=== PATIENT | male | born 1935 | race African-American/Black ===

== ENCOUNTER 2016-08-03 15:27 | Inpatient (IN) | payer OTHER ==
[~2016-08-03] VITALS: Ht 165.1 cm; Wt 68.0 kg
[~2016-08-03 15:27] MED LIST: COL-RITE100 MG PO; FERROUS SULFAT325 M1 PO; HUMALOG100 U/ML; LANTUS100 U/ML SC; LEVEMIR100 U/ML SC; MIRALAX17 GM PO; NORVASC 5MG TAB5 MG PO; NOVOLOG100 U/ML SC; OMEPRAZOLE D/R20 MG PO; PROS5 PO; SENNA CON/DOCUS1 TAB PO
--- NOTE | 2016-08-03 15:38 | NUR ---
DAUGHTER BRINGS HER FATHER FOR EVALUATION FOR ELEVATED GLUCOSE LEVELS WELL BLISTERS ALL OVER HIS PERINEUM.
--- NOTE | 2016-08-03 15:52 | NUR ---
PT TO ROOM9 BY WHEELCHAIR, CHANGED INTO HOSPITAL GOWN, AWAITING PROVIDER EVAL.
--- NOTE | 2016-08-03 16:09 | ED GENERAL ADULT ---
History of Present Illness General Chief Complaint: General Adult Stated Complaint: PT BLOOD SUGAR IS HIGH AND PROBLEM WITH PENIS Source: patient, family, old records Exam Limitations: dementia, poor historian Vital Signs & Intake/Output Vital Signs & Intake/Output Vital Signs Date Time Temp Pulse Resp B/P Pulse O2 O2 Flow FiO2 Ox Delivery Rate 08/04 0638 97.9 89 20 140/70 97 Room Air 08/03 2209 97.5 79 20 152/76 92 08/03 1927 97.0 73 18 126/73 100 Room Air 08/03 1536 97.6 80 18 114/62 95 Room Air ED Intake and Output 08/04 0000 08/03 1200 Intake Total Output Total Balance Patient 67 lb 15.99 oz Weight Allergies Coded Allergies: NO KNOWN ALLERGIES (09/16/14) Reconcile Medications Atorvastatin Calcium (Lipitor) 40 MG TABLET 1 TAB PO DAILY CHOLESTEROL ( Reported) Cholecalciferol (Vitamin D3) (Vitamin D) 2,000 UNIT CAPSULE 1 CAP PO DAILY SUPPLEMENT (Reported) Clopidogrel Bisulfate (Plavix) 75 MG TABLET 1 TAB PO DAILY BLOOD THINNER ( Reported) Docusate Sodium (Colace) 100 MG CAPSULE 2 CAP PO DAILY STOOL SOFTENER ( Reported) Ferrous Sulfate 325 MG (65 MG IRON) TABLET 1 TAB PO BID SUPPLEMENT (Reported) Finasteride 5 MG TABLET 1 TAB PO DAILY PROSTATE (Reported) Insulin Detemir (Levemir Flextouch) 100 UNIT/ML (3 ML) INSULN.PEN 40 UNITS SC QHS DM (Reported) Insulin Lispro (Humalog Kwikpen U-100) 100 UNIT/ML INSULN.PEN DM (Reported) Latanoprost 0.005 % DROPS 1 GTT OPH QPM BOTH EYES (Reported) Lidocaine HCl 3 % CREAM..G. 1 PABLO TOP BID RIGHT LOWER EXTREMITY (Reported) Memantine HCl (Namenda) 10 MG TABLET 2 TAB PO QHS MEMORY (Reported) Metformin HCl 500 MG TABLET 1 TAB PO BID DM (Reported) Polyethylene Glycol 3350 (Miralax) 17 GRAM POWD.PACK 1 PAC PO DAILY GI ( Reported) dissolve in water Sodium Chloride (Sochlor) 5 % OINT...G. 1 DROP OPH QHS BOTH EYES (Reported) Tamsulosin HCl (Flomax) 0.4 MG CAP.ER.24H 1 CAP PO DAILY PROSTATE (Reported) Triage Note: DAUGHTER BRINGS HER FATHER FOR EVALUATION FOR ELEVATED GLUCOSE LEVELS WELL BLISTERS ALL OVER HIS PERINEUM. Triage Nurses Notes Reviewed? yes HPI: Patient is an 81-year-old male brought in by his daughter for evaluation of elevated blood sugars, penile pain and discharge. Daughter reports that symptoms have been going on for approximately 2 weeks. White discharge from the distal end of the penis, difficulty with retracting the foreskin. Patient having penile pain. Patient resides in a long-term in the [place], patient's daughter reports that they have not addressed these issues which prompted her to bring him to the hospital for further evaluation. The patient is a poor historian, was not able to endorse any of these symptoms or history. Daughter reports patient had a fever yesterday evening, is unsure of his temperature. Patient denies chest pain, abdominal pain, nausea, vomiting. (SANJANA SEVILLA) Past History Travel History Traveled to [place] past 21 day No Medical History Any Pertinent Medical History? 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 No (SANJANA SEVILLA) Review of Systems Review of Systems Constitutional: Reports: fever. Denies: chills. EENTM: Reports: no symptoms. Respiratory: Denies: cough, short of breath. Cardiovascular: Denies: chest pain. GI: Denies: abdominal pain, diarrhea, nausea, vomiting. Genitourinary: Reports: see HPI, discharge. Musculoskeletal: Reports: no symptoms. Skin: Reports: erythema (distal shaft of penis). Neurological/Psychological: Reports: dementia. Hematologic/Endocrine: Denies: bruising, bleeding. Immunologic/Allergic: Denies: splenectomy. (SANJANA SEVILLA) Physical Exam Physical Exam General Appearance: awake Head: atraumatic, normal appearance Eyes: Bilateral: EOMI. Ears, Nose, Throat: hearing grossly normal Neck: normal inspection, supple, full range of motion Respiratory: normal breath sounds, chest non-tender, no respiratory distress, lungs clear Cardiovascular: regular rate/rhythm, murmur Gastrointestinal: normal bowel sounds, soft, non-tender Back: normal inspection, normal range of motion Extremities: normal inspection, normal capillary refill Neurologic/Psych: awake, alert, disoriented to place and time Skin: swelling of distal foreskin of penis with white discharge from the glans of the penis. Unable to retract foreskin Lymphatic: no anterior cervical bora Core Measures ACS in differential dx? Yes ASA ordered for poss ACS? No-ACS ruled out CVA/TIA Diagnosis: No Severe Sepsis Present: No Septic Shock Present: No (PEDRO LEROY,SANJANA) Progress Differential Diagnoses I considered the following diagnoses in my evaluation of the patient: Urinary tract infection, fungal infection, DKA, hyperosmolar nonketotic state, sepsis, acute coronary syndrome Plan of Care: Orders Procedure Date/time Status Consistent Carbohydrate 3 08/04 B Active CBC WITHOUT DIFFERENTIAL 08/04 06 Active BASIC ELECTROLYTES PLUS BUN&CR 08/04 0600 Active Skin/Pressure Ulcer Assess (Sk 08/03 2324 Active Turn and Reposition 08/03 2323 Active Skin Integrity Protocol 08/03 2323 Active Vital Signs 08/03 221 Active Teach/Educate 08/03 221 Active Pain Treatment and Response 08/03 2209 Active Nutritional Intake, Monitor 08/03 2209 Active Isolation 08/03 221 Active Intake & Output 08/03 2209 Active Patient Care Conference 08/03 221 Active Activity/Ambulation 08/03 221 Active Saline Lock 08/03 2057 Active Pathway - chart 08/03 2057 Active House Staff 08/03 2057 Active Code Status 08/03 205 Active BLOOD CULTURE 08/03 1922 Active Patient Data 08/03 1915 Active LACTIC ACID 08/03 1910 Complete Admit to inpatient 08/03 1904 Active Vital Signs 08/03 1904 Active Code Status 08/03 1904 Complete Add-on Test (ER Only) 08/03 1822 Active CULTURE,URINE 08/03 1807 Active URINALYSIS 08/03 1627 Complete MIXED VENOUS BLOOD GAS (GEN) 08/03 1610 Active TROPONIN LEVEL 08/03 1610 Complete PHOSPHORUS 08/03 1610 Complete SERUM OSMOLALITY 08/03 1610 Complete MAGNESIUM 08/03 1610 Complete LACTIC ACID 08/03 1610 Complete COMPREHENSIVE METABOLIC PANEL 08/03 1610 Complete CBC WITHOUT DIFFERENTIAL 08/03 1610 Complete ACETONE 08/03 1610 Complete EKG 08/03 1610 Active FingerStick- Glucose 08/03 1558 Active Intake & Output 08/03 1555 Active Current Medications Sig/Zoe Start time Last Medication Dose Stop Time Status Admin Memantine 20 MG 22008/04 2200 AC (Namenda) Atorvastatin Calcium 40 MG 1700 08/04 1700 AC (Lipitor) Clopidogrel Bisulfate 75 MG DAILY 08/04 1000 AC (Plavix) Enoxaparin Sodium 40 MG DAILY 08/04 1000 AC (Lovenox) Ferrous Sulfate 325 MG DAILY 08/04 1000 AC (Feosol) Finasteride 5 MG DAILY 08/04 1000 AC (Proscar) Tamsulosin HCl 0.4 MG DAILY 08/04 1000 AC (Flomax) Insulin Aspart 0 TIDAC 08/04 0800 AC (NovoLOG) Docusate Sodium 100 MG BID 08/03 2200 AC (Colace) Polyethylene Glycol 17 GM AT BEDTIME 08/03 2200 AC (Miralax) Senna/Docusate Sodium 1 TAB AT BEDTIME 08/03 2200 AC (Senokot S) Acetaminophen/ 1 TAB Q6P PRN 08/03 2100 AC Hydrocodone Bitart (Vicodin) Diphenhydramine HCl 25 MG Q6P PRN 08/03 2100 AC (Benadryl) Ibuprofen 600 MG Q6P PRN 08/03 2100 AC (Motrin) Morphine Sulfate 2 MG Q4P PRN 08/03 2100 AC (Morphine) Ondansetron HCl 4 MG Q6P PRN 08/03 2100 AC (Zofran) Laboratory Tests 08/03/162126: Lactic Acid 2.7 H 08/03/161806: Urine Color STRAW, Urine Clarity HAZY H, Urine pH 6.0, Ur Specific [place] 1.010, Urine Protein NEG, Urine Ketones NEG, Urine Nitrite POS H, Urine Bilirubin NEG, Urine Urobilinogen 0.2, Ur Leukocyte Esterase SMALL H, Ur Microscopic SEDIMENT EXAMINED, Urine RBC 1-3, Urine WBC 15-25 H, Ur Epithelial Cells FEW, Urine Bacteria PACKD H, Micro UA Comment [place] H, Urine Hemoglobin TRACE-LYSED H, Urine Glucose >=1000 H 08/03/16 1640: Bicarbonate Actual 27 H, Mixed VBG pH 7.32, Mixed VBG pCO2 53 H, Mixed VBG O2 Saturation 21 L, Carboxyhemoglobin 0.3 L 08/03/16 1629: Anion Gap 13, Estimated GFR 58 L, BUN/Creatinine Ratio 20.8, Glucose 517 *H, Serum Osmolality 316 H, Lactic Acid 3.7 H, Calcium 9.8, Phosphorus 3.4, Magnesium 1.6, Total Bilirubin 0.9, AST 22, ALT 29, Alkaline Phosphatase 97, Troponin I < 0.01, Total Protein 6.9, Albumin 3.9, Globulin 3.0, Albumin/ Globulin Ratio 1.3, CBC w Diff NO MAN DIFF REQ, RBC 4.48 L, MCV 72.3 L, MCH 21.6 L, RDW 18.3 H, MPV 9.8, Gran % 71.0, Lymphocytes % 19.0 L, Monocytes % 7.8, Eosinophils % 1.5, Basophils % 0.7, Absolute Granulocytes 7.4 H, Absolute Lymphocytes 2.0, Absolute Monocytes 0.8 H, Absolute Eosinophils 0.2, Absolute Basophils 0.1, PUBS MCHC 29.9 L, Acetone Level NEGATIVE Microbiology 08/04 2139 BLOOD: Blood Culture - RECD 08/03 2126 BLOOD: Blood Culture - RECD 08/03 1806 URINE ROUT: Urine Culture - RECD Discussed with and seen by Dr. Maldonado. 1740: Results discussed with patient's daughter. Insulin ordered. Patient nontoxic appearing. Patient reevaluated, results of urinalysis discussed. Ceftriaxone ordered. Given patient's elevated blood sugar, elevated lactic acid and his comorbidities will admit. Discussed with Dr. Sparks: will admit patient. (SANJANA SEVILLA) Initial ED EKG: normal sinus rhythm 78 bpm, RBBB, LAFB, PAC's, no acute st/t wave abnormalities, no prior ekg for comparison (SANJANA SEVILLA) Departure Departure Time of Disposition: 1857 Disposition: STILL A PATIENT Condition: Stable Clinical Impression Primary Impression: Hyperglycemia Secondary Impressions: Balanitis Urinary tract infection Qualifiers: Urinary tract infection type: acute cystitis Hematuria presence: without hematuria Qualified Code: N30.00 - Acute cystitis without hematuria Referrals: PATIENT HAS NO PRIMARY CARE DR (PCP/Family) Departure Forms: Customer Survey General Discharge Information Admission Note Spoke With: ELVIS SPARKS MD Documentation of Exam: Documentation of any treatments & extenuating circumstances including Concerns Regarding Discharge (functional status, medication knowledge or non-compliance, living conditions, etc.) that warrant an admission rather than observation: IV antibiotics, endocrine consultation, urology consultation. Elevated lactic acid , need to monitor for developing sepsis. (SANJANA SEVILLA) PA/INFORMATION SECURITY CONSULTANT Co-Sign Statement Statement: ED Attending supervision documentation- [x] I saw and evaluated the patient. I have also reviewed all the pertinent lab results and diagnostic results. I agree with the findings and the plan of care as documented in the PA's/INFORMATION SECURITY CONSULTANT's documentation. [] I have reviewed the ED Record and agree with the PA's/INFORMATION SECURITY CONSULTANT's documentation. [] Additions or exceptions (if any) to the PAs/INFORMATION SECURITY CONSULTANT's note and plan are summarized below: [] (ABHISHEK SALINAS,TAMAR Palacio) Critical Care Note Critical Care Note Critical Care Time: non-applicable (SANJANA SEVILLA)
--- NOTE | 2016-08-03 16:31 | NUR ---
PT EVALUATED BY RAD VASQUEZ AND MD ABHISHEK. BLOOD DRAWN AND SENT TO [facility]. 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 EKG IN PROGRESS.
--- NOTE | 2016-08-03 16:33 | NUR ---
IV EST, NS INFUSING PER EMAR.
[2016-08-03 16:35] LABS: ABSOLUTE BASOPHIL COUNT 0.1 /CUMM (0.0-0.2); ABSOLUTE EOSINOPHIL COUNT 0.2 /CUMM (0.0-0.7); ABSOLUTE GRANULOCYTE CT 7.4 /CUMM (1.4-6.5); ABSOLUTE MONOCYTE COUNT 0.8 /CUMM (0.10-0.60); BASOPHIL % 0.7 % (0.0-2.0); EOSINOPHIL % 1.5 % (0-5); HEMATOCRIT 32.4 % (42-52); MEAN CORPUSCULAR HGB 21.6 PG (27.0-31.0); MEAN CORPUSCULAR HGB CONC 29.9 G/DL (33.0-37.0); MEAN CORPUSCULAR VOLUME 72.3 FL (80.0-94.0); MEAN PLATELET VOLUME 9.8 FL (7.4-10.4); PLATELET COUNT 209 /CUMM (130-400); RBC DISTRIBUTION WIDTH 18.3 % (11.5-14.5); RED BLOOD CELL CT 4.48 /CUMM (4.70-6.10); WHITE BLOOD CELL COUNT 10.4 /CUMM (4.8-10.8)
[2016-08-03] MEDS ORDERED: FINASTERIDE5 M1 PO (16:47)
[2016-08-03] MEDS ORDERED: METFORMIN HCL500 M3 PO (16:47)
[2016-08-03] MEDS ORDERED: FLOMAX0.4 M1 PO (16:47)
[2016-08-03] MEDS ORDERED: PLAVIX75 M1 PO (16:48)
[2016-08-03] MEDS ORDERED: FERROUS SULFAT325 M3 PO (16:48)
[2016-08-03] MEDS ORDERED: LIPITOR40 M1 PO (16:48)
[2016-08-03] MEDS ORDERED: VITAMIN D2000 UNIT PO (16:50)
[2016-08-03] MEDS ORDERED: NAMENDA10 M2 PO (16:50)
[2016-08-03] MEDS ORDERED: [UNRECOGNIZED DRUG - OTHER] OPH (16:52)
[2016-08-03] MEDS ORDERED: COLACE100 M1 PO (16:53)
[2016-08-03] MEDS ORDERED: MIRALAX17 G1 PO (16:54)
[2016-08-03] MEDS ORDERED: LATANOPROST2.5 ML OPH (16:54)
[2016-08-03] MEDS ORDERED: LIDOCAINE HC28.35 GM TOP (16:55)
[2016-08-03] MEDS ORDERED: LEVEMIR FL100 UNIT/1 SC (16:56)
[2016-08-03] MEDS ORDERED: HUMALOG KW100 UNIT/1 SC (16:57)
--- NOTE | 2016-08-03 16:58 | NUR ---
PT MEDICATED WITH DIFLUCAN PER EMAR.
--- NOTE | 2016-08-03 17:28 | NUR ---
CRITICAL TEST RESULTS [id number] EDILBERTO MARTIN 81 M TESTS AND RESULTS: GLUCOSE 517 Results received and read back by: ASHISH TIDWELL Results received date and time: 08/03/16 1728 The following provider was notified of the results, and read the results back: RAD VASQUEZ Notified date and time: 08/03/16 at 1725
--- NOTE | 2016-08-03 17:40 | NUR ---
PT MEDICATED WITH NOVOLIN R 10 UNITS PER EMAR FOR FBG 470.
--- NOTE | 2016-08-03 18:08 | NUR ---
2ND NS INFUSING PER EMAR. URINE TRIO SENT TO LAB.
--- NOTE | 2016-08-03 20:09 | NUR ---
HOUSE STAFF AT BEDSIDE
--- NOTE | 2016-08-03 20:12 | History & Physical ---
LENORA SALINASHYACINTHEdwin 08/03/16 2009: General Information and HPI MD Statement: I have seen and personally examined DRAGAN MARTIN and documented this H&P. The patient is a 81 year old M who presented with a patient stated chief complaint of [infection of penis]. Source of Information: patient, family, old records Exam Limitations: unable to give history, not alert/orientated History of Present Illness: This is an 81-year-old gentleman who is legally blind with past medical history of dementia, hypertension, hyperlipidemia, enlarged prostate with prostate nodule, frequent UTIs, who presents with CC of altered mental status. During interview pt was asleep and has baseline dementia so history is obtained from daughter [place] at bedside. Per daughter, her father normally resides in a care home in the [place] in [facility]. She went to see him this past week around , brought him back home, and noted that he was a little more altered than usual-he was talking to people not in the room. While she was taking care of routine hygiene and maintenance she noted that his penis was erythematous, and swollen. Additionally, pt complained of pain in the inguinal region. Daughter states that every time her father is altered, he is diagnosed with UTI; that in combination with erythematous penis made her bring her father to hospital.Of note, daughter states that she first noted erythematous penis in May and it seems worse now. She states that she told the care home of the problem but is not aware of any treatment administered. Patient was last in [facility] in 2014. At that time he was noted to grow ESBL (Klebsiella oxytoca) sensitive to amikacin, and meropenem. He came with similar presentation of altered mental status. At that time, he was initially treated with a dose of antibiotics and it was concluded that his urine likely represented colonization instead of infection; as such, antibiotics were stopped. He was afebrile with no white count prior to antibiotic administration. Allergies/Medications Allergies: Coded Allergies: NO KNOWN ALLERGIES (09/16/14) Home Med list Atorvastatin Calcium (Lipitor) 40 MG TABLET 1 TAB PO DAILY CHOLESTEROL ( Reported) Cholecalciferol (Vitamin D3) (Vitamin D) 2,000 UNIT CAPSULE 1 CAP PO DAILY SUPPLEMENT (Reported) Clopidogrel Bisulfate (Plavix) 75 MG TABLET 1 TAB PO DAILY BLOOD THINNER ( Reported) Docusate Sodium (Colace) 100 MG CAPSULE 2 CAP PO DAILY STOOL SOFTENER ( Reported) Ferrous Sulfate 325 MG (65 MG IRON) TABLET 1 TAB PO BID SUPPLEMENT (Reported) Finasteride 5 MG TABLET 1 TAB PO DAILY PROSTATE (Reported) Insulin Detemir (Levemir Flextouch) 100 UNIT/ML (3 ML) INSULN.PEN 40 UNITS SC QHS DM (Reported) Insulin Lispro (Humalog Kwikpen U-100) 100 UNIT/ML INSULN.PEN DM (Reported) Latanoprost 0.005 % DROPS 1 GTT OPH QPM BOTH EYES (Reported) Lidocaine HCl 3 % CREAM..G. 1 PABLO TOP BID RIGHT LOWER EXTREMITY (Reported) Memantine HCl (Namenda) 10 MG TABLET 2 TAB PO QHS MEMORY (Reported) Metformin HCl 500 MG TABLET 1 TAB PO BID DM (Reported) Polyethylene Glycol 3350 (Miralax) 17 GRAM POWD.PACK 1 PAC PO DAILY GI ( Reported) dissolve in water Sodium Chloride (Sochlor) 5 % OINT...G. 1 DROP OPH QHS BOTH EYES (Reported) Tamsulosin HCl (Flomax) 0.4 MG CAP.ER.24H 1 CAP PO DAILY PROSTATE (Reported) Compliance With Home Meds: UNKNOWN Past History Travel History Traveled to [place] past 21 day No Medical History Neurological: dementia EENT: blindness, glaucoma Cardiovascular: hypertension, hyperlipidemia Respiratory: pneumonia Gastrointestinal: umbilical hernia, ENLARGED PROSTATE Hepatic: NONE Renal: FREQUENT UTI'S Musculoskeletal: NONE Psychiatric: NONE Endocrine: diabetes Blood Disorders: anemia Cancer(s): NONE TOP KNITTER/Reproductive: NONE History of MRSA: No History of VRE: No History of CDIFF: No Pneumonia Vaccine: 03/04/14 Surgical History Surgical History: unobtainable Past Family/Social History Family History Relations & Conditions if any BROTHER FH: diabetes mellitus FH: glaucoma FH: heart disease SISTER FH: diabetes mellitus FH: glaucoma Psychosocial History Services at Home: None Smoking Status: Former Smoker ETOH Use: denies use Illicit Drug Use: denies illicit drug use Functional Ability ADLs Needs Assist: dressing, eating, toileting, bathing. IADLs Needs Assist: shopping, housework, finances, food prep, telephone, transportation, medication admin. Review of Systems Review of Systems Constitutional: Reports: malaise. Denies: chills. EENTM: Reports: no symptoms. Cardiovascular: Denies: chest pain, palpitations. Respiratory: Denies: cough, short of breath. GI: Denies: abdominal pain, constipation, diarrhea, nausea, vomiting. Genitourinary: Reports: pain. Musculoskeletal: Reports: no symptoms. Skin: Reports: no symptoms. Exam & Diagnostic Data Last 24 Hrs of Vital Signs/I&O Vital Signs Date Time Temp Pulse Resp B/P Pulse O2 O2 Flow FiO2 Ox Delivery Rate 08/03 2208 97.5 79 20 152/76 92 08/03 1927 97.0 73 18 126/73 100 Room Air 08/03 1536 97.6 80 18 114/62 95 Room Air Intake & Output 08/03 1600 08/03 0800 08/03 0000 Intake Total Output Total Balance Patient 68.039 kg Weight Physical Exam General Appearance Cooperative, No Acute Distress, oriented to name; not place or time Skin No Significant Lesion HEENT Atraumatic, has cataract bilat. , dry mucous membranes, no dentition Neck Supple Cardiovascular Regular Rate, Normal S1, Normal S2, No Murmurs Lungs Normal Air Movement Abdomen Soft, No Tenderness Neurological Cranial Nerves 3-12 NL Extremities No Clubbing, No Edema Reproductive (MALE) penis erythematous at distal end. Phimosis +; difficult to retract foreskin. No lesions noted. No discharge noted. Rectal has healed sores on glutes and coccyx Last 24 Hrs of Labs/Michael: Laboratory Tests 08/03/162126: Lactic Acid 2.7 H 08/03/161806: Urine Color STRAW, Urine Clarity HAZY H, Urine pH 6.0, Ur Specific [place] 1.010, Urine Protein NEG, Urine Ketones NEG, Urine Nitrite POS H, Urine Bilirubin NEG, Urine Urobilinogen 0.2, Ur Leukocyte Esterase SMALL H, Ur Microscopic SEDIMENT EXAMINED, Urine RBC 1-3, Urine WBC 15-25 H, Ur Epithelial Cells FEW, Urine Bacteria PACKD H, Micro UA Comment BUDDING YEAST H, Urine Hemoglobin TRACE-LYSED H, Urine Glucose >=1000 H 08/03/16 1640: Bicarbonate Actual 27 H, Mixed VBG pH 7.32, Mixed VBG pCO2 53 H, Mixed VBG O2 Saturation 21 L, Carboxyhemoglobin 0.3 L 08/03/16 1629: Anion Gap 13, Estimated GFR 58 L, BUN/Creatinine Ratio 20.8, Glucose 517 *H, Serum Osmolality 316 H, Lactic Acid 3.7 H, Calcium 9.8, Phosphorus 3.4, Magnesium 1.6, Total Bilirubin 0.9, AST 22, ALT 29, Alkaline Phosphatase 97, Troponin I < 0.01, Total Protein 6.9, Albumin 3.9, Globulin 3.0, Albumin/ Globulin Ratio 1.3, CBC w Diff NO MAN DIFF REQ, RBC 4.48 L, MCV 72.3 L, MCH 21.6 L, RDW 18.3 H, MPV 9.8, Gran % 71.0, Lymphocytes % 19.0 L, Monocytes % 7.8, Eosinophils % 1.5, Basophils % 0.7, Absolute Granulocytes 7.4 H, Absolute Lymphocytes 2.0, Absolute Monocytes 0.8 H, Absolute Eosinophils 0.2, Absolute Basophils 0.1, PUBS MCHC 29.9 L, Acetone Level NEGATIVE Microbiology 08/04 2139 BLOOD: Blood Culture - RECD 08/03 2126 BLOOD: Blood Culture - RECD 08/03 1806 URINE ROUT: Urine Culture - RECD Diagnostic Data EKG Results Rate 78, QTC 470. Normal sinus rhythm with multiple PACs. Assessment/Plan Assessment: This is a 81-year-old gentleman with past medical history significant for recurrent UTI, dementia, glaucoma, large prostate, hypertension and hyperlipidemia who comes in for chief complaint of altered mental status. He is noted to have balanitis, dirty UA, and hypoglycemia on admission. ED workup shows: Vitals: 97.0, 73, 18, 126/73, 100. UA shows: Positive nitrate, positive leukocyte esterase, 15-25 white blood cell, and packed bacteria. VB.32/53/21. CBC shows white count 10.4, hemoglobin 9.7, hematocrit 32.4. BEP shows BUN 25 and creatinine 1.2., Glucose 517, serum osmolarity 316, negative acetone. Lactic acid 3.7. Calcium, phosphorus and magnesium within normal limits. Negative troponin. Pt is a difficult stick, planned for EJ in ED. Per family, patient is DNR/DNI, no central lines. It is unclear why pt is on Plavix; no known hx of stents. Daughter would like social work consult as she does not want father to return to care home but has difficuly 2/2 insurance. Plan 1. Altered mental status: Patient does have baseline dementia, so its difficult to ascertain how altered he is compared to his baseline. He is resting comfortably. He has serum osm 316 with glucose 517, but negative acetone; on physical exam he appears dry with lactic acid 3.7. He does have UA with nitrate, leukocyte esterase, 15-25 urine WBC, but he does not have fever or white count; not currently treating UTI at this time. * Continue hydration * Hold off antibiotics; if fever or white count we'll treat with meropenem given history of ESBL * Neuro check 2. Balanitis: Patient has erythematous, swollen penis with foreskin that is difficult to retract. Her daughter he has had infection in that area since May. Unknown currently a antibiotics were administered. In ED patient was given 1 dose of Diflucan and ceftriaxone. * Start topical miconazole, consider more aggressive antibiotic therapy if swelling and erythema does not improve. 3. Mild acidosis: His VBG shows pH 7.32, PCO2 53, suggesting hypercarbia; but given its a VBG we cannot accurately assess degree of hypercarbia. He is satting well on room air. Likely, acidosis secondary to lactic acid (3.7). Note pt also has hyperkalemia * Hydration * If patient becomes further altered or lethargic consider ABG. * Re-check BEP for hyperkalemia 4. Diabetes: Patient comes in with hyperglycemia of 517, subsequent blood sugar at 345 after 10 units of insulin. Patient is on oral and subcutaneous regimen at home. * Hold metformin * Fingersticks * NovoLog sliding scale DNR/DNI Regular diet Chemical DVT prophylaxis As Ranked By This Provider Problem List: 1. Balanitis 2. Hyperglycemia Core Measures/Miscellaneous Acute Coronary Syndrome ACS Diagnosis: No Cerebrovascular Accident CVA/TIA Diagnosis: No Congestive Heart Failure CHF Diagnosis: No Venous Thromboembolism VTE Risk Factors: Age > 40 No [facility] VTE prophylaxis d/t: No contraindications No VTE Pharm Prophylaxis d/t: No contraindications VTE Diagnosis: No VTE Type: NONE VTE Confirmed by (Test): NONE Severe Sepsis Severe Sepsis Present: No Septic Shock Septic Shock Present: No Miscellaneous Documentation Attending Case Discussed With: BRIDGER SALINAS,DIMITRISEdwin Primary Care Physician: PATIENT HAS NO PRIMARY CARE DR Patient sees these Specialists unknown Level of Patient Care: General Medicine TAMIE SALINAS,MUSA 08/03/162136: Resident Review Statement Resident Statement: examined this patient, discussed with software development intern, agreed with software development intern, discussed with family, reviewed EMR data (avail), discussed with nursing , discussed with case mgmt, reviewed images, amended to note Other Findings: Dragan is an 81-year-old man with medical history of hypertension dyslipidemia benign prostatic hyperplasia, recurrent UTIs (previously has grown ESBL positive Klebsiella) glaucoma/legally blind, type 2 diabetes, iron deficiency anemia, history of pneumonia in the past, chronic constipation, hospitalization in September [address] [facility] with biliary may Hyperkalemia, dementia. Brought in by his daughter due to lethargy, with complaints of penile pain white discharge pre -meal blisters in various stages of healing. At baseline the patient is a poor historian, but is awake, alert and oriented to self. Lives in a facility in the [place]. Limited collateral history obtained from his daughter who is his medical proxy and power of employee benefits attorney. She does not endorse that the patient appears any fevers chills chest pain chest discomfort shortness of breath or any other symptoms in the above after review in detail . Vital signs are stable. Physical examination notable for bilateral cataracts, severe balanitis with phimosis (but able to pass urine), erythematous skin changes around the glans penis and scrotum as well as the premium. Remainder physical examination is unremarkable and noted above. Labs notable for hemoglobin 9.7; potassium of 5.2, blood sugar 517, lactic acid 3.7 first set of troponin negative. Acetone negative. Urinalysis notable for positive esterase 25 WBCs and packed bacteria. EKG notable for multiple PACs and right bundle branch block; no previous EKGs available for comparison. This patient is suffering from severe balanitis complicated by phimosis. Urinalysis suggested concurrent urinary tract infection, however he does not have any urinary symptoms. He hasn't mounted a fever, no white count. Lactic acid is likely due to severe dehydration, the patient appears clinically "dry". Reviewing his medications the patient is on Plavix, with no documented cardiovascular disease or history of myocardial infarction. His daughter is adamant that her father has not experienced heart attack in the past, nor undergone cardiac catheterization. There is no scarring on the chest wall suggestive of CABG in the past. - Problems - Balanitis Phimosis ? UTI Hx of ESBL+ K. oxytoca Hyperglycemia w/o ketosis Type 2 diabetes Lactic acidosis Dehydration Dementia - Plan - Hydration with normal saline at [address] EJ line for blood draw (hardstick) Topical miconazole applied to the glans penis every 12 hours Hold antibiotics for now, however should the patient spiked a fever develops systemic signs of infection/sepsis begin treatment with meropenem. Urology consultation Discontinue metformin Continue Levemir 40 units at bedtime NovoLog sliding scale Accu-Cheks 3 times a day before meals Continue Flomax and finasteride, Namenda Continue Plavix, obtain records from facility in the [place] and establish whether there is hx of CAD or not DVT prophylaxis Lovenox DNR/DNI, no invasive central line catheters/pressors BRIDGER SALINAS, [facility] 08/03/168: Attending MD Review Statement Attending Statement Attending MD Statement: examined this patient, discuss w/resident/PA/CERTIFIED REGISTERED DENTAL ASSISTANT, agreed w/resident/PA/CERTIFIED REGISTERED DENTAL ASSISTANT, discussed with family Attending Assessment/Plan: 81 yo M with h/o dementia, legally blind, HTN, HLD, T2DM, CKD stage 3A, BPH s/p TURP (Apr 2014), chronic DOUG, is brought in by daughter for high blood sugars, lethargy and penile pain/ discharge. History as provided by daughter. Patient lives at [facility] at [place], [place] since August 2015. Daughter visits him over holidays and this time brought him home for the weekend. Around early May 2016, daughter had noticed similar penile discharge and swelling which she reported to the RN at the facility, however nothing was done for the patient. Patient was last admitted to [facility] (September 2014) for dehydration, CATINA and hyperkalemia. He was suspected to have a UTI (Urine cx grew Klebsiella Oxytoca ESBL) but was believed to be a colonization. Daughter reports a fever of 100.2 at home, no cough, chest pain, dyspnea, nausea , vomiting or diarrhea. Patient does have urinary urgency, polyuria and polyphagia. VSS. Exam: awake, alert, oriented to person only, noted penile swelling with erythema around scrotum/ glans penis and blisters noted to perineal area balanoposthitis wit phimosis. Labs: H/H 9.7/ 32.4 (baseline), microcytic anemia, K 5.2, BUN 25, creat 1.2, glucose 517, S. Osm 316, lactic acid 3.7, trop neg. ABG: pH 7.32. Acetone neg. UA nitrite positive, small LE, WBC 15-25, packed bacteria and budding yeast. EKG: SR, no acute changes. 1. Dehydration, lactic acidosis, balanoposthitis with possible UTI although no dysuria, hematuria or frequency. GM admit, panculture, IV fluids, trend renal functions and lactic acid. Send urethral discharge for culture. Patient received fluconazole 150 mg once and IV ceftriaxone in ER. Will continue topical miconazole for candidial balanoposthitis. Holding off on IV antibiotics since asymptomatic bacteriuria with no fever or leukocytosis. Consider initiating IV meropenem (given previous ESBL klebsiella) if he is febrile or is symptomatic. Obtain Urology consult in AM. Continue flomax and proscar. 2. Uncontrolled diabetes. Accucheks, check A1c, continue levemir and Novolog SS. Hold metformin. 3. Chronic DOUG. Ct. Iron supplements. 4. Dementia. Ct. Memantine. PT eval and case management consult. Daughter states , patient's insurance [facility], but does not cover charges for state [facility]. She wishes to keep him home, but would like to see if he could be placed in [place] (as [place]). 5. Hyperkalemia in the setting of CKD. Hydrate and recheck labs in AM. DVT ppx Hep SC. DNR/I. Unclear as to why the patient is on Plavix ?no h/o CAD or PAD.
--- NOTE | 2016-08-03 20:48 | NUR ---
REPORT GIVEN TO GISELA COOK
--- NOTE | 2016-08-03 21:14 | Admission Certification ---
Admission Certification Certification Statement - As attending physician, I certify that at the time of - admission, based on clinical presentation, severity of - symptoms, need for further diagnostic testing and - therapeutic interventions, and risk of adverse outcomes - without in-hospital treatment, in my clinical assessment, - this patient requires an acute hospital stay for a minimum - of two nights or longer. I have also considered psychsocial - factors such as support system, advanced age, financial - issues, cognitive issues, and failed out-patient treatments, - past re-admission history, safety of patient, and lack of - compliance as applicable. Specific rationale supporting this admission is: Balanoposthitis, possible UTI, dehydration, physical deconditioning and uncontrolled diabetes.
--- NOTE | 2016-08-03 21:34 | NUR ---
PT MEDICATED WITH ROCEPHIN PER EMAR
--- NOTE | 2016-08-03 21:34 | NUR ---
REPEAT LACTIC AND BLOOD CULTURES DONE AND SENT TO LAB
--- NOTE | 2016-08-03 21:45 | NUR ---
NURSING NOTE: PT ARRIVED TO FLOOR FROM ED BY BED. VSS: BP 152/76, HR 79, TEMP 97.5, RR 20 AND O2 92% ON ROOM AIR. PT OFFERING NO COMPLAINTS OF PAIN. PT IS ALERT/CONFUSED, HX DEMENTIA, PT IS LEGALLY BLIND IN BOTH EYES. IV FLUIDS RUNNING @ 100 ML/HR, SKIN INTACT BUT SWELLING NOTED TO SCROTUM AND PERINEAL AREA W/ BLISTERS NOTED TO PERINEAL AREA. WCE IN PLACE. DAUGHTER AT BEDSIDE. PT SHOWN HOW TO USE CALL [facility]. [employer] INSTALLER NOTIFIED TO BRING BOX LUNCH FOR PT AND FAMILY. AWAIT FURTHER ORDERS FROM MD. WILL CONTINUE TO MONITOR.
[2016-08-03 22:09] VITALS: BP 152/76
[2016-08-04 06:38] VITALS: BP 140/70
--- NOTE | 2016-08-04 08:14 | Cons- Urology ---
General Information and HPI Consulting Request Date of Consult: 08/04/16 Requested By: Medical service, BRIDGER SALINAS,ELVIS Reason for Consult: phimosis and balanitis Source of Information: family, old records Exam Limitations: no limitations History of Present Illness: This patient has a hx of DM which is not well controlled. He was brought to the ER by his daughter due to penile swelling. In the ER his glucose was 515. His U/A is c/w UTI but may be contaminated due to the phimosis. Of note, he had a TURP at a hospital in [place] in 2013. Allergies/Medications Allergies: Coded Allergies: NO KNOWN ALLERGIES (09/16/14) Home Med List: Atorvastatin Calcium (Lipitor) 40 MG TABLET 1 TAB PO DAILY CHOLESTEROL ( Reported) Cholecalciferol (Vitamin D3) (Vitamin D) 2,000 UNIT CAPSULE 1 CAP PO DAILY SUPPLEMENT (Reported) Clopidogrel Bisulfate (Plavix) 75 MG TABLET 1 TAB PO DAILY BLOOD THINNER ( Reported) Docusate Sodium (Colace) 100 MG CAPSULE 2 CAP PO DAILY STOOL SOFTENER ( Reported) Ferrous Sulfate 325 MG (65 MG IRON) TABLET 1 TAB PO BID SUPPLEMENT (Reported) Finasteride 5 MG TABLET 1 TAB PO DAILY PROSTATE (Reported) Insulin Detemir (Levemir Flextouch) 100 UNIT/ML (3 ML) INSULN.PEN 40 UNITS SC QHS DM (Reported) Insulin Lispro (Humalog Kwikpen U-100) 100 UNIT/ML INSULN.PEN DM (Reported) Latanoprost 0.005 % DROPS 1 GTT OPH QPM BOTH EYES (Reported) Lidocaine HCl 3 % CREAM..G. 1 PABLO TOP BID RIGHT LOWER EXTREMITY (Reported) Memantine HCl (Namenda) 10 MG TABLET 2 TAB PO QHS MEMORY (Reported) Metformin HCl 500 MG TABLET 1 TAB PO BID DM (Reported) Polyethylene Glycol 3350 (Miralax) 17 GRAM POWD.PACK 1 PAC PO DAILY GI ( Reported) dissolve in water Sodium Chloride (Sochlor) 5 % OINT...G. 1 DROP OPH QHS BOTH EYES (Reported) Tamsulosin HCl (Flomax) 0.4 MG CAP.ER.24H 1 CAP PO DAILY PROSTATE (Reported) Current Medications: Current Medications Sig/Zoe Start time Last Medication Dose Route Stop Time Status Admin Acetaminophen/ 1 TAB Q6P PRN 08/03 2100 AC Hydrocodone Bitart PO Atorvastatin Calcium 40 MG 1700 08/04 1700 AC PO Ceftriaxone Sodium 0 .STK-MED ONE 08/03 2133 DC .ROUTE Ceftriaxone Sodium 1,000 MG ONCE ONE 08/03 1900 DC 08/03 IV 08/03 1901 2135 Clopidogrel Bisulfate 75 MG DAILY 08/04 1000 AC PO Diphenhydramine HCl 25 MG Q6P PRN 08/03 2100 AC IV Docusate Sodium 100 MG BID 08/03 2200 AC PO Enoxaparin Sodium 40 MG DAILY 08/04 1000 AC SC Ferrous Sulfate 325 MG DAILY 08/04 1000 AC PO Finasteride 5 MG DAILY 08/04 1000 AC PO Fluconazole 150 MG ONCE ONE 08/03 1645 DC 08/03 PO 08/03 1646 1658 Ibuprofen 600 MG Q6P PRN 08/03 2100 AC PO Insulin Aspart 0 TIDAC 08/04 0800 AC 08/04 SC 0756 Insulin Human Regular 10 UNITS ONCE ONE 08/03 1730 DC 08/03 SC 08/03 1731 1740 Latanoprost 1 GTT QPM 08/03 2200 AC 08/04 OPH 0057 Lidocaine 2 ML ONCE ONE 08/03 2315 DC 08/03 SC 08/03 2316 2315 Lidocaine 0 .STK-MED ONE 08/03 2110 DC .ROUTE Loperamide HCl 2 MG ONE ONE 08/03 2014 DC PO 08/03 2016 Memantine 20 MG 2200 08/04 2200 AC PO Miconazole Nitrate 1 PABLO Q12 08/04 0030 AC 08/04 VAG 0058 Morphine Sulfate 2 MG Q4P PRN 08/03 2100 AC IV Ondansetron HCl 4 MG Q6P PRN 08/03 2100 AC IV Patient Medication 1 UNIT ONE NR 08/03 2115 DC Teaching ED 08/03 2130 Polyethylene Glycol 17 GM AT BEDTIME 08/03 2200 AC PO Senna/Docusate Sodium 1 TAB AT BEDTIME 08/03 2200 AC PO Sodium Chloride 1,000 ML Q10H 08/03 2145 AC 08/04 IV 0059 Sodium Chloride 1,000 ML ONCE ONE 08/03 1800 DC 08/03 IV 08/03 1959 1801 Sodium Chloride 1,000 ML BOLUS ONE 08/03 1630 DC 08/03 IV 08/03 1729 1633 Tamsulosin HCl 0.4 MG DAILY 08/04 1000 AC PO Past History Medical History Blood Transfusion Hx: No Neurological: dementia EENT: blindness, glaucoma Cardiovascular: hypertension, hyperlipidemia Respiratory: pneumonia Gastrointestinal: umbilical hernia, ENLARGED PROSTATE Hepatic: NONE Renal: FREQUENT UTI'S Musculoskeletal: NONE Psychiatric: NONE Endocrine: diabetes Blood Disorders: anemia Cancer(s): NONE 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 IADLs Needs Assist: shopping, housework, finances, food prep, telephone, transportation, medication admin. Exam & Diagnostic Data Vital Signs and I&O Vital Signs Date Time Temp Pulse Resp B/P Pulse O2 O2 Flow FiO2 Ox Delivery Rate 08/04 0638 97.9 89 20 140/70 97 Room Air 08/03 2209 97.5 79 20 152/76 92 08/03 1927 97.0 73 18 126/73 100 Room Air 08/03 1536 97.6 80 18 114/62 95 Room Air Intake & Output 08/04 1600 08/04 0800 08/04 0000 08/03 1600 08/03 0800 08/03 0000 Intake Total 800 Output Total 200 Balance 600 Intake, IV 800 Output, Urine 200 Patient 67 lb 15.99 oz 150 lb Weight No acute distress Back: No CVA tenderness Abd: Soft and non tender Genitalia: Uncircumcized penis with phimosis. Unable to retract foreskin. Minimal discharge from under foreskin. Mild edema and erythema of penile skin. Scrotum normal. No sign of albino's gangrene Assessment/Plan Assessment/Plan Imp: 1. Phimosis and balanitis. Poor control of DM is definite risk factor 2. Hx of TURP Plan: 1. Would continue fluconazole for 5 days 2. Strict control of DM 3. May benefit from doral slit circumcision once DM is under control and penile edema resolves 4. Will follow and determine if this should be done on this admission. Ideally would be off plavix for this Consult Acknowledgment - Thank you for your consult request.
[2016-08-04 10:19] LABS: ABSOLUTE BASOPHIL COUNT 0.1 /CUMM (0.0-0.2); ABSOLUTE EOSINOPHIL COUNT 0.2 /CUMM (0.0-0.7); ABSOLUTE GRANULOCYTE CT 4.7 /CUMM (1.4-6.5); ABSOLUTE MONOCYTE COUNT 0.6 /CUMM (0.10-0.60)
[2016-08-04 10:21] LABS: ABSOLUTE LYMPH COUNT 2.1 /CUMM (1.2-3.4); BASOPHIL % 0.7 % (0.0-2.0); EOSINOPHIL % 3.2 % (0-5); GRANULOCYTE % 60.7 % (42.2-75.2); HEMATOCRIT 27.6 % (42-52); MEAN CORPUSCULAR HGB CONC 30.3 G/DL (33.0-37.0); MEAN CORPUSCULAR VOLUME 72.8 FL (80.0-94.0); MEAN PLATELET VOLUME 9.5 FL (7.4-10.4); PLATELET COUNT 193 /CUMM (130-400); RBC DISTRIBUTION WIDTH 18.2 % (11.5-14.5); RED BLOOD CELL CT 3.79 /CUMM (4.70-6.10); WHITE BLOOD CELL COUNT 7.8 /CUMM (4.8-10.8)
--- NOTE | 2016-08-04 12:31 | PN- Att Addend ---
Attending Addendum Attending Brief Note Patient seen and examined. Plan of care discussed with the medical team and the patient. Available lab work and radiology test reports were reviewed. Patient is blind. He appears comfortable and denies any pain in the abdomen or fever or chills. He appears comfortable at rest. Vital Signs Date Time Temp Pulse Resp B/P Pulse O2 O2 Flow FiO2 Ox Delivery Rate 08/04 1040 89 140/70 08/04 0638 97.9 89 20 140/70 97 Room Air 08/03 2209 97.5 79 20 152/76 92 08/03 1927 97.0 73 18 126/73 100 Room Air 08/03 1536 97.6 80 18 114/62 95 Room Air Intake & Output 08/04 1600 08/04 0800 08/04 0000 Intake Total 800 Output Total 200 Balance 600 Intake, IV 800 Output, Urine 200 Patient 67 lb 15.99 oz Weight Exam: General: Patient awake alert oriented without any distress CVS: S1 plus S2 without any murmur or gallops Chest: Few scattered crepitation without any wheeze. There is no respiratory distress. Abdomen: Soft nontender, bowel sound present, no guarding or rebound CAFE ASSOCIATE: Awake alert oriented without any focal neuro deficit and follows command appropriately Extremities: No edema; no clubbing or cyanosis noted Genitalia- patient is evidence of balanitis and phimosis Laboratory Tests 08/04 08/04 08/03 0920 0920 2127 Chemistry Sodium (137 - 145 mmol/L) 138 Potassium (3.5 - 5.1 mmol/L) 4.2 Chloride (98 - 107 mmol/L) 105 Carbon Dioxide (22 - 30 mmol/L) 23 Anion Gap (5 - 16) 9 BUN (9 - 20 mg/dL) 17 Creatinine (0.7 - 1.2 mg/dL) 1.0 Estimated GFR (>60 ml/min) > 60 BUN/Creatinine Ratio (7 - 25 %) 17.0 Lactic Acid (0.7 - 2.1 mmol/L) 2.9 H 2.7 H Hematology CBC w Diff NO MAN DIFF REQ WBC (4.8 - 10.8 /CUMM) 7.8 RBC (4.70 - 6.10 /CUMM) 3.79 L Hgb (14.0 - 18.0 G/DL) 8.4 L Hct (42 - 52 %) 27.6 L MCV (80.0 - 94.0 FL) 72.8 L MCH (27.0 - 31.0 PG) 22.0 L RDW (11.5 - 14.5 %) 18.2 H Plt Count (130 - 400 /CUMM) 193 MPV (7.4 - 10.4 FL) 9.5 Gran % (42.2 - 75.2 %) 60.7 Lymphocytes % (20.5 - 51.1 %) 27.3 Monocytes % (1.7 - 9.3 %) 8.1 Eosinophils % (0 - 5 %) 3.2 Basophils % (0.0 - 2.0 %) 0.7 Absolute Granulocytes (1.4 - 6.5 /CUMM) 4.7 Absolute Lymphocytes (1.2 - 3.4 /CUMM) 2.1 Absolute Monocytes (0.10 - 0.60 /CUMM) 0.6 Absolute Eosinophils (0.0 - 0.7 /CUMM) 0.2 Absolute Basophils (0.0 - 0.2 /CUMM) 0.1 PUBS MCHC (33.0 - 37.0 G/DL) 30.3 L 18 08/03 1807 1640 Blood Gas Bicarbonate Actual (22 - 26 MEQ/L) 27 H Mixed VBG pH (7.31 - 7.41 PH) 7.32 Mixed VBG pCO2 (41 - 51 TORR) 53 H Mixed VBG O2 Saturation (35 - 45 TORR) 21 L Carboxyhemoglobin (1.5 - 5.0 %) 0.3 L Urines Urine Color (YEL,AMB,STR) STRAW Urine Clarity (CLEAR) HAZY H Urine pH (5.0 - 8.0) 6.0 Ur Specific [place] (1.001 - 1.035) 1.010 Urine Protein (NEG,<30 MG/DL) NEG Urine Ketones (NEG) NEG Urine Nitrite (NEG) POS H Urine Bilirubin (NEG) NEG Urine Urobilinogen (0.1 - 1.0 EU/dl) 0.2 Ur Leukocyte Esterase (NEG) SMALL H Ur Microscopic SEDIMENT EXAMINED Urine RBC (0 - 5 /HPF) 1-3 Urine WBC (0 - 2 /HPF) 15-25 H Ur Epithelial Cells (NONE,FEW) FEW Urine Bacteria (NEG/NONE) PACKD H Micro UA Comment BUDDING YEAST H Urine Hemoglobin (NEG) TRACE-LYSED H Urine Glucose (N MG/DL) >=1000 H 08/03 1629 Chemistry Sodium (137 - 145 mmol/L) 136 L Potassium (3.5 - 5.1 mmol/L) 5.2 H Chloride (98 - 107 mmol/L) 97 L Carbon Dioxide (22 - 30 mmol/L) 26 Anion Gap (5 - 16) 13 BUN (9 - 20 mg/dL) 25 H Creatinine (0.7 - 1.2 mg/dL) 1.2 Estimated GFR (>60 ml/min) 58 L BUN/Creatinine Ratio (7 - 25 %) 20.8 Glucose (65 - 99 mg/dL) 517 *H Serum Osmolality (285 - 295 MOSM/KG) 316 H Lactic Acid (0.7 - 2.1 mmol/L) 3.7 H Calcium (8.4 - 10.2 mg/dL) 9.8 Phosphorus (2.5 - 4.5 mg/dL) 3.4 Magnesium (1.6 - 2.3 mg/dL) 1.6 Total Bilirubin (0.2 - 1.3 mg/dL) 0.9 AST (17 - 59 U/L) 22 ALT (21 - 72 U/L) 29 Alkaline Phosphatase (< 127 U/L) 97 Troponin I (<0.11 ng/ml) < 0.01 Total Protein (6.3 - 8.2 g/dL) 6.9 Albumin (3.5 - 5.0 g/dL) 3.9 Globulin (1.9 - 4.2 gm/dL) 3.0 Albumin/Globulin Ratio (1.1 - 2.2 %) 1.3 Hematology CBC w Diff NO MAN DIFF REQ WBC (4.8 - 10.8 /CUMM) 10.4 RBC (4.70 - 6.10 /CUMM) 4.48 L Hgb (14.0 - 18.0 G/DL) 9.7 L Hct (42 - 52 %) 32.4 L MCV (80.0 - 94.0 FL) 72.3 L MCH (27.0 - 31.0 PG) 21.6 L RDW (11.5 - 14.5 %) 18.3 H Plt Count (130 - 400 /CUMM) 209 MPV (7.4 - 10.4 FL) 9.8 Gran % (42.2 - 75.2 %) 71.0 Lymphocytes % (20.5 - 51.1 %) 19.0 L Monocytes % (1.7 - 9.3 %) 7.8 Eosinophils % (0 - 5 %) 1.5 Basophils % (0.0 - 2.0 %) 0.7 Absolute Granulocytes (1.4 - 6.5 /CUMM) 7.4 H Absolute Lymphocytes (1.2 - 3.4 /CUMM) 2.0 Absolute Monocytes (0.10 - 0.60 /CUMM) 0.8 H Absolute Eosinophils (0.0 - 0.7 /CUMM) 0.2 Absolute Basophils (0.0 - 0.2 /CUMM) 0.1 PUBS MCHC (33.0 - 37.0 G/DL) 29.9 L Toxicology Acetone Level (NEGATIVE) NEGATIVE Microbiology Date/Time Procedure - Status Source Growth 08/04 2139 Blood Culture - RECD BLOOD 08/03 2126 Blood Culture - RECD BLOOD 08/03 1806 Urine Culture - RES URINE ROUT GRAM NEGATIVE RODS Assessment Balanitis Phimosis Hyperglycemia w/o ketosis Type 2 diabetes Lactic acidosis Dehydration Dementia Plan * Patient has been seen by urology. Plan is for near future circumcision. At this point we'll continue miconazole topical. In addition give 1 dose of fluconazole oral 150 mg by mouth today. * I will stop Plavix in anticipation of surgery * Continue other medications. * At some like the patient has UTI, he likely has asymptomatic bacteriuria which would not be treated. * Please continue to apply miconazole locally. Add clindamycin topical application twice a day. * Agree with resuming Levemir. Continue to monitor blood sugars
--- NOTE | 2016-08-04 12:47 | PN- Housestaff ---
Subjective Follow-up For: AMS, Balanitis/phimosis, poorly controlled DM, mild acidosis Complaints: no complaints Subjective: Doing a lot better today, sitting up in bed, no penile pain Review of Systems Constitutional: Reports: no symptoms. Objective Last 24 Hrs of Vital Signs/I&O Vital Signs Date Time Temp Pulse Resp B/P Pulse O2 O2 Flow FiO2 Ox Delivery Rate 08/04 1502 97.8 81 20 102/60 97 Room Air 08/04 1040 89 140/70 08/04 0638 97.9 89 20 140/70 97 Room Air 08/03 2209 97.5 79 20 152/76 92 08/03 1927 97.0 73 18 126/73 100 Room Air Intake & Output 08/04 1600 08/04 0800 08/04 0000 Intake Total 1250 800 Output Total 100 200 Balance 1150 600 Intake, IV 800 800 Intake, Oral 450 Number 1 Bowel Movements Output, Urine 100 200 Patient 67 lb 15.99 oz Weight Physical Exam General Appearance: Alert, Oriented X3, Cooperative, No Acute Distress HEENT: Mucous Membr. moist/pink, legally blind Cardiovascular: Regular Rate, Normal S1, Normal S2 Lungs: Clear to Auscultation, Normal Air Movement Abdomen: Normal Bowel Sounds, Soft, No Tenderness Extremities: No Edema, Normal Pulses Current Medications: Current Medications Sig/Zoe Start time Last Medication Dose Route Stop Time Status Admin Acetaminophen/ 1 TAB Q6P PRN 08/03 2100 AC Hydrocodone Bitart PO Atorvastatin Calcium 40 MG 1700 08/04 1700 AC PO Ceftriaxone Sodium 0 .STK-MED ONE 08/03 2133 DC .ROUTE Ceftriaxone Sodium 1,000 MG ONCE ONE 08/03 1900 DC 08/03 IV 08/03 190 2135 Clindamycin Phosphate 1 PABLO BID 08/04 1400 AC 08/04 EXT 1551 Clopidogrel Bisulfate 75 MG DAILY 08/04 1000 DC 08/04 PO 1040 Diphenhydramine HCl 25 MG Q6P PRN 08/03 2100 AC IV Docusate Sodium 100 MG BID 08/03 2200 AC PO Enoxaparin Sodium 40 MG DAILY 08/04 1000 AC 08/04 SC 1041 Ferrous Sulfate 325 MG DAILY 08/04 1000 AC 08/04 PO 1039 Finasteride 5 MG DAILY 08/04 1000 AC 08/04 PO 1040 Fluconazole 150 MG ONCE ONE 08/04 1400 DC 08/04 PO 08/04 1401 1551 Fluconazole 150 MG ONCE ONE 08/03 1645 DC 08/03 PO 08/03 1646 1658 Ibuprofen 600 MG Q6P PRN 08/03 2100 AC PO Insulin Aspart 0 TIDAC 08/04 1200 r 08/04 SC 1140 Insulin Aspart 0 TIDAC 08/04 0800 DC 08/04 SC 0756 Insulin Detemir 20 UNITS BID 08/04 1057 AC 08/04 SC 1139 Insulin Human Regular 10 UNITS ONCE ONE 08/03 1730 DC 08/03 SC 08/03 1731 1740 Latanoprost 1 GTT QPM 08/03 2200 AC 08/04 OPH 0057 Lidocaine 2 ML ONCE ONE 08/03 2315 DC 08/03 SC 08/03 2316 2315 Lidocaine 0 .STK-MED ONE 08/03 211 DC .ROUTE Loperamide HCl 2 MG ONE ONE 08/03 2014 DC PO 08/03 2016 Memantine 20 MG 2200 08/04 2200 AC PO Miconazole Nitrate 1 PABLO Q12 08/04 0030 AC 08/04 VAG 1040 Morphine Sulfate 2 MG Q4P PRN 08/03 2100 AC IV Ondansetron HCl 4 MG Q6P PRN 08/03 2100 AC IV Patient Medication 1 UNIT ONE NR 08/03 2115 DC Teaching ED 08/03 2130 Polyethylene Glycol 17 GM AT BEDTIME 08/03 2200 AC PO Senna/Docusate Sodium 1 TAB AT BEDTIME 08/03 2200 AC PO Sodium Chloride 1,000 ML Q10H 08/03 2145 AC 08/04 IV 1140 Sodium Chloride 1,000 ML ONCE ONE 08/03 1800 DC 08/03 IV 08/03 1959 1801 Sodium Chloride 1,000 ML BOLUS ONE 08/03 1630 DC 08/03 IV 08/03 1729 1633 Tamsulosin HCl 0.4 MG DAILY 08/04 1000 AC 08/04 PO 1040 Last 24 Hrs of Lab/Michael Results Last 24 Hrs of Labs/Mics: Laboratory Tests 08/04/16 1305: Lactic Acid 2.0 08/04/16 0920: Lactic Acid 2.9 H 08/04/16 0920: Anion Gap 9, Estimated GFR > 60, BUN/Creatinine Ratio 17.0, CBC w Diff NO MAN DIFF REQ, RBC 3.79 L, MCV 72.8 L, MCH 22.0 L, RDW 18.2 H, MPV 9.5, Gran % 60.7, Lymphocytes % 27.3, Monocytes % 8.1, Eosinophils % 3.2, Basophils % 0.7, Absolute Granulocytes 4.7, Absolute Lymphocytes 2.1, Absolute Monocytes 0.6, Absolute Eosinophils 0.2, Absolute Basophils 0.1, PUBS MCHC 30.3 L 08/03/162126: Lactic Acid 2.7 H 08/03/161806: Urine Color STRAW, Urine Clarity HAZY H, Urine pH 6.0, Ur Specific [place] 1.010, Urine Protein NEG, Urine Ketones NEG, Urine Nitrite POS H, Urine Bilirubin NEG, Urine Urobilinogen 0.2, Ur Leukocyte Esterase SMALL H, Ur Microscopic SEDIMENT EXAMINED, Urine RBC 1-3, Urine WBC 15-25 H, Ur Epithelial Cells FEW, Urine Bacteria PACKD H, Micro UA Comment BUDDING YEAST H, Urine Hemoglobin TRACE-LYSED H, Urine Glucose >=1000 H 08/03/16 1640: Bicarbonate Actual 27 H, Mixed VBG pH 7.32, Mixed VBG pCO2 53 H, Mixed VBG O2 Saturation 21 L, Carboxyhemoglobin 0.3 L 08/03/16 1629: Anion Gap 13, Estimated GFR 58 L, BUN/Creatinine Ratio 20.8, Glucose 517 *H, Serum Osmolality 316 H, Lactic Acid 3.7 H, Calcium 9.8, Phosphorus 3.4, Magnesium 1.6, Total Bilirubin 0.9, AST 22, ALT 29, Alkaline Phosphatase 97, Troponin I < 0.01, Total Protein 6.9, Albumin 3.9, Globulin 3.0, Albumin/ Globulin Ratio 1.3, CBC w Diff NO MAN DIFF REQ, RBC 4.48 L, MCV 72.3 L, MCH 21.6 L, RDW 18.3 H, MPV 9.8, Gran % 71.0, Lymphocytes % 19.0 L, Monocytes % 7.8, Eosinophils % 1.5, Basophils % 0.7, Absolute Granulocytes 7.4 H, Absolute Lymphocytes 2.0, Absolute Monocytes 0.8 H, Absolute Eosinophils 0.2, Absolute Basophils 0.1, PUBS MCHC 29.9 L, Acetone Level NEGATIVE Microbiology 08/04 2139 BLOOD: Blood Culture - RES 08/03 2126 BLOOD: Blood Culture - RES 08/03 1806 URINE ROUT: Urine Culture - RES GRAM NEGATIVE RODS Lines/Diet/Fluids Lines: peripheral lines Assessment/Plan Assessment: 81 yo M with h/o dementia, legally blind, HTN, HLD, T2DM, CKD stage 3A, BPH s/p TURP (Apr 2014), chronic DOUG, is brought in by daughter for high blood sugars, lethargy and penile pain/ discharge. - Problems - Balanitis Phimosis Asymptomatic bacteriuria Poorly controlled DM Plan Improve BG control with Insulin SS, Levemir added Recieved a one time dose of fluconazole 150mg po today Continue topical miconazole cream Clindamycin gel added Hold off antibiotics for now; watch for fevers and WBC Continue Pain control with morphine Continue his other impt home medications Problem List: 1. Balanitis Pain Ratin Pain Location: penile area Pain Goal: Remain pain free Pain Plan: continue morphine Tomorrow's Labs & Rationales: cbc
[2016-08-04 15:02] VITALS: BP 102/60
--- NOTE | 2016-08-04 18:22 | NUR ---
LATE ENTRY: PT'S FINGERSTICK AT 1640 WAS 62. PT GIVEN JUICE AND COMPLEX CARB. DR. DAMON NOTIFIED WHO WAS UP TO SEE PT AT THIS TIME. RECHECK OF PT'S SUGAR AT APPROX 1815- 136. NOV SS COVERAGE HELD PER MD ORDERS. SNO. PT REMAINS IN NO DISTRESS. WILL CONT TO MONITOR.
[2016-08-04 22:01] VITALS: BP 96/68
[2016-08-05 07:13] VITALS: BP 122/64
--- NOTE | 2016-08-05 07:34 | PN- Housestaff ---
MARTITA SALINAS,[facility] 08/05/16 0734: Subjective Follow-up For: AMS Balanitis/phimosis Diabetes mellitus Patient is legally blind Subjective: Patient was seen and examined this morning, his daughter was at bedside feeding him breakfast. Patient reported that pain of the scrotal area is improved, denied dysuria, penial discharge. Patient reported generalized abdominal pain that's on and off, denied nausea, vomiting, tolerating oral intake well. Patient denied shortness of breath, chest pain, palpitation. Last bowel movement was yesterday normal. Vital signs are stable, patient remained afebrile. Review of Systems Constitutional: Reports: see HPI. Objective Last 24 Hrs of Vital Signs/I&O Vital Signs Date Time Temp Pulse Resp B/P Pulse O2 O2 Flow FiO2 Ox Delivery Rate 08/05 1057 122/64 08/05 0713 98.2 82 20 122/64 95 08/04 2201 97.5 77 20 96/68 97 08/04 1502 97.8 81 20 102/60 97 Room Air Intake & Output 08/05 1600 08/05 0800 08/05 0000 Intake Total 1280 540 Output Total Balance 1280 540 Intake, IV 800 300 Intake, Oral 480 240 Physical Exam General Appearance: Alert, Cooperative, No Acute Distress Skin: No Rashes, No Breakdown, No Significant Lesion HEENT: Atraumatic, PERRLA, Mucous Membr. moist/pink, patient is legally blind Neck: Supple Cardiovascular: Regular Rate, Normal S1, Normal S2, No Murmurs Lungs: Clear to Auscultation, Normal Air Movement Abdomen: Normal Bowel Sounds, Soft, mild tenderness on deep palpation Neurological: Normal Speech, Strength at 5/5 X4 Ext, Normal Tone, Sensation Intact, Cranial Nerves 3-12 NL, Reflexes 2+ Extremities: No Clubbing, No Cyanosis, No Edema, Normal Pulses Reproductive (MALE) swelling and erythematous scrotum and penis, no penial discharge Assessment/Plan Assessment: Mr. Galvez is 81 year old male with past medical history significant for dementia , legally blind, HTN, HLD, T2DM, BPH s/p TURP (Apr 2014), chronic DOUG, is brought in by daughter for high blood sugars, lethargy, altered mental status and swallowing penis and scrotum. Problem list #Balanitis and Phimosis #Asymptomatic bacteriuria #Diabetes mellitus #Hyperlipidemia #BPH #Dementia/metabolic encephalopathy #Iron deficiency anemia #Balanitis and Phimosis -Patient received fluconazole tab 150 mg once yesterday -Continue topical clindamycin and miconazole -Pain is improved with medication, swelling is almost the same, no discharge -Continue optimal pain management, moderate pathway -Urology consultation was obtained Dr. Khan #Asymptomatic bacteriuria -Patient remained afebrile, no WBC -UA positive for nitrates and WBC -Urine culture positive for gram-negative rods -Based on urology consultation, positive results of UA and urine culture could be contamination due to the phimosis -Lactic acid normalized mostly related to uncontrolled diabetes -Patient denied dysuria -Patient's daughter reported increased urination frequency -We will obtain ID consultation #Diabetes mellitus -Accu-Chek 3 times a day before meals and at bedtime -Levemir 20 mg twice a day -NovoLog sliding scale medium dose -Blood sugar range 130-278 -Consider obtaining hemoglobin A1c #Hyperlipidemia -Continue Lipitor 40 mg by mouth daily -Patient was on Plavix, discontinued on admission, no clear information why the patient was on Plavix #BPH -History of TURP 2013 -Continue Flomax 0.4 mg daily -Continue finasteride 5 mg by mouth daily #Altered mental status with underlying Dementia -Patient has history of dementia on Namenda 20 mg daily -Altered mental status mostly due to metabolic encephalopathy given high blood sugar, lactic acidosis -Resolved, patient is alert today and responds appropriately to questions #Iron deficiency anemia -H/H 02/13.6, stable -Continue ferrous sulfate 325 daily by mouth DVT prophylaxis Lovenox Code DNR/DNI Diet carbohydrate 2 Consultation urology, ID Problem List: 1. Balanitis Pain Ratin Pain Location: Scrotum, penis, abdominal pain Pain Goal: Pain 4 or less Pain Plan: Moderate pain pathway Tomorrow's Labs & Rationales: None MANUEL DONNELLY MD 08/05/16 1519: Attending MD Review Statement Attending Statement Attending MD Statement: examined this patient, discuss w/resident/PA/ADJUNCT PROFESSOR, agreed w/resident/PA/ADJUNCT PROFESSOR, reviewed EMR data (avail), discussed with nursing, discussed with case mgmt, amended to note Attending Assessment/Plan: The patient was seen and discussed with house staff. Agree with the plan of care as outlined.
--- NOTE | 2016-08-05 08:17 | PN- Urology ---
Subjective Subjective: No acute distress Objective Vital Signs and I&Os Vital Signs Date Time Temp Pulse Resp B/P Pulse O2 O2 Flow FiO2 Ox Delivery Rate 08/05 0713 98.2 82 20 122/64 95 08/04 2201 97.5 77 20 96/68 97 08/04 1502 97.8 81 20 102/60 97 Room Air 08/04 1040 89 140/70 Intake & Output 08/05 1600 08/05 0800 08/05 0000 08/04 1600 08/04 0800 08/04 0000 Intake Total 8414 000 8505 800 Output Total 100 200 Balance 7434 496 0909 600 Intake, IV 800 300 800 800 Intake, Oral 480 240 450 Number 1 Bowel Movements Output, Urine 100 200 Patient 67 lb 15.99 oz Weight Genitalia: Phimosis present. Some penile edema and minimal erythema. No sign of Alex's gangrene Laboratory Tests 08/05 08/04 08/04 08/04 0640 1305 0920 0920 Chemistry Sodium (137 - 145 mmol/L) 138 Potassium (3.5 - 5.1 mmol/L) 4.2 Chloride (98 - 107 mmol/L) 105 Carbon Dioxide (22 - 30 mmol/L) 23 Anion Gap (5 - 16) 9 BUN (9 - 20 mg/dL) 17 Creatinine (0.7 - 1.2 mg/dL) 1.0 Estimated GFR (>60 ml/min) > 60 BUN/Creatinine Ratio (7 - 25 %) 17.0 Lactic Acid (0.7 - 2.1 mmol/L) 2.0 2.9 H Hematology CBC w Diff Pending NO MAN DIFF REQ WBC (4.8 - 10.8 /CUMM) Pending 7.8 RBC (4.70 - 6.10 /CUMM) Pending 3.79 L Hgb (14.0 - 18.0 G/DL) Pending 8.4 L Hct (42 - 52 %) Pending 27.6 L MCV (80.0 - 94.0 FL) Pending 72.8 L MCH (27.0 - 31.0 PG) Pending 22.0 L RDW (11.5 - 14.5 %) Pending 18.2 H Plt Count (130 - 400 /CUMM) Pending 193 MPV (7.4 - 10.4 FL) Pending 9.5 Gran % (42.2 - 75.2 %) 60.7 Lymphocytes % (20.5 - 51.1 %) 27.3 Monocytes % (1.7 - 9.3 %) 8.1 Eosinophils % (0 - 5 %) 3.2 Basophils % (0.0 - 2.0 %) 0.7 Absolute Granulocytes (1.4 - 6.5 /CUMM) 4.7 Absolute Lymphocytes (1.2 - 3.4 /CUMM) 2.1 Absolute Monocytes (0.10 - 0.60 /CUMM) 0.6 Absolute Eosinophils (0.0 - 0.7 /CUMM) 0.2 Absolute Basophils (0.0 - 0.2 /CUMM) 0.1 PUBS MCHC (33.0 - 37.0 G/DL) Pending 30.3 L Assessment/Plan Assessment/Plan Imp: Phimosis and balanitis, 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 May benefit from dorsal slit circucision when penile edema resolves and glucose well controlled f/u final urine culture result
[2016-08-05 08:46] LABS: ABSOLUTE BASOPHIL COUNT 0.1 /CUMM (0.0-0.2); ABSOLUTE EOSINOPHIL COUNT 0.2 /CUMM (0.0-0.7); ABSOLUTE GRANULOCYTE CT 3.1 /CUMM (1.4-6.5); ABSOLUTE LYMPH COUNT 2.1 /CUMM (1.2-3.4); ABSOLUTE MONOCYTE COUNT 0.6 /CUMM (0.10-0.60); BASOPHIL % 0.8 % (0.0-2.0); EOSINOPHIL % 3.3 % (0-5); GRANULOCYTE % 51.3 % (42.2-75.2); HEMATOCRIT 28.6 % (42-52); MEAN CORPUSCULAR HGB 22.6 PG (27.0-31.0); MEAN CORPUSCULAR HGB CONC 31.6 G/DL (33.0-37.0); MEAN CORPUSCULAR VOLUME 71.6 FL (80.0-94.0); MEAN PLATELET VOLUME 10.8 FL (7.4-10.4); PLATELET COUNT 181 /CUMM (130-400); RBC DISTRIBUTION WIDTH 18.8 % (11.5-14.5); RED BLOOD CELL CT 3.99 /CUMM (4.70-6.10)
[2016-08-05 14:47] VITALS: BP 124/70
--- NOTE | 2016-08-05 15:06 | Cons- Infect Disease ---
General Information and HPI Consulting Request Date of Consult: 08/05/16 Requested By: BRIDGER SALINAS,ELVIS Reason for Consult: Balanitis/positive urine culture Source of Information: patient Exam Limitations: dementia History of Present Illness: This is an 81-year-old man, group home resident, who is legally blind, with a history of diabetes, dementia and BPH, status post TURP, with a history of recurrent urinary tract infections, with ESBL producing Klebsiella isolated from a urine culture 2 years prior to admission, with a 2 month history of penile swelling and discharge, with no details available regarding any treatment, admitted on August 03 with a low-grade fever and altered mental status. On admission he was afebrile, with exam revealing balanitis. Laboratory data revealed a white blood cell count of 10,000, glucose 517, BUN/creatinine 25 and 1.2, acetone negative, lactic acid 3.7. Urinalysis 1-3 RBC/15-25 WBCs. He was given 2 L of fluid in the emergency room as well as Ceftriaxone and Fluconazole, with Fluconazole redosed on the next day. He has remained afebrile since admission and white blood cell count has been normal. He is unable to provide any history secondary to his underlying dementia. Allergies/Medications Allergies: Coded Allergies: NO KNOWN ALLERGIES (09/16/14) Home Med List: Atorvastatin Calcium (Lipitor) 40 MG TABLET 1 TAB PO DAILY CHOLESTEROL ( Reported) Cholecalciferol (Vitamin D3) (Vitamin D) 2,000 UNIT CAPSULE 1 CAP PO DAILY SUPPLEMENT (Reported) Clopidogrel Bisulfate (Plavix) 75 MG TABLET 1 TAB PO DAILY BLOOD THINNER ( Reported) Docusate Sodium (Colace) 100 MG CAPSULE 2 CAP PO DAILY STOOL SOFTENER ( Reported) Ferrous Sulfate 325 MG (65 MG IRON) TABLET 1 TAB PO BID SUPPLEMENT (Reported) Finasteride 5 MG TABLET 1 TAB PO DAILY PROSTATE (Reported) Insulin Detemir (Levemir Flextouch) 100 UNIT/ML (3 ML) INSULN.PEN 40 UNITS SC QHS DM (Reported) Insulin Lispro (Humalog Kwikpen U-100) 100 UNIT/ML INSULN.PEN DM (Reported) Latanoprost 0.005 % DROPS 1 GTT OPH QPM BOTH EYES (Reported) Lidocaine HCl 3 % CREAM..G. 1 PABLO TOP BID RIGHT LOWER EXTREMITY (Reported) Memantine HCl (Namenda) 10 MG TABLET 2 TAB PO QHS MEMORY (Reported) Metformin HCl 500 MG TABLET 1 TAB PO BID DM (Reported) Polyethylene Glycol 3350 (Miralax) 17 GRAM POWD.PACK 1 PAC PO DAILY GI ( Reported) dissolve in water Sodium Chloride (Sochlor) 5 % OINT...G. 1 DROP OPH QHS BOTH EYES (Reported) Tamsulosin HCl (Flomax) 0.4 MG CAP.ER.24H 1 CAP PO DAILY PROSTATE (Reported) Past History Travel History Traveled to [place] past 21 day No Medical History Blood Transfusion Hx: No Neurological: dementia EENT: blindness, glaucoma Cardiovascular: hypertension, hyperlipidemia Respiratory: pneumonia Gastrointestinal: umbilical hernia, ENLARGED PROSTATE Hepatic: NONE Renal: benign prost hyperplasia, FREQUENT UTI'S Musculoskeletal: NONE Psychiatric: NONE Endocrine: diabetes Blood Disorders: anemia Cancer(s): NONE [employer]/Reproductive: NONE History of MRSA: No History of VRE: No History of CDIFF: No Isolation History: Contact Pneumonia Vaccine: 03/04/14 Influenza Vaccine: 02/17/16 Surgical History Surgical History: prostatectomy Family History Relations & Conditions If Any: BROTHER FH: diabetes mellitus FH: glaucoma FH: heart disease SISTER FH: diabetes mellitus FH: glaucoma Psychosocial History Services at Home: None Smoking Status: Former Smoker ETOH Use: denies use Illicit Drug Use: denies illicit drug use Functional Ability ADLs Needs Assist: dressing, eating, toileting, bathing. IADLs Needs Assist: shopping, housework, finances, food prep, telephone, transportation, medication admin. Review of Systems Comments Unobtainable Exam & Diagnostic Data Last 24 Hrs of Vital Signs/I&O Vital Signs Date Time Temp Pulse Resp B/P Pulse O2 O2 Flow FiO2 Ox Delivery Rate 08/05 1447 98.1 85 20 124/70 95 Room Air 08/05 1057 122/64 08/05 0713 98.2 82 20 122/64 95 08/04 2201 97.5 77 20 96/68 97 08/04 1502 97.8 81 20 102/60 97 Room Air Intake & Output 08/05 1600 08/05 0800 08/05 0000 Intake Total 1280 540 Output Total Balance 1280 540 Intake, IV 800 300 Intake, Oral 480 240 Physical Exam Other Physical Findings: He is awake and alert, confused and disoriented, but in no acute distress. He is afebrile. Skin reveals no rash. HEENT exam is negative. Neck is supple with no adenopathy. Lungs are clear. Heart regular rhythm with no murmur. Abdomen is soft, nontender with positive bowel sounds. Back no CVA tenderness. Extremities no cyanosis, clubbing or edema. Neuro is without focality. penile edema, with no tenderness; phimosis, with no discharge evident; scrotal tenderness, with no lesions, erythema or edema. Last 24 Hours of Lab Results: Laboratory Tests 08/05 0640 Hematology CBC w Diff NO MAN DIFF REQ WBC (4.8 - 10.8 /CUMM) 6.0 RBC (4.70 - 6.10 /CUMM) 3.99 L Hgb (14.0 - 18.0 G/DL) 9.0 L Hct (42 - 52 %) 28.6 L MCV (80.0 - 94.0 FL) 71.6 L MCH (27.0 - 31.0 PG) 22.6 L RDW (11.5 - 14.5 %) 18.8 H Plt Count (130 - 400 /CUMM) 181 MPV (7.4 - 10.4 FL) 10.8 H Gran % (42.2 - 75.2 %) 51.3 Lymphocytes % (20.5 - 51.1 %) 35.4 Monocytes % (1.7 - 9.3 %) 9.2 Eosinophils % (0 - 5 %) 3.3 Basophils % (0.0 - 2.0 %) 0.8 Absolute Granulocytes (1.4 - 6.5 /CUMM) 3.1 Absolute Lymphocytes (1.2 - 3.4 /CUMM) 2.1 Absolute Monocytes (0.10 - 0.60 /CUMM) 0.6 Absolute Eosinophils (0.0 - 0.7 /CUMM) 0.2 Absolute Basophils (0.0 - 0.2 /CUMM) 0.1 PUBS MCHC (33.0 - 37.0 G/DL) 31.6 L Last 24 Hours of Michael Results: Blood cultures 2 August 03 negative Urine culture August 03 greater than 100,000 colonies of gram-negative rods Assessment/Plan Assessment/Plan Impression: This is an 81-year-old man with diabetes, dementia and BPH, with a 2 month history of penile swelling and discharge, admitted on August 03 with an altered mental status and low-grade fever, found on admission to be afebrile with a normal white blood cell count and with hyperglycemia, with penile swelling and phimosis, treated with oral and topical antifungal therapy and found to have a positive urine culture for gram-negative rods. His clinical picture is consistent with balanitis, which has progressed to phimosis, for which he may require circumcision per Urology. He has been treated empirically for Pili, though this has not been confirmed with a culture or JOVNA. The significance of the positive urine culture is unclear. He is unable to provide any reliable history, but, in the absence of fever or leukocytosis, feel this may represent asymptomatic bacteriuria and, therefore, would not treat. His hyperglycemia, which has improved, may have been secondary to the balanitis and may explain his "altered mental status" prior to admission. Suggestion: 1. Would attempt to obtain a sub-preputial culture and/or JOVAN 2. Further management with regard to possible circumcision per Urology 3. Maintain contact isolation for history of ESBL producing Klebsiella 4. Continue to follow off antibiotics Consult Acknowledgment - Thank you for your consult request.
[2016-08-05 23:05] VITALS: BP 139/78
[2016-08-06 06:35] VITALS: BP 156/70
--- NOTE | 2016-08-06 07:21 | PN- Housestaff ---
MARTITA SALINAS,[facility] 08/06/16 0721: Subjective Follow-up For: AMS Balanitis/phimosis Diabetes mellitus Patient is legally blind Subjective: Patient was seen and examined today, he denied abdominal pain, scrotal pain. He denied dysuria, patient had bowel movement today. Patient is eating and drinking well. No overnight events reported by the nurse. Vital signs are stable. Review of Systems Constitutional: Reports: see HPI. Objective Last 24 Hrs of Vital Signs/I&O Vital Signs Date Time Temp Pulse Resp B/P Pulse O2 O2 Flow FiO2 Ox Delivery Rate 08/06 0635 98.6 63 18 156/70 96 Room Air 08/05 2305 98.4 88 20 139/78 98 Room Air 08/05 1447 98.1 85 20 124/70 95 Room Air 08/05 1057 122/64 Intake & Output 08/06 1600 08/06 0800 08/06 0000 Intake Total 800 345 Output Total 200 Balance 800 145 Intake, IV 800 225 Intake, Oral 120 Number 3 Bowel Movements Output, Urine 200 Physical Exam General Appearance: Alert, Cooperative, No Acute Distress Skin: No Rashes, No Breakdown HEENT: Atraumatic, PERRLA, EOMI, Mucous Membr. moist/pink Neck: Supple, No JVD Cardiovascular: Regular Rate, Normal S1, Normal S2, No Murmurs Lungs: Clear to Auscultation, Normal Air Movement Abdomen: Normal Bowel Sounds, Soft, No Tenderness Neurological: Normal Speech, Strength at 5/5 X4 Ext, Normal Tone, Sensation Intact, Cranial Nerves 3-12 NL, Reflexes 2+ Extremities: No Clubbing, No Cyanosis, No Edema, Normal Pulses Reproductive (MALE) scrotum and pinus swelling improved significantly, no discharge Assessment/Plan Assessment: Mr. Galvez is 81 year old male with past medical history significant for dementia , legally blind, HTN, HLD, T2DM, BPH s/p TURP (Apr 2014), chronic DOUG, is brought in by daughter for high blood sugars, lethargy, altered mental status and swallowing penis and scrotum. Problem list #Balanitis and Phimosis #Asymptomatic bacteriuria #Diabetes mellitus #Hyperlipidemia #BPH #Dementia/metabolic encephalopathy #Iron deficiency anemia #Balanitis and Phimosis -Patient received fluconazole tab 150 mg 1 dose -Continue topical clindamycin and miconazole -Pain and swelling improved significantly -Continue optimal pain management, moderate pathway -Genital culture grew gram-negative throat -Scrotal ultrasound pending -ID consultation was obtained, thanks for recommendation -Urology consultation was obtained Dr. Khan, thanks for recommendation -Based on urologist consultation, patient may benefit from dorsal slit circumcision when edema resolves either as an inpatient or after discharge, Plavix was stopped in anticipation for the procedure #Asymptomatic bacteriuria -Patient remained afebrile, no WBC -UA positive for nitrates and WBC -Urine culture positive for Klebsiella -Based on urology consultation, positive results of UA and urine culture could be contamination due to the phimosis -Lactic acid normalized mostly related to uncontrolled diabetes -Patient denied dysuria -Patient's daughter reported increased urination frequency -ID consultation was obtained, recommendation to monitor off antibiotics #Diabetes mellitus -Accu-Chek 3 times a day before meals and at bedtime -Decrease Levemir 10 mg twice a day -NovoLog sliding scale medium dose -Blood sugar this morning is 58, patient was given apple juice, follow-up reading 102 -Consider obtaining hemoglobin A1c #Hyperlipidemia -Continue Lipitor 40 mg by mouth daily -Patient was on Plavix, discontinued on admission, no clear information why the patient was on Plavix, was discontinue on admission in anticipation to urology procedure #BPH -History of TURP 2013 -Continue Flomax 0.4 mg daily -Continue finasteride 5 mg by mouth daily #Altered mental status with underlying Dementia -Patient has history of dementia on Namenda 20 mg daily -Altered mental status mostly due to metabolic encephalopathy given high blood sugar, lactic acidosis -Resolved, patient is alert today and responds appropriately to questions #Iron deficiency anemia -H/H 02/13.6, stable -Continue ferrous sulfate 325 daily by mouth DVT prophylaxis Lovenox Code DNR/DNI Diet carbohydrate 2 Consultation urology, ID Problem List: 1. Balanitis 2. Diabetes Pain Ratin Pain Location: Scrotum Pain Goal: Pain 4 or less Pain Plan: Moderate pain pathway Tomorrow's Labs & Rationales: None MANUEL DONNELLY MD 08/06/162127: Attending MD Review Statement Attending Statement Attending Statement: examined this patient, discuss w/resident/PA/BICYCLE II ASSEMBLER, agreed w/resident/PA/BICYCLE II ASSEMBLER, reviewed EMR data (avail), discussed with nursing, discussed with case mgmt, reviewed images, amended to note Attending Assessment/Plan: The patient was seen and discussed with house staff. Agree with the plan of care as outlined. ID and Urology input appreciated.
--- NOTE | 2016-08-06 07:25 | PN- Urology ---
Subjective Subjective: No acute distress Objective Vital Signs and I&Os Vital Signs Date Time Temp Pulse Resp B/P Pulse O2 O2 Flow FiO2 Ox Delivery Rate 08/06 0635 98.6 63 18 156/70 96 Room Air 08/05 2305 98.4 88 20 139/78 98 Room Air 08/05 1447 98.1 85 20 124/70 95 Room Air 08/05 1057 122/64 Intake & Output 08/06 0800 08/06 0000 08/05 1600 08/05 0800 08/05 0000 08/04 1600 Intake Total 123 151 1167 8660 619 3156 Output Total 200 300 100 Balance 363 685 1192 5827 928 0092 Intake, IV 800 225 800 800 300 800 Intake, Oral 120 600 480 240 450 Number 3 1 1 Bowel Movements Output, Urine 200 300 100 Genitalia: Penis with severe phimosis. No significant discharge at this time. Still with some edema Scrotum without masses. Significant scrotal tenderness Urine culture positive but could be contaminated Assessment/Plan Assessment/Plan Imp: 1. severe phimosis 2. Balanitis appears somewhat improved 3. Scrotal tenderness without any significant findings on exam Plan: 1. Would defer to ID regarding abx and/or antifungals at this point 2. f/u urine culture sensitivities 3. May benefit from dorsal slit circumcision when edema resolves. Possibly later this week or as outpatient after discharge 4. Would get scrotal ultrasound.
--- NOTE | 2016-08-06 08:00 | NUR ---
NURSING NOTE: BS 58 @ 0800. DRANK 240 ML OF JUICE WITH 2 SUGAR PACKETS. PATIENT IS ASYMTOMATIC. SIDE SAWYER REETU NOTIFIED. SIDE SAWYER ARRIVED 2 PATIENT'S BEDSIDE TO ASSESS PATIENT @ 0830. RECHECKED BS 102 @ 9AM. PATIENT REMAINED ASYMTOMATIC. SIDE SAWYER IS AWARE.
--- NOTE | 2016-08-06 10:30 | NUR ---
NURSING NOTE: PATIENT TRANSFERED TO US VIA STRECTHER @ 5085 AND RETURNED @ 4366.
--- NOTE | 2016-08-06 13:50 | NUR ---
WOUND CARE: REQUESTED BY NURSING TO EVAL PT FOR SKIN ALTERATION AND ? BLISTERS - DAUGHTER PRESENT AT BEDSIDE - PT NOTED WTIH A SLIGHT FUNGAL RASH TO INNER GROIN AND BUTTOCKS - NO BLISTERS OBSERVED RECOMMENDATION: MAY APPLY NYSTATIN POWDER DAILY NEEDED FOR FUNGAL RASH PERINEUM
[2016-08-06] MEDS ORDERED: CLEOCIN T60 GM EXT (13:53)
[2016-08-06] MEDS ORDERED: MICONAZOLE NITR45 GM VAG (13:53)
--- NOTE | 2016-08-06 13:57 | Patient Discharge Instructions ---
Discharge Instructions General Discharge Information You were seen/treated for: Balanitis and Phimosis Asymptomatic bacteriuria Special Instructions: # 1 Please follow up with your PCP within 1 week of discharge. #2 Please Follow with urologist within 1 week of discharge. Diet Recommended Diet: Diabetic Activity Full Activity/No Limits: Yes (as tolerated) Acute Coronary Syndrome Inclusion Criteria At DC or during hospital stay patient has or had the following: ACS DIAGNOSIS No Discharge Core Measures Meds if any: Prescribed or Continued at Discharge Meds if any: NOT Prescribed or Continued at Discharge Congestive Heart Failure Inclusion Criteria At DC or during hospital stay patient has or had the following: CHF DIAGNOSIS No Discharge Core Measures Meds if any: Prescribed or Continued at Discharge Meds if any: NOT Prescribed or Continued at Discharge Cerebrovascular accident Inclusion Criteria At DC or during hospital stay patient has or had the following: CVA/TIA Diagnosis No Discharge Core Measures Meds if any: Prescribed or Continued at Discharge Meds if any: NOT Prescribed or Continued at Discharge Venous thromboembolism Inclusion Criteria VTE Diagnosis No VTE Type NONE VTE Confirmed by (Test) NONE Discharge Core Measures - Per Current guidelines, there needs to be overlap - treatment for the first 5 days of Warfarin therapy. - If discharged on Warfarin prior to 5 days of - overlap therapy, the patient will need to be - assessed for post discharge needs including - *Post discharge parental anticoagulation - *Warfarin and/or parental anticoagulation education - *Follow up date to check INR post discharge At least 5 days overlap therapy as Inpatient No Meds if any: Prescribed or Continued at Discharge Note: Overlap Therapy is Warfarin and Anticoagulant Meds if any: NOT Prescribed or Continued at Discharge
--- NOTE | 2016-08-06 14:19 | Discharge Summary ---
Visit Information Visit Dates Admission Date: 08/03/16 Discharge Date: 08/09/16 Hospital Course Course Attending Physician: MANUEL DONNELLY MD Primary Care Physician: PATIENT HAS NO PRIMARY CARE DR Consulting Request: Consulting Specialty: Infectious Disease Hospital Course: 81 yo M with h/o dementia, legally blind, HTN, HLD, T2DM, CKD stage 3A, BPH s/p TURP (Apr 2014), chronic DOUG,was brought in by daughter for high blood sugars, lethargy and penile pain/ discharge. At admission: Labs: H/H 9.7/ 32.4 (baseline), microcytic anemia, K 5.2, BUN 25, creat 1.2, glucose 517, S. Osm 316, lactic acid 3.7, trop neg. ABG: pH 7.32. Acetone neg. UA nitrite positive, small LE, WBC 15-25, packed bacteria and budding yeast. EKG: SR, no acute changes. Scrotal ultrasound:No concerning renal pathology. Bilateral simple renal cysts. Patient was treated in the hospital for: #Balanoposthitis and Phimosis: Patient was dehydrated, had a lactic acidosis at admission. He was admitted to the general medical floor, IV fluids were started , and was given 1 dose of IV ceftriaxone in the ER. He also received 1 dose of fluconazole 150 mg. No antibiotics were started as patient had asymptomatic bacteriuria but no fever or leukocytosis. Electrolytes were checked everyday and repleted as needed. He was evaluated by urology who recommended continuing him on topical clindamycin and miconazole. ID consult was obtained and agreed with the same management. Pain control with Vicodin and Percocet. A scrotal ultrasound did not reveal any acute pathology. Pain and swelling significantly improved with topical antibacterial and antifungal. Urology felt that the patient may benefit from a dorsal slit circumcision when the edema resolves and it can be done as an outpatient. Patient remained afebrile on the floor with no white count and therefore watched off antibiotics. Patient underwent dorsal slit circumcision on 08/08/2016 and tolerated the procedure well. Advised to follow up with Dr. Khan as an outpatient within 2 weeks of discharge. Dressing to be removed in 24-48 hrs( by 2 pm on 08/10/16) Daughter decided to do it tomorrow. Patient is beinmg discharged to [facility] in [place]. #Asymptomatic bacteriuria: Patient admitted with a dirty UA however remained afebrile with no white count. Urine culture was positive for Klebsiella ESBL, however ID felt it was more likely colonization. Patient denied any urological symptoms other than slight increase in urinary frequency. He was watched off antibiotics. He was maintained on isolation for ESBL producing Klebsiella. #Diabetes mellitus: Oral hypoglycemic agents were stopped at admission. Patient was maintained on NovoLog 3 times a day scale before meals and Levemir twice a day. 3 times a day Accu-Cheks and a consistent carbohydrate diet was maintained . Blood sugar was found to be low during the third hospital day however improved with PO juice. Levemir dose was reduced in the hospital. #Hyperlipidemia: Continued on Lipitor 40 mg by mouth daily. Patient was on Plavix, discontinued on admission, no clear information why the patient was on Plavix. Since patient has no significant history of coronary artery disease Plavix was held at discharge. Patient needs to follow up with primary care doctor regarding restarting it in the future. Patient can be started on baby aspirin for 2 weeks after discharge. #BPH: Had history of TURP 2013.Continued on Flomax 0.4 mg daily and on finasteride 5 mg by mouth daily #Altered mental status with underlying Dementia. Patient has history of dementia on Namenda 20 mg daily. Altered mental status at admission was likely due to metabolic encephalopathy given high blood sugar, lactic acidosis. Resolved with hydration, patient was more alert in the hospital and responded appropriately to questions. #Iron deficiency anemia: Continued on ferrous sulfate 325 daily by mouth, and outpatient workup at some point for cause of iron deficiency anemia. DVT prophylaxis Lovenox Code DNR/DNI Diet carbohydrate 2 Allergies: Coded Allergies: NO KNOWN ALLERGIES (09/16/14) Disposition Summary Disposition Principal Diagnosis: Balanitis Additional Diagnosis: severe phimosis Discharge Disposition: home or self care Discharge Instructions General Discharge Information Code Status: Do Not Resucitate/Intubat Patient's Diet: Diabetic diet Patient's Activity: As tolerated Follow-Up Instructions/Appts: # 1 Please follow up with PCP within 1 week of discharge. #2 . Please Follow with urologist within 1 week of discharge. Medications at Discharge Discharge Medications: Stop taking the following medications: Clopidogrel Bisulfate (Plavix) 75 MG TABLET ORAL DAILY Continue taking these medications: Finasteride (Finasteride) 5 MG TABLET 1 Tablet ORAL DAILY Tamsulosin HCl (Flomax) 0.4 MG CAP.ER.24H 1 Capsule ORAL DAILY Metformin HCl (Metformin HCl) 500 MG TABLET 1 Tablet ORAL TWICE DAILY Atorvastatin Calcium (Lipitor) 40 MG TABLET 1 Tablet ORAL DAILY Ferrous Sulfate (Ferrous Sulfate) 325 MG (65 MG IRON) TABLET 1 Tablet ORAL TWICE DAILY Cholecalciferol (Vitamin D3) (Vitamin D) 2,000 UNIT CAPSULE 1 Capsule ORAL DAILY Memantine HCl (Namenda) 10 MG TABLET 2 Tablet ORAL TAKE AT BEDTIME Sodium Chloride (Sochlor) 5 % OINT...G. 1 DROP In the eye TAKE AT BEDTIME Docusate Sodium (Colace) 100 MG CAPSULE 2 Capsule ORAL DAILY Polyethylene Glycol 3350 (Miralax) 17 GRAM POWD.PACK 1 Packet ORAL DAILY Instructions: dissolve in water Latanoprost (Latanoprost) 0.005 % DROPS 1 Drop In the eye Every night Lidocaine HCl (Lidocaine HCl) 3 % CREAM..G. 1 Application On the skin TWICE DAILY Insulin Lispro (Humalog Kwikpen U-100) 100 UNIT/ML INSULN.PEN Units Inject into fatty tissue THREE TIMES DAILY Start taking the following new medications: Aspirin (Aspirin*) 81 MG TAB.CHEW 1 Tablet ORAL DAILY Qty = 30 No Refills Instructions: please start taking this medication two weeks after discharge 08/22/16 Acetaminophen (Tylenol Extra Strength) 500 MG TABLET 2 Tablet ORAL THREE TIMES DAILY as needed for PAIN SCALE 7-10 (SEVERE) Qty = 20 No Refills Clindamycin Phosphate (Cleocin T) 1 % GEL..GRAM. 1 Application ON SKIN TWICE DAILY Qty = 1 No Refills Miconazole Nitrate (Miconazole Nitrate) 2 % CREAM.APPL 1 Application VAGINALLY EVERY 12 HOURS Qty = 1 No Refills The following medications have been changed: Old: Insulin Detemir (Levemir Flextouch) 100 UNIT/ML (3 ML) INSULN.PEN 40 Units Inject into fatty tissue TAKE AT BEDTIME New: Insulin Detemir (Levemir Flextouch) 100 UNIT/ML (3 ML) INSULN.PEN 10 Units Inject into fatty tissue TWICE DAILY Qty = 60 Copies To: PAM SALINAS,MANUEL MALDONADO MD, MD Review Statement Documenting Attending: MANUEL DONNELLY MD
[2016-08-06 14:32] VITALS: BP 122/62
--- NOTE | 2016-08-06 16:02 | ULTRASOUND REPORT ---
EXAMINATION: US SCROTUM CLINICAL INFORMATION: 81-year-old male with swelling and edema of the scrotum. COMPARISON: None. TECHNIQUE: A sonogram of the scrotum was performed assessing negro-scale appearance and color Doppler flow. FINDINGS: RIGHT: Right testicle measures 2.8 x 2.0 x 2.0 cm, volume 8.0 mL. Parenchymal echotexture is normal. No focal testicular parenchymal lesions are visualized. Normal symmetric intratesticular flow is visualized. Right epididymal head is normal in size. There is a small right epididymal head cyst measuring 2 mm. No right hydrocele or varicocele is seen. LEFT: Left testicle measures 2.9 x 1.7 x 2.1 cm, volume 7.4 mL. Parenchymal echotexture is normal. No focal testicular parenchymal lesions are visualized. Normal symmetric intratesticular flow is visualized. Left epididymal head is normal in size. No left hydrocele or varicocele is seen. Skin thickening is noted throughout the scrotum. Subcutaneous edema is identified in the lateral scrotum and inferior to the testes. Increased vascularity is noted within the subcutaneous tissues of the scrotum. IMPRESSION: 1. Scrotal wall thickening demonstrating increased vascularity. The findings are nonspecific but can be seen with cellulitis. No focal fluid collection. Clinical correlation recommended. 2. Testicles are within normal limits.
--- NOTE | 2016-08-06 17:36 | PN- Infect Dx ---
Subjective Subjective: Afebrile without complaints Objective Last 24 Hrs of Vital Signs/I&O Vital Signs Date Time Temp Pulse Resp B/P Pulse O2 O2 Flow FiO2 Ox Delivery Rate 08/06 1432 97.4 74 20 122/62 99 08/06 1056 63 156/70 08/06 0635 98.6 63 18 156/70 96 Room Air 08/05 2305 98.4 88 20 139/78 98 Room Air Intake & Output 08/06 1600 08/06 0800 08/06 0000 Intake Total 1470 800 345 Output Total 500 200 Balance 970 800 145 Intake, IV 750 800 225 Intake, Oral 720 120 Number 1 3 Bowel Movements Output, Urine 500 200 Patient 150 lb Weight Physical Exam Other Physical Findings: He appears comfortable in no acute distress Extremities no cyanosis, clubbing or edema mild penile edema, without erythema or drainage, and with severe phimosis; scrotal tenderness persists Results Last 24 Hours of Lab Results: Laboratory Tests 08/05 0640 Hematology CBC w Diff NO MAN DIFF REQ WBC (4.8 - 10.8 /CUMM) 6.0 RBC (4.70 - 6.10 /CUMM) 3.99 L Hgb (14.0 - 18.0 G/DL) 9.0 L Hct (42 - 52 %) 28.6 L MCV (80.0 - 94.0 FL) 71.6 L MCH (27.0 - 31.0 PG) 22.6 L RDW (11.5 - 14.5 %) 18.8 H Plt Count (130 - 400 /CUMM) 181 MPV (7.4 - 10.4 FL) 10.8 H Gran % (42.2 - 75.2 %) 51.3 Lymphocytes % (20.5 - 51.1 %) 35.4 Monocytes % (1.7 - 9.3 %) 9.2 Eosinophils % (0 - 5 %) 3.3 Basophils % (0.0 - 2.0 %) 0.8 Absolute Granulocytes (1.4 - 6.5 /CUMM) 3.1 Absolute Lymphocytes (1.2 - 3.4 /CUMM) 2.1 Absolute Monocytes (0.10 - 0.60 /CUMM) 0.6 Absolute Eosinophils (0.0 - 0.7 /CUMM) 0.2 Absolute Basophils (0.0 - 0.2 /CUMM) 0.1 PUBS MCHC (33.0 - 37.0 G/DL) 31.6 L Last 24 Hours of Michael Results: Blood cultures 2 August 03 negative Urine culture August 03 greater than 100,000 colonies of ESBL producing Klebsiella pneumoniae Genital culture (subprepucial) August 05 scan cutaneous murali with light growth of gram-negative rods Recent Imaging Studies: Scrotal ultrasound August 06 reveals scrotal wall thickening with increased vascularity, with no focal fluid collection Assessment/Plan Impression: Balanitis, possibly secondary to Pili, improved after 2 doses of Fluconazole and treatment with topical antifungal therapy. His temperatures and white blood cell count remain normal off antibiotics. The positive urine culture likely represents colonization and the genital culture most likely represents skin contamination; therefore do not feel he requires treatment for either of these cultures. Have discussed with Urology, with plans for possible dorsal slit circumcision later this week. Suggestion: 1. Further management, with possible dorsal slit circumcision later this week, per Urology 2. Continue to follow off antibiotics, but can prophylax with Gentamicin 100 mg IV 1 prior to his urologic procedure
[2016-08-06 22:10] VITALS: BP 103/62
--- NOTE | 2016-08-06 23:00 | NUR ---
PT WANTED TO TALK TO HIS DAUGHTER ROBERT. CALL PLACED TO ROBERT AND PT WAS ABLE TO TALK TO HER AND WAS HAPPY. ROBERT SAID THAT SHE WILL BE HERE SOON TO SEE HER FATHER. PT IS WAITING FOR HER DESPERATELY AND TAKING HER NAME AT TIMES.
--- NOTE | 2016-08-06 23:00 | NUR ---
PT HAS A DUPLICATE ORDER FOR LEVEMIR 10U AT 2200. PT WAS ADMINISTERED 10U LEVEMIR WITH 2100 ORDER. CRUSHER AND BLENDER OPERATOR GUALBERTO CALLED TO D/C THE ORDER. THE ORDER IS STILL SHOWING ACTIVE FOR THIS RN ALTHOUGH IT IS SHOWING IN RED B/C ITS PASS THE TIME TO BE ADMINISTERED. CRUSHER AND BLENDER OPERATOR IS SEEING IT D/C'D IN HER COMPUTER. NIGHT RN AMAL UPDATED SO THAT THERE IS NO CONFUSION.
--- NOTE | 2016-08-07 02:08 | NUR ---
08/07/16 AT 0200 AM. PATIENT RIGHT ARM SWOLLEN. RIGHT ANTICUBICUL IV WAS REMOVED. ARM IS CURRENTLY ELEVATED ON A PILLOW. WILL CONTINUE TO MONITOR.
[2016-08-07 07:08] VITALS: BP 160/80
--- NOTE | 2016-08-07 07:25 | PN- Urology ---
Subjective Subjective: Resting quietly and comfortably Objective Vital Signs and I&Os Vital Signs Date Time Temp Pulse Resp B/P Pulse O2 O2 Flow FiO2 Ox Delivery Rate 08/07 0708 98.4 79 20 160/80 98 08/06 2210 97.4 74 19 103/62 98 08/06 1432 97.4 74 20 122/62 99 08/06 1056 63 156/70 Intake & Output 08/07 0800 08/07 0000 08/06 1600 08/06 0800 08/06 0000 08/05 1600 Intake Total 200 1470 667 562 1220 Output Total 500 500 200 300 Balance -300 970 012 602 7842 Intake, IV 750 800 225 800 Intake, Oral 200 720 120 600 Number 1 3 1 Bowel Movements Output, Urine 500 500 200 300 Patient 150 lb Weight Penile edema and erythema improved. Scrotal ultrasound: non specific thickening of scrotal wall Assessment/Plan Assessment/Plan Imp: Phimosis with recurrent balanitis. Acute episode seems improved Plan: Would consider a 5 day course of fluconazole Will attempt to schedule for dorsal slit circumcision tomorrow if OR can accomadate. Will give prophylactic abx per ID Please keen npo after midnight except for meds
--- NOTE | 2016-08-07 07:30 | PN- Housestaff ---
MARTITA SALINAS,[facility] 08/07/16 0730: Subjective Follow-up For: AMS Balanitis/phimosis Diabetes mellitus Patient is legally blind Subjective: patient was seen and exam ined today, he reported feeling better, denied abdominal pain, fever, chills, dysurea. no overnight events, vital are stable. patient is scheduled for dorsal slit circumcision tomorrow. Review of Systems Constitutional: Reports: see HPI. Objective Last 24 Hrs of Vital Signs/I&O Vital Signs Date Time Temp Pulse Resp B/P Pulse O2 O2 Flow FiO2 Ox Delivery Rate 08/07 1440 97.9 84 20 134/70 97 Room Air 08/07 0800 Room Air 08/07 0800 88 140/70 08/07 0708 98.4 79 20 160/80 98 08/06 2210 97.4 74 19 103/62 98 Intake & Output 08/07 1600 08/07 0800 08/07 0000 Intake Total 640 200 Output Total 450 1500 500 Balance 190 -1500 -300 Intake, Oral 640 200 Number 1 Bowel Movements Output, Urine 450 1500 500 Physical Exam General Appearance: Alert, Oriented X3, Cooperative, No Acute Distress Skin: No Rashes, No Breakdown, No Significant Lesion HEENT: Atraumatic, PERRLA, EOMI, Mucous Membr. moist/pink Neck: Supple Cardiovascular: Regular Rate, Normal S1, Normal S2, No Murmurs Lungs: Clear to Auscultation, Normal Air Movement Abdomen: Normal Bowel Sounds, Soft, No Tenderness Neurological: Normal Speech, Strength at 5/5 X4 Ext, Normal Tone, Sensation Intact, Cranial Nerves 3-12 NL, Reflexes 2+ Extremities: No Clubbing, No Cyanosis, No Edema, Normal Pulses Assessment/Plan Assessment: Mr. Galvez is 81 year old male with past medical history significant for dementia , legally blind, HTN, HLD, T2DM, BPH s/p TURP (Apr 2014), chronic DOUG, is brought in by daughter for high blood sugars, lethargy, altered mental status and swallowing penis and scrotum. Problem list #Balanitis and Phimosis #Asymptomatic bacteriuria #Diabetes mellitus #Hyperlipidemia #BPH #Dementia/metabolic encephalopathy #Iron deficiency anemia #Balanitis and Phimosis -Patient received fluconazole tab 150 mg 1 dose -Continue topical clindamycin and miconazole -Pain and swelling improved significantly, patient will have dorsal slit circumcision tomorrow morning, prophylax with Gentamicin 100 mg IV 1 prior to his urologic procedure -Continue optimal pain management, moderate pathway -Genital culture grew gram-negative Klebsiella -Scrotal ultrasound 08/06 IMPRESSION: 1. Scrotal wall thickening demonstrating increased vascularity. The findings are nonspecific but can be seen with cellulitis. No focal fluid collection. Clinical correlation recommended. 2. Testicles are within normal limits. -ID consultation was obtained, thanks for recommendation -Urology consultation was obtained Dr. Khan, thanks for recommendation -Plavix was stopped since admission in anticipation for urology procedure #Asymptomatic bacteriuria -Patient remained afebrile, no WBC -UA positive for nitrates and WBC -Urine culture positive for Klebsiella -Based on urology consultation, positive results of UA and urine culture could be contamination due to the phimosis -Lactic acid normalized mostly related to uncontrolled diabetes -Patient denied dysuria -ID consultation was obtained, recommendation to monitor off antibiotics #Diabetes mellitus -Accu-Chek 3 times a day before meals and at bedtime -Decrease Levemir 10 mg twice a day -NovoLog sliding scale medium dose #Hyperlipidemia -Continue Lipitor 40 mg by mouth daily -Patient was on Plavix, discontinued on admission, no clear information why the patient was on Plavix, was discontinue on admission in anticipation to urology procedure #BPH -History of TURP 2013 -Continue Flomax 0.4 mg daily -Continue finasteride 5 mg by mouth daily #Altered mental status with underlying Dementia -Patient has history of dementia on Namenda 20 mg daily -Altered mental status mostly due to metabolic encephalopathy given high blood sugar, lactic acidosis -Resolved, patient is alert today and responds appropriately to questions #Iron deficiency anemia -H/H, stable -Continue ferrous sulfate 325 daily by mouth DVT prophylaxis Lovenox Code DNR/DNI Diet carbohydrate 2 Consultation urology, ID Problem List: 1. Balanitis Pain Ratin Pain Location: scrotal pain Pain Goal: Pain 4 or less Pain Plan: Moderate pain pathway Tomorrow's Labs & Rationales: CBC, CMP ANDRZEJ SALINAS,MANUEL 08/07/16 3663: Attending MD Review Statement Attending Statement Attending MD Statement: examined this patient, discuss w/resident/PA/ESTHETICIAN MAKEUP ARTIST, agreed w/resident/PA/ESTHETICIAN MAKEUP ARTIST, discussed with family, reviewed EMR data (avail), discussed with nursing, discussed with case mgmt, amended to note Attending Assessment/Plan: The patient was seen and discussed with house staff. Agree with plan of care as outlined. Medically stable for planned procedure tomorrow.
[2016-08-07 08:00] VITALS: BP 140/70
--- NOTE | 2016-08-07 09:00 | NUR ---
DR SHELTON #218 AWARE OF IV INFILTRATE LAST NIGHT TO [facility] [place], RIGHT ARM ELEVATED OVER NIGHT, SWELLING NOTED TO MIDDLE FOREARM. +RADIAL AND +BRACHIAL PULSES NOTED. PATIENT REPORTS NO PAIN IN ARM. WILL CONTINUE TO MONITOR.
--- NOTE | 2016-08-07 13:52 | PN- Infect Dx ---
Subjective Subjective: Afebrile without complaints Objective Last 24 Hrs of Vital Signs/I&O Vital Signs Date Time Temp Pulse Resp B/P Pulse O2 O2 Flow FiO2 Ox Delivery Rate 08/07 0800 Room Air 08/07 08 88 140/70 08/07 0708 98.4 79 20 160/80 98 08/06 2210 97.4 74 19 103/62 98 08/06 1432 97.4 74 20 122/62 99 Intake & Output 08/07 1600 08/07 0800 08/07 0000 Intake Total 200 Output Total 1500 500 Balance -1500 -300 Intake, Oral 200 Number 1 Bowel Movements Output, Urine 1500 500 Physical Exam Other Physical Findings: He is much more awake and alert, quite conversant, and in no acute distress decreased penile swelling, with no erythema or drainage noted Results Last 24 Hours of Lab Results: No new labs Last 24 Hours of Michael Results: Genital culture August 05 positive for ESBL producing Klebsiella, Enterococcus and Staph aureus Blood cultures 2 August 03 negative Assessment/Plan Impression: Overall improvement in his balanitis after 2 doses of Fluconazole and continued on topical antifungal therapy for possible candidiasis with temperatures and white blood cell count remaining normal off antibiotics. The positive genital culture presumably represents skin contamination and does not require treatment. Likewise his urine culture, which likely represents colonization, does not require treatment. He is scheduled for possible dorsal slit circumcision in the a.m., though he is reluctant to undergo this. Suggestion: 1. Further management, with possible dorsal slit circumcision in the a.m., per Urology 2. Continue to follow off antibiotics, but can prophylax with Gentamicin 100 mg IV 1 prior to his urologic procedure
[2016-08-07 14:40] VITALS: BP 134/70
--- NOTE | 2016-08-07 14:57 | NUR ---
NOTIFIED DR SHELTON #[id number] THAT SHERLY IV NURSE ATTEMPTED IV X2. UNSUCCESSFUL. PER SHERLY WILL TRY IN MORNING AND IF UNABLE WILL HAVE TO HAVE ANESTHESIOLOGIST TO OBTAIN IV SITE IN OR TOMORROW.
[2016-08-07 21:53] VITALS: BP 136/60
--- NOTE | 2016-08-08 00:07 | NUR ---
ALERT AND ORIENTED X 3. VITAL SIGNS STABLE. DENIES CHEST PAIN. + PULSES ON ROOM AIR. NO DISTRESS NOTED. PATIENT TURNED AND REPOSITIONED. PATIENT RESTING AT THIS TIME. WILL CONTINUE TO MONITOR
[2016-08-08 07:10] VITALS: BP 140/66
--- NOTE | 2016-08-08 07:13 | PN- Housestaff ---
See Addendum Subjective Follow-up For: AMS Balanitis/phimosis Diabetes mellitus Patient is legally blind Subjective: Patient was seen and examined this morning, he was lying comfortably on bed, daughter was at bedside. Patient and his daughter reported that he is nothing by mouth since 12 AM last night and he wants to eat something, Dr. Khan told them that the OR will be in afternoon (I confirmed with Dr. Khan) and meanwhile patient doesn't have IV access as he is very hard stick. I contacted Jodi and the anesthesia department in order to get an IV access, we 'll continue to follow. Patient blood glucose this morning is 217. Vital signs are stable. No overnight events reported by the nurse. Review of Systems Constitutional: Reports: see HPI. Objective Last 24 Hrs of Vital Signs/I&O Vital Signs Date Time Temp Pulse Resp B/P Pulse O2 O2 Flow FiO2 Ox Delivery Rate 08/08 0710 98.4 70 20 140/66 95 Room Air 08/07 2153 98.7 82 20 136/60 95 08/07 1600 Room Air 08/07 1440 97.9 84 20 134/70 97 Room Air 08/07 0800 Room Air 08/07 0800 88 140/70 Intake & Output 08/08 0800 08/08 0000 08/07 1600 Intake Total 400 640 Output Total 150 450 Balance 250 190 Intake, Oral 400 640 Number 1 Bowel Movements Output, Urine 150 450 Physical Exam General Appearance: Alert, Cooperative, No Acute Distress Skin: No Rashes, No Breakdown, No Significant Lesion HEENT: Atraumatic, PERRLA, EOMI Neck: Supple Cardiovascular: Regular Rate, Normal S1, Normal S2, No Murmurs Lungs: Clear to Auscultation, Normal Air Movement Abdomen: Normal Bowel Sounds, Soft, No Tenderness Neurological: Normal Speech, Strength at 5/5 X4 Ext, Normal Tone, Sensation Intact, Cranial Nerves 3-12 NL, Reflexes 2+ Extremities: No Clubbing, No Cyanosis, No Edema, Normal Pulses Reproductive (MALE) Normal male genitalia Assessment/Plan Assessment: Mr. Galvez is 81 year old male with past medical history significant for dementia , legally blind, HTN, HLD, T2DM, BPH s/p TURP (Apr 2014), chronic DOUG, is brought in by daughter for high blood sugars, lethargy, altered mental status and swallowing penis and scrotum. Problem list #Balanitis and Phimosis #Asymptomatic bacteriuria #Diabetes mellitus #Hyperlipidemia #BPH #Dementia/metabolic encephalopathy #Iron deficiency anemia #Balanitis and Phimosis -Patient received fluconazole tab 150 mg 1 dose -Continue topical clindamycin and miconazole -Pain and swelling improved significantly, patient will have dorsal slit circumcision this afternoon, prophylaxis antibiotic Gentamicin 100 mg IV 1 prior to his urologic procedure. RCRI=1 risk of pre-operative cardiac events 0.9 % -Continue optimal pain management, moderate pathway -Genital culture positive for gram-negative Klebsiella -Scrotal ultrasound 08/06 revealed 1. Scrotal wall thickening demonstrating increased vascularity. The findings are nonspecific but can be seen with cellulitis. No focal fluid collection. Clinical correlation recommended. 2. Testicles are within normal limits. -ID consultation was obtained, thanks for recommendation -Urology consultation was obtained Dr. Khan, thanks for recommendation -Plavix was stopped since admission in anticipation for urology procedure #Asymptomatic bacteriuria -Patient remained afebrile, no WBC -UA positive for nitrates and WBC -Urine culture positive for Klebsiella -Based on urology consultation, positive results of UA and urine culture could be contamination due to the phimosis -Lactic acid normalized mostly related to uncontrolled diabetes -Patient denied dysuria -ID consultation was obtained, recommendation to monitor off antibiotics #Diabetes mellitus -NPO NovoLog sliding scale, Accu, check Q6 -Accu-Chek 3 times a day before meals and at bedtime (On HOLD) -Continue Levemir 10 mg twice a day -NovoLog sliding scale medium dose (ON HOLD) #Hyperlipidemia -Continue Lipitor 40 mg by mouth daily -Patient was on Plavix, discontinued on admission, no clear information why the patient was on Plavix, was discontinued on admission in anticipation for urology procedure #BPH -History of TURP 2013 -Continue Flomax 0.4 mg daily -Continue finasteride 5 mg by mouth daily #Altered mental status with underlying Dementia -Patient has history of dementia on Namenda 20 mg daily -Altered mental status mostly due to metabolic encephalopathy given high blood sugar, lactic acidosis -Resolved, patient is alert today and responds appropriately to questions #Iron deficiency anemia -H/H, stable -Continue ferrous sulfate 325 daily by mouth DVT prophylaxis Alps. Lovenox (ON HOLD) Code DNR/DNI Diet NPO 08/08. carbohydrate 2 (ON HOLD) Consultation urology, ID Problem List: 1. Balanitis 2. Diabetes Pain Ratin Pain Location: none Pain Goal: Pain 4 or less Pain Plan: Moderate pain pathway Tomorrow's Labs & Rationales: CBC, CMP
--- NOTE | 2016-08-08 07:50 | PN- Urology ---
Surgical Brief Attending Note Brief Attending Note: Will attempt to schedule for dorsal slit circumcision this afternoon.
--- NOTE | 2016-08-08 13:24 | NUR ---
NURSING NOTE: TRANSFERED TO OR @ 1120 VIA [facility]. A&O X 2 WITH NO C/O PAIN OR DISCOMFORT. IV GENTAMYCIN SENT TO OR WITH PATIENT PER MD.
--- NOTE | 2016-08-08 14:54 | Operative Report ---
Operative/Inv Procedure Report Surgery Date: 08/08/16 Name of Procedure: Dorsal slit circumcision Pre-Operative Diagnosis: Severe phimosis with balanitis Post-Operative Diagnosis: Same Estimated Blood Loss: scant Surgeon/Pipelines Supervisor: MANUEL Metz MD Anesthesia: local monitored anesthesi Drains: None Specimens: None Complications: None Condition: Fair Operative Indication: Severe phimosis with significant balanitis Operative/Procedure Note Note: The patient was taken to the operating room and identified. Placed in supine position on the operating table. A timeout was executed appropriately. Intravenous sedation was then given. He was then prepped and draped in usual fashion for penile surgery. A dorsal block was performed with 2% lidocaine. Approximately 12 mL of this was used. A straight clamp was used to compress the foreskin which was not retractable. Using Metzenbaum scissors a dorsal slit was made. The mucosal surface in the skin surface incisions were extended using the Metzenbaums. Minor bleeding was controlled with electrocautery. At this point the foreskin was retractable and the penis was reprepped with Betadine. No significant penile lesions were seen. The foreskin was now easily retractable. The 2 free skin edges were then approximated with 3-0 chromic running suture. A sterile dressing was placed. The patient tolerated the procedure wellWas taken to recovery room Findings: Severe phimosis with chronic inflammation Discharge Disposition: PACU
[2016-08-08] MEDS ORDERED: LEVEMIR FL100 UNIT/1 SC (15:04)
[2016-08-08] MEDS ORDERED: ASPIRIN81 M4 PO (15:07)
--- NOTE | 2016-08-08 15:30 | NUR ---
SHAMIR NOTE: PATIENT RETURNED FROM SURGERY @ 7060. IV RF REMOVED IN THE OR. CURRENT IV #24 LH PLACED 08/08/16 IN THE OR. A&O X 3 WITH N/O OF PAIN. SPO2 96%. RESTING QUIETLY WITH DAUGHTER @ BEDSIDE.
[2016-08-08 16:00] VITALS: BP 140/74
[2016-08-08 23:23] VITALS: BP 132/78
[2016-08-09 06:49] VITALS: BP 158/72
--- NOTE | 2016-08-09 07:20 | PN- Housestaff ---
MARTITA SALINAS,[facility] 08/09/16 0719: Subjective Follow-up For: AMS Balanitis/phimosis Diabetes mellitus Patient is legally blind Subjective: Patient was seen and examined today, patient over no new complaints. No overnight events reported by the nurse. Vital signs are stable. Patient is for discharge today. Review of Systems Constitutional: Reports: see HPI. Objective Last 24 Hrs of Vital Signs/I&O Vital Signs Date Time Temp Pulse Resp B/P Pulse O2 O2 Flow FiO2 Ox Delivery Rate 08/09 1409 98.1 72 20 116/56 99 Room Air 08/09 1149 76 126/64 08/09 0649 98.2 80 18 158/72 96 Room Air 08/08 2323 97.6 72 22 132/78 96 Room Air Intake & Output 08/09 1600 08/09 0800 08/09 0000 Intake Total 720 240 Output Total 400 450 Balance 320 -450 240 Intake, Oral 720 240 Output, Urine 400 450 Physical Exam General Appearance: Alert, Oriented X3, Cooperative, No Acute Distress Skin: No Rashes, No Breakdown, No Significant Lesion HEENT: Atraumatic, PERRLA, EOMI, Mucous Membr. moist/pink Neck: Supple, No JVD Cardiovascular: Regular Rate, Normal S1, Normal S2, No Murmurs Lungs: Clear to Auscultation, Normal Air Movement Abdomen: Normal Bowel Sounds, Soft, No Tenderness Neurological: Normal Speech, Strength at 5/5 X4 Ext, Normal Tone, Sensation Intact, Cranial Nerves 3-12 NL, Reflexes 2+ Extremities: No Clubbing, No Cyanosis, No Edema, Normal Pulses Reproductive (MALE) patient had a dorsal slit circumcision yesterday, still have the Xeroform guaz, no active bleeding Assessment/Plan Assessment: Mr. Galvez is 81 year old male with past medical history significant for dementia , legally blind, HTN, HLD, T2DM, BPH s/p TURP (Apr 2014), chronic DOUG, is brought in by daughter for high blood sugars, lethargy, altered mental status and swallowing penis and scrotum. Problem list #Balanitis and Phimosis #Asymptomatic bacteriuria #Diabetes mellitus #Hyperlipidemia #BPH #Dementia/metabolic encephalopathy #Iron deficiency anemia #Balanitis and Phimosis -Patient received fluconazole tab 150 mg 1 dose -Continue topical clindamycin and miconazole -Pain and swelling improved significantly -Patient had a dorsal slit circumcision POD#1 -Continue optimal pain management, moderate pathway -Genital culture positive for gram-negative Klebsiella -Scrotal ultrasound 08/06 revealed 1. Scrotal wall thickening demonstrating increased vascularity. The findings are nonspecific but can be seen with cellulitis. No focal fluid collection. Clinical correlation recommended. 2. Testicles are within normal limits. -ID consultation was obtained, thanks for recommendation -Urology consultation was obtained Dr. Khan, thanks for recommendation -Plavix was stopped since admission in anticipation for urology procedure #Asymptomatic bacteriuria -Patient remained afebrile, no WBC -UA positive for nitrates and WBC -Urine culture positive for Klebsiella -Based on urology consultation, positive results of UA and urine culture could be contamination due to the phimosis -Lactic acid normalized mostly related to uncontrolled diabetes -Patient denied dysuria -ID consultation was obtained, recommendation to monitor off antibiotics #Diabetes mellitus -NPO NovoLog sliding scale, Accu, check Q6 -Accu-Chek 3 times a day before meals and at bedtime (On HOLD) -Continue Levemir 10 mg twice a day -NovoLog sliding scale medium dose (ON HOLD) #Hyperlipidemia -Continue Lipitor 40 mg by mouth daily -Patient was on Plavix, discontinued on admission, no clear information why the patient was on Plavix, was discontinued on admission in anticipation for urology procedure #BPH -History of TURP 2013 -Continue Flomax 0.4 mg daily -Continue finasteride 5 mg by mouth daily #Altered mental status with underlying Dementia -Patient has history of dementia on Namenda 20 mg daily -Altered mental status mostly due to metabolic encephalopathy given high blood sugar, lactic acidosis -Resolved, patient is alert today and responds appropriately to questions #Iron deficiency anemia -H/H, stable -Continue ferrous sulfate 325 daily by mouth DVT prophylaxis Alps. Lovenox (ON HOLD) Code DNR/DNI Diet NPO 08/08. carbohydrate 2 (ON HOLD) Consultation urology, ID Patient is for discharge today to [facility] in [place] Problem List: 1. Balanitis Pain Ratin Pain Location: Scrotum and penis Pain Goal: Pain 4 or less Pain Plan: Moderate pain pathway Tomorrow's Labs & Rationales: None VIOLA SALINAS,MATTHEW 08/09/16 1105: Attending MD Review Statement Attending Statement Attending MD Statement: examined this patient, discuss w/resident/PA/MEAT INSPECTOR, agreed w/resident/PA/MEAT INSPECTOR, discussed with family, reviewed EMR data (avail), discussed with nursing, discussed with case mgmt, reviewed images Attending Assessment/Plan: Patient is doing well after the dorsal slit procedure done yesterday for balanitis with severe phimosis. As per the OR there is no significant blood loss. He is stable and the plan is that his daughter will take him home for a few days with her and then take him back to his extended care facility in the [place]. We explained the iron deficiency anemia at baseline and no obvious indication to restart the Plavix. We advised to restart aspirin 2 weeks later and closely follow-up as an outpatient for his diabetes and his anemia.
[2016-08-09 12:00] LABS: ABSOLUTE BASOPHIL COUNT 0.1 /CUMM (0.0-0.2); ABSOLUTE EOSINOPHIL COUNT 0.2 /CUMM (0.0-0.7); ABSOLUTE GRANULOCYTE CT 5.9 /CUMM (1.4-6.5); ABSOLUTE LYMPH COUNT 2.5 /CUMM (1.2-3.4); ABSOLUTE MONOCYTE COUNT 0.8 /CUMM (0.10-0.60); BASOPHIL % 0.9 % (0.0-2.0); GRANULOCYTE % 62.1 % (42.2-75.2); HEMATOCRIT 30.1 % (42-52); MEAN CORPUSCULAR HGB CONC 30.5 G/DL (33.0-37.0); MEAN CORPUSCULAR VOLUME 72.1 FL (80.0-94.0); MEAN PLATELET VOLUME 9.8 FL (7.4-10.4); RBC DISTRIBUTION WIDTH 18.8 % (11.5-14.5); RED BLOOD CELL CT 4.17 /CUMM (4.70-6.10)
[2016-08-09 12:05] LABS: PLATELET COUNT 281 /CUMM (130-400); WHITE BLOOD CELL COUNT 9.4 /CUMM (4.8-10.8)
[2016-08-09] MEDS ORDERED: TYLENOL EXTRA500 M2 PO (12:45)
[2016-08-09 14:09] VITALS: BP 116/56
== END 2016-08-09 16:50 | DRG 501 ==
LOC: ENRESERVTM → CANRESERV → ENRESERVDT → ERH 15:27 → 2NB 19:04 → ENPENDDIS 19:04 → ERHI 19:04 → 2NB 19:04 → ERHI 22:21 → 2NB 22:25 → ERHI 23:54 → 2NB 23:56
PROVIDERS: Internal Medicine Hematology & Oncology; Physician Assistant; Student in an Organized Health Care Education/Training Program; ADMIT Student in an Organized Health Care Education/Training Program
PROC: 0VTTXZZ Resection of Prepuce, External Approach (ICD-10-PCS; principal; 2016-08-08)
DX: N48.1 Balanitis (principal); G93.41 Metabolic encephalopathy; E87.2 Acidosis; Z79.4 Long term (current) use of insulin; N47.1 Phimosis; F03.90 Unspecified dementia, unspecified severity, without behavioral disturbance, psychotic disturbance, mood disturbance, and anxiety; H54.8 Legal blindness, as defined in USA; N40.0 Benign prostatic hyperplasia without lower urinary tract symptoms; E87.5 Hyperkalemia; E78.5 Hyperlipidemia, unspecified; D50.9 Iron deficiency anemia, unspecified; I12.9 Hypertensive chronic kidney disease with stage 1 through stage 4 chronic kidney disease, or unspecified chronic kidney disease; E11.22 Type 2 diabetes mellitus with diabetic chronic kidney disease; N18.3 Chronic kidney disease, stage 3 (moderate)
CPT/HCPCS: 2NBP; 87070; 87184; 36415; 81001; 82436; 87040; 87086; 87147; 93005; 93010; 96372; 97116-GO; 97162-GP; 97530-GO; J0696; J1200; J1580; J1650; J1815; J2001; J2405; J7042

== ENCOUNTER 2017-05-28 06:18 | Emergency (ER) | payer OTHER ==
[~2017-05-28] VITALS: Ht 165.1 cm; Wt 72.6 kg
[~2017-05-28 06:18] MED LIST changes: +ACCU-CHEK1 EACH SC; +ASPIRIN81 M4 PO; +CLEOCIN T60 GM EXT; +COLACE100 M1 PO; +FERROUS SULFAT325 M3 PO; +FINASTERIDE5 M1 PO; +FLOMAX0.4 M1 PO; +HUMALOG KW100 UNIT/1 SC; +INSULIN SYRING1 EA30 SC; +LATANOPROST2.5 ML OPH; +LEVEMIR FL100 UNIT/1 SC; +LEVEMIR100 UNIT/1 SC; +LEVETIRACETAM500 M2 PO; +LIDOCAINE HC28.35 GM TOP; +LIPITOR40 M1 PO; +MELATONIN5 M7 PO; +METFORMIN HCL500 M3 PO; +MICONAZOLE NITR45 GM VAG; +MIRALAX17 G1 PO; +NAMENDA10 M2 PO; +PLAVIX75 M1 PO; +PRILOSEC OTC20 M1 PO; +ROZEREM8 M1 PO; +TYLENOL EXTRA500 M2 PO; +TYLENOL325 M1 PO; +VITAMIN D2000 UNIT PO; +[UNRECOGNIZED DRUG - OTHER] OPH
--- NOTE | 2017-05-28 06:46 | ED GI/GU/ABDOMINAL COMPLAINT ---
History of Present Illness General Chief Complaint: Abdominal Pain/Flank Pain Stated Complaint: ABD PAIN,CONFUSION,AGITATION Source: patient Exam Limitations: no limitations Vital Signs & Intake/Output Vital Signs & Intake/Output Vital Signs Date Time Temp Pulse Resp B/P B/P Pulse O2 O2 Flow FiO2 Mean Ox Delivery Rate 05/28 1000 97.9 81 20 140/80 98 Room Air 05/28 0913 97.0 67 20 179/87 99 Room Air 05/28 0644 97.1 93 20 150/85 99 Room Air Allergies Coded Allergies: NO KNOWN ALLERGIES (09/16/14) Triage Nurses Notes Reviewed? yes Onset: Gradual Duration: day(s): Timing: recent history Quality/Severity: cramping Location: generalized abdomen Radiation: no radiation Activities at Onset: none Prior Abdominal Problems: none Modifying Factors: Worsens With: palpation. Associated Symptoms: abdominal pain, increased agitation HPI: 82 yo gentleman h/o diabetes and dementia, presents with abdominal discomfort and increased agitation. His daughter notes decreased bowel movements, slightly decreased oral intake, no nausea, vomiting, fever, dysuria. She notes, "he has been more agitated lately." No focal weakness noted. He is otherwise well. (Elysia SALINAS,Rex Martin) Reconcile Medications Acetaminophen (Tylenol) 325 MG TABLET 2 TAB PO Q6-PRN PRN PAIN (Reported) Aspirin (Aspirin*) 81 MG TAB.CHEW 1 TAB PO DAILY HEART HEALTH Atorvastatin Calcium (Lipitor) 40 MG TABLET 1 TAB PO DAILY CHOLESTEROL ( Reported) Blood Sugar Diagnostic (Contour Next) 1 EACH STRIP 0 TOP TID DM Cholecalciferol (Vitamin D3) (Vitamin D) 2,000 UNIT CAPSULE 1 CAP PO DAILY SUPPLEMENT (Reported) Docusate Sodium (Colace) 100 MG CAPSULE 2 CAP PO DAILY STOOL SOFTENER ( Reported) Ferrous Sulfate 325 MG (65 MG IRON) TABLET 1 TAB PO BID SUPPLEMENT (Reported) Finasteride 5 MG TABLET 1 TAB PO DAILY PROSTATE (Reported) Insulin Detemir (Levemir) 100 UNIT/ML VIAL 12 UNITS SC BID DIABETES .. Insulin Lispro (Humalog Kwikpen U-100) 100 UNIT/ML INSULN.PEN 0 SC TIDAC DIABETES before meals less than 80 mg/dl take cup of apple juice 80-150 4 units 151-200 6 units 201-250 8 units 251-300 10 units 301-350 12 units 351-400 13 units >400 14 units Bedtime 251-300 2 units 301-350 3 units 351-400 4 units >400 5 units Latanoprost 0.005 % DROPS 1 GTT OPH QPM BOTH EYES (Reported) Melatonin 5 MG TABLET 1 TAB PO AT BEDTIME INSOMNIA Memantine HCl (Namenda) 10 MG TABLET 2 TAB PO QHS MEMORY (Reported) Omeprazole Magnesium (Prilosec Otc) 20 MG TABLET.DR 1 TAB PO DAILY ACID REFLUX Polyethylene Glycol 3350 (Miralax) 17 GRAM POWD.PACK 1 PAC PO DAILY GI ( Reported) dissolve in water Ramelteon (Rozerem) 8 MG TABLET 1 TAB PO AT BEDTIME INSOMNIA Sodium Chloride (Sochlor) 5 % OINT...G. 1 DROP OPH QHS BOTH EYES (Reported) Tamsulosin HCl (Flomax) 0.4 MG CAP.ER.24H 1 CAP PO DAILY PROSTATE (Reported) (Torin SALINAS,Clarissa) Past History Travel History Traveled to [place] past 21 day No Medical History Any Pertinent Medical History? 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 No (Elysia SALINAS,Rex Martin) Review of Systems Review of Systems Constitutional: Reports: no symptoms. EENTM: Reports: no symptoms. Respiratory: Reports: no symptoms. Cardiovascular: Reports: no symptoms. GI: Reports: no symptoms. Genitourinary: Reports: no symptoms. Musculoskeletal: Reports: no symptoms. Skin: Reports: no symptoms. Neurological/Psychological: Reports: no symptoms. Hematologic/Endocrine: Reports: no symptoms. Immunologic/Allergic: Reports: no symptoms. All Other Systems: Reviewed and Negative (Elysia SALINAS,Rex Martin) Physical Exam Physical Exam General Appearance: well developed/nourished, mild distress Head: atraumatic, normal appearance Eyes: Bilateral: other (eyes closed). Ears, Nose, Throat, Mouth: dry mucosa, otherwise benign Neck: normal inspection, supple, full range of motion Respiratory: normal breath sounds, chest non-tender, no respiratory distress, quiet respiration, lungs clear Cardiovascular: regular rate/rhythm Gastrointestinal: soft, slight distention, non tender, diminished bowel sounds Rectal: brown stool, trace guiac positive Back: normal inspection Extremities: normal range of motion Neurologic/Psych: no motor/sensory deficits, awake, alert, oriented x 3 Skin: intact, normal color, warm/dry Core Measures ACS in differential dx? No Sepsis Present: No Sepsis Focused Exam Completed? No (Elysia SALINAS,Rex Martin) Progress Differential Diagnosis: ileus vs obstruction vs uti vs other. Plan of Care: Orders Procedure Date/time Status Consistent Carbohydrate 1 05/28 D Active Add-on Test (ER Only) 05/28 1111 Active CULTURE,URINE 05/28 1040 Active ACETONE 05/28 0653 Complete URINALYSIS 05/28 0630 Complete TROPONIN LEVEL 05/28 0630 Complete LIPASE 05/28 0630 Complete HEPATIC FUNCTION PANEL 05/28 06 Complete CBC WITHOUT DIFFERENTIAL 05/28 629 Complete BASIC METABOLIC PANEL 05/28 0630 Complete AMYLASE 05/28 0630 Complete EKG 05/28 0630 Active Laboratory Tests 05/28/17 1040: Urine Color YEL, Urine Clarity CLEAR, Urine pH 6.0, Ur Specific [place] 1.015, Urine Protein NEG, Urine Ketones NEG, Urine Nitrite NEG, Urine Bilirubin NEG, Urine Urobilinogen 0.2, Ur Leukocyte Esterase NEG, Ur Microscopic EXAM NOT REQUIRED, Urine Hemoglobin NEG, Urine Glucose >=1000 H 05/28/17 0840: Anion Gap 13, Estimated GFR 53 L, BUN/Creatinine Ratio 13.1, Glucose 373 H, Calcium 9.6, Total Bilirubin 0.8, Direct Bilirubin 0.3, AST 22, ALT 28, Alkaline Phosphatase 105, Troponin I < 0.01, Total Protein 7.0, Albumin 4.0, Amylase 86, Lipase 225, CBC w Diff NO MAN DIFF REQ, RBC 5.03, MCV 71.7 L, MCH 22.3 L, RDW 20.3 H, MPV 10.5 H, Gran % 65.9, Lymphocytes % 22.5, Monocytes % 7.2, Eosinophils % 3.3, Basophils % 1.1, Absolute Granulocytes 6.0, Absolute Lymphocytes 2.0, Absolute Monocytes 0.7 H, Absolute Eosinophils 0.3, Absolute Basophils 0.1, PUBS MCHC 31.1 L, Acetone Level NEGATIVE Microbiology 05/28 1040 URINE ROUT: Urine Culture - RECD 7:22 AM PATIENT SIGNED OUT TO ME PENDING CT SCAN ABD/PELVIS 9:19 AM NO CHANGE IN HEAD CT, NO ACUTE PROCESS ON ABDOMINAL CT. PATIENT'S DAUGHTER UPDATE. LABS, U/A PENDING. (Torin SALINAS,Clarissa) Diagnostic Imaging: Viewed by Me: Radiology Read, CT Scan. Discussed w/RAD: Radiology Read, CT Scan. Initial ED EKG: pending Hand-Off Endorsed To: Clarissa Mcfarland MD Endorsed Time: 0700 Pending: CT, EKG, labs, Xray (Elysia SALINAS,Rex Martin) Radiology Impression: PATIENT: EDILBERTO MARTIN PRESENT AGE: 82 PATIENT ACCOUNT NO: [id number] : 33 LOCATION: [facility] ORDERING PHYSICIAN: Rex Naidu MD SERVICE DATE: 05/28/17 EXAM TYPE: CAT - CT HEAD WO IV CONTRAST EXAMINATION: CT HEAD WITHOUT CONTRAST CLINICAL INFORMATION: Agitation. COMPARISON: CT scan of the head 01/14/2017. TECHNIQUE: Contiguous axial imaging was performed from the skull base to vertex without intravenous administration of contrast. DLP: 618.73 mGy-cm FINDINGS: The study redemonstrates the extra-axial mass in the lateral right frontal region. It is well-defined and measures 2.1 x 3.7 cm. It has slightly heterogenous, increased attenuation. These findings are most consistent with a meningioma. There is mass effect on the right middle frontal gyrus, but no abnormal attenuation is seen in the adjacent brain parenchyma. It appears stable compared to prior imaging. There is no evidence of acute intracranial hemorrhage or territorial infarction. No midline shift is seen. Petit to white matter differentiation is well preserved. No extra-axial fluid collections are identified. The study redemonstrates the coarse falcine calcifications anteriorly. There is mild commensurate prominence of the ventricles and sulci consistent with diffuse volume loss. There is a stable cavum velum interpositum. There are patchy areas of low-attenuation the periventricular and subcortical white matter, consistent with chronic microvascular ischemic changes. There are no acute osseous findings. Increased density in the right high parietal scalp was present on the prior study, most consistent with a scar. There is a minimal amount of fluid at the left mastoid tip. The right mastoid air cells and visualized paranasal sinuses are well-aerated. IMPRESSION: 1. There are no acute bleeds or territorial infarcts. There is diffuse volume loss an chronic microvascular ischemic disease. 2. The study redemonstrates an extra-axial mass adjacent to the right middle frontal gyrus, consistent with a meningioma. 3. This critical result was discussed with Clarissa Mcfarland by telephone on 05/28/2017 at 7:[address] Hoffman and it was ascertained that the content and urgency of the report was understood at the time of direct communication. DICTATED BY: Yash Saundesr MD DATE/TIME DICTATED:05/28/17748 TELETYPE MECHANIC:ANASTASIIA DATE/TIME TRANSCRIBED:05/28/17748 CONFIDENTIAL, DO NOT COPY WITHOUT APPROPRIATE AUTHORIZATION. <Electronically signed in Other Vendor System> SIGNED BY: Yash Saunders MD 05/28/1734, PATIENT: EDILBERTO MARTIN PRESENT AGE: 82 PATIENT ACCOUNT NO: [id number] : 33 LOCATION: [facility] ORDERING PHYSICIAN: Rex Naidu MD SERVICE DATE: 05/28/17 EXAM TYPE: CAT - CT ABD & PELVIS W/O IV CONTRAS EXAMINATION: CT ABDOMEN AND PELVIS WITHOUT CONTRAST CLINICAL INFORMATION: Abdominal distention and pain. COMPARISON: 04/11/2017 TECHNIQUE: Multidetector volumetric imaging was performed from the superior aspect of the liver through the pubic symphysis. Sagittal and coronal reformatted images were obtained on the technologist's workstation. DLP: 417.74 mGy-cm FINDINGS: LUNG BASES: No suspicious finding is seen at the lung bases. Previously detected atelectasis/infiltrates at the left base is improved. LIVER, GALLBLADDER, AND BILIARY TREE: The liver is normal in size, shape, and attenuation. No focal hepatic lesion or biliary ductal dilatation is present. The gallbladder is unremarkable with no evidence of radiopaque gallstones, gallbladder wall thickening, or obvious pericholecystic inflammatory changes. PANCREAS: Unremarkable. SPLEEN: Unremarkable. ADRENAL GLANDS: Unremarkable. KIDNEYS AND URETERS: The kidneys are normal in size, shape, and attenuation. There is non rotation. The renal masses seen at the time of prior CT scan with contrast are not as well appreciated on today's study. No hydronephrosis, hydroureter, or calculi seen. No perinephric stranding. BLADDER: Unremarkable. GASTROINTESTINAL TRACT: The small and large bowel are unremarkable. A large amount of gas and stool is seen throughout the colon. The appendix is not identified with certainty. ABDOMINAL WALL: No significant hernia is appreciated. Tiny periumbilical hernia containing fat is present. LYMPH NODES: Normal. VASCULAR: Atherosclerotic changes are present in the aorta and iliac vessels with some mild ectasia of the distal aorta and common iliac arteries. PELVIC VISCERA: Unremarkable. Prostate and seminal vesicles appear normal. OSSEOUS STRUCTURES: Unremarkable. Very mild degenerative changes are present in the spine. IMPRESSION: Cause for the patient's abdominal distention and pain is not found. There's been no significant interval change since the patient's prior CT from March aside from Left basilar atelectasis improvement. DICTATED BY: Hermann Jones MD DATE/TIME DICTATED:05/28/17756 TELETYPE MECHANIC:ANASTASIIA DATE/TIME TRANSCRIBED:05/28/17756 CONFIDENTIAL, DO NOT COPY WITHOUT APPROPRIATE AUTHORIZATION. <Electronically signed in Other Vendor System> SIGNED BY: Hermann Jones MD 05/28/17 0821 (Torin SALINAS,[facility]) Departure Departure Disposition: HOME OR SELF CARE Condition: Stable Clinical Impression Primary Impression: Hyperglycemia Secondary Impressions: Abdominal pain Referrals: Kelly Christianson APRN (PCP/Family) Departure Forms: Customer Survey General Discharge Information Comments 05/28/17, 7am... pt with elevated glucose and abdominal pain... wrote for insulin , iv fluids, labs, ct scan... pt signed out to dr. mcfarland. (Elysia SALINAS,Rex Martin) Departure Additional Instructions: CHECK YOUR FATHER'S BLOOD SUGAR AND CONTINUE HIS REGULAR MEDICATIONS FOLLOW UP WITH HIS DOCTOR IN THE OFFICE RETURN TO THE ER FOR ANY CHANGING OR WORSENING SYMTPOMS Prescriptions: Current Visit Scripts Blood Sugar Diagnostic (Contour Next) 0 TOP TID #1 STRIP (Torin SALINAS,Clarissa)
--- NOTE | 2017-05-28 08:21 | CT SCAN REPORT ---
EXAMINATION: CT ABDOMEN AND PELVIS WITHOUT CONTRAST CLINICAL INFORMATION: Abdominal distention and pain. COMPARISON: 04/11/2017 TECHNIQUE: Multidetector volumetric imaging was performed from the superior aspect of the liver through the pubic symphysis. Sagittal and coronal reformatted images were obtained on the technologist's workstation. DLP: 417.74 mGy-cm FINDINGS: LUNG BASES: No suspicious finding is seen at the lung bases. Previously detected atelectasis/infiltrates at the left base is improved. LIVER, GALLBLADDER, AND BILIARY TREE: The liver is normal in size, shape, and attenuation. No focal hepatic lesion or biliary ductal dilatation is present. The gallbladder is unremarkable with no evidence of radiopaque gallstones, gallbladder wall thickening, or obvious pericholecystic inflammatory changes. PANCREAS: Unremarkable. SPLEEN: Unremarkable. ADRENAL GLANDS: Unremarkable. KIDNEYS AND URETERS: The kidneys are normal in size, shape, and attenuation. There is non rotation. The renal masses seen at the time of prior CT scan with contrast are not as well appreciated on today's study. No hydronephrosis, hydroureter, or calculi seen. No perinephric stranding. BLADDER: Unremarkable. GASTROINTESTINAL TRACT: The small and large bowel are unremarkable. A large amount of gas and stool is seen throughout the colon. The appendix is not identified with certainty. ABDOMINAL WALL: No significant hernia is appreciated. Tiny periumbilical hernia containing fat is present. LYMPH NODES: Normal. VASCULAR: Atherosclerotic changes are present in the aorta and iliac vessels with some mild ectasia of the distal aorta and common iliac arteries. PELVIC VISCERA: Unremarkable. Prostate and seminal vesicles appear normal. OSSEOUS STRUCTURES: Unremarkable. Very mild degenerative changes are present in the spine. IMPRESSION: Cause for the patient's abdominal distention and pain is not found. There's been no significant interval change since the patient's prior CT from March aside from Left basilar atelectasis improvement.
--- NOTE | 2017-05-28 08:34 | CT SCAN REPORT ---
EXAMINATION: CT HEAD WITHOUT CONTRAST CLINICAL INFORMATION: Agitation. COMPARISON: CT scan of the head 01/14/2017. TECHNIQUE: Contiguous axial imaging was performed from the skull base to vertex without intravenous administration of contrast. DLP: 618.73 mGy-cm FINDINGS: The study redemonstrates the extra-axial mass in the lateral right frontal region. It is well-defined and measures 2.1 x 3.7 cm. It has slightly heterogenous, increased attenuation. These findings are most consistent with a meningioma. There is mass effect on the right middle frontal gyrus, but no abnormal attenuation is seen in the adjacent brain parenchyma. It appears stable compared to prior imaging. There is no evidence of acute intracranial hemorrhage or territorial infarction. No midline shift is seen. Petit to white matter differentiation is well preserved. No extra-axial fluid collections are identified. The study redemonstrates the coarse falcine calcifications anteriorly. There is mild commensurate prominence of the ventricles and sulci consistent with diffuse volume loss. There is a stable cavum velum interpositum. There are patchy areas of low-attenuation the periventricular and subcortical white matter, consistent with chronic microvascular ischemic changes. There are no acute osseous findings. Increased density in the right high parietal scalp was present on the prior study, most consistent with a scar. There is a minimal amount of fluid at the left mastoid tip. The right mastoid air cells and visualized paranasal sinuses are well-aerated. IMPRESSION: 1. There are no acute bleeds or territorial infarcts. There is diffuse volume loss an chronic microvascular ischemic disease. 2. The study redemonstrates an extra-axial mass adjacent to the right middle frontal gyrus, consistent with a meningioma. 3. This critical result was discussed with Clarissa Harkins by telephone on 05/28/2017 at 7:[address] Hoffman and it was ascertained that the content and urgency of the report was understood at the time of direct communication.
[2017-05-28 09:15] LABS: ABSOLUTE BASOPHIL COUNT 0.1 /CUMM (0.0-0.2); ABSOLUTE EOSINOPHIL COUNT 0.3 /CUMM (0.0-0.7); ABSOLUTE MONOCYTE COUNT 0.7 /CUMM (0.10-0.60); BASOPHIL % 1.1 % (0.0-2.0); EOSINOPHIL % 3.3 % (0-5); GRANULOCYTE % 65.9 % (42.2-75.2); HEMATOCRIT 36.1 % (42-52); MEAN CORPUSCULAR HGB 22.3 PG (27.0-31.0); MEAN CORPUSCULAR HGB CONC 31.1 G/DL (33.0-37.0); MEAN CORPUSCULAR VOLUME 71.7 FL (80.0-94.0); MEAN PLATELET VOLUME 10.5 FL (7.4-10.4); PLATELET COUNT 236 /CUMM (130-400); RBC DISTRIBUTION WIDTH 20.3 % (11.5-14.5); RED BLOOD CELL CT 5.03 /CUMM (4.70-6.10); WHITE BLOOD CELL COUNT 9.1 /CUMM (4.8-10.8)
[2017-05-28 12:24] VITALS: BP 136/78
[2017-05-28] MEDS ORDERED: CONTOUR NEXT1 EACH TOP (13:29)
== END 2017-05-28 13:31 ==
LOC: ERH 06:18
PROVIDERS: Pediatrics
DX: E11.65 Type 2 diabetes mellitus with hyperglycemia (principal); R10.84 Generalized abdominal pain; R45.1 Restlessness and agitation; Z79.4 Long term (current) use of insulin
CPT/HCPCS: 74176; 81003; 87086; 93005; 93010; 96361; 96372; 96374; 99291; J0500

== ENCOUNTER 2017-07-09 00:34 | Inpatient (IN) | payer OTHER ==
[~2017-07-09] VITALS: Ht 167.6 cm; Wt 71.4 kg
[~2017-07-09 00:34] MED LIST changes: +CONTOUR NEXT1 EACH TOP
--- NOTE | 2017-07-09 00:37 | ED AMS/SEIZURE/WEAK/DIZZY ---
History of Present Illness General Chief Complaint: General Adult Stated Complaint: " BIBA PER EMS UNRESPONSIVE " Source: EMS Exam Limitations: clinical condition Vital Signs & Intake/Output Vital Signs & Intake/Output Vital Signs Date Time Temp Pulse Resp B/P B/P Pulse O2 O2 Flow FiO2 Mean Ox Delivery Rate 07/09 0305 76 18 141/81 99 Nasal 2.0L Cannula 07/09 0210 97 Nasal 2.0L Cannula 07/09 99 100 Non 100% ReBreather 07/09 99 97.4 84 16 141/88 100 Non 100% ReBreather Allergies Coded Allergies: NO KNOWN ALLERGIES (09/16/14) Reconcile Medications Acetaminophen (Tylenol) 325 MG TABLET 2 TAB PO Q6-PRN PRN PAIN (Reported) Aspirin (Aspirin*) 81 MG TAB.CHEW 1 TAB PO DAILY HEART HEALTH Atorvastatin Calcium (Lipitor) 40 MG TABLET 1 TAB PO DAILY CHOLESTEROL ( Reported) Blood Sugar Diagnostic (Contour Next) 1 EACH STRIP 0 TOP TID DM Cholecalciferol (Vitamin D3) (Vitamin D) 2,000 UNIT CAPSULE 1 CAP PO DAILY SUPPLEMENT (Reported) Docusate Sodium (Colace) 100 MG CAPSULE 2 CAP PO DAILY STOOL SOFTENER ( Reported) Ferrous Sulfate 325 MG (65 MG IRON) TABLET 1 TAB PO BID SUPPLEMENT (Reported) Finasteride 5 MG TABLET 1 TAB PO DAILY PROSTATE (Reported) Insulin Detemir (Levemir) 100 UNIT/ML VIAL 12 UNITS SC BID DIABETES .. Insulin Lispro (Humalog Kwikpen U-100) 100 UNIT/ML INSULN.PEN 0 SC TIDAC DIABETES before meals less than 80 mg/dl take cup of apple juice 80-150 4 units 151-200 6 units 201-250 8 units 251-300 10 units 301-350 12 units 351-400 13 units >400 14 units Bedtime 251-300 2 units 301-350 3 units 351-400 4 units >400 5 units Latanoprost 0.005 % DROPS 1 GTT OPH QPM BOTH EYES (Reported) Melatonin 5 MG TABLET 1 TAB PO AT BEDTIME INSOMNIA Memantine HCl (Namenda) 10 MG TABLET 2 TAB PO QHS MEMORY (Reported) Omeprazole Magnesium (Prilosec Otc) 20 MG TABLET.DR 1 TAB PO DAILY ACID REFLUX Polyethylene Glycol 3350 (Miralax) 17 GRAM POWD.PACK 1 PAC PO DAILY GI ( Reported) dissolve in water Ramelteon (Rozerem) 8 MG TABLET 1 TAB PO AT BEDTIME INSOMNIA Sodium Chloride (Sochlor) 5 % OINT...G. 1 DROP OPH QHS BOTH EYES (Reported) Tamsulosin HCl (Flomax) 0.4 MG CAP.ER.24H 1 CAP PO DAILY PROSTATE (Reported) Triage Nurses Notes Reviewed? yes Onset: Abrupt Duration: hour(s): Timing: recent history Injury Environment: home Severity: severe Modifying Factors: Improves With: rest. Associated Symptoms: DECREASED MENTAL STATUS HPI: 82 yo gentleman from home, last seen well 2 hours prior presents with depressed mental status. Per the medics, he was at his baseline mental status, awake and alert. Two hours later he was found by his minimally responsive with periods of shallow breathing. 911 called. His GCS was 8-9 per the medics, with a gag reflex but periods of apnea. No trauma, fall, seizure activity reported. He was given narcan IO without effect. Past History Travel History Traveled to [place] past 21 day No Medical History Any Pertinent Medical History? 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 No Review of Systems Review of Systems Constitutional: Reports: no symptoms. EENTM: Reports: no symptoms. Respiratory: Reports: no symptoms. Cardiovascular: Reports: no symptoms. GI: Reports: no symptoms. Genitourinary: Reports: no symptoms. Musculoskeletal: Reports: no symptoms. Skin: Reports: no symptoms. Neurological/Psychological: Reports: no symptoms. Hematologic/Endocrine: Reports: no symptoms. Immunologic/Allergic: Reports: no symptoms. All Other Systems: Reviewed and Negative Physical Exam Physical Exam General Appearance: well developed/nourished Head: atraumatic Eyes: Bilateral: normal appearance, other (pinpoint minimally reactive). Ears, Nose, Throat: normal pharynx, normal ENT inspection Neck: normal inspection, supple, full range of motion Respiratory: shallow respirations, clear Cardiovascular: regular rate/rhythm Gastrointestinal: normal bowel sounds, soft, non-tender, no organomegaly Back: normal inspection, normal range of motion Extremities: normal range of motion Neurologic/Psych: no spontaneous movement. no response to vigorous stimuli. pt does not respond/withdraw to painful stimuli Reflexes: 1+: bicep (R), bicep (L), knee (R), knee (L). Skin: intact, normal color, warm/dry Core Measures ACS in differential dx? No CVA/TIA Diagnosis No Sepsis Present: No Sepsis Focused Exam Completed? No Progress Differential Diagnosis: arrythmia, alcohol intoxication, CVA/stroke, dehydration , hypoxia, intracranial Hem., intracranial mass/tumor, seizure vs other. Plan of Care: Orders Procedure Date/time Status Clear Liquid Diet 07/09 B Active BLOOD CULTURE 07/09 0345 Active LACTIC ACID 07/09 0338 Active Patient Data 07/[address] in observation 07/09 0314 Active Misc Message 07/09 0314 Active ED Holding Orders 07/09 0314 Active Vital Signs 07/09 0314 Active Code Status 07/09 0314 Active Cochran, Insertion/Removal/Asses 07/09 0200 Active CULTURE,URINE 07/09 0200 Active Intake & Output 07/09 0158 Active ARTERIAL BLOOD GAS (GEN) 07/09 0038 Active URINE DRUG SCREEN FOR ER ONLY 07/09 0038 Active URINALYSIS 07/09 0038 Complete TROPONIN LEVEL 07/09 003 Complete PROLACTIN 07/09 0038 Complete AMMONIA 07/09 0038 Complete LIPASE 07/09 0038 Complete LACTIC ACID 07/09 0038 Complete HEPATIC FUNCTION PANEL 07/09 0038 Complete ETHANOL 07/09 0038 Complete CBC WITHOUT DIFFERENTIAL 07/09 0038 Complete BASIC METABOLIC PANEL 07/09 0038 Complete AMYLASE 07/09 0038 Complete ACETONE 07/09 0038 Complete EKG 07/09 0038 Active Laboratory Tests 07/09/17 0400: Lactic Acid Pending 07/09/17 0302: Urine Color STRAW, Urine Clarity CLEAR, Urine pH 6.0, Ur Specific [place] 1.020, Urine Protein NEG, Urine Ketones NEG, Urine Nitrite NEG, Urine Bilirubin NEG, Urine Urobilinogen 0.2, Ur Leukocyte Esterase NEG, Ur Microscopic EXAM NOT REQUIRED, Urine Hemoglobin NEG, Urine Glucose >=1000 H 07/09/17 0132: Anion Gap 12, Estimated GFR 48 L, BUN/Creatinine Ratio 21.4, Glucose 329 H, Lactic Acid 2.1, Calcium 9.4, Total Bilirubin 0.8, Direct Bilirubin 0.2, AST 18, ALT 14 L, Alkaline Phosphatase 84, Ammonia < 9 L, Troponin I < 0.01, Total Protein 6.0 L, Albumin 3.4 L, Amylase 73, Lipase 152, Prolactin 25.4 H, CBC w Diff NO MAN DIFF REQ, RBC 4.15 L, MCV 69.9 L, MCH 21.8 L, MCHC 31.2 L, RDW 19.9 H, MPV 9.2, Gran % 60.3, Lymphocytes % 26.5, Monocytes % 9.4 H, Eosinophils % 3.7, Basophils % 0.1, Absolute Granulocytes 3.5, Absolute Lymphocytes 1.5, Absolute Monocytes 0.5, Absolute Eosinophils 0.2, Absolute Basophils 0, Serum Alcohol < 10.0, Acetone Level NEGATIVE Microbiology 07/09 344 BLOOD: Blood Culture - ORD 07/09 344 BLOOD: Blood Culture - ORD 07/09 199 URINE ROUT: Urine Culture - ORD 07/09 199 BLOOD: Blood Culture - CAN Cancelled: Cancelled via OE: WRONG ORDER 07/09 199 BLOOD: Blood Culture - CAN Cancelled: Cancelled via OE: WRONG ORDER Diagnostic Imaging: Viewed by Me: Radiology Read, CT Scan. Discussed w/RAD: Radiology Read, CT Scan. Radiology Impression: PATIENT: EDILBERTO MARTIN PRESENT AGE: 82 PATIENT ACCOUNT NO: [id number] : 33 LOCATION: [facility] ORDERING PHYSICIAN: Rex Naidu MD SERVICE DATE: 07/09/17 EXAM TYPE: CAT - CT HEAD WO IV CONTRAST EXAMINATION: CT HEAD WITHOUT CONTRAST CLINICAL INFORMATION: Mental status change COMPARISON: Multiple priors, most recently 02/2018 TECHNIQUE: Contiguous axial imaging was performed from the skull base to vertex without intravenous administration of contrast. DLP: 627 mGy-cm FINDINGS: There is no evidence of acute intracranial hemorrhage or territorial infarction. Redemonstration of a hyperdense extra-axial mass along the right frontal lobe which measures 3.8 x 2.1 cm. This is unchanged from prior. There is localized mass effect on the right middle frontal gyrus. No associated abnormal attenuation in the brain parenchyma. No midline shift. Petit to white matter differentiation is well preserved. No extra-axial fluid collections are identified. No hydrocephalus. Mild global cerebral volume loss. Periventricular hypoattenuation is consistent with mild small vessel ischemic change. The osseous structures and soft tissues are normal. Small effusion of the left mastoid air cells. The right mastoid air cells and visualized portions of the paranasal sinuses are well aerated. IMPRESSION: No acute intracranial pathology. Volume loss with small vessel ischemic changes. Stable appearance of the right frontal extra-axial mass consistent with meningioma. DICTATED BY: Heriberto Peña MD DATE/TIME DICTATED:07/09/17102 DONOR PROCESSOR:MCCRAY DATE/TIME TRANSCRIBED:07/09/17102 CONFIDENTIAL, DO NOT COPY WITHOUT APPROPRIATE AUTHORIZATION. <Electronically signed in Other Vendor System> SIGNED BY: Heriberto Peña MD 07/09/17108, PATIENT: EDILBERTO MARTIN PRESENT AGE: 82 PATIENT ACCOUNT NO: [id number] : 33 LOCATION: [facility] ORDERING PHYSICIAN: Rex Naidu MD SERVICE DATE: 07/09/17 EXAM TYPE: RAD - XRY-PORTABLE CHEST XRAY EXAMINATION: XR PORTABLE CHEST CLINICAL INFORMATION: Dyspnea COMPARISON: 03/05/2017 TECHNIQUE: Portable frontal view of the chest was obtained. FINDINGS: Cardiac leads overlie the chest. Low lung volumes with bronchovascular crowding. There is no focal consolidation, edema, or effusion. No pneumothorax. The cardiomediastinal silhouette is within normal limits. No acute osseous abnormality. IMPRESSION: Low lung volumes with bronchovascular crowding. No dense consolidation. DICTATED BY: Heriberto Peña MD DATE/TIME DICTATED:07/09/17203 DONOR PROCESSOR:MCCRAY DATE/TIME TRANSCRIBED:07/09/17203 CONFIDENTIAL, DO NOT COPY WITHOUT APPROPRIATE AUTHORIZATION. <Electronically signed in Other Vendor System> SIGNED BY: Heriberto Peña MD 07/09/17207 Initial ED EKG: rbbb, lafb, no significant change from prior. rate 70's Departure Departure Disposition: STILL A PATIENT Condition: Stable Clinical Impression Primary Impression: Mental status change Secondary Impressions: Syncope and collapse Referrals: Kelly Christianson APRN (PCP/Family) Departure Forms: Customer Survey General Discharge Information Comments 07/09/17, 1:02AM... pt placed on ct scanner immediately upon arrival...discussed with radiologist. meningioma is old. no acute change. abg verbally report to me at 1:05am... 7./ Observation Note Spoke With: Luis Eduardo SALINAS,[facility] Patient In: Non-ED OBS Care Area Rationale for Observation: My rational for observation is as follows . pt with episode of profoundly depressed mental status... unresponsive to vigorous physical stimuli, now improving... pt merits tele, monitoring, consider neuro vs cards eval in am. Procedures Central Line Central Line Lumen: triple Central Line Procedure: Yes: bentadine prep?, sterile drapes applied, sterile dressing applied. Central Line Position: femoral (R) Anesthesia: lidocaine 1% CC's of Anesthesia: 4 Complications: none Central Line Post Position: sutured, good blood return Critical Care Note Critical Care Note Critical Care Time: 30-74 min
--- NOTE | 2017-07-09 01:09 | CT SCAN REPORT ---
EXAMINATION: CT HEAD WITHOUT CONTRAST CLINICAL INFORMATION: Mental status change COMPARISON: Multiple priors, most recently 05/28/2017 TECHNIQUE: Contiguous axial imaging was performed from the skull base to vertex without intravenous administration of contrast. DLP: 627 mGy-cm FINDINGS: There is no evidence of acute intracranial hemorrhage or territorial infarction. Redemonstration of a hyperdense extra-axial mass along the right frontal lobe which measures 3.8 x 2.1 cm. This is unchanged from prior. There is localized mass effect on the right middle frontal gyrus. No associated abnormal attenuation in the brain parenchyma. No midline shift. Petit to white matter differentiation is well preserved. No extra-axial fluid collections are identified. No hydrocephalus. Mild global cerebral volume loss. Periventricular hypoattenuation is consistent with mild small vessel ischemic change. The osseous structures and soft tissues are normal. Small effusion of the left mastoid air cells. The right mastoid air cells and visualized portions of the paranasal sinuses are well aerated. IMPRESSION: No acute intracranial pathology. Volume loss with small vessel ischemic changes. Stable appearance of the right frontal extra-axial mass consistent with meningioma.
[2017-07-09 01:52] LABS: ABSOLUTE BASOPHIL COUNT 0 /CUMM (0.0-0.2); ABSOLUTE EOSINOPHIL COUNT 0.2 /CUMM (0.0-0.7); ABSOLUTE GRANULOCYTE CT 3.5 /CUMM (1.4-6.5); ABSOLUTE LYMPH COUNT 1.5 /CUMM (1.2-3.4); ABSOLUTE MONOCYTE COUNT 0.5 /CUMM (0.10-0.60); BASOPHIL % 0.1 % (0.0-2.0); EOSINOPHIL % 3.7 % (0-5); GRANULOCYTE % 60.3 % (42.2-75.2); MEAN CORPUSCULAR HGB 21.8 PG (27.0-31.0); MEAN CORPUSCULAR HGB CONC 31.2 G/DL (33.0-37.0); MEAN CORPUSCULAR VOLUME 69.9 FL (80.0-94.0); MEAN PLATELET VOLUME 9.2 FL (7.4-10.4); PLATELET COUNT 154 /CUMM (130-400); RBC DISTRIBUTION WIDTH 19.9 % (11.5-14.5); RED BLOOD CELL CT 4.15 /CUMM (4.70-6.10); WHITE BLOOD CELL COUNT 5.7 /CUMM (4.8-10.8)
--- NOTE | 2017-07-09 02:08 | RADIOLOGY REPORT ---
EXAMINATION: XR PORTABLE CHEST CLINICAL INFORMATION: Dyspnea COMPARISON: 03/05/2017 TECHNIQUE: Portable frontal view of the chest was obtained. FINDINGS: Cardiac leads overlie the chest. Low lung volumes with bronchovascular crowding. There is no focal consolidation, edema, or effusion. No pneumothorax. The cardiomediastinal silhouette is within normal limits. No acute osseous abnormality. IMPRESSION: Low lung volumes with bronchovascular crowding. No dense consolidation.
--- NOTE | 2017-07-09 03:53 | History & Physical ---
Carley Moseley 07/09/17 0345: General Information and HPI MD Statement: I have seen and personally examined EDILBERTO MARTIN and documented this H&P. The patient is a 82 year old M who presented with a patient stated chief complaint of [unresponsiveness]. Source of Information: family Exam Limitations: poor historian History of Present Illness: 82 year old male with a PMH of dementia, history of ESBL/MRSA, legally blind, glaucoma, HTN, HLD, DM, DJD, BPH status post prostatectomy and insomnia, moderately differentiated adenocarcinoma of colon, who presented to the ED after he had an episode of unresponsiveness. She is obtained from the patient's daughter. Apparently was in his usual state of health up until last evening when the daughter fed him and after sitting and talking on the couch. She states that she went upstairs to print something for herself and came back 12 hours later at which time she called out his name since the patient is legally [place]. She states that the patient does not respond to her verbal commands. She got overly concerned and called 911. Meanwhile she took his fingersticks that was reportedly 419. Apparently when the EMS arrived patient was not found to be pulseless however did have some apneic episodes as far as his respiratory status is concerned. She is not sure when he finally woke up however when she saw him in the ER he was back to his normal self. Patient denies any chest pain, palpitations, shortness of breath, headache, lightheadedness, fever, chills, dizziness and states that he doesn't happen. According to the daughter there was no seizure-like activity, no episode of urinary or fecal incontinence. Does endorse some abdominal pain around his umbilicus however this is chronic and has been going on for a while. To records revealed that patient was admitted to the hospital earlier in number of 2016 at which time he was found to have an adenocarcinoma of the transverse colon however patient refused surgery. When asked in the ER with with the patient would like to proceed with surgery, patient refused again. He did undergo a CAT scan without IV contrast earlier in May as a follow-up after he was discharged from the hospital to not burr picker the lesions that was seen on the previous CAT scan. Of note that CAT scan was without oral contrast. 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 child (dtr/KATTRafaela & her son) Services at Home: Home Health Aide Primary Language: Kazakh, Jude Living Will? no Power of Test Fixture Designer/HCP? yes Name of POA/HCP: Pt/s gabbi Rafaela Williams [phone] Functional Ability ADLs Needs Assist: dressing, eating, toileting, bathing. Ambulation: non-ambulatory (wheelchair bound) IADLs Needs Assist: shopping, housework, finances, food prep, telephone, transportation, medication admin. Review of Systems Review of Systems Constitutional: Denies: chills, diaphoresis, fever. Cardiovascular: Denies: chest pain, palpitations, peripheral edema. Respiratory: Denies: cough, orthopnea, short of breath, sputum production. GI: Denies: abdominal pain, constipation, diarrhea, nausea, vomiting. Genitourinary: Denies: dysuria, frequency. Musculoskeletal: Denies: joint pain. Neurological/Psychological: Denies: headache, numbness, tingling, tremors. Exam & Diagnostic Data Last 24 Hrs of Vital Signs/I&O Vital Signs Date Time Temp Pulse Resp B/P B/P Pulse O2 O2 Flow FiO2 Mean Ox Delivery Rate 07/09 0305 76 18 141/81 99 Nasal 2.0L Cannula 07/09 0210 97 Nasal 2.0L Cannula 07/09 0100 100 Non 100% ReBreather 07/09 0100 97.4 84 16 141/88 100 Non 100% ReBreather Intake & Output 07/09 0800 07/09 0000 07/08 1600 Intake Total 0 Output Total Balance 0 Intake, Oral 0 Patient 190 lb Weight Weight Estimated Measurement Method Physical Exam General Appearance Alert, Oriented X3, Cooperative, hard of hearing; legally blind HEENT Atraumatic, dry mucous membranes Neck Supple, No LAD Cardiovascular Regular Rate, Normal S1, Normal S2, No Murmurs Lungs clear to auscultation b/l Abdomen Normal Bowel Sounds, Soft, No Tenderness Neurological Normal Speech, Strength at 5/5 X4 Ext, Normal Tone Extremities mild edema, b/l Vascular Normal Pulses, Pulses Symmetrical Last 24 Hrs of Labs/Michael: Laboratory Tests 07/09/17 0302: Urine Color STRAW, Urine Clarity CLEAR, Urine pH 6.0, Ur Specific [place] 1.020, Urine Protein NEG, Urine Ketones NEG, Urine Nitrite NEG, Urine Bilirubin NEG, Urine Urobilinogen 0.2, Ur Leukocyte Esterase NEG, Ur Microscopic EXAM NOT REQUIRED, Urine Hemoglobin NEG, Urine Glucose >=1000 H 07/09/17 0132: Anion Gap 12, Estimated GFR 48 L, BUN/Creatinine Ratio 21.4, Glucose 329 H, Lactic Acid 2.1, Calcium 9.4, Total Bilirubin 0.8, Direct Bilirubin 0.2, AST 18, ALT 14 L, Alkaline Phosphatase 84, Ammonia < 9 L, Troponin I < 0.01, Total Protein 6.0 L, Albumin 3.4 L, Amylase 73, Lipase 152, Prolactin 25.4 H, CBC w Diff NO MAN DIFF REQ, RBC 4.15 L, MCV 69.9 L, MCH 21.8 L, MCHC 31.2 L, RDW 19.9 H, MPV 9.2, Gran % 60.3, Lymphocytes % 26.5, Monocytes % 9.4 H, Eosinophils % 3.7, Basophils % 0.1, Absolute Granulocytes 3.5, Absolute Lymphocytes 1.5, Absolute Monocytes 0.5, Absolute Eosinophils 0.2, Absolute Basophils 0, Serum Alcohol < 10.0, Acetone Level NEGATIVE Microbiology 07/09 344 BLOOD: Blood Culture - ORD 07/09 344 BLOOD: Blood Culture - ORD 07/09 199 URINE ROUT: Urine Culture - ORD 07/09 199 BLOOD: Blood Culture - CAN Cancelled: Cancelled via OE: WRONG ORDER 07/09 199 BLOOD: Blood Culture - CAN Cancelled: Cancelled via OE: WRONG ORDER Diagnostic Data EKG Results NSR, HR: 78; LBBB (unchanged), no ST-T changes CXR Results FINDINGS: Cardiac leads overlie the chest. Low lung volumes with bronchovascular crowding. There is no focal consolidation, edema, or effusion. No pneumothorax. The cardiomediastinal silhouette is within normal limits. No acute osseous abnormality. IMPRESSION: Low lung volumes with bronchovascular crowding. No dense consolidation. Other Results FINDINGS: There is no evidence of acute intracranial hemorrhage or territorial infarction. Redemonstration of a hyperdense extra-axial mass along the right frontal lobe which measures 3.8 x 2.1 cm. This is unchanged from prior. There is localized mass effect on the right middle frontal gyrus. No associated abnormal attenuation in the brain parenchyma. No midline shift. Petit to white matter differentiation is well preserved. No extra-axial fluid collections are identified. No hydrocephalus. Mild global cerebral volume loss. Periventricular hypoattenuation is consistent with mild small vessel ischemic change. The osseous structures and soft tissues are normal. Small effusion of the left mastoid air cells. The right mastoid air cells and visualized portions of the paranasal sinuses are well aerated. IMPRESSION: No acute intracranial pathology. Volume loss with small vessel ischemic changes. Stable appearance of the right frontal extra-axial mass consistent with meningioma. Assessment/Plan Assessment: 82-year-old male with a past medical history of ESBL/MRSA, legally blind, glaucoma, HTN, HLD, DM, DJD, BPH status post prostatectomy and insomnia who presents to the ED after he was found to be Chapis responsive with episodes of shallow breathing. Vitals pertinent for blood pressure 141/88, respiratory rate of 16, pulse 84, afebrile saturating higher percent on 2.0liter. Labs pertinent for microcytic anemia with an H&H of 9.1/29.0, MCV of 69.9 and a platelet count of 1 54,000. Serum chemistries revealed them of 140, potassium 4.1, bicarbonate of 26, anion gap of 12, BUN 30 with a creatinine of 1.4. Serum glucose 329. Lactic acid was 2.1 to repeat 2.0. LFTs unremarkable with an AST/ L2 PT/14, alkaline phosphatase of 84, total bili 0.8 with multilevel was less than not in. First set of troponin negative at less than 0.01. Amylase was 73 and lipase was 152. It was elevated at 25.4. Chest X-ray showed low lung volumes with bronchovascular crowding no dense consolidation. CT of the head without IV contrast no acute intracranial pathology, volume loss with small vessel ischemic changes, stable appearance of the right frontal extra -axial mass consistent with a meningioma. In the ER patient received 20 mg IV amidate. Assessment and plan He is under observation on telemetry given the episode of unresponsiveness/ syncope versus seizure like activity #Syncope Differentials at this point include seizure most likely versus any cardiac arrhythmia Rule out ACS with troponins and EKG at 7 AM and 1 PM Echocardiogram to rule out for any valvular abnormalities including aortic stenosis EEG to rule out any seizures Neurology consult in a.m. Cardiology consult to be placed with Dr. Alvarez in a.m. F/U tox screen On neuro checks every 4 Nothing by mouth for a swallow eval in a.m. #Dementia Continue on Namenda 10 mg daily #Diabetes Continue on Levemir 10 units twice a day subcutaneous On Novolin R while nothing by mouth Accu-Cheks every 6 while in by mouth #BPH Continue on tamsulosin 0.4 mg daily, finasteride 5 mg by mouth daily #Glaucoma Continue latanoprost eyedrops #Lipidemia Continue on baby aspirin and atorvastatin 40 mg daily by mouth DVT prophylaxis Heparin 5000 international units 3 times a day subcutaneous Diet By mouth for now Code Status DNR/DNI As Ranked By This Provider Problem List: 1. Syncope and collapse 2. Dementia 3. Legally blind Core Measures/Misc (02/02) Acute Coronary Syndrome ACS Diagnosis: No Congestive Heart Failure Congestive Heart Failure Diagnosis No Cerebrovascular Accident CVA/TIA Diagnosis: No VTE (View Protocol) VTE Risk Factors Age>40 No Mechanical VTE Prophylaxis d/t N/A MechProphylax Ordered No VTE Pharm Prophylaxis d/t NA PharmProphylax ordered Sepsis (View protocol) Sepsis Present: No Resident Review Statement Resident Statement: admitted by resident Observation Initial Note - I have personally examined VERONICAEDILBERTO on 07/09/17 at 0524. The disposition of EDILBERTO MARTIN is uncertain at this time and before a determination can be made, he requires a period of observation for the following reasons [r/o arrythmias; seizures; EEG; neuro eval for an episode fo unresponsiveness] Luis Eduardo SALINAS, [facility] 07/09/17 0431: General Information and HPI Allergies/Medications Home Med list Acetaminophen (Tylenol) 325 MG TABLET 2 TAB PO Q6-PRN PRN PAIN (Reported) Aspirin (Aspirin*) 81 MG TAB.CHEW 1 TAB PO DAILY HEART HEALTH Atorvastatin Calcium (Lipitor) 40 MG TABLET 1 TAB PO DAILY CHOLESTEROL ( Reported) Cholecalciferol (Vitamin D3) (Vitamin D) 2,000 UNIT CAPSULE 1 CAP PO DAILY SUPPLEMENT (Reported) Docusate Sodium (Colace) 100 MG CAPSULE 2 CAP PO DAILY STOOL SOFTENER ( Reported) Ferrous Sulfate 325 MG (65 MG IRON) TABLET 1 TAB PO BID SUPPLEMENT (Reported) Finasteride 5 MG TABLET 1 TAB PO DAILY PROSTATE (Reported) Insulin Detemir (Levemir) 100 UNIT/ML VIAL 10 UNITS SC BID diabetes .. Insulin Lispro (Humalog Kwikpen U-100) 100 UNIT/ML INSULN.PEN 0 SC TIDAC DIABETES before meals less than 80 mg/dl take cup of apple juice 80-150 4 units 151-200 6 units 201-250 8 units 251-300 10 units 301-350 12 units 351-400 13 units >400 14 units Bedtime 251-300 2 units 301-350 3 units 351-400 4 units >400 5 units Latanoprost 0.005 % DROPS 1 GTT OPH QPM BOTH EYES (Reported) Memantine HCl (Namenda) 10 MG TABLET 2 TAB PO QHS MEMORY (Reported) Omeprazole Magnesium (Prilosec Otc) 20 MG TABLET.DR 1 TAB PO DAILY ACID REFLUX Polyethylene Glycol 3350 (Miralax) 17 GRAM POWD.PACK 1 PAC PO DAILY GI ( Reported) dissolve in water Tamsulosin HCl (Flomax) 0.4 MG CAP.ER.24H 1 CAP PO DAILY PROSTATE (Reported) Attending MD Review Statement Attending Statement Attending MD Statement: examined this patient, discuss w/resident/PA/ICE CREAM FREEZER ASSISTANT, agreed w/resident/PA/ICE CREAM FREEZER ASSISTANT, discussed with family, reviewed images, amended to note Attending Assessment/Plan: 82 yo M with dementia, legally blind, HTN, T2DM, CKD stage 3, BPH s/p TURP, chronic DOUG, last admitted to [place] (Mar 2017) for lower GI bleed diagnosed with adenocarcinoma of colon but daughter refused surgery, is here today for evaluation of unresponsive episode. No seizure like activity, no tongue bite, urinary or fecal incontinence. Daughter reports accuchek was 419, on EMS arrival patient had a pulse and had shallow breathing with a gag reflex. Narcan given without effect. In the ER, patient was about to be intubated but regained consciouseness and is back to baseline. Femoral line placed for access. Patient feels well and denies any symptoms at this point. Please note, patient was on keppra in the past, daughter is not sure for what, keppra has been discontinued. Vitals stable. Exam as above. Labs: H/H 9.06/16, microcytic anemia, BUN 30, creat 1.4 (baseline), glucose 329, lactic acid 2.0, trop neg, ammonia <9, TSH 4.280, Free T4 1.04, prolactin 25.4. AB.40/38/428/23. UA clear. Utox neg. Alcohol <10. CXR: low lung volumes with bronchovascular crowding, no consolidation. Head CT: no acute pathology, small vessel ischemic changes. Stable right frontal extra-axial mass consistent with meningioma. EKG: Sinus rhythm, LBBB, no acute changes. Echo (2017): normal. Assessment and plan: 1. Unresponsive episode syncope vs seizure 2. Rule out cardiac dysrhythmias 3. Essential hypertension 4. Uncontrolled type2 diabetes 5. Adenocarcinoma of colon - untreated - 23 hour observation on Telemetry - Neurochecks - Fall and aspiration precautions - NPO, swallow eval - Serial EKG and troponin - Obtain Cardio consult - Obtain EEG and Neuro consult - Diabetes management - Gentle hydration - Panculture and if he spikes a fever consider empiric coverage for aspiration pneumonitis/pneumonia. DVT ppx Hep SC. DNR/I. Observation Initial Note - I have personally examined EDILBERTO MARTIN on 07/09/17 at 0431. The disposition of EDILBERTO MARTIN is uncertain at this time and before a determination can be made, he requires a period of observation for the following reasons [Unresponsive episode]
[2017-07-09] MEDS ORDERED: LEVEMIR100 UNIT/1 SC (05:14)
--- NOTE | 2017-07-09 13:29 | ELECTROENCEPHALOGRAM REPORT ---
Electroencephalogram Report Electroencephalogram Results Date of service: 07/09/17 Attending MD: Myron Liu MD Drywall Applicator: Niki Sanchez EEG Number: [id number] Test Utilizes: 10-20 system, 21 lead 18 channel digital recording Pertinent Hx/Physical/Neuro Findings/Clin Diagnosis: Unresponsiveness. Rule out seizure. Inpatient Medications: Current Medications Sig/Zoe Start time Last Medication Dose Route Stop Time Status Admin Acetaminophen 650 MG Q6-PRN PRN 07/09 0515 AC PO Aspirin 81 MG DAILY 07/09 1000 AC 07/09 PO 1116 Atorvastatin Calcium 40 MG 1700 07/09 1700 AC PO Cholecalciferol 400 IU DAILY 07/09 1000 AC 07/09 PO 1116 Docusate Sodium 200 MG DAILY 07/09 1000 AC 07/09 PO 1116 Etomidate 20 MG ONCE ONE 07/09 0100 DC IV 07/09 0101 Ferrous Sulfate 325 MG DAILY 07/09 1000 AC 07/09 PO 1116 Finasteride 5 MG DAILY 07/09 1000 AC 07/09 PO 1116 Heparin Sodium 0 .STK-MED ONE 07/09 0641 DC (Porcine) .ROUTE Heparin Sodium 5,000 UNIT Q8 07/09 0600 AC 07/09 (Porcine) SC 0645 Insulin Aspart 0 TIDAC 07/09 1200 AC 07/09 SC 1135 Insulin Detemir 10 UNITS BID 07/09 1000 AC 07/09 SC 1116 Insulin Human Regular 0 Q6 07/09 0600 DC 07/09 SC 0557 Latanoprost 1 GTT QPM 07/09 2200 AC OPH Memantine 20 MG AT BEDTIME 07/09 2200 AC PO Omeprazole 40 MG DAILY AC 07/09 0700 AC PO Polyethylene Glycol 17 GM DAILY 07/09 1000 AC 07/09 PO 1116 Tamsulosin HCl 0.4 MG DAILY 07/09 1000 AC 07/09 PO 1116 Interpretation: The predominant posterior background rhythm consists of low-voltage 8 cps activity. Lower voltage faster frequencies were seen over the anterior head regions bilaterally. Generalized slowing of the background is seen during periods of drowsiness. No focal, paroxysmal or lateralizing features were appreciated. Hyperventilation was deferred. Photic stimulation induced no abnormalities. Impression: EEG is within normal limits in the awake and drowsy state. No focal or epileptiform features were identified
--- NOTE | 2017-07-09 13:56 | Cons- Neurology ---
General Information and HPI Consulting Request Date of Consult: 07/09/17 Requested By: Myron Liu MD History of Present Illness: 82-year-old male with multiple medical problems including chronic dementia, blindness, right frontal meningioma, diabetes and carcinoma of the colon for which he refused surgery. History is obtained entirely from the chart as the patient is an unreliable informant. Apparently, last evening, he did not respond to his daughter's commands. EMS was summoned. Initial fingerstick glucose was 419. He was brought to hospital for further evaluation. Repeat CAT scan of the head showed no change in the appearance of his known meningioma. Allergies/Medications Allergies: Coded Allergies: NO KNOWN ALLERGIES (09/16/14) Home Med List: Acetaminophen (Tylenol) 325 MG TABLET 2 TAB PO Q6-PRN PRN PAIN (Reported) Aspirin (Aspirin*) 81 MG TAB.CHEW 1 TAB PO DAILY HEART HEALTH Atorvastatin Calcium (Lipitor) 40 MG TABLET 1 TAB PO DAILY CHOLESTEROL ( Reported) Cholecalciferol (Vitamin D3) (Vitamin D) 2,000 UNIT CAPSULE 1 CAP PO DAILY SUPPLEMENT (Reported) Docusate Sodium (Colace) 100 MG CAPSULE 2 CAP PO DAILY STOOL SOFTENER ( Reported) Ferrous Sulfate 325 MG (65 MG IRON) TABLET 1 TAB PO BID SUPPLEMENT (Reported) Finasteride 5 MG TABLET 1 TAB PO DAILY PROSTATE (Reported) Insulin Detemir (Levemir) 100 UNIT/ML VIAL 10 UNITS SC BID diabetes .. Insulin Lispro (Humalog Kwikpen U-100) 100 UNIT/ML INSULN.PEN 0 SC TIDAC DIABETES before meals less than 80 mg/dl take cup of apple juice 80-150 4 units 151-200 6 units 201-250 8 units 251-300 10 units 301-350 12 units 351-400 13 units >400 14 units Bedtime 251-300 2 units 301-350 3 units 351-400 4 units >400 5 units Latanoprost 0.005 % DROPS 1 GTT OPH QPM BOTH EYES (Reported) Memantine HCl (Namenda) 10 MG TABLET 2 TAB PO QHS MEMORY (Reported) Omeprazole Magnesium (Prilosec Otc) 20 MG TABLET.DR 1 TAB PO DAILY ACID REFLUX Polyethylene Glycol 3350 (Miralax) 17 GRAM POWD.PACK 1 PAC PO DAILY GI ( Reported) dissolve in water Tamsulosin HCl (Flomax) 0.4 MG CAP.ER.24H 1 CAP PO DAILY PROSTATE (Reported) Review of Systems Review of Systems: Unreliable Past History Travel History Traveled to [place] past 21 day No Medical History Neurological: dementia EENT: blindness, glaucoma, hearing loss Cardiovascular: hypertension, hyperlipidemia Respiratory: pneumonia Gastrointestinal: umbilical hernia Hepatic: NONE Renal: benign prost hyperplasia, FREQUENT UTI'S Musculoskeletal: degen joint disease, osteoarthritis Psychiatric: NONE Endocrine: diabetes Blood Disorders: anemia Cancer(s): NONE 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 child (dtr/Rafaela BOLIVAR & her son) Services at Home: Home Health Aide Primary Language: Yoruba, Jude Living Will? no Power of Suction Worker/HCP? yes Name of POA/HCP: Pt/s dtRafaela walter [phone] Functional Ability ADLs Needs Assist: dressing, eating, toileting, bathing. Ambulation: non-ambulatory (wheelchair bound) IADLs Needs Assist: shopping, housework, finances, food prep, telephone, transportation, medication admin. Exam & Diagnostic Data Vital Signs and I&O Vital Signs Date Time Temp Pulse Resp B/P B/P Pulse O2 O2 Flow FiO2 Mean Ox Delivery Rate 07/09 1312 99.5 96 20 148/81 100 Nasal 2.0L Cannula 07/09 1116 95.9 88 20 153/70 07/09 1027 88 20 153/70 99 07/09 0656 95.9 84 18 179/77 100 Nasal 2.0L Cannula 07/09 0451 95.1 82 18 157/79 97 Nasal 2.0L Cannula 07/09 0305 76 18 141/81 99 Nasal 2.0L Cannula 07/09 0210 97 Nasal 2.0L Cannula 07/09 0100 100 Non 100% ReBreather 07/09 0100 97.4 84 16 141/88 100 Non 100% ReBreather Intake & Output 07/09 1600 07/09 0800 07/09 0000 Intake Total 0 Output Total Balance 0 Intake, Oral 0 Patient 190 lb Weight Weight Estimated Measurement Method Elderly male in no acute distress. He preferred keeping his eyes closed. He was disoriented to place. He could not name the current president. He did not know why he was in hospital. Speech was fluent. Pupils were 1.5 mm O. U. There was a dense left corneal opacity. Face was symmetric. Hearing was diminished. The motor examination shows wasting of hand intrinsics bilaterally. There was no gross lateralizing weakness. Deep tendon reflexes were diffusely hypoactive. Plantar responses were flexor. The gait was untested. Blood work on admission showed white blood cell count 5700. His hemoglobin was was 9 g. B1 was 30 with a creatinine of 1.4. Serum glucose was 329. Repeat CAT scan of the brain showed a stable right frontal meningioma Assessment/Plan Assessment: #1 chronic dementia #2 stable right frontal meningioma which should be managed conservatively #3 uncontrolled diabetes #4 mild dehydration Is not completely clear as to why he presents with brief unresponsiveness. I suspect that he is now back at his baseline. There is no fever or leukocytosis to suggest infection. EEG has just been read. It shows no evidence of seizure-like activity. Recommendations: From our neurological standpoint, no further neurodiagnostic studies are anticipated. Would gently hydrate him and control his metabolic derangements. We will follow him on an as-needed basis. Consult Acknowledgment - Thank you for your consult request.
--- NOTE | 2017-07-09 19:01 | PN- Att Addend ---
Attending Addendum Attending Brief Note S: The patient was seen and discussed with house staff, daughter, etc. Still not at baseline per daughter, however improved. Etiology of AMS still not explained. O: VS: Vital Signs Date Time Temp Pulse Resp B/P B/P Pulse O2 O2 Flow FiO2 Mean Ox Delivery Rate 07/09 1823 105 20 148/71 95 Room Air 07/09 1649 100.1 110 20 142/66 94 Room Air 07/09 1446 99.8 98 20 158/78 99 Room Air 07/09 1312 99.5 96 20 148/81 100 Nasal 2.0L Cannula 07/09 1116 95.9 88 20 153/70 07/09 1027 88 20 153/70 99 07/09 0656 95.9 84 18 179/77 100 Nasal 2.0L Cannula 07/09 0451 95.1 82 18 157/79 97 Nasal 2.0L Cannula 07/09 0305 76 18 141/81 99 Nasal 2.0L Cannula 07/09 0210 97 Nasal 2.0L Cannula 07/09 0100 100 Non 100% ReBreather 07/09 0100 97.4 84 16 141/88 100 Non 100% ReBreather Intake & Output 07/09 1600 07/09 0800 07/09 0000 Intake Total 0 Output Total Balance 0 Intake, Oral 0 Patient 190 lb Weight Weight Estimated Measurement Method Current Medications Sig/Zoe Start time Last Medication Dose Route Stop Time Status Admin Acetaminophen 650 MG Q6-PRN PRN 07/09 0515 AC PO Aspirin 81 MG DAILY 07/09 1000 AC 07/09 PO 1116 Atorvastatin Calcium 40 MG 1700 07/09 1700 AC 07/09 PO 1810 Ceftriaxone Sodium 0 .STK-MED ONE 07/09 1729 DC .ROUTE Ceftriaxone Sodium 1,000 MG DAILY 07/09 1604 AC 07/09 IV 1730 Cholecalciferol 400 IU DAILY 07/09 1000 AC 07/09 PO 1116 Docusate Sodium 200 MG DAILY 07/09 1000 AC 07/09 PO 1116 Etomidate 20 MG ONCE ONE 07/09 0100 DC IV 07/09 0101 Ferrous Sulfate 325 MG DAILY 07/09 1000 AC 07/09 PO 1116 Finasteride 5 MG DAILY 07/09 1000 AC 07/09 PO 1116 Heparin Sodium 0 .STK-MED ONE 07/09 1446 DC (Porcine) .ROUTE Heparin Sodium 0 .STK-MED ONE 07/09 0641 DC (Porcine) .ROUTE Heparin Sodium 5,000 UNIT Q8 07/09 0600 AC 07/09 (Porcine) SC 1446 Insulin Aspart 0 TIDAC 07/09 1200 AC 07/09 SC 1752 Insulin Detemir 10 UNITS BID 07/09 1000 AC 07/09 SC 1116 Insulin Human Regular 0 Q6 07/09 0600 DC 07/09 SC 0557 Latanoprost 1 GTT QPM 07/09 2199 AC OPH Memantine 20 MG AT BEDTIME 07/09 2200 AC PO Omeprazole 40 MG DAILY AC 07/09 0700 AC PO Polyethylene Glycol 17 GM DAILY 07/09 1000 AC 07/09 PO 1116 Tamsulosin HCl 0.4 MG DAILY 07/09 1000 AC 07/09 PO 1116 Physical Exam: HEENT: hany- dry mucosa Neck: supple Chest: diminished BS, clear Cor: RRR nl S1, S2 w/o murm Abd: BS+, soft, NT Ext: tr edema Neuro: alert, non-focal Lab/Tests: EEGno abnormalities. Impression: EEG is within normal limits in the awake and drowsy state. No focal or epileptiform features were identified Laboratory Tests 07/09/17 1308: Troponin I < 0.01 07/09/17 0640: Troponin I < 0.01 07/09/17 0400: Lactic Acid 2.0 07/09/17 0302: Urine Opiates Screen < 100.00, Methadone Screen < 40, Barbiturate Screen < 60, Ur Phencyclidine Scrn < 6.00, Amphetamines Screen < 100, U Benzodiazepines Scrn < 85, Urine Cocaine Screen < 50, Urine Cannabis Screen < 5.00, Urine Color STRAW , Urine Clarity CLEAR, Urine pH 6.0, Ur Specific [place] 1.020, Urine Protein NEG, Urine Ketones NEG, Urine Nitrite NEG, Urine Bilirubin NEG, Urine Urobilinogen 0.2, Ur Leukocyte Esterase NEG, Ur Microscopic EXAM NOT REQUIRED, Urine Hemoglobin NEG, Urine Glucose >=1000 H 07/09/17 0132: Anion Gap 12, Estimated GFR 48 L, BUN/Creatinine Ratio 21.4, Glucose 329 H, Hemoglobin A1c 8.8 H, Lactic Acid 2.1, Calcium 9.4, Total Bilirubin 0.8, Direct Bilirubin 0.2, AST 18, ALT 14 L, Alkaline Phosphatase 84, Ammonia < 9 L, Troponin I < 0.01, Total Protein 6.0 L, Albumin 3.4 L, Amylase 73, Lipase 152, TSH 4.280 H, Free T4 1.04, Prolactin 25.4 H, CBC w Diff NO MAN DIFF REQ, RBC 4.15 L, MCV 69.9 L, MCH 21.8 L, MCHC 31.2 L, RDW 19.9 H, MPV 9.2, Gran % 60.3, Lymphocytes % 26.5, Monocytes % 9.4 H, Eosinophils % 3.7, Basophils % 0.1 , Absolute Granulocytes 3.5, Absolute Lymphocytes 1.5, Absolute Monocytes 0.5, Absolute Eosinophils 0.2, Absolute Basophils 0, Serum Alcohol < 10.0, Acetone Level NEGATIVE 07/09/17 0105: pH 7.40, pCO2 38, pO2 428 H, HCO3 23, ABG O2 Sat (Measured) 99.0, P-50 (Temp Corrected) N, Carboxyhemoglobin 0.3 L, O2 Concentration % 100%, Temperature 98.6, O2 Delivery Method NRB, Phlebotomy Draw Site LEFT RADIAL Microbiology 07/09 1150 NASOPHARYN: Influenza Virus A & B Rapid Smear - COMP > BLOOD CULTURE REPORT Preliminary 07/09/17-1548 GRAM STAIN SUGGESTIVE OF: GRAM NEGATIVE RODS Impression/Plan: #Unresponsiveness- lengthy period at home as per daughter. EEG neg and Neuro input appreciated. Neuro exam non-focal. May have been a little volume depleted. Has been stable here. Plan: Await Cardiology input. Continue telemetry. #Gram Negative Bacteremia- blood culture positive for GNR? No fever or WBC. Urine is clean and no abdominal symptoms. Plan: Will reculture blood and begin empiric Ceftriaxone. ID consult - Dr. Sorto. #Dementia- stable. Plan: Continue Namenda. #DM2- no evidence of hypoglycemia. Plan: Continue insulin as above and follow sugars. #HL- on Atorvastatin. Plan: Continue Atorvastatin.
[2017-07-09 19:25] VITALS: BP 140/96
--- NOTE | 2017-07-09 21:55 | CT SCAN REPORT ---
EXAMINATION: CT ABDOMEN AND PELVIS WITHOUT CONTRAST CLINICAL INFORMATION: Abdominal pain. COMPARISON: CT abdomen pelvis 05/28/2017. TECHNIQUE: Multidetector volumetric imaging was performed from the superior aspect of the liver through the pubic symphysis. Sagittal and coronal reformatted images were obtained on the technologist's workstation. DLP: 421 mGy-cm FINDINGS: LUNG BASES: The lung bases are clear. The heart size is normal. LIVER, GALLBLADDER, AND BILIARY TREE: The liver is normal in size, shape, and attenuation. No focal hepatic lesion or biliary ductal dilatation is present. The gallbladder is unremarkable with no evidence of radiopaque gallstones, gallbladder wall thickening, or obvious pericholecystic inflammatory changes. PANCREAS: Unremarkable. SPLEEN: Unremarkable. ADRENAL GLANDS: Unremarkable. KIDNEYS AND URETERS: The kidneys are normal in size, shape, and attenuation. No hydronephrosis, hydroureter, or calculi seen. No perinephric stranding. BLADDER: There is a Cochran's catheter in a empty bladder. GASTROINTESTINAL TRACT: There is moderate scattered stool seen throughout entire colon consistent with constipation. The small bowel loops are normal caliber. No free air or free fluid seen. ABDOMINAL WALL: No significant hernia is appreciated. LYMPH NODES: Normal. VASCULAR: There is mild atherosclerotic changes of abdominal aorta without aneurysmal dilatation. PELVIC VISCERA: No free air or free fluid seen. There is a right femoral venous line present. There is moderate stool in the rectum. OSSEOUS STRUCTURES: No lytic or sclerotic process seen. IMPRESSION: Significant constipation without any signs of obstruction. No free air or free fluid. A Cochran's catheter and a right femoral venous line is noted.
[2017-07-10 00:34] LABS: ABSOLUTE BASOPHIL COUNT 0 /CUMM (0.0-0.2); ABSOLUTE EOSINOPHIL COUNT 0.3 /CUMM (0.0-0.7); ABSOLUTE GRANULOCYTE CT 7.5 /CUMM (1.4-6.5); ABSOLUTE LYMPH COUNT 0.9 /CUMM (1.2-3.4); ABSOLUTE MONOCYTE COUNT 0.6 /CUMM (0.10-0.60); BASOPHIL % 0.5 % (0.0-2.0); EOSINOPHIL % 2.8 % (0-5); GRANULOCYTE % 79.9 % (42.2-75.2); HEMATOCRIT 26.6 % (42-52); MEAN CORPUSCULAR HGB 21.5 PG (27.0-31.0); MEAN CORPUSCULAR VOLUME 69.1 FL (80.0-94.0); MEAN PLATELET VOLUME 9.3 FL (7.4-10.4); PLATELET COUNT 152 /CUMM (130-400); RBC DISTRIBUTION WIDTH 19.9 % (11.5-14.5); RED BLOOD CELL CT 3.85 /CUMM (4.70-6.10)
[2017-07-10 00:44] LABS: WHITE BLOOD CELL COUNT 9.3 /CUMM (4.8-10.8)
[2017-07-10 06:00] VITALS: BP 118/60
[2017-07-10 08:01] LABS: ABSOLUTE BASOPHIL COUNT 0 /CUMM (0.0-0.2); ABSOLUTE EOSINOPHIL COUNT 0.4 /CUMM (0.0-0.7); ABSOLUTE LYMPH COUNT 1.3 /CUMM (1.2-3.4); ABSOLUTE MONOCYTE COUNT 0.6 /CUMM (0.10-0.60); BASOPHIL % 0.5 % (0.0-2.0); EOSINOPHIL % 4.1 % (0-5); GRANULOCYTE % 74.3 % (42.2-75.2); MEAN CORPUSCULAR VOLUME 70.8 FL (80.0-94.0); MEAN PLATELET VOLUME 11.1 FL (7.4-10.4); PLATELET COUNT 178 /CUMM (130-400); RBC DISTRIBUTION WIDTH 19.8 % (11.5-14.5); RED BLOOD CELL CT 3.73 /CUMM (4.70-6.10)
--- NOTE | 2017-07-10 08:09 | PN- Housestaff ---
See Addendum Subjective Follow-up For: Syncope AMS Subjective: Patient's daughter at bedside states patient didn't get any sleep. No acute events overnight Review of Systems Constitutional: Reports: see HPI. Objective Last 24 Hrs of Vital Signs/I&O Vital Signs Date Time Temp Pulse Resp B/P B/P Pulse O2 O2 Flow FiO2 Mean Ox Delivery Rate 07/10 0800 Room Air 07/10 0600 98.9 108 20 118/60 94 07/10 0000 Room Air Room Air 07/09 1925 99.2 117 16 140/96 96 07/09 1823 105 20 148/71 95 Room Air 07/09 1649 100.1 110 20 142/66 94 Room Air 07/09 1446 99.8 98 20 158/78 99 Room Air 07/09 1312 99.5 96 20 148/81 100 Nasal 2.0L Cannula Intake & Output 07/10 1600 07/10 0800 07/10 0000 Intake Total 150 200 Output Total 1100 800 Balance -950 -600 Intake, Oral 150 200 Number 1 Bowel Movements Output, Urine 1100 800 Patient 157 lb Weight Physical Exam General Appearance: Disoriented Cardiovascular: Regular Rate, Normal S1, Normal S2 Lungs: Clear to Auscultation, Normal Air Movement Abdomen: Normal Bowel Sounds, Soft, No Tenderness Extremities: No Edema, Femoral line intact without drainage, hematoma or warmth Current Medications: Current Medications Sig/Zoe Start time Last Medication Dose Route Stop Time Status Admin Acetaminophen 650 MG Q6-PRN PRN 07/09 0515 AC 07/10 PO 1044 Aspirin 81 MG DAILY 07/09 1000 AC 07/10 PO 0918 Atorvastatin Calcium 40 MG 1700 07/09 1700 AC 07/09 PO 1810 Ceftriaxone Sodium 0 .STK-MED ONE 07/09 1729 DC .ROUTE Ceftriaxone Sodium 1,000 MG DAILY 07/09 1604 AC 07/10 IV 0938 Cholecalciferol 400 IU DAILY 07/09 1000 AC 07/10 PO 0921 Docusate Sodium 200 MG DAILY 07/09 1000 AC 07/10 PO 0919 Ferrous Sulfate 325 MG DAILY 07/09 1000 AC 07/10 PO 0920 Finasteride 5 MG DAILY 07/09 1000 AC 07/10 PO 0921 Heparin Sodium 5,000 UNIT Q8 07/09 0600 AC 07/10 (Porcine) SC 1415 Insulin Aspart 0 AT BEDTIME 07/10 2200 AC SC Insulin Aspart 0 TIDAC 07/10 1700 AC SC Insulin Aspart 0 TIDAC 07/09 1200 DC 07/10 SC 1201 Insulin Detemir 10 UNITS BID 07/09 1000 AC 07/10 SC 0942 Latanoprost 1 GTT QPM 07/09 2200 AC 07/09 OPH 2334 Melatonin 5 MG AT BEDTIME 07/09 220 AC 07/09 PO 2334 Memantine 20 MG AT BEDTIME 07/09 220 AC 07/09 PO 2334 Metronidazole 500 MG IQ8 07/10 1600 AC 07/10 N/A 1 UNIT IV 1627 Omeprazole 40 MG DAILY AC 07/09 0700 AC 07/10 PO 0525 Polyethylene Glycol 17 GM DAILY 07/09 1000 AC 07/10 PO 0921 Senna 187 MG AT BEDTIME 07/10 2199 AC PO Sodium Chloride 500 ML BOLUS ONE 07/10 1045 DC 07/10 IV 07/10 1144 1044 Tamsulosin HCl 0.4 MG DAILY 07/09 1000 AC 07/10 PO 0921 Last 24 Hrs of Lab/Michael Results Last 24 Hrs of Labs/Mics: Laboratory Tests 07/10/17 0545: Anion Gap 7, Estimated GFR 45 L, BUN/Creatinine Ratio 20.0, CBC w Diff NO MAN DIFF REQ, RBC 3.73 L, MCV 70.8 L, MCH 22.0 L, MCHC 31.0 L, RDW 19.8 H, MPV 11.1 H, Gran % 74.3, Lymphocytes % 14.2 L, Monocytes % 6.9, Eosinophils % 4.1, Basophils % 0.5, Absolute Granulocytes 6.7 H, Absolute Lymphocytes 1.3, Absolute Monocytes 0.6, Absolute Eosinophils 0.4, Absolute Basophils 0 07/09/17 2320: CBC w Diff NO MAN DIFF REQ, RBC 3.85 L, MCV 69.1 L, MCH 21.5 L, MCHC 31.0 L, RDW 19.9 H, MPV 9.3, Gran % 79.9 H, Lymphocytes % 10.0 L, Monocytes % 6.8, Eosinophils % 2.8, Basophils % 0.5, Absolute Granulocytes 7.5 H, Absolute Lymphocytes 0.9 L, Absolute Monocytes 0.6, Absolute Eosinophils 0.3, Absolute Basophils 0 Microbiology 07/10 1514 BLOOD: Blood Culture - COLB 07/10 1514 BLOOD: Blood Culture - COLB 07/09 1720 BLOOD: Blood Culture - RES GRAM POSITIVE COCCI Assessment/Plan Assessment: Mr. Galvez is a 82-year-old f with a past medical history of ESBL/MRSA, legally blind, glaucoma, HTN, HLD, DM, DJD, BPH status post prostatectomy and insomnia who presents to the ED after he was found to be Chapis responsive with episodes of shallow breathing. Syncope 2/2 ? seizure most likely versus any cardiac arrhythmia * ACS ruled out with serial trop/ECG * Echocardiogram to rule out for any valvular abnormalities including aortic stenosis * EEG demonstrated no focal or epileptiform features were identified * Neurology recommendations appreciated * Cardiology recommendations appreciated * Utox negative * Neuro checks every 4 Sepsis Blood cultures growing GNR * Continue IV Ceftriaxone * Start IV Metronidazole * Discontinue femoral after PICC line insertion * ID recommendations appreciated Dementia * Continue on Namenda 10 mg daily Problem List: 1. Syncope and collapse 2. Gram negative sepsis Pain Ratin Pain Location: NA Pain Goal: Remain pain free Pain Plan: NA Tomorrow's Labs & Rationales: CBC for white ct BEP for renal function
[2017-07-10 09:07] LABS: ABSOLUTE GRANULOCYTE CT 6.7 /CUMM (1.4-6.5); HEMATOCRIT 26.4 % (42-52)
--- NOTE | 2017-07-10 09:19 | Cons- Cardiology ---
General Information and HPI Consulting Request Date of Consult: 07/10/17 Requested By: Myron Liu MD History of Present Illness: This patient is an 82 year old male with history of hypertension, dyslipidemia, diabetes, blindness and colon cancer. He also has some degree of dementia at baseline and a right frontal meningioma. Despite some dementia the patient's daughter can normally have a lucid conversation with her Dad. Yesterday, the patient was found lying in bed and was confused but awake. He would not respond to verbal commands. Fingersticks for blood glucose were checked and was reportedly elevated to 419. At the present time this patient is awake but continues to have difficulty responding to questions. No chest discomfort, shortness of breath, lightheadedness, palpitations or dysuria have been reported to the patient's daughter. She did not note any rhythmic motion consistent with seizure and the patient was not incontinent. Some abdominal discomfort was reported. 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 Allergies/Medications Allergies: Coded Allergies: NO KNOWN ALLERGIES (09/16/14) Home Med List: Acetaminophen (Tylenol) 325 MG TABLET 2 TAB PO Q6-PRN PRN PAIN (Reported) Aspirin (Aspirin*) 81 MG TAB.CHEW 1 TAB PO DAILY HEART HEALTH Atorvastatin Calcium (Lipitor) 40 MG TABLET 1 TAB PO DAILY CHOLESTEROL ( Reported) Cholecalciferol (Vitamin D3) (Vitamin D) 2,000 UNIT CAPSULE 1 CAP PO DAILY SUPPLEMENT (Reported) Docusate Sodium (Colace) 100 MG CAPSULE 2 CAP PO DAILY STOOL SOFTENER ( Reported) Ferrous Sulfate 325 MG (65 MG IRON) TABLET 1 TAB PO BID SUPPLEMENT (Reported) Finasteride 5 MG TABLET 1 TAB PO DAILY PROSTATE (Reported) Insulin Detemir (Levemir) 100 UNIT/ML VIAL 10 UNITS SC BID diabetes .. Insulin Lispro (Humalog Kwikpen U-100) 100 UNIT/ML INSULN.PEN 0 SC TIDAC DIABETES before meals less than 80 mg/dl take cup of apple juice 80-150 4 units 151-200 6 units 201-250 8 units 251-300 10 units 301-350 12 units 351-400 13 units >400 14 units Bedtime 251-300 2 units 301-350 3 units 351-400 4 units >400 5 units Latanoprost 0.005 % DROPS 1 GTT OPH QPM BOTH EYES (Reported) Memantine HCl (Namenda) 10 MG TABLET 2 TAB PO QHS MEMORY (Reported) Omeprazole Magnesium (Prilosec Otc) 20 MG TABLET.DR 1 TAB PO DAILY ACID REFLUX Polyethylene Glycol 3350 (Miralax) 17 GRAM POWD.PACK 1 PAC PO DAILY GI ( Reported) dissolve in water Tamsulosin HCl (Flomax) 0.4 MG CAP.ER.24H 1 CAP PO DAILY PROSTATE (Reported) Review of Systems Review of Systems: A review of systems is unobtainable from this patient. 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 child (dtr/Rafaela BOLIVAR & her son) Services at Home: Home Health Aide Primary Language: [place] Leonean, Fijian Smoking Status: Never Smoked Living Will? no Power of Oim Architect/HCP? yes Name of POA/HCP: Pt/s gabbiRafaela Williams [phone] Functional Ability ADLs Needs Assist: dressing, eating, toileting, bathing. Ambulation: non-ambulatory (wheelchair bound) IADLs Needs Assist: shopping, housework, finances, food prep, telephone, transportation, medication admin. Exam & Diagnostic Data Vital Signs and I&O Vital Signs Date Time Temp Pulse Resp B/P B/P Pulse O2 O2 Flow FiO2 Mean Ox Delivery Rate 07/10 0800 Room Air 07/10 0600 98.9 108 20 118/60 94 07/10 0000 Room Air Room Air 07/09 1925 99.2 117 16 140/96 96 07/09 1823 105 20 148/71 95 Room Air 07/09 1649 100.1 110 20 142/66 94 Room Air 07/09 1446 99.8 98 20 158/78 99 Room Air 07/09 1312 99.5 96 20 148/81 100 Nasal 2.0L Cannula 07/09 1116 95.9 88 20 153/70 07/09 1027 88 20 15370 99 Intake & Output 07/10 1600 07/10 0800 07/10 0000 07/09 1600 07/09 0800 07/09 0000 Intake Total 150 200 0 Output Total 1100 800 Balance -950 -600 0 Intake, Oral 150 200 0 Number 1 Bowel Movements Output, Urine 1100 800 Patient 157 lb 190 lb Weight Weight Estimated Measurement Method Physical Exam: General: WD/WN male in NAD; awake and confused HEENT: NC/AT, eyes closed Neck: no JVD, no carotid bruit Heart: RRR w/o murmur Lungs: clear bilaterally Abdomen: soft, NT, +ve bowel sounds Extremities: no edema Assessment/Plan Assessment/Plan * This patient had an elevated blood glucose upon admission and appears to have been at least mildy dehydrated. He continues to be confused at this time despite hemodynamic stability. It is unlikely that he has any post-ictal state but may simply have progression of his dementia. There is no evidence of myocardial ischemia or decompensated CHF. The patient has a known normal ER which makes a malignant ventricular dysrhythmia much less likely but he could have episodes of heart block or bradycardia. It is reasonable to monitor him on telemetry for 24- 48 hours although he remains confused at present and he has a normal rhythm. Check a free T4 and T3 since his TSH is elevated. Consider an endocrine consult for both his thyroid and his blood glucose. * This patient is mildly tachycardic and is likely still a bit dry. Would give IV fluids and agree with antibiotic therapy since an occult infection may be causing him to have mental status changes. Consult Acknowledgment - Thank you for your consult request.
--- NOTE | 2017-07-10 14:21 | Cons- Infect Disease ---
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 On admission he responded to painful stimuli. He was afebrile with a blood pressure of 141/88 and with an O2 sat of 94% on room air. A triple-lumen catheter was placed in the right femoral vein and a Cochran catheter was inserted. Laboratory data revealed a white blood cell count of 6000, H&H 9 and 29, glucose 329, BUN/creatinine 30 and 1.4, lactic acid 2.1, with normal liver enzymes. Urinalysis negative. Chest x-ray was negative. CT of the head was negative for any acute process with a stable appearance of the right frontal extra-axial mass consistent with a meningioma. CT of the abdomen and pelvis was negative. Later in the day one blood culture (apparently drawn through the femoral line) was reported positive for gram-negative rods and he was begun on Ceftriaxone. He has remained afebrile overnight. This morning a second blood culture was reported positive for gram-positive cocci in clusters. At present he complains of pain in his sacrum but offers no other complaints. Allergies/Medications Allergies: Coded Allergies: NO KNOWN ALLERGIES (07/10/17) Home Med List: Acetaminophen (Tylenol) 325 MG TABLET 2 TAB PO Q6-PRN PRN PAIN (Reported) Aspirin (Aspirin*) 81 MG TAB.CHEW 1 TAB PO DAILY HEART HEALTH Atorvastatin Calcium (Lipitor) 40 MG TABLET 1 TAB PO DAILY CHOLESTEROL ( Reported) Cholecalciferol (Vitamin D3) (Vitamin D) 2,000 UNIT CAPSULE 1 CAP PO DAILY SUPPLEMENT (Reported) Docusate Sodium (Colace) 100 MG CAPSULE 2 CAP PO DAILY STOOL SOFTENER ( Reported) Ferrous Sulfate 325 MG (65 MG IRON) TABLET 1 TAB PO BID SUPPLEMENT (Reported) Finasteride 5 MG TABLET 1 TAB PO DAILY PROSTATE (Reported) Insulin Detemir (Levemir) 100 UNIT/ML VIAL 10 UNITS SC BID diabetes .. Insulin Lispro (Humalog Kwikpen U-100) 100 UNIT/ML INSULN.PEN 0 SC TIDAC DIABETES before meals less than 80 mg/dl take cup of apple juice 80-150 4 units 151-200 6 units 201-250 8 units 251-300 10 units 301-350 12 units 351-400 13 units >400 14 units Bedtime 251-300 2 units 301-350 3 units 351-400 4 units >400 5 units Latanoprost 0.005 % DROPS 1 GTT OPH QPM BOTH EYES (Reported) Memantine HCl (Namenda) 10 MG TABLET 2 TAB PO QHS MEMORY (Reported) Omeprazole Magnesium (Prilosec Otc) 20 MG TABLET.DR 1 TAB PO DAILY ACID REFLUX Polyethylene Glycol 3350 (Miralax) 17 GRAM POWD.PACK 1 PAC PO DAILY GI ( Reported) dissolve in water Tamsulosin HCl (Flomax) 0.4 MG CAP.ER.24H 1 CAP PO DAILY PROSTATE (Reported) Past History Travel History Traveled to [place] past 21 day No Medical History Neurological: dementia EENT: blindness, glaucoma, hearing loss Cardiovascular: hypertension, hyperlipidemia Respiratory: pneumonia Gastrointestinal: umbilical hernia Hepatic: NONE Renal: benign prost hyperplasia, FREQUENT UTI'S Musculoskeletal: degen joint disease, osteoarthritis Psychiatric: NONE Endocrine: diabetes Blood Disorders: anemia Cancer(s): NONE EMERGENCY MEDICINE/Reproductive: NONE History of MRSA: Yes History of VRE: No History of CDIFF: No Isolation History: Contact Influenza Vaccine: 02/16/17 Surgical History Surgical History: prostatectomy, 08/08/16: circumcision for phimosis with balanitis Family History Relations & Conditions If Any: BROTHER FH: diabetes mellitus FH: glaucoma FH: heart disease SISTER FH: diabetes mellitus FH: glaucoma Psychosocial History Who Do You Live With? child (dianer/Rafaela BOLIVAR & her son) Services at Home: Home Health Aide Primary Language: Bengali, Jude Smoking Status: Never Smoked Living Will? no Power of Wax Molder/HCP? yes Name of POA/HCP: Pt/s Rafaela seo [phone] Functional Ability ADLs Needs Assist: dressing, eating, toileting, bathing. Ambulation: non-ambulatory (wheelchair bound) IADLs Needs Assist: shopping, housework, finances, food prep, telephone, transportation, medication admin. Review of Systems Review of Systems All Other Systems: Reviewed and Negative Exam & Diagnostic Data Last 24 Hrs of Vital Signs/I&O Vital Signs Date Time Temp Pulse Resp B/P B/P Pulse O2 O2 Flow FiO2 Mean Ox Delivery Rate 07/10 0800 Room Air 07/10 0600 98.9 108 20 118/60 94 07/10 0000 Room Air Room Air 07/09 1925 99.2 117 16 140/96 96 07/09 1823 105 20 148/71 95 Room Air 07/09 1649 100.1 110 20 142/66 94 Room Air 07/09 1446 99.8 98 20 158/78 99 Room Air Intake & Output 07/10 1600 07/10 0800 07/10 0000 Intake Total 150 200 Output Total 1100 800 Balance -950 -600 Intake, Oral 150 200 Number 1 Bowel Movements Output, Urine 1100 800 Patient 157 lb Weight Physical Exam Other Physical Findings: Afebrile. He is awake and alert in no acute distress. Skin reveals no rash. HEENT blindness. Neck is supple with no adenopathy. Lungs are clear. Heart regular rhythm with no murmur. Abdomen is distended, soft, nontender with positive bowel sounds. Back no CVA tenderness. Extremities no cyanosis, clubbing or edema; right femoral triple lumen catheter in place with no inflammation at the site. Neuro is without focality. Cochran catheter is in place. Last 24 Hours of Lab Results: Laboratory Tests 07/10 07/09 0545 2320 Chemistry Sodium (137 - 145 mmol/L) 136 L Potassium (3.5 - 5.1 mmol/L) 4.5 Chloride (98 - 107 mmol/L) 101 Carbon Dioxide (22 - 30 mmol/L) 28 Anion Gap (5 - 16) 7 BUN (9 - 20 mg/dL) 30 H Creatinine (0.7 - 1.2 mg/dL) 1.5 H Estimated GFR (>60 ml/min) 45 L BUN/Creatinine Ratio (7 - 25 %) 20.0 Hematology CBC w Diff NO MAN DIFF REQ NO MAN DIFF REQ WBC (4.8 - 10.8 /CUMM) 9.0 9.3 RBC (4.70 - 6.10 /CUMM) 3.73 L 3.85 L Hgb (14.0 - 18.0 G/DL) 8.2 L 8.3 L Hct (42 - 52 %) 26.4 L 26.6 L MCV (80.0 - 94.0 FL) 70.8 L 69.1 L MCH (27.0 - 31.0 PG) 22.0 L 21.5 L MCHC (33.0 - 37.0 G/DL) 31.0 L 31.0 L RDW (11.5 - 14.5 %) 19.8 H 19.9 H Plt Count (130 - 400 /CUMM) 178 152 MPV (7.4 - 10.4 FL) 11.1 H 9.3 Gran % (42.2 - 75.2 %) 74.3 79.9 H Lymphocytes % (20.5 - 51.1 %) 14.2 L 10.0 L Monocytes % (1.7 - 9.3 %) 6.9 6.8 Eosinophils % (0 - 5 %) 4.1 2.8 Basophils % (0.0 - 2.0 %) 0.5 0.5 Absolute Granulocytes (1.4 - 6.5 /CUMM) 6.7 H 7.5 H Absolute Lymphocytes (1.2 - 3.4 /CUMM) 1.3 0.9 L Absolute Monocytes (0.10 - 0.60 /CUMM) 0.6 0.6 Absolute Eosinophils (0.0 - 0.7 /CUMM) 0.4 0.3 Absolute Basophils (0.0 - 0.2 /CUMM) 0 0 Last 24 Hours of Michael Results: Blood culture July 09 (labeled line) positive for gram-negative rods Blood culture July 09 (labeled venous) positive for gram-positive cocci in clusters Urine culture July 09 negative Rapid flu swab July 09 negative Diagnostic Data Recent Imaging Findings: Chest x-ray negative CT of the head negative for any acute process with a stable appearance of the right frontal extra-axial mass consistent with a meningioma. CT of the abdomen and pelvis negative. 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 The significance of these positive blood cultures is unclear. Gram-negative rods are typically not considered contaminants and, though this blood culture was apparently drawn through the triple-lumen catheter, it should be considered a true pathogen at this time. The most likely source would be the underlying malignancy, possibly causing a transient bacteremia. The positive blood culture for gram-positive cocci, however, most likely represents a contaminant, for example coag-negative Staph, and will await the final culture. He is currently on Ceftriaxone, which should cover any aerobic gram negative rods, but anaerobic coverage may need to be added pending final cultures. His family apparently decided against surgical intervention on his last hospitalization and, if there are still no plans for surgery, reevaluation of his overall level of care would be appropriate. Suggestion: 1. Reevaluation of the overall level of care in this debilitated patient 2. Remove Cochran catheter 3. Remove right femoral triple lumen catheter 4. Repeat blood cultures 2 5. Add Flagyl 500 mg IV every 8 hours pending final cultures 6. Continue Ceftriaxone pending final cultures Consult Acknowledgment - Thank you for your consult request.
[2017-07-10 14:32] VITALS: BP 124/64
--- NOTE | 2017-07-10 18:24 | ECHOCARDIOGRAM REPORT ---
EDILBERTO MARTIN Age: 82 : 1935 Gender: M Exam Date: 07/09/2017 19:51 Exam Location: [facility] Ht (in): 72 Wt (lb): 190 BSA: 2.10 BP: 179 / 77 Ordering Physician: Carley Moseley MD Referring Physician: Nam Alvarez MD, PhD Technologist: Joanne Raines [facility] Room Number: 181 Indications: PRESYNCOPE/SYNCOPE Rhythm: Sinus Technical Quality: good FINDINGS Left Ventricle Small left ventricular size with mild left ventricular hypertrophy. Normal systolic function with no obvious regional wall motion abnormalities. Normal left ventricular diastolic filling pattern for age. The ejection fraction is visually estimated at 60%. Right Ventricle The right ventricle is normal in size and function. Right Atrium The right atrium is normal in size. Left Atrium The left atrium is normal in size. The interatrial septum is intact. Mitral Valve The mitral valve is normal in structure and function. There is trac mitral regurgitation. Aortic Valve Mildly sclerotic aortic valve without significant stenosis. There is no aortic regurgitation. Tricuspid Valve The tricuspid valve is normal in structure and function. There is trace tricuspid regurgitation. Pulmonary artery systolic pressure is normal. Pulmonic Valve Structurally normal pulmonic valve. There is no pulmonic regurgitation. Pericardium Normal pericardium without effusion. No pleural effusion. Great Vessels Normal aortic root dimension. The aortic arch and great vessels are well seen and are normal. CONCLUSIONS 1. Small left ventricle with mild left ventricular hypertrophy. 2. Normal EF of 60%. 3. Trace mitral regurgitation. 4. Trace tricuspid regurgitation. Nam Alvarez M.D. (Electronically Signed) Final Date: 10 July 2017 18:23 MEASUREMENTS (Male / Female) Normal Values 2D ECHO LV Diastolic Diameter PLAX 3.2 cm 4.2 - 5.9 / 3.9 - 5.3 cm LV Systolic Diameter PLAX 2.2 cm 2.1 - 4.0 cm LV Fractional Shortening PLAX 31.3 % 25 - 46 % LV Ejection Fraction 2D Teich 60.4 % IVS Diastolic Thickness 1.4 cm LVPW Diastolic Thickness 1.4 cm LV Relative Wall Thickness 0.9 RV Internal Dim ED PLAX 2.5 cm 1.9 - 3.8 cm LVOT Diameter 2.2 cm Aortic Root Diameter 3.4 cm LA Systolic Diameter LX 2.2 cm 3.0 - 4.0 / 2.7 - 3.8 cm LA Volume 19.0 cm 18 - 58 / 22 - 52 cm DOPPLER AV Peak Velocity 139.0 cm/s AV Peak Gradient 7.7 mmHg AV Mean Velocity 102.0 cm/s AV Mean Gradient 5.0 mmHg AV Velocity Time Integral 22.0 cm LVOT Peak Velocity 102.0 cm/s LVOT Peak Gradient 4.2 mmHg LVOT Mean Velocity 66.0 cm/s LVOT Mean Gradient 2.0 mmHg LVOT Velocity Time Integral 15.8 cm LVOT Stroke Volume 60.1 cm AV Area Cont Eq vti 2.7 cm AV Area Cont Eq pk 2.8 cm MV Peak Velocity 170.0 cm/s MV Peak Gradient 11.6 mmHg MV Mean Velocity 79.0 cm/s MV Mean Gradient 4.0 mmHg Mitral E Point Velocity 145.0 cm/s MV PHT Velocity 176.0 cm/s MV Deceleration Trimble 979.0 cm/s MV Pressure Half Time 53.9 ms MV Area PHT 4.1 cm MV Deceleration Time 79.0 ms TR Peak Velocity 114.0 cm/s TR Peak Gradient 5.2 mmHg Right Atrial Pressure 5.0 mmHg Pulmonary Artery Systolic Pressu 10.2 mmHg Right Ventricular Systolic Press 10.2 mmHg PV Peak Velocity 54.8 cm/s PV Peak Gradient 1.2 mmHg PV Mean Velocity 38.6 cm/s PV Mean Gradient 1.0 mmHg PV Velocity Time Integral 6.3 cm LV E' Lateral Velocity 14.2 cm/s Mitral E to LV E' Lateral Ratio 10.2 LV E' Septal Velocity 16.0 cm/s Mitral E to LV E' Septal Ratio 9.1
[2017-07-10 19:56] LABS: ABSOLUTE BASOPHIL COUNT 0 /CUMM (0.0-0.2); ABSOLUTE EOSINOPHIL COUNT 0.4 /CUMM (0.0-0.7); ABSOLUTE GRANULOCYTE CT 5.6 /CUMM (1.4-6.5); ABSOLUTE LYMPH COUNT 1.4 /CUMM (1.2-3.4); ABSOLUTE MONOCYTE COUNT 0.5 /CUMM (0.10-0.60); BASOPHIL % 0.5 % (0.0-2.0); EOSINOPHIL % 5.1 % (0-5); GRANULOCYTE % 69.9 % (42.2-75.2); HEMATOCRIT 24.4 % (42-52); MEAN CORPUSCULAR HGB 21.6 PG (27.0-31.0); MEAN CORPUSCULAR HGB CONC 30.6 G/DL (33.0-37.0); MEAN CORPUSCULAR VOLUME 70.4 FL (80.0-94.0); MEAN PLATELET VOLUME 10.4 FL (7.4-10.4); PLATELET COUNT 161 /CUMM (130-400); RBC DISTRIBUTION WIDTH 19.7 % (11.5-14.5); RED BLOOD CELL CT 3.46 /CUMM (4.70-6.10); WHITE BLOOD CELL COUNT 7.9 /CUMM (4.8-10.8)
[2017-07-10 20:02] LABS: PT 11.7 SEC (9.4-12.5); PTT 31 SEC (25-37)
--- NOTE | 2017-07-10 20:27 | CT SCAN REPORT ---
EXAMINATION: CT HEAD WITHOUT CONTRAST CLINICAL INFORMATION: Acute mental status change. Known meningioma. COMPARISON: Head CT from 07/09/2017. Head CT from 01/14/2017. TECHNIQUE: Contiguous axial imaging was performed from the skull base to vertex without intravenous administration of contrast. DLP: 696.2 mGy-cm FINDINGS: There is no evidence of acute intracranial hemorrhage or territorial infarction. No new mass effect or midline shift is seen. Petit to white matter differentiation is well preserved. No extra-axial fluid collections are identified. A heterogeneous high attenuation mass along the right frontal convexity anteriorly distorting the right frontal lobe is unchanged, measuring 3.8 cm in diameter in the axial plane. This is most consistent with a meningioma. There is no evidence of hydrocephalus. Mild chronic white matter microangiopathic changes and moderate generalized parenchymal volume loss are again noted. The soft tissues are normal. Small lucent foci are stable in the calvarium. The mastoid air cells and visualized portions of the paranasal sinuses are well aerated. IMPRESSION: No acute intracranial pathology. Moderate parenchymal volume loss and mild chronic white matter microangiopathy. Stable right frontal meningioma. Scattered small lucent foci in the calvarium are stable and nonspecific. Given lack of change since imaging from 01/14/2017, metastatic disease and multiple myeloma are felt to be less likely.
--- NOTE | 2017-07-10 21:52 | Event Note ---
Event Note Event Note: situation patient was found unresponsive around 7:15 PM, no response to verbal, pain stimulus. Rapid response was called for further evaluation. 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 He was seen by Dr. Sorto, on IV ceftriaxone, IV Flagyl. EEG was done yesterday because of unresponsiveness which was within normal limits. CAT scan of the head showed no change in the appearance of his known meningioma. Assessment and plan Vitals at the time of rapid response afebrile, heart rate 80, respiratory rate 18, blood pressure 140/64, saturating 97 on room air, blood sugar 240. On exam S1-S2 within normal limits, bilateral breath sounds good, bowel sounds present. He is lethargic, not arousable to verbal or pain stimulus, eyes closed. Not in distress. Pupils normal. Face symmetric. Couldn't perform neuro examination. deep tendon reflexes were diffusely hypoactive. Plantar reflex -flexor. Patient was admitted initially for unresponsiveness. However according to the nursing staff he was responding this afternoon with verbal stimulus. He is now Unresponsive - most possible differentials stroke versus seizure versus raised intracranial pressure from meningioma versus infection versus hemorrhage. * Ordered CBC, BEP, troponin, EKG, calcium, magnesium, phosphorus, prolactin level * CAT scan head stat was done, no acute abnormality. Stable chronic meningioma was found. * Patient family wants to be full code. * CODE STATUS changed to full code now * Patient transferred to ICU for close monitoring overnight as he is full code now/low threshold for intubation if he aspirates. * Q1 neurochecks * Nothing by mouth * IV Hydration * MRI brain in a.m. to rule out any stroke/bleeding * Neuro Reconsult in the a.m. * Please follow-up labs * EKG no new changes compared to prior EKG. * Discussed in detail with the daughter at bedside and nursing staff. * Notified Fadi Hoff MD hospitalist on-call. * Notified telemetry team and ICU team about the transfer. Please follow attending manager enterprise content management for further recommendations.
--- NOTE | 2017-07-10 23:08 | Event Note ---
Event Note Event Note: A rapid response was called and the patient(for details please refer to previous events note), the patient was unresponsive even to painful stimuli. The patient is DNR/DNI however patient daughter who is POA decided to change it to full code during the rapid response. They patient was transferred to ICU for Q1 neurochecks and possible intubation if needed given the new change on CODE STATUS. After transfer a long discussion was conducted with the daughter who is the patient P[place] about the recent change in his CODE STATUS. The daughter states that when the patient was awake he told the family that he wanted to be a full code, she also mentioned that all her family decided that they wanted the patient to be full code for which she changed her mind about the CODE STATUS. The patient's situation was explained to the daughter in detail, she decided to leave the patient has a full code for now, she will inform us if any changes in regard of the CODE STATUS in the morning.
[2017-07-11] VITALS: BP 136/64
[2017-07-11 05:21] LABS: ABSOLUTE BASOPHIL COUNT 0.1 /CUMM (0.0-0.2); ABSOLUTE EOSINOPHIL COUNT 0.5 /CUMM (0.0-0.7); ABSOLUTE LYMPH COUNT 1.5 /CUMM (1.2-3.4)
[2017-07-11 05:39] LABS: ABSOLUTE MONOCYTE COUNT 0.7 /CUMM (0.10-0.60); BASOPHIL % 0.8 % (0.0-2.0); EOSINOPHIL % 6.4 % (0-5); GRANULOCYTE % 64.3 % (42.2-75.2); HEMATOCRIT 24.1 % (42-52); MEAN CORPUSCULAR HGB 21.9 PG (27.0-31.0); MEAN CORPUSCULAR HGB CONC 30.8 G/DL (33.0-37.0); MEAN CORPUSCULAR VOLUME 71.1 FL (80.0-94.0); MEAN PLATELET VOLUME 10.6 FL (7.4-10.4); PLATELET COUNT 158 /CUMM (130-400); RBC DISTRIBUTION WIDTH 19.6 % (11.5-14.5); RED BLOOD CELL CT 3.38 /CUMM (4.70-6.10); WHITE BLOOD CELL COUNT 7.8 /CUMM (4.8-10.8)
--- NOTE | 2017-07-11 07:52 | PN- Housestaff ---
Mark SALINAS,[facility]ad[facility] 07/11/17 0751: Subjective Follow-up For: UNRESPONSIVENESS MENINGIOMA COLONIC ADENOCARCINOMA Tele-Events Since Last Visit: Patient's EKG shows right bundle branch block and a second-degree AV block IN what looks like almost a triplet pattern. Normal rate. Subjective: Saw patient at bedside this a.m. He was transferred overnight into the ICU for unresponsiveness. Initially he was DNR/DNI but admits the rapid response, patient's daughter wish to make him a full code. She agrees to intubation and CPR if necessary. Differential for his unresponsiveness includes seizure, CVA, cardiac or pulmonary event. This a.m. upon reevaluation most likely seems to be a seizure-like event probably related to meningioma. Since coming to the ICU, patient stated has been entirely uneventful. He is back to his baseline mental status. Review of Systems Constitutional: Reports: no symptoms. EENTM: Reports: no symptoms. Cardiovascular: Denies: chest pain, palpitations. Respiratory: Denies: short of breath. Gastrointestinal: Denies: abdominal pain, diarrhea. Genitourinary: Denies: dysuria. Musculoskeletal: Denies: back pain. Objective Last 24 Hrs of Vital Signs/I&O Vital Signs Date Time Temp Pulse Resp B/P B/P Pulse O2 O2 Flow FiO2 Mean Ox Delivery Rate 07/11 1200 99 Room Air 07/11 0849 91 120/76 07/11 0800 99 Room Air 07/11 0800 97.6 82 20 140/70 99 Room Air 07/11 0000 98.5 88 16 136/64 100 Room Air Room Air 07/10 2014 100 Room Air Room Air 07/10 1432 98.1 94 20 124/64 93 Room Air Intake & Output 07/11 1600 07/11 0800 07/11 0000 Intake Total 130 360 Output Total 200 Balance 130 160 Intake, IV 130 120 Intake, Oral 0 240 Number 1 0 1 Bowel Movements Output, Urine 200 Physical Exam General Appearance: Alert, Oriented X3, Cooperative, No Acute Distress Skin: No Rashes HEENT: Atraumatic, PATIENT IS BLIND Neck: Supple Cardiovascular: IRREGULAR Lungs: Clear to Auscultation, Normal Air Movement Abdomen: Soft, No Tenderness Extremities: No Clubbing, No Cyanosis Current Medications: Current Medications Sig/Zoe Start time Last Medication Dose Route Stop Time Status Admin Acetaminophen 650 MG Q6-PRN PRN 07/09 0515 AC 07/10 PO 1044 Amoxicillin/ 500 MG Q12 07/11 2200 UNVr Clavulanate Potassium PO Aspirin 81 MG DAILY 07/09 1000 AC 07/11 PO 0849 Atorvastatin Calcium 40 MG 1700 07/09 1700 AC 07/09 PO 1810 Ceftriaxone Sodium 1,000 MG DAILY 07/09 1604 DC 07/11 IV 0849 Cholecalciferol 400 IU DAILY 07/09 1000 AC 07/11 PO 0849 Docusate Sodium 200 MG DAILY 07/09 1000 AC 07/11 PO 0848 Ferrous Sulfate 325 MG DAILY 07/09 1000 AC 07/11 PO 0849 Finasteride 5 MG DAILY 07/09 1000 AC 07/11 PO 0849 Heparin Sodium 5,000 UNIT Q8 07/09 0600 AC 07/11 (Porcine) SC 1357 Insulin Aspart 0 AT BEDTIME 07/10 2200 AC 07/10 SC 2151 Insulin Aspart 0 TIDAC 07/10 1700 AC 07/11 SC 1210 Insulin Detemir 10 UNITS BID 07/09 1000 AC 07/11 SC 0854 Latanoprost 1 GTT QPM 07/09 2200 AC 07/10 OPH 2154 Levetiracetam 1,000 MG ONCE ONE 07/11 1400 DC IV 07/11 1401 Magnesium Hydroxide 30 ML ONE PRN 07/11 0800 AC PO 07/11 1700 Melatonin 5 MG AT BEDTIME 07/09 2200 AC 07/09 PO 2334 Memantine 20 MG AT BEDTIME 07/09 2200 AC 07/09 PO 2334 Metronidazole 500 MG IQ8 07/10 1600 DC 07/11 N/A 1 UNIT IV 0848 Omeprazole 40 MG DAILY AC 07/09 0700 AC 07/10 PO 0525 Polyethylene Glycol 17 GM DAILY 07/09 1000 AC 07/11 PO 0848 Senna 187 MG AT BEDTIME 07/10 2200 AC PO Sodium Chloride 1,000 ML BOLUS ONE 07/10 194 DC 07/10 IV 07/10 2143 194 Tamsulosin HCl 0.4 MG DAILY 07/09 1000 AC 07/11 PO 0849 Last 24 Hrs of Lab/Michael Results Last 24 Hrs of Labs/Mics: Laboratory Tests 07/11/17 1012: Sodium Cancelled, Potassium Cancelled, Chloride Cancelled, Carbon Dioxide Cancelled, Anion Gap Cancelled, BUN Cancelled, Creatinine Cancelled, Glucose Cancelled, Calcium Cancelled, Phosphorus Cancelled, Magnesium Cancelled, Total Bilirubin Cancelled, AST Cancelled, ALT Cancelled, Albumin Cancelled, CBC w Diff Cancelled, WBC Cancelled, RBC Cancelled, Hgb Cancelled, Hct Cancelled, MCV Cancelled, MCH Cancelled, MCHC Cancelled, RDW Cancelled, Plt Count Cancelled, MPV Cancelled 07/11/17 0415: Anion Gap 11, Estimated GFR 45 L, BUN/Creatinine Ratio 16.7, CBC w Diff NO MAN DIFF REQ, RBC 3.38 L, MCV 71.1 L, MCH 21.9 L, MCHC 30.8 L, RDW 19.6 H, MPV 10.6 H, Gran % 64.3, Lymphocytes % 19.1 L, Monocytes % 9.4 H, Eosinophils % 6.4 H, Basophils % 0.8, Absolute Granulocytes 5.0, Absolute Lymphocytes 1.5, Absolute Monocytes 0.7 H, Absolute Eosinophils 0.5, Absolute Basophils 0.1 07/10/17 1950: pH 7.43, pCO2 25 L, pO2 105 H, HCO3 16 L, ABG O2 Sat (Measured) 98.0, P-50 ( Temp Corrected) N, O2 Concentration % R/A, Temperature 98.1, Phlebotomy Draw Site RIGHT RADIAL 07/10/171934: Anion Gap 9, Estimated GFR 41 L, BUN/Creatinine Ratio 18.1, Lactic Acid 1.8, Calcium 9.1, Phosphorus 3.1, Magnesium 1.6, Total Bilirubin 0.6, Direct Bilirubin 0.3, AST 41, ALT 42, Alkaline Phosphatase 75, Troponin I < 0.01, Total Protein 5.4 L, Albumin 3.0 L, TSH 3.610, Prolactin 16.6, PT 11.7, INR 1.12, APTT 31, CBC w Diff NO MAN DIFF REQ, RBC 3.46 L, MCV 70.4 L, MCH 21.6 L, MCHC 30.6 L, RDW 19.7 H, MPV 10.4, Gran % 69.9, Lymphocytes % 18.0 L, Monocytes % 6.5, Eosinophils % 5.1 H, Basophils % 0.5, Absolute Granulocytes 5.6, Absolute Lymphocytes 1.4, Absolute Monocytes 0.5, Absolute Eosinophils 0.4, Absolute Basophils 0 Microbiology 07/10 2114 UPPER RESP: Surveillance Culture - RECD 07/10 2114 GI: Surveillance Culture - RECD 07/10 151 BLOOD: Blood Culture - CAN Cancelled: SPECIMEN NOT RECEIVED IN LABORATORY 07/10 1513 BLOOD: Blood Culture - CAN Cancelled: SPECIMEN NOT RECEIVED IN LABORATORY Assessment/Plan Assessment: ASSESSMENT:This is an 82-year-old male with past medical history significant for ESBL, MRSA, legally blind, glaucoma, hypertension, hyperlipidemia, diabetes, DJD , BPH, adenocarcinoma of TV colon dx in 2017 with no wish for intervention, meningioma with no intervention, who comes in for chief complaint of unresponsiveness. Initially admitted to [facility] floor for work up but when a rapid response was called for a second episode of unresponsiveness pt was moved to ICU for further possible intervention. PLAN: Unresponsiveness: DDX: seizure, syncope due to valvular d/o, arrhythmia, metabolic encephalopthy 2/2 infection. At this time highest on the differential is seizure even his meningioma. However, EEG so far has been negative. No overt seizure behavior witnessed. He did have prolactin of 25.[address] of the head 2 shows no acute process. Cannot rule out underlying infectious process as cause as blood cultures from July 09 shows one bottle positive for Klebsiella pneumonia and a second bottle positive for coag negative staph. * ACS ruled out with serial trop/ECG * Note EKG shows RBBB with what looks like an intermittent 2nd degree block that was present in a previous EKG. Pt has remained asymptomatic w/o CP or palpitations. * Echocardiogram shows mild LVH, EF of 60, trace MR and trace TR. * EEG demonstrated no focal or epileptiform features were identified * Second EEG pending * Neurology recommendations appreciated * Cardiology recommendations appreciated * Utox negative * Neuro checks every 4 * TSH initially elevated but repeat TSH, and rest of TFT wnl Bacteremia: July 09 blood cultures 1 is showing gram-negative rods speciated to Klebsiella pneumonia which is resistant to ampicillin and a second bottle positive for coag negative staph. Per ID, the coag staph is likely a contaminant but cannot rule out Klebsiella given that patient has hx of malignancy and is potentially susceptible to bacterial translocation. However, at this time unsure of the veracity of cx as it was drawn through the femoral line. * Patient was started on ceftriaxone and Flagyl. However as he has remained hemodynamically stable and never required pressors, and has remained afebrile with a normal white count we'll switch him to by mouth Augmentin 500 mg twice a day per infectious disease recommendations. * Fem line DC 07/11/2017 * PICC line placed on 07/11/2017. This is for access as pt is very hard stick. * ID recommendations appreciated * Empirically started Keppra 100mg x1. Await neuro recs on continuation of medication. Anemia: Hb 91-->83-->82-->7.5 -->7.4 today. Unsure of source as pt has no obvious source of bleeding. Bili WNL. * Type and cross in * Will transfuse with goal >8 * Anemia add on labs * Stool guiac * Repeat CBC DM: A1C 8.8. Last FS 209, 181, 264, 221, 302. Will titrate SS accordingly. * RISS TIDACHS * Levemir 10u BID;will increase to 12u BID. * Consistent carb 1 diet CKD: Cr 1.5 today, seems to be around new baseline as Mar 2017 shwos multiple values around 1.3-1.4. * Con't monitor * Unsure of etiology of worsening renal failure though pt's daughter wished no aggressive intervention. Consider out pt work up. * Avoid nephrotoxins CAD: * Con't ASA * Con't Statin BPH s/p prostatectomy: * Con't Proscar * Con't Flomax Dementia * Cont' Namenda 10 mg daily FC-Daugher continues to pursue FC status despite inital DNR/DNI orders CC-1 ALPS Problem List: 1. Urinary tract infection Pain Ratin Pain Location: NONE Pain Goal: Remain pain free Pain Plan: CURRENT REG Tomorrow's Labs & Rationales: CBC ICU Myron Liu MD 07/11/17 1714: Attending MD Review Statement Attending Statement Attending MD Statement: examined this patient, discuss w/resident/PA/CASCADE OPERATOR, agreed w/resident/PA/CASCADE OPERATOR, discussed with family, reviewed EMR data (avail), reviewed images, amended to note Attending Assessment/Plan: The events of last pm were noted and discussed with the patient's daughter. Seen and discussed with house staff. Appreciate neurology follow-up. Unresponsive event most likely represents a seizure with prolonged post ictal state. Now on Keppra. Will follow. Has large stable meningioma on CT/MRI. Decreased H/H noted. Stools brown and trace heme positive. Agree with transfusion. PICC line in place now and femoral line removed. Blood culture growing Klebsiella sensitive to Ceftriaxone. ID follow-up appreciated. OK to transfer back to telemetry and observe. Seizure precautions.
[2017-07-11 08:00] VITALS: BP 140/70
--- NOTE | 2017-07-11 11:15 | PN- Infect Dx ---
Subjective Subjective: Afebrile without complaints. He was moved into the ICU overnight because of another episode of unresponsiveness. Objective Last 24 Hrs of Vital Signs/I&O Vital Signs Date Time Temp Pulse Resp B/P B/P Pulse O2 O2 Flow FiO2 Mean Ox Delivery Rate 07/11 0849 91 120/76 07/11 0000 98.5 88 16 136/64 100 Room Air Room Air 07/10 2014 100 Room Air Room Air 07/10 1432 98.1 94 20 124/64 93 Room Air Intake & Output 07/11 1600 07/11 0800 07/11 0000 Intake Total 130 360 Output Total 200 Balance 130 160 Intake, IV 130 120 Intake, Oral 0 240 Number 0 1 Bowel Movements Output, Urine 200 Physical Exam Other Physical Findings: He is currently awake and alert in no acute distress Lungs are clear Heart regular rhythm with no murmur Abdomen is soft, nontender positive bowel sounds Back no CVA tenderness Extremities right femoral triple lumen catheter with no inflammation at the site Cochran catheter remains in place Results Last 24 Hours of Lab Results: Laboratory Tests 07/11 07/10 0445 1950 Blood Gas pH (7.35 - 7.45 PH) 7.43 pCO2 (35 - 45 TORR) 25 L pO2 (80 - 100 TORR) 105 H HCO3 (21 - 28 MEQ/L) 16 L ABG O2 Sat (Measured) (>96.0 %) 98.0 P-50 (Temp Corrected) N O2 Concentration % R/A Temperature (97.0 - 100.0 FARH) 98.1 Chemistry Sodium (137 - 145 mmol/L) 143 Potassium (3.5 - 5.1 mmol/L) 4.0 Chloride (98 - 107 mmol/L) 107 Carbon Dioxide (22 - 30 mmol/L) 26 Anion Gap (5 - 16) 11 BUN (9 - 20 mg/dL) 25 H Creatinine (0.7 - 1.2 mg/dL) 1.5 H Estimated GFR (>60 ml/min) 45 L BUN/Creatinine Ratio (7 - 25 %) 16.7 Hematology CBC w Diff NO MAN DIFF REQ WBC (4.8 - 10.8 /CUMM) 7.8 RBC (4.70 - 6.10 /CUMM) 3.38 L Hgb (14.0 - 18.0 G/DL) 7.4 *L Hct (42 - 52 %) 24.1 L MCV (80.0 - 94.0 FL) 71.1 L MCH (27.0 - 31.0 PG) 21.9 L MCHC (33.0 - 37.0 G/DL) 30.8 L RDW (11.5 - 14.5 %) 19.6 H Plt Count (130 - 400 /CUMM) 158 MPV (7.4 - 10.4 FL) 10.6 H Gran % (42.2 - 75.2 %) 64.3 Lymphocytes % (20.5 - 51.1 %) 19.1 L Monocytes % (1.7 - 9.3 %) 9.4 H Eosinophils % (0 - 5 %) 6.4 H Basophils % (0.0 - 2.0 %) 0.8 Absolute Granulocytes (1.4 - 6.5 /CUMM) 5.0 Absolute Lymphocytes (1.2 - 3.4 /CUMM) 1.5 Absolute Monocytes (0.10 - 0.60 /CUMM) 0.7 H Absolute Eosinophils (0.0 - 0.7 /CUMM) 0.5 Absolute Basophils (0.0 - 0.2 /CUMM) 0.1 Miscellaneous Phlebotomy Draw Site RIGHT RADIAL 07/10 1934 Chemistry Sodium (137 - 145 mmol/L) 138 Potassium (3.5 - 5.1 mmol/L) 4.2 Chloride (98 - 107 mmol/L) 105 Carbon Dioxide (22 - 30 mmol/L) 24 Anion Gap (5 - 16) 9 BUN (9 - 20 mg/dL) 29 H Creatinine (0.7 - 1.2 mg/dL) 1.6 H Estimated GFR (>60 ml/min) 41 L BUN/Creatinine Ratio (7 - 25 %) 18.1 Lactic Acid (0.7 - 2.1 mmol/L) 1.8 Calcium (8.4 - 10.2 mg/dL) 9.1 Phosphorus (2.5 - 4.5 mg/dL) 3.1 Magnesium (1.6 - 2.3 mg/dL) 1.6 Total Bilirubin (0.2 - 1.3 mg/dL) 0.6 Direct Bilirubin (< 0.4 mg/dL) 0.3 AST (17 - 59 U/L) 41 ALT (21 - 72 U/L) 42 Alkaline Phosphatase (< 127 U/L) 75 Troponin I (<0.11 ng/ml) < 0.01 Total Protein (6.3 - 8.2 g/dL) 5.4 L Albumin (3.5 - 5.0 g/dL) 3.0 L TSH (0.270 - 4.200 uIU/mL) 3.610 Prolactin (3.7 - 17.9 ng/mL) 16.6 Coagulation PT (9.4 - 12.5 SEC) 11.7 INR (0.90 - 1.17) 1.12 APTT (25 - 37 SEC) 31 Hematology CBC w Diff NO MAN DIFF REQ WBC (4.8 - 10.8 /CUMM) 7.9 RBC (4.70 - 6.10 /CUMM) 3.46 L Hgb (14.0 - 18.0 G/DL) 7.5 L Hct (42 - 52 %) 24.4 L MCV (80.0 - 94.0 FL) 70.4 L MCH (27.0 - 31.0 PG) 21.6 L MCHC (33.0 - 37.0 G/DL) 30.6 L RDW (11.5 - 14.5 %) 19.7 H Plt Count (130 - 400 /CUMM) 161 MPV (7.4 - 10.4 FL) 10.4 Gran % (42.2 - 75.2 %) 69.9 Lymphocytes % (20.5 - 51.1 %) 18.0 L Monocytes % (1.7 - 9.3 %) 6.5 Eosinophils % (0 - 5 %) 5.1 H Basophils % (0.0 - 2.0 %) 0.5 Absolute Granulocytes (1.4 - 6.5 /CUMM) 5.6 Absolute Lymphocytes (1.2 - 3.4 /CUMM) 1.4 Absolute Monocytes (0.10 - 0.60 /CUMM) 0.5 Absolute Eosinophils (0.0 - 0.7 /CUMM) 0.4 Absolute Basophils (0.0 - 0.2 /CUMM) 0 Last 24 Hours of Michael Results: Blood cultures July 09 1 bottle positive for Klebsiella pneumoniae resistant to Ampicillin and 1 bottle positive for coag-negative Staph Urine culture July 09 negative Recent Imaging Studies: CT of the head July 10 no acute process Assessment/Plan ID Impression: Stable, with temperatures and white blood cell count remaining normal, on Ceftriaxone and Flagyl Day 2 of treatment for Klebsiella bacteremia, possibly related to his underlying near obstructing adenocarcinoma of the transverse colon, versus contamination, as the blood culture was apparently drawn through the femoral line. The coag-negative Staph presumably represents a contaminant and does not require treatment. His overall prognosis is quite poor and this should affect further management, particularly as his daughter has refused any surgical intervention. Suggestion: 1. Reevaluation of the overall level of care in this debilitated patient 2. Remove Cochran catheter 3. Remove right femoral triple lumen catheter 4. Continue Ceftriaxone and Flagyl but, if remains stable, can change to Augmentin 500 mg po every 12 hours Mis Varma MD will be covering until July 21
--- NOTE | 2017-07-11 12:39 | RADIOLOGY REPORT ---
EXAMINATION: XR PORTABLE CHEST CLINICAL INFORMATION: Central line placement. COMPARISON: None TECHNIQUE: Portable frontal view of the chest was obtained. FINDINGS: Interval placement of a right-sided PICC line present, the tip is projecting at the level of the cavoatrial junction. Both lungs show symmetric expansion and appear clear. The cardiomediastinal silhouette otherwise appear unremarkable. There is no pleural effusion or pneumothorax present. Visualized upper abdomen is unremarkable. Except for interval placement of a right-sided PICC line, no other significant interval change is noted since the prior study dated 07/09/2017. IMPRESSION: The right-sided PICC line tip is seen at the cavoatrial junction. No other significant change since 07/09/2017.
--- NOTE | 2017-07-11 15:23 | PN- Neurology ---
Subjective Subjective: Patient with known dementia and meningioma had recurrent event of unresponsive spell resident states he was observed to have had a convulsion patient was on levetiracetam at home, but not given in hospital Review of Systems: denies headache, chest pain, breathing problem, dizzyness, abdominal pain Objective Vital Signs and I&Os Vital Signs Date Time Temp Pulse Resp B/P B/P Pulse O2 O2 Flow FiO2 Mean Ox Delivery Rate 07/11 1200 99 Room Air 07/11 0849 91 120/76 07/11 0800 99 Room Air 07/11 0800 97.6 82 20 140/70 99 Room Air 07/11 0000 98.5 88 16 136/64 100 Room Air Room Air 07/10 2014 100 Room Air Room Air Intake & Output 07/11 1600 07/11 0800 07/11 0000 07/10 1600 07/10 0800 07/10 0000 Intake Total 122 538 2925 150 200 Output Total 112 165 6745 800 Balance 130 160 670 -950 -600 Intake, IV 130 120 520 Intake, Oral 0 240 600 150 200 Number 1 0 1 2 1 Bowel Movements Output, Urine 131 403 8553 800 Patient 157 lb Weight drowsy arousable knows he is in hospital cannot give reason for hospitalization or lerght of stay follows simole commands intermittently EOM full diffuse rigidity moves all extremities no limb ataxia Current Medications: Current Medications Sig/Zoe Start time Last Medication Dose Route Stop Time Status Admin Acetaminophen 650 MG Q6-PRN PRN 07/09 0515 AC 07/10 PO 1044 Amoxicillin/ 500 MG Q12 07/11 2200 AC Clavulanate Potassium PO Aspirin 81 MG DAILY 07/09 1000 AC 07/11 PO 0849 Atorvastatin Calcium 40 MG 1700 07/09 1700 AC 07/09 PO 1810 Ceftriaxone Sodium 1,000 MG DAILY 07/09 1604 DC 07/11 IV 0849 Cholecalciferol 400 IU DAILY 07/09 1000 AC 07/11 PO 0849 Docusate Sodium 200 MG DAILY 07/09 1000 AC 07/11 PO 0848 Ferrous Sulfate 325 MG DAILY 07/09 1000 AC 07/11 PO 0849 Finasteride 5 MG DAILY 07/09 1000 AC 07/11 PO 0849 Heparin Sodium 5,000 UNIT Q8 07/09 0600 AC 07/11 (Porcine) SC 1357 Insulin Aspart 0 AT BEDTIME 07/10 2199 AC 07/10 SC 2151 Insulin Aspart 0 TIDAC 07/10 1700 AC 07/11 SC 1210 Insulin Detemir 10 UNITS BID 07/09 1000 AC 07/11 SC 0854 Latanoprost 1 GTT QPM 07/09 2200 AC 07/10 OPH 2154 Levetiracetam 1,000 MG ONCE ONE 07/11 1400 DC IV 07/11 1401 Magnesium Hydroxide 30 ML ONE PRN 07/11 0800 AC PO 07/11 1700 Melatonin 5 MG AT BEDTIME 07/09 2200 AC 07/09 PO 2334 Memantine 20 MG AT BEDTIME 07/09 2200 AC 07/09 PO 2334 Metronidazole 500 MG IQ8 07/10 1600 DC 07/11 N/A 1 UNIT IV 0848 Omeprazole 40 MG DAILY AC 07/09 0700 AC 07/10 PO 0525 Polyethylene Glycol 17 GM DAILY 07/09 1000 AC 07/11 PO 0848 Senna 187 MG AT BEDTIME 07/10 2199 AC PO Sodium Chloride 1,000 ML BOLUS ONE 07/10 194 DC 07/10 IV 07/10 Tamsulosin HCl 0.4 MG DAILY 07/09 1000 AC 07/11 PO 0849 Results Last 24 Hours of Lab Results: Laboratory Tests 07/11 07/11 1012 0445 Chemistry Sodium (137 - 145 mmol/L) Cancelled 143 Potassium (3.5 - 5.1 mmol/L) Cancelled 4.0 Chloride (98 - 107 mmol/L) Cancelled 107 Carbon Dioxide (22 - 30 mmol/L) Cancelled 26 Anion Gap (5 - 16) Cancelled 11 BUN (9 - 20 mg/dL) Cancelled 25 H Creatinine (0.7 - 1.2 mg/dL) Cancelled 1.5 H Estimated GFR (>60 ml/min) 45 L BUN/Creatinine Ratio (7 - 25 %) 16.7 Glucose Cancelled Calcium Cancelled Phosphorus Cancelled Magnesium Cancelled Iron (49 - 181 ug/dL) Pending TIBC (261 - 462 ug/dL) Pending Ferritin (17.9 - 464 ng/mL) Pending Total Bilirubin Cancelled AST Cancelled ALT Cancelled Albumin Cancelled Hematology CBC w Diff Cancelled NO MAN DIFF REQ WBC (4.8 - 10.8 /CUMM) Cancelled 7.8 RBC (4.70 - 6.10 /CUMM) Cancelled 3.38 L Hgb (14.0 - 18.0 G/DL) Cancelled 7.4 *L Hct (42 - 52 %) Cancelled 24.1 L MCV (80.0 - 94.0 FL) Cancelled 71.1 L MCH (27.0 - 31.0 PG) Cancelled 21.9 L MCHC (33.0 - 37.0 G/DL) Cancelled 30.8 L RDW (11.5 - 14.5 %) Cancelled 19.6 H Plt Count (130 - 400 /CUMM) Cancelled 158 MPV (7.4 - 10.4 FL) Cancelled 10.6 H Gran % (42.2 - 75.2 %) 64.3 Lymphocytes % (20.5 - 51.1 %) 19.1 L Monocytes % (1.7 - 9.3 %) 9.4 H Eosinophils % (0 - 5 %) 6.4 H Basophils % (0.0 - 2.0 %) 0.8 Absolute Granulocytes (1.4 - 6.5 /CUMM) 5.0 Absolute Lymphocytes (1.2 - 3.4 /CUMM) 1.5 Absolute Monocytes (0.10 - 0.60 /CUMM) 0.7 H Absolute Eosinophils (0.0 - 0.7 /CUMM) 0.5 Absolute Basophils (0.0 - 0.2 /CUMM) 0.1 07/10 193 Blood Gas pH (7.35 - 7.45 PH) 7.43 pCO2 (35 - 45 TORR) 25 L pO2 (80 - 100 TORR) 105 H HCO3 (21 - 28 MEQ/L) 16 L ABG O2 Sat (Measured) (>96.0 %) 98.0 P-50 (Temp Corrected) N O2 Concentration % R/A Temperature (97.0 - 100.0 FARH) 98.1 Chemistry Sodium (137 - 145 mmol/L) 138 Potassium (3.5 - 5.1 mmol/L) 4.2 Chloride (98 - 107 mmol/L) 105 Carbon Dioxide (22 - 30 mmol/L) 24 Anion Gap (5 - 16) 9 BUN (9 - 20 mg/dL) 29 H Creatinine (0.7 - 1.2 mg/dL) 1.6 H Estimated GFR (>60 ml/min) 41 L BUN/Creatinine Ratio (7 - 25 %) 18.1 Lactic Acid (0.7 - 2.1 mmol/L) 1.8 Calcium (8.4 - 10.2 mg/dL) 9.1 Phosphorus (2.5 - 4.5 mg/dL) 3.1 Magnesium (1.6 - 2.3 mg/dL) 1.6 Total Bilirubin (0.2 - 1.3 mg/dL) 0.6 Direct Bilirubin (< 0.4 mg/dL) 0.3 AST (17 - 59 U/L) 41 ALT (21 - 72 U/L) 42 Alkaline Phosphatase (< 127 U/L) 75 Troponin I (<0.11 ng/ml) < 0.01 Total Protein (6.3 - 8.2 g/dL) 5.4 L Albumin (3.5 - 5.0 g/dL) 3.0 L TSH (0.270 - 4.200 uIU/mL) 3.610 Prolactin (3.7 - 17.9 ng/mL) 16.6 Coagulation PT (9.4 - 12.5 SEC) 11.7 INR (0.90 - 1.17) 1.12 APTT (25 - 37 SEC) 31 Hematology CBC w Diff NO MAN DIFF REQ WBC (4.8 - 10.8 /CUMM) 7.9 RBC (4.70 - 6.10 /CUMM) 3.46 L Hgb (14.0 - 18.0 G/DL) 7.5 L Hct (42 - 52 %) 24.4 L MCV (80.0 - 94.0 FL) 70.4 L MCH (27.0 - 31.0 PG) 21.6 L MCHC (33.0 - 37.0 G/DL) 30.6 L RDW (11.5 - 14.5 %) 19.7 H Plt Count (130 - 400 /CUMM) 161 MPV (7.4 - 10.4 FL) 10.4 Gran % (42.2 - 75.2 %) 69.9 Lymphocytes % (20.5 - 51.1 %) 18.0 L Monocytes % (1.7 - 9.3 %) 6.5 Eosinophils % (0 - 5 %) 5.1 H Basophils % (0.0 - 2.0 %) 0.5 Absolute Granulocytes (1.4 - 6.5 /CUMM) 5.6 Absolute Lymphocytes (1.2 - 3.4 /CUMM) 1.4 Absolute Monocytes (0.10 - 0.60 /CUMM) 0.5 Absolute Eosinophils (0.0 - 0.7 /CUMM) 0.4 Absolute Basophils (0.0 - 0.2 /CUMM) 0 Miscellaneous Phlebotomy Draw Site RIGHT RADIAL CT head: FINDINGS: There is no evidence of acute intracranial hemorrhage or territorial infarction. No new mass effect or midline shift is seen. Petit to white matter differentiation is well preserved. No extra-axial fluid collections are identified. A heterogeneous high attenuation mass along the right frontal convexity anteriorly distorting the right frontal lobe is unchanged, measuring 3.8 cm in diameter in the axial plane. This is most consistent with a meningioma. There is no evidence of hydrocephalus. Mild chronic white matter microangiopathic changes and moderate generalized parenchymal volume loss are again noted. The soft tissues are normal. Small lucent foci are stable in the calvarium. The mastoid air cells and visualized portions of the paranasal sinuses are well aerated. IMPRESSION: No acute intracranial pathology. Moderate parenchymal volume loss and mild chronic white matter microangiopathy. Stable right frontal meningioma. Scattered small lucent foci in the calvarium are stable and nonspecific. Given lack of change since imaging from 01/14/2017, metastatic disease and multiple myeloma are felt to be less likely. DICTATED BY: Bharathi Ny MD DATE/TIME DICTATED:07/10/172017 BLASTING HELPER:ANASTASIIA DATE/TIME TRANSCRIBED:07/10/172017 CONFIDENTIAL, DO NOT COPY WITHOUT APPROPRIATE AUTHORIZATION. <Electronically signed in Other Vendor System> SIGNED BY: Bharathi Ny MD 2026 EEG did not show epileptiform activities Assessment/Plan Assessment: possible seizure; known meningioma now on levetiracetam 1000 BID Monitor for persistent drowsyness; if present lower levetiracetam to 750 BID Plan: repeat EEG if recurrent events
--- NOTE | 2017-07-11 15:33 | MRI REPORT ---
EXAMINATION: MR BRAIN WITHOUT CONTRAST CLINICAL INFORMATION: Confusion and unresponsiveness. COMPARISON: Head CT performed on 07/10/2017. TECHNIQUE: MRI of the brain without contrast was obtained using routine sequences. FINDINGS: There is a stable appearing 3.7 cm AP by 1.8 cm TV meningioma along the anterior right frontal convexity that results in mild mass effect on the adjacent right frontal lobe. There is no adjacent parenchymal edema. Mild dural thickening adjacent to the meningioma. There is no hydrocephalus, extra-axial surface collection, or herniation. The major flow voids at the skull base are preserved. There is no acute infarct on diffusion-weighted imaging. There is no intracranial hemorrhage on the gradient recalled echo acquisition. The midline structures are normal. The cerebellar tonsils are normally positioned. The cerebellum and brainstem are normal. The craniocervical junction is normal. The lucent foci seen within the bony calvarium on the prior head CT are not well demonstrated on this brain MRI. The visualized soft tissues are unremarkable. The paranasal sinuses are clear. There is a large left and there is a small right mastoid effusion. IMPRESSION: - No acute intracranial findings. No acute infarct - There is a stable appearing 3.7 cm AP by 1.8 cm TV meningioma along the anterior right frontal convexity that results in mild mass effect on the adjacent right frontal lobe. There is no adjacent parenchymal edema. - Global cerebral volume loss and moderate chronic microangiopathy. - There is a large left and there is a small right mastoid effusion.
[2017-07-11 16:00] VITALS: BP 130/64
--- NOTE | 2017-07-11 17:45 | PN- Cardiology ---
Subjective Subjective: * Patient had an episode of acute unresponsiveness last evening. No improved and patient can respond appropriately. * sinus rhythm * creatinine 1.5 * H/H is trending down Objective Vital Signs and I&Os Vital Signs Date Time Temp Pulse Resp B/P B/P Pulse O2 O2 Flow FiO2 Mean Ox Delivery Rate 07/11 1200 99 Room Air 07/11 0849 91 120/76 07/11 0800 99 Room Air 07/11 0800 97.6 82 20 140/70 99 Room Air 07/11 0000 98.5 88 16 136/64 100 Room Air Room Air 07/10 2014 100 Room Air Room Air Intake & Output 07/11 1600 07/11 0800 07/11 0000 07/10 1600 07/10 0800 07/10 0000 Intake Total 330 327 049 3427 150 200 Output Total 940 760 1734 800 Balance 330 130 160 670 -950 -600 Intake, IV 110 130 120 520 Intake, Oral 220 0 240 600 150 200 Number 2 0 1 2 1 Bowel Movements Output, Urine 379 555 8017 800 Patient 157 lb Weight Physical Exam: General: WD/WN male in NAD; awake and confused HEENT: NC/AT, eyes closed Neck: no JVD, no carotid bruit Heart: RRR w/o murmur Lungs: clear bilaterally Abdomen: soft, NT, +ve bowel sounds Extremities: no edema Assessment/Plan Assessment/Plan * This patient had an elevated blood glucose upon admission and appears to have been at least mildy dehydrated. He continues to be confused at this time despite hemodynamic stability. It is now felt by neurology that he may be having convusions with a post-ictal state and they recommended Keppra which appears to be helping. There is no evidence of myocardial ischemia or decompensated CHF. The patient has a known normal EF which makes a malignant ventricular dysrhythmia much less likely but he could have episodes of heart block or bradycardia. It is reasonable to monitor him on telemetry for 24-48 hours although he remains confused at present and he has a normal rhythm. Continue telemetry? Yes
[2017-07-11 21:11] LABS: ABSOLUTE BASOPHIL COUNT 0.1 /CUMM (0.0-0.2); ABSOLUTE EOSINOPHIL COUNT 0.6 /CUMM (0.0-0.7); ABSOLUTE GRANULOCYTE CT 4.1 /CUMM (1.4-6.5); ABSOLUTE LYMPH COUNT 1.6 /CUMM (1.2-3.4); ABSOLUTE MONOCYTE COUNT 0.5 /CUMM (0.10-0.60); BASOPHIL % 1.1 % (0.0-2.0); EOSINOPHIL % 8.4 % (0-5); MEAN CORPUSCULAR HGB 21.9 PG (27.0-31.0); MEAN CORPUSCULAR HGB CONC 30.9 G/DL (33.0-37.0); MEAN CORPUSCULAR VOLUME 70.8 FL (80.0-94.0); MEAN PLATELET VOLUME 10.4 FL (7.4-10.4); PLATELET COUNT 158 /CUMM (130-400); RBC DISTRIBUTION WIDTH 19.7 % (11.5-14.5); RED BLOOD CELL CT 3.39 /CUMM (4.70-6.10); WHITE BLOOD CELL COUNT 6.9 /CUMM (4.8-10.8)
[2017-07-12] VITALS: BP 124/80
[2017-07-12 04:00] VITALS: BP 114/60
[2017-07-12 05:23] LABS: ABSOLUTE BASOPHIL COUNT 0.1 /CUMM (0.0-0.2); ABSOLUTE EOSINOPHIL COUNT 0.6 /CUMM (0.0-0.7); ABSOLUTE LYMPH COUNT 1.4 /CUMM (1.2-3.4); ABSOLUTE MONOCYTE COUNT 0.7 /CUMM (0.10-0.60); BASOPHIL % 0.9 % (0.0-2.0); MEAN CORPUSCULAR HGB CONC 30.9 G/DL (33.0-37.0); RED BLOOD CELL CT 3.21 /CUMM (4.70-6.10); WHITE BLOOD CELL COUNT 6.4 /CUMM (4.8-10.8)
[2017-07-12 05:29] LABS: ABSOLUTE GRANULOCYTE CT 3.7 /CUMM (1.4-6.5); GRANULOCYTE % 57.1 % (42.2-75.2); HEMATOCRIT 22.7 % (42-52); MEAN CORPUSCULAR HGB 21.9 PG (27.0-31.0); MEAN CORPUSCULAR VOLUME 70.7 FL (80.0-94.0); MEAN PLATELET VOLUME 10.4 FL (7.4-10.4); PLATELET COUNT 152 /CUMM (130-400); RBC DISTRIBUTION WIDTH 20.3 % (11.5-14.5)
[2017-07-12 08:00] VITALS: BP 114/60
--- NOTE | 2017-07-12 08:27 | PN- Housestaff ---
See Addendum Subjective Follow-up For: UNRESPONSIVENESS MENINGIOMA COLONIC ADENOCARCINOMA Tele-Events Since Last Visit: No overnight events Telemetry strip irregular RBBB and AV block 2 degree??? Subjective: Seen and examined. Resting comfortably. Offers no complaints. His his daughter is at his bedside. Denies fevers chills, chest pain, shortness of breath, palpitations, dizziness and headache. Femoral line was removed yesterday siten as not showing any signs of bleeding. Review of Systems Constitutional: Reports: see HPI. Objective Last 24 Hrs of Vital Signs/I&O Vital Signs Date Time Temp Pulse Resp B/P B/P Pulse O2 O2 Flow FiO2 Mean Ox Delivery Rate 07/12 0834 94 150/80 07/12 0400 97.6 84 16 114/60 97 Room Air 07/12 0000 94 Room Air 07/12 0000 98.0 92 18 124/80 94 Room Air 07/11 1600 98 Room Air 07/11 1600 97.7 88 20 130/64 98 Room Air 07/11 1200 99 Room Air Intake & Output 07/12 1600 07/12 0800 07/12 0000 Intake Total 200 300 Output Total 960 Balance 200 -660 Intake, Oral 200 300 Number 0 Bowel Movements Output, Urine 960 Physical Exam General Appearance: Alert, Oriented X3, No Acute Distress, BLIND Skin: No Rashes HEENT: Atraumatic Cardiovascular: irregualr Lungs: Clear to Auscultation, Normal Air Movement Abdomen: Normal Bowel Sounds, Soft, No Tenderness Neurological: Normal Speech Extremities: No Edema Current Medications: Current Medications Sig/Zoe Start time Last Medication Dose Route Stop Time Status Admin Acetaminophen 650 MG Q6-PRN PRN 07/09 0515 AC 07/10 PO 1044 Amoxicillin/ 500 MG Q12 07/11 2200 AC 07/12 Clavulanate Potassium PO 0833 Aspirin 81 MG DAILY 07/09 1000 DC 07/12 PO 0833 Atorvastatin Calcium 40 MG 1700 07/09 1700 AC 07/11 PO 1649 Ceftriaxone Sodium 1,000 MG DAILY 07/09 1604 DC 07/11 IV 0849 Cholecalciferol 400 IU DAILY 07/09 1000 AC 07/12 PO 0835 Docusate Sodium 200 MG DAILY 07/09 1000 AC 07/12 PO 0833 Ferrous Sulfate 325 MG DAILY 07/09 1000 AC 07/12 PO 0834 Finasteride 5 MG DAILY 07/09 1000 AC 07/12 PO 0831 Heparin Sodium 5,000 UNIT BID 07/12 220 AC (Porcine) SC Heparin Sodium 5,000 UNIT Q8 07/09 0600 DC 07/12 (Porcine) SC 0640 Insulin Aspart 0 AT BEDTIME 07/10 2200 AC 07/11 SC 2203 Insulin Aspart 0 TIDAC 07/10 1700 AC 07/12 SC 0820 Insulin Detemir 12 UNITS BID 07/12 2200 AC SC Insulin Detemir 10 UNITS BID 07/09 1000 DC 07/12 SC 0827 Latanoprost 1 GTT QPM 07/09 220 AC 07/11 OPH 2204 Levetiracetam 1,000 MG BID 07/11 2200 AC 07/12 PO 0834 Levetiracetam 1,000 MG ONCE ONE 07/11 1400 DC 07/11 IV 07/11 1401 1649 Magnesium Hydroxide 30 ML ONE PRN 07/11 0800 DC PO 07/11 1700 Melatonin 5 MG AT BEDTIME 07/09 2200 AC 07/11 PO 2202 Memantine 20 MG AT BEDTIME 07/09 2200 AC 07/11 PO 2202 Metronidazole 500 MG IQ8 07/10 1600 DC 07/11 N/A 1 UNIT IV 0848 Omeprazole 40 MG DAILY AC 07/09 0700 AC 07/12 PO 0641 Polyethylene Glycol 17 GM DAILY 07/09 1000 AC 07/12 PO 0828 Senna 187 MG AT BEDTIME 07/10 220 AC 07/11 PO 2204 Tamsulosin HCl 0.4 MG DAILY 07/09 1000 AC 07/12 PO 0834 Last 24 Hrs of Lab/Michael Results Last 24 Hrs of Labs/Mics: Laboratory Tests 07/12/17 0500: Anion Gap 7, Estimated GFR 53 L, Glucose 232 H, Calcium 9.0, Phosphorus 3.7, Magnesium 1.8, Total Bilirubin 0.5, AST 28, ALT 45, Albumin 2.6 L, CBC w Diff NO MAN DIFF REQ, RBC 3.21 L, MCV 70.7 L, MCH 21.9 L, MCHC 30.9 L, RDW 20.3 H, MPV 10.4, Gran % 57.1, Lymphocytes % 22.3, Monocytes % 10.7 H, Eosinophils % 9.0 H, Basophils % 0.9, Absolute Granulocytes 3.7, Absolute Lymphocytes 1.4, Absolute Monocytes 0.7 H, Absolute Eosinophils 0.6, Absolute Basophils 0.1 07/11/171999: CBC w Diff NO MAN DIFF REQ, RBC 3.39 L, MCV 70.8 L, MCH 21.9 L, MCHC 30.9 L, RDW 19.7 H, MPV 10.4, Gran % 59.0, Lymphocytes % 23.7, Monocytes % 7.8, Eosinophils % 8.4 H, Basophils % 1.1, Absolute Granulocytes 4.1, Absolute Lymphocytes 1.6, Absolute Monocytes 0.5, Absolute Eosinophils 0.6, Absolute Basophils 0.1 Assessment/Plan Assessment: This is an 82-year-old male with past medical history significant for ESBL, MRSA , legally blind, glaucoma, hypertension, hyperlipidemia, diabetes, DJD, BPH, adenocarcinoma of TV colon dx in 2016 with no wish for intervention, meningioma with no intervention, who comes in for chief complaint of unresponsiveness. Initially admitted to [facility] floor for work up but when a rapid response was called for a second episode of unresponsiveness pt was moved to ICU for further possible intervention. Currently he is in ICU as telemetry hold and is being evaluated and treated for following conditions Unresponsiveness: DDX: seizure, syncope due to valvular d/o, arrhythmia, metabolic encephalopthy 2/2 infection. At this time highest on the differential is seizure even his meningioma. However, EEG so far has been negative. No overt seizure behavior witnessed. He did have prolactin of 25.[address] of the head 2 shows no acute process. Cannot rule out underlying infectious process as cause as blood cultures from July 09 shows one bottle positive for Klebsiella pneumonia and a second bottle positive for coag negative staph. * ACS ruled out with serial trop/ECG * Note EKG shows RBBB with what looks like an intermittent 2nd degree block that was present in a previous EKG. He remains asymptomatic w/o CP or palpitations. * Echocardiogram shows mild LVH, EF of 60, trace MR and trace TR. * EEG demonstrated no focal or epileptiform features were identified * Second EEG pending * Neurology recommendations appreciated * Cardiology recommendations appreciated * Utox negative * Neuro checks every 4 * TSH initially elevated but repeat TSH, and rest of TFT wnl * Patient has been started on levetiracetam 1000 BID. Can decrease to 750 BID if drowsy Bacteremia: July 09 blood cultures 1 is showing gram-negative rods speciated to Klebsiella pneumonia which is resistant to ampicillin and a second bottle positive for coag negative staph. Per ID, the coag staph is likely a contaminant but cannot rule out Klebsiella given that patient has hx of malignancy and is potentially susceptible to bacterial translocation. However, at this time unsure of the veracity of cx as it was drawn through the femoral line. * Patient was started on ceftriaxone and Flagyl. However as he has remained hemodynamically stable and never required pressors, and has remained afebrile with a normal white count * Pt has been switched to by mouth Augmentin 500 mg BID on 07/11 * Fem line DC 07/11/2017 * PICC line placed on 07/11/2017. This is for access as pt is very hard stick. * ID recommendations appreciated Anemia: Hb 91-->83-->82-->7.5 -->7.4-->7.0 today. Unsure of source as pt has no obvious source of bleeding. Bili WNL. Iron 30, TIBC 209, microcytic picture with decreased MCV and MCH * Type and cross in * Will transfuse with goal >7 * Anemia add on labs * Stool guiac * Repeat CBC at 5pm * Aspirin has been discontinued for today and heparin SC decreased to BID * Consider iron supplementation DM: A1C 8.8. Last FS 279, 260, 290, 181,264 Will titrate SS accordingly. * RISS TIDACHS * Levemir increased to 12 units BID * Consistent carb 1 diet CKD: Cr 1.3 today, seems to be around new baseline as Mar 2017 shwos multiple values around 1.3-1.4. * Con't monitor * Unsure of etiology of worsening renal failure though pt's daughter wished no aggressive intervention. Consider out pt work up. * Avoid nephrotoxins CAD? Patient's daughter denies any history of CAD: * Aspirin on hold * Con't Statin BPH s/p prostatectomy: * Con't Proscar * Con't Flomax Dementia * Cont' Namenda 10 mg daily FC-Daugher continues to pursue FC status despite inital DNR/DNI orders CC-1 ALPS Problem List: 1. Altered mental status Pain Ratin Pain Location: n/a Pain Goal: Pain 4 or less Pain Plan: prn Tomorrow's Labs & Rationales: cbc
--- NOTE | 2017-07-12 12:51 | PN- Infect Dx ---
Subjective Subjective: No fever/chills. Resting comfortable. Review of Systems Comments: 12 points reviewed as noted, otherwise negative. Objective Last 24 Hrs of Vital Signs/I&O Vital Signs Date Time Temp Pulse Resp B/P B/P Pulse O2 O2 Flow FiO2 Mean Ox Delivery Rate 07/12 0834 94 150/80 07/12 0800 96 Room Air Room Air 07/12 0800 96.9 89 18 114/60 96 Room Air Room Air 07/12 0400 97.6 84 16 114/60 97 Room Air 07/12 0000 94 Room Air 07/12 0000 98.0 92 18 124/80 94 Room Air 07/11 1600 98 Room Air 07/11 1600 97.7 88 20 130/64 98 Room Air Intake & Output 07/12 1600 07/12 0800 07/12 0000 Intake Total 200 300 Output Total 960 Balance 200 -660 Intake, Oral 200 300 Number 0 Bowel Movements Output, Urine 960 Physical Exam Other Physical Findings: He is currently awake and alert in no acute distress Lungs are clear Heart regular rhythm with no murmur Abdomen is soft, nontender positive bowel sounds Back no CVA tenderness Extremities right femoral triple lumen catheter with no inflammation at the site Cochran catheter remains in place Results Last 24 Hours of Lab Results: Laboratory Tests 07/12 07/11 0500 2000 Chemistry Sodium (137 - 145 mmol/L) 140 Potassium (3.5 - 5.1 mmol/L) 4.1 Chloride (98 - 107 mmol/L) 106 Carbon Dioxide (22 - 30 mmol/L) 28 Anion Gap (5 - 16) 7 BUN (9 - 20 mg/dL) 22 H Creatinine (0.7 - 1.2 mg/dL) 1.3 H Estimated GFR (>60 ml/min) 53 L Glucose (65 - 99 mg/dL) 232 H Calcium (8.4 - 10.2 mg/dL) 9.0 Phosphorus (2.5 - 4.5 mg/dL) 3.7 Magnesium (1.6 - 2.3 mg/dL) 1.8 Total Bilirubin (0.2 - 1.3 mg/dL) 0.5 AST (17 - 59 U/L) 28 ALT (21 - 72 U/L) 45 Albumin (3.5 - 5.0 g/dL) 2.6 L Hematology CBC w Diff NO MAN DIFF REQ NO MAN DIFF REQ WBC (4.8 - 10.8 /CUMM) 6.4 6.9 RBC (4.70 - 6.10 /CUMM) 3.21 L 3.39 L Hgb (14.0 - 18.0 G/DL) 7.0 *L 7.4 *L Hct (42 - 52 %) 22.7 L 24.0 L MCV (80.0 - 94.0 FL) 70.7 L 70.8 L MCH (27.0 - 31.0 PG) 21.9 L 21.9 L MCHC (33.0 - 37.0 G/DL) 30.9 L 30.9 L RDW (11.5 - 14.5 %) 20.3 H 19.7 H Plt Count (130 - 400 /CUMM) 152 158 MPV (7.4 - 10.4 FL) 10.4 10.4 Gran % (42.2 - 75.2 %) 57.1 59.0 Lymphocytes % (20.5 - 51.1 %) 22.3 23.7 Monocytes % (1.7 - 9.3 %) 10.7 H 7.8 Eosinophils % (0 - 5 %) 9.0 H 8.4 H Basophils % (0.0 - 2.0 %) 0.9 1.1 Absolute Granulocytes (1.4 - 6.5 /CUMM) 3.7 4.1 Absolute Lymphocytes (1.2 - 3.4 /CUMM) 1.4 1.6 Absolute Monocytes (0.10 - 0.60 /CUMM) 0.7 H 0.5 Absolute Eosinophils (0.0 - 0.7 /CUMM) 0.6 0.6 Absolute Basophils (0.0 - 0.2 /CUMM) 0.1 0.1 Last 24 Hours of Michael Results: SPEC #: [id number] CAROLE: 07/09/17 STATUS: COMP RECD: 07/09/[address]: Elysia SALINAS, Rex Martin SOURCE: BLOOD ENTR: 07/09/17 [facility] DR: Kelly Christianson APRN SPDESC: FIRST LINE Luis Eduardo SALINAS, Fadi ORDERED: BLOOD CULTURE Procedure Result > BLOOD CULTURE REPORT Final 07/11/17 GRAM STAIN SUGGESTIVE OF: GRAM NEGATIVE RODS Called to/Readback by JUSTIN by LAB.CHRIS 07/09/17 1519 Called to/Readback by DR HICKS by LAB.INGRID 07/09/17 1547 CULTURE: KLEBSIELLA PNEUMONIAE 1. KLEBSIELLA PNEUMONIAE RX AB ------ -- AMPICILLIN R CEFAZOLIN S AMOXICILLIN/CLAVULINIC ACID S AMPICILLIN/SULBACTAM S CIPROFLOXACIN S GENTAMICIN S TRIMETHOPRIM/SULFAMETHOXAZOLE S Recent Imaging Studies: MRI FINDINGS: There is a stable appearing 3.7 cm AP by 1.8 cm TV meningioma along the anterior right frontal convexity that results in mild mass effect on the adjacent right frontal lobe. There is no adjacent parenchymal edema. Mild dural thickening adjacent to the meningioma. There is no hydrocephalus, extra-axial surface collection, or herniation. The major flow voids at the skull base are preserved. There is no acute infarct on diffusion-weighted imaging. There is no intracranial hemorrhage on the gradient recalled echo acquisition. The midline structures are normal. The cerebellar tonsils are normally positioned. The cerebellum and brainstem are normal. The craniocervical junction is normal. The lucent foci seen within the bony calvarium on the prior head CT are not well demonstrated on this brain MRI. The visualized soft tissues are unremarkable. The paranasal sinuses are clear. There is a large left and there is a small right mastoid effusion. IMPRESSION: - No acute intracranial findings. No acute infarct - There is a stable appearing 3.7 cm AP by 1.8 cm TV meningioma along the anterior right frontal convexity that results in mild mass effect on the adjacent right frontal lobe. There is no adjacent parenchymal edema. - Global cerebral volume loss and moderate chronic microangiopathy. - There is a large left and there is a small right mastoid effusion. 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 He remains afebrile with a normal white blood cell count in the setting of bacteremia (Klebsiella). Treated initially with Ceftriaxone/Flagyl, currently on oral abx. Repeat BC's not received by the lab. SCN bacteremia (likely contaminant). Suggestion: 1. Reevaluation of the overall level of care in this debilitated patient 2. Augmentin 500 mg po every 12 hours D #2 (in order to complete total 10 d therapy); call if fever. 3. Monitor CBC, BMP.
[2017-07-12 16:00] VITALS: BP 112/60
[2017-07-12 18:16] LABS: ABSOLUTE BASOPHIL COUNT 0.1 /CUMM (0.0-0.2); ABSOLUTE EOSINOPHIL COUNT 0.7 /CUMM (0.0-0.7); ABSOLUTE GRANULOCYTE CT 3.7 /CUMM (1.4-6.5); ABSOLUTE LYMPH COUNT 1.9 /CUMM (1.2-3.4); ABSOLUTE MONOCYTE COUNT 0.6 /CUMM (0.10-0.60); BASOPHIL % 0.9 % (0.0-2.0); EOSINOPHIL % 9.6 % (0-5); HEMATOCRIT 24.5 % (42-52); MEAN CORPUSCULAR HGB CONC 31.2 G/DL (33.0-37.0); MEAN CORPUSCULAR VOLUME 70.5 FL (80.0-94.0); MEAN PLATELET VOLUME 9.4 FL (7.4-10.4); PLATELET COUNT 175 /CUMM (130-400); RBC DISTRIBUTION WIDTH 20.3 % (11.5-14.5); RED BLOOD CELL CT 3.48 /CUMM (4.70-6.10)
[2017-07-12 22:54] VITALS: BP 110/60
[2017-07-13 05:09] LABS: ABSOLUTE BASOPHIL COUNT 0.1 /CUMM (0.0-0.2); ABSOLUTE EOSINOPHIL COUNT 0.6 /CUMM (0.0-0.7); ABSOLUTE GRANULOCYTE CT 3.9 /CUMM (1.4-6.5); ABSOLUTE LYMPH COUNT 2.2 /CUMM (1.2-3.4); ABSOLUTE MONOCYTE COUNT 0.7 /CUMM (0.10-0.60); BASOPHIL % 1.2 % (0.0-2.0); EOSINOPHIL % 8.2 % (0-5); GRANULOCYTE % 51.8 % (42.2-75.2); HEMATOCRIT 22.8 % (42-52); MEAN CORPUSCULAR HGB CONC 31.2 G/DL (33.0-37.0); MEAN CORPUSCULAR VOLUME 70.3 FL (80.0-94.0); MEAN PLATELET VOLUME 9.5 FL (7.4-10.4); PLATELET COUNT 165 /CUMM (130-400); RBC DISTRIBUTION WIDTH 20.5 % (11.5-14.5); RED BLOOD CELL CT 3.23 /CUMM (4.70-6.10); WHITE BLOOD CELL COUNT 7.6 /CUMM (4.8-10.8)
[2017-07-13 06:20] VITALS: BP 108/66
--- NOTE | 2017-07-13 09:21 | PN- Housestaff ---
Serjio Pino 07/13/17 0920: Subjective Follow-up For: Altered mental status Subjective: The patient was seen and examined. Lying comfortably in bed. Alert and able to answer questions. He is oriented to person and knows that he is in hospital. Offers no complaints. Denies any headache, dizziness, lightheadedness, nausea, vomiting, abdominal pain, urinary symptoms. Patient's daughter is present at base side and states that patient mental status has been waxing and waning and now he is doing much better and has become more responsive. Shows daughter reports that the patient has undergone cataract surgery in the left eye; he is blind on left side and has very poor vision on the right side. Review of Systems Constitutional: Reports: no symptoms. Denies: see HPI. Objective Last 24 Hrs of Vital Signs/I&O Vital Signs Date Time Temp Pulse Resp B/P B/P Pulse O2 O2 Flow FiO2 Mean Ox Delivery Rate 07/13 1447 97.8 93 14 118/68 95 Room Air 07/13 0620 108/66 07/13 0000 Room Air 07/12 2254 98.7 86 18 110/60 97 Room Air 07/12 1600 96 Room Air Room Air 07/12 1600 97.1 87 18 112/60 96 Room Air Room Air Intake & Output 07/13 1600 07/13 0800 07/13 0000 Intake Total 600 120 120 Output Total Balance 600 120 120 Intake, IV 0 Intake, Oral 600 120 120 Number 2 Bowel Movements Physical Exam General Appearance: Alert, Cooperative Skin: No Rashes HEENT: Atraumatic, PERRLA, EOMI, Mucous Membr. moist/pink, Left dense corneal opacity noted Neck: Supple Lymphatic: Cervical nl Cardiovascular: Regular Rate, Normal S1, Normal S2, No Murmurs, Gallops, Rubs Lungs: Clear to Auscultation, Normal Air Movement Abdomen: Normal Bowel Sounds, Soft, No Tenderness, No Hepatospenomegaly, No Masses Neurological: Normal Speech, Strength at 5/5 X4 Ext, Normal Tone, Sensation Intact, Cranial Nerves 3-12 NL Extremities: No Clubbing, No Cyanosis, No Edema, Normal Pulses, No Tenderness/ Swelling Current Medications: Current Medications Sig/Zoe Start time Last Medication Dose Route Stop Time Status Admin Acetaminophen 1,000 MG ONCE ONE 07/13 0030 DC 07/13 N/A 1 UNIT IV 07/13 0044 0027 Acetaminophen 650 MG .STK-MED ONE 07/13 0018 DC PO 07/13 0019 Acetaminophen 650 MG .STK-MED ONE 07/13 001 DC PO 07/13 0019 Acetaminophen 650 MG Q6-PRN PRN 07/09 0515 AC 07/10 PO 1044 Amoxicillin/ 500 MG Q12 07/11 2199 AC 07/13 Clavulanate Potassium PO 0953 Atorvastatin Calcium 40 MG 1700 07/09 1700 AC 07/12 PO 1758 Cholecalciferol 400 IU DAILY 07/09 1000 AC 07/13 PO 0953 Docusate Sodium 200 MG DAILY 07/09 1000 AC 07/13 PO 0953 Ferrous Sulfate 325 MG DAILY 07/09 1000 AC 07/13 PO 0953 Finasteride 5 MG DAILY 07/09 1000 AC 07/13 PO 0953 Heparin Sodium 5,000 UNIT BID 07/12 2199 DC 07/12 (Porcine) SC 2117 Insulin Aspart 0 AT BEDTIME 07/10 2199 AC 07/12 SC 2118 Insulin Aspart 0 TIDAC 07/10 1700 AC 07/13 SC 1143 Insulin Detemir 15 UNITS BID 07/13 2199 [facility] Insulin Detemir 12 UNITS BID 07/12 220 DC 07/13 SC 1003 Latanoprost 1 GTT QPM 07/09 2199 AC 07/12 OPH 211 Levetiracetam 1,000 MG BID 07/11 2199 AC 07/13 PO 0953 Melatonin 5 MG AT BEDTIME 07/09 2199 AC 07/12 PO 2115 Memantine 20 MG AT BEDTIME 07/09 2199 AC 07/12 PO 2117 Omeprazole 40 MG DAILY AC 07/09 0700 AC 07/12 PO 0641 Polyethylene Glycol 17 GM DAILY 07/09 1000 AC 07/13 PO 0952 Senna 187 MG AT BEDTIME 07/10 2199 AC 07/12 PO 2116 Tamsulosin HCl 0.4 MG DAILY 07/09 1000 AC 07/13 PO 0953 Last 24 Hrs of Lab/Michael Results Last 24 Hrs of Labs/Mics: Laboratory Tests 07/13/17 1230: CBC w Diff NO MAN DIFF REQ, RBC 3.40 L, MCV 70.8 L, MCH 21.5 L, MCHC 30.3 L, RDW 20.1 H, MPV 10.1, Gran % 59.2, Lymphocytes % 24.4, Monocytes % 7.7, Eosinophils % 7.6 H, Basophils % 1.1, Absolute Granulocytes 3.9, Absolute Lymphocytes 1.6, Absolute Monocytes 0.5, Absolute Eosinophils 0.5, Absolute Basophils 0.1 07/13/17 0450: Anion Gap 6, Estimated GFR 39 L, BUN/Creatinine Ratio 14.1, Phosphorus 3.5, Magnesium 1.8, CBC w Diff NO MAN DIFF REQ, RBC 3.23 L, MCV 70.3 L, MCH 22.0 L , MCHC 31.2 L, RDW 20.5 H, MPV 9.5, Gran % 51.8, Lymphocytes % 29.4, Monocytes % 9.4 H, Eosinophils % 8.2 H, Basophils % 1.2, Absolute Granulocytes 3.9, Absolute Lymphocytes 2.2, Absolute Monocytes 0.7 H, Absolute Eosinophils 0.6, Absolute Basophils 0.1 07/12/17 1800: CBC w Diff NO MAN DIFF REQ, RBC 3.48 L, MCV 70.5 L, MCH 22.0 L, MCHC 31.2 L, RDW 20.3 H, MPV 9.4, Gran % 53.0, Lymphocytes % 27.3, Monocytes % 9.2, Eosinophils % 9.6 H, Basophils % 0.9, Absolute Granulocytes 3.7, Absolute Lymphocytes 1.9, Absolute Monocytes 0.6, Absolute Eosinophils 0.7, Absolute Basophils 0.1 Microbiology 07/13 1423 BLOOD: Blood Culture - ORD 07/13 1423 BLOOD: Blood Culture - ORD Assessment/Plan Assessment: This is an 82-year-old gentleman with past medical history significant for ESBL, MRSA, legally blind, glaucoma, hypertension, hyperlipidemia, diabetes, DJD, BPH, adenocarcinoma of TV colon dx in 2017 with no wish for intervention, meningioma with no intervention, who comes in for chief complaint of unresponsiveness. Initially admitted to [facility] floor for work up but when a rapid response was called for a second episode of unresponsiveness pt was moved to ICU for further possible intervention. Telemetry hold in the ICU. #Altered mental status: DDX: seizure, syncope due to valvular d/o, arrhythmia, metabolic encephalopthy 2/2 infection. * EEG has remained negative for. No overt seizure behavior witnessed. * He did have prolactin of 25.4 on admission. * CT of the head 2 shows no acute process. * Cannot rule out underlying infectious process as cause as blood cultures from July 09 shows one bottle positive for Klebsiella pneumonia and a second bottle positive for coag negative staph. * ACS ruled out with serial trop/ECG * Note EKG shows RBBB with what looks like an intermittent 2nd degree block that was present in a previous EKG. He remains asymptomatic w/o CP or palpitations. * Echocardiogram shows mild LVH, EF of 60, trace MR and trace TR. * Neurology recommendations appreciated * Cardiology recommendations appreciated * Utox negative * Neuro checks every 4 * TSH initially elevated but repeat TSH, and rest of TFT wnl * Patient has been started on levetiracetam 1000 BID. Can decrease to 750 BID if drowsy #Bacteremia: * July 09 blood cultures 1 is showing gram-negative rods speciated to Klebsiella pneumonia which is resistant to ampicillin and a second bottle positive for coag negative staph. Per ID, the coag staph is likely a contaminant but cannot rule out Klebsiella given that patient has hx of malignancy and is potentially susceptible to bacterial translocation. * Patient was initially started on ceftriaxone and Flagyl which has been switched to by mouth Augmentin 500 mg BID on 07/11 * Fem line DC 07/11/2017 * PICC line placed on 07/11/2017. This is for access as pt is very hard stick. * ID recommendations appreciated #Anemia: * H/H: 7.1/22.8, repeat 7.3/24.1 * Bili WNL. Iron 30, TIBC 209, microcytic picture with decreased MCV and MCH * Will transfuse with goal >7 * Stool guiac * Aspirin and heparin on hold. * GI consult tomorrow morning #DM: * A1C 8.8. * c/w INS SS * Blood glucose levels remain elevated * Levemir increased to 15 units BID * Consistent carb 1 diet #CKD: * Cr 1.7 today * Con't monitor * Unsure of etiology of worsening renal failure though pt's daughter wished no aggressive intervention. Consider out pt work up. * Avoid nephrotoxins #CAD? Patient's daughter denies any history of CAD: * Aspirin on hold * Con't Statin #BPH s/p prostatectomy: * Con't Proscar * Con't Flomax #Dementia * Cont' Namenda 10 mg daily #DVT prophylaxis: * Alps #CODE STATUS: * Full code Problem List: 1. Altered mental status Pain Ratin Pain Location: NA Pain Goal: Remain pain free Pain Plan: NA Tomorrow's Labs & Rationales: CBC to monitor H&H BEP to monitor electrolytes Riley SALINASEros 07/13/17 1330: Attending Review Statement Attending Statement Attending MD Statement: examined this patient, discuss w/resident/PA/TELETYPE OPERATOR, agreed w/resident/PA/TELETYPE OPERATOR, discussed with nursing Attending Assessment/Plan: Seen and discussed with house staff. Unresponsive event most likely represents a seizure with prolonged post ictal state. Now on Keppra. Will follow. Has large stable meningioma on CT/MRI. Patient seen and examined at bedside with daughter present. Patient oriented responding appropriately. Hemoglobin and hematocrit are trending down, no active bleeding noted. Stools brown and trace heme positive. s/p transfusion 2 ago. Blood culture growing Klebsiella sensitive to Ceftriaxone. ID follow-up appreciated - "Augmentin 500 mg po every 12 hours D #2 (in order to complete total 10 d therapy)". Will discontinue aspirin and stop Sub Q heparin and continue with ALPS. Obtain GI consult with h/o rectal bleeding (seen by Dr. Castellano in 2016). Blood sugars have been running high. Increased the dose of levemir to 15 U BID. Continue with Carb controlled diet. Patient is a tele hold.
--- NOTE | 2017-07-13 12:16 | PN- Infect Dx ---
Subjective Subjective: No fever. No abd pain. Review of Systems Comments: 12 points reviewed as noted, otherwise negative Objective Last 24 Hrs of Vital Signs/I&O Vital Signs Date Time Temp Pulse Resp B/P B/P Pulse O2 O2 Flow FiO2 Mean Ox Delivery Rate 07/13 0620 108/66 07/13 0000 Room Air 07/12 2254 98.7 86 18 110/60 97 Room Air 07/12 1600 96 Room Air Room Air 07/12 1600 97.1 87 18 112/60 96 Room Air Room Air Intake & Output 07/13 1600 07/13 0800 07/13 0000 Intake Total 120 120 Output Total Balance 120 120 Intake, Oral 120 120 Physical Exam Other Physical Findings: He is currently awake and alert in no acute distress Lungs are clear Heart regular rhythm with no murmur Abdomen is soft, nontender positive bowel sounds Back no CVA tenderness Extremities no c/c Results Last 24 Hours of Lab Results: Laboratory Tests 07/13 07/12 0450 1800 Chemistry Sodium (137 - 145 mmol/L) 138 Potassium (3.5 - 5.1 mmol/L) 4.4 Chloride (98 - 107 mmol/L) 103 Carbon Dioxide (22 - 30 mmol/L) 30 Anion Gap (5 - 16) 6 BUN (9 - 20 mg/dL) 24 H Creatinine (0.7 - 1.2 mg/dL) 1.7 H Estimated GFR (>60 ml/min) 39 L BUN/Creatinine Ratio (7 - 25 %) 14.1 Phosphorus (2.5 - 4.5 mg/dL) 3.5 Magnesium (1.6 - 2.3 mg/dL) 1.8 Hematology CBC w Diff NO MAN DIFF REQ NO MAN DIFF REQ WBC (4.8 - 10.8 /CUMM) 7.6 7.0 RBC (4.70 - 6.10 /CUMM) 3.23 L 3.48 L Hgb (14.0 - 18.0 G/DL) 7.1 *L 7.7 L Hct (42 - 52 %) 22.8 L 24.5 L MCV (80.0 - 94.0 FL) 70.3 L 70.5 L MCH (27.0 - 31.0 PG) 22.0 L 22.0 L MCHC (33.0 - 37.0 G/DL) 31.2 L 31.2 L RDW (11.5 - 14.5 %) 20.5 H 20.3 H Plt Count (130 - 400 /CUMM) 165 175 MPV (7.4 - 10.4 FL) 9.5 9.4 Gran % (42.2 - 75.2 %) 51.8 53.0 Lymphocytes % (20.5 - 51.1 %) 29.4 27.3 Monocytes % (1.7 - 9.3 %) 9.4 H 9.2 Eosinophils % (0 - 5 %) 8.2 H 9.6 H Basophils % (0.0 - 2.0 %) 1.2 0.9 Absolute Granulocytes (1.4 - 6.5 /CUMM) 3.9 3.7 Absolute Lymphocytes (1.2 - 3.4 /CUMM) 2.2 1.9 Absolute Monocytes (0.10 - 0.60 /CUMM) 0.7 H 0.6 Absolute Eosinophils (0.0 - 0.7 /CUMM) 0.6 0.7 Absolute Basophils (0.0 - 0.2 /CUMM) 0.1 0.1 Last 24 Hours of Michael Results: SPEC #: [id number] CAROLE: 07/10/17 STATUS: CAN RECD: - SUBM DR: Natan Puente MD SOURCE: BLOOD ENTR: 07/10/[address]: Kelly Christianson APRN SPDESC: 1ST/VENOUS Noe SALINAS,Myron Hoff MD, [facility] ORDERED: BLOOD CULTURE Procedure Result CANCELLED SPECIMEN NOT RECEIVED IN LABORATORY Recent Imaging Studies: MRI head 07/11 IMPRESSION: - No acute intracranial findings. No acute infarct - There is a stable appearing 3.7 cm AP by 1.8 cm TV meningioma along the anterior right frontal convexity that results in mild mass effect on the adjacent right frontal lobe. There is no adjacent parenchymal edema. - Global cerebral volume loss and moderate chronic microangiopathy. - There is a large left and there is a small right mastoid effusion. 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 Treated initially with Ceftriaxone/Flagyl, currently on oral abx. Repeat BC's not received by the lab. SCN bacteremia (likely contaminant). Worsening anemia Suggestion: 1. Repeat BC x2 on 07/14 2. Augmentin 500 mg po every 12 hours D #3 (in order to complete total 10 d therapy); call if fever. 3. Monitor CBC, BMP. 4. Anemia work up and goal of care per team.
[2017-07-13 13:52] LABS: ABSOLUTE BASOPHIL COUNT 0.1 /CUMM (0.0-0.2); ABSOLUTE EOSINOPHIL COUNT 0.5 /CUMM (0.0-0.7); ABSOLUTE GRANULOCYTE CT 3.9 /CUMM (1.4-6.5); ABSOLUTE LYMPH COUNT 1.6 /CUMM (1.2-3.4); ABSOLUTE MONOCYTE COUNT 0.5 /CUMM (0.10-0.60); BASOPHIL % 1.1 % (0.0-2.0); EOSINOPHIL % 7.6 % (0-5); GRANULOCYTE % 59.2 % (42.2-75.2); HEMATOCRIT 24.1 % (42-52); MEAN CORPUSCULAR HGB 21.5 PG (27.0-31.0); MEAN CORPUSCULAR HGB CONC 30.3 G/DL (33.0-37.0); MEAN CORPUSCULAR VOLUME 70.8 FL (80.0-94.0); MEAN PLATELET VOLUME 10.1 FL (7.4-10.4); PLATELET COUNT 172 /CUMM (130-400); RBC DISTRIBUTION WIDTH 20.1 % (11.5-14.5); WHITE BLOOD CELL COUNT 6.6 /CUMM (4.8-10.8)
[2017-07-13 14:47] VITALS: BP 118/68
[2017-07-13 23:06] VITALS: BP 126/58
--- NOTE | 2017-07-14 07:41 | PN- Housestaff ---
See Addendum Subjective Follow-up For: Possible Seizures AMS Hyperglycemia GNR in blood Tele-Events Since Last Visit: NS, BBB, PACs HR 82-100 Subjective: Patient reports he "don't feel well but could be worse". Daughter at bedside. Review of Systems Constitutional: Reports: see HPI. Objective Last 24 Hrs of Vital Signs/I&O Vital Signs Date Time Temp Pulse Resp B/P B/P Pulse O2 O2 Flow FiO2 Mean Ox Delivery Rate 07/13 2306 97.9 98 16 126/58 96 07/13 1447 97.8 93 14 118/68 95 Room Air Intake & Output 07/14 1600 07/14 0800 07/14 0000 Intake Total 120 350 Output Total Balance 120 350 Intake, IV 20 Intake, Oral 100 350 Number 1 2 Bowel Movements Physical Exam General Appearance: Alert, Cooperative Cardiovascular: Regular Rate, Normal S1, Normal S2 Lungs: Clear to Auscultation, Normal Air Movement Abdomen: Mildy distended Extremities: No Edema Current Medications: Current Medications Sig/Zoe Start time Last Medication Dose Route Stop Time Status Admin Acetaminophen 650 MG Q6-PRN PRN 07/09 0515 AC 07/10 PO 1044 Amoxicillin/ 500 MG Q12 07/11 2199 AC 07/13 Clavulanate Potassium PO 220 Atorvastatin Calcium 40 MG 1700 07/09 1700 AC 07/13 PO 1723 Cholecalciferol 400 IU DAILY 07/09 1000 AC 07/13 PO 0953 Docusate Sodium 200 MG DAILY 07/09 1000 AC 07/13 PO 0953 Ferrous Sulfate 325 MG DAILY 07/09 1000 AC 07/13 PO 0953 Finasteride 5 MG DAILY 07/09 1000 AC 07/13 PO 0953 Heparin Sodium 5,000 UNIT BID 07/12 2199 DC 07/12 (Porcine) SC 211 Insulin Aspart 0 AT BEDTIME 07/10 2199 AC 07/13 SC 220 Insulin Aspart 0 TIDAC 07/10 1700 AC 07/14 SC 0807 Insulin Detemir 15 UNITS BID 07/13 2199 AC 07/14 SC 0808 Insulin Detemir 12 UNITS BID 07/12 2199 DC 07/13 SC 1003 Latanoprost 1 GTT QPM 07/09 2199 AC 07/13 OPH 2203 Levetiracetam 1,000 MG BID 07/11 2199 AC 07/13 PO 2203 Melatonin 5 MG AT BEDTIME 07/09 2199 AC 07/13 PO 220 Memantine 20 MG AT BEDTIME 07/09 2200 AC 07/13 PO 220 Omeprazole 40 MG DAILY AC 07/09 0700 AC 07/12 PO 0641 Polyethylene Glycol 17 GM DAILY 07/09 1000 AC 07/13 PO 0952 Senna 187 MG AT BEDTIME 07/10 2199 AC 07/13 PO 220 Tamsulosin HCl 0.4 MG DAILY 07/09 1000 AC 07/13 PO 0953 Last 24 Hrs of Lab/Michael Results Last 24 Hrs of Labs/Mics: Laboratory Tests 07/14/17 0655: Sodium Pending, Potassium Pending, Chloride Pending, Carbon Dioxide Pending, Anion Gap Pending, BUN Pending, Creatinine Pending, BUN/Creatinine Ratio Pending , CBC w Diff Pending, WBC Pending, RBC Pending, Hgb Pending, Hct Pending, MCV Pending, MCH Pending, MCHC Pending, RDW Pending, Plt Count Pending, MPV Pending 07/13/17 1230: CBC w Diff NO MAN DIFF REQ, RBC 3.40 L, MCV 70.8 L, MCH 21.5 L, MCHC 30.3 L, RDW 20.1 H, MPV 10.1, Gran % 59.2, Lymphocytes % 24.4, Monocytes % 7.7, Eosinophils % 7.6 H, Basophils % 1.1, Absolute Granulocytes 3.9, Absolute Lymphocytes 1.6, Absolute Monocytes 0.5, Absolute Eosinophils 0.5, Absolute Basophils 0.1 Microbiology 07/13 1423 BLOOD: Blood Culture - CAN Cancelled: UNABLE TO COLLECT PER RN 07/13 1423 BLOOD: Blood Culture - CAN Cancelled: UNABLE TO COLLECT PER garnett feeder/Plan Assessment: Mr Galvez is a 82-year-old gentleman with past medical history significant for ESBL, MRSA, legally blind, glaucoma, hypertension, hyperlipidemia, diabetes, DJD , BPH, adenocarcinoma of TV colon dx in 2017 with no wish for intervention, meningioma with no intervention, who comes in for chief complaint of unresponsiveness. Initially admitted to [facility] floor for work up but had 2 rapid response for unresponsiveness transfered from ICU to telemetry Possible Seizures with history of meningioma CT of the head 2 shows no acute process. ACS ruled out with serial trop/ECG. Note EKG shows RBBB with what looks like an intermittent 2nd degree block that was present in a previous EKG. He remains asymptomatic w/o CP or palpitations. Echocardiogram shows mild LVH, EF of 60, trace MR and trace TR. TSH initially elevated but repeat TSH, and rest of TFT wnl * Neurology recommendations appreciated * Cardiology recommendations appreciated * Neuro checks every 4 * Continue levetiracetam 1000 BID * PT evaluation in a.m Bacteremia July 09 blood cultures 1 is showing gram-negative rods - Klebsiella pneumonia which is resistant to ampicillin and a second bottle positive for coag negative staph. Per ID, the coag staph is likely a contaminant but cannot rule out Klebsiella given that patient has hx of malignancy and is potentially susceptible to bacterial translocation. Patient was initially started on ceftriaxone and Flagyl which has been switched to by mouth Augmentin 500 mg BID on 07/11. Fem line DC 07/11/2017 * PICC line placed on 07/11/2017 * ID recommendations appreciated * Continue Augmentin for 10-day course Microcytic Anemia * Will transfuse today with goal >8. Consent form signed. * Repeat T&S * Stool guiac * Hold Aspirin and heparin * GI consult IDDM A1C 8.8 * c/w INS SS * Blood glucose levels remain elevated * Levemir increased to 15 units BID * Consistent carb 1 diet * Endo consult CKD * Avoid nephrotoxins BPH s/p prostatectomy * Con't Proscar * Con't Flomax Dementia * Cont' Namenda 10 mg daily DVT prophylaxis: Alps CODE STATUS: Full Problem List: 1. Anemia 2. Hyperglycemia 3. Seizure 4. Bacteremia Pain Ratin Pain Location: NA Pain Goal: Remain pain free Pain Plan: NA Tomorrow's Labs & Rationales: CBC for white ct and anemia BEP for renal function
[2017-07-14 07:50] LABS: ABSOLUTE BASOPHIL COUNT 0.1 /CUMM (0.0-0.2); ABSOLUTE EOSINOPHIL COUNT 0.5 /CUMM (0.0-0.7); ABSOLUTE LYMPH COUNT 2.2 /CUMM (1.2-3.4); ABSOLUTE MONOCYTE COUNT 0.7 /CUMM (0.10-0.60); MEAN PLATELET VOLUME 10.4 FL (7.4-10.4)
[2017-07-14 08:12] LABS: ABSOLUTE GRANULOCYTE CT 4.7 /CUMM (1.4-6.5); BASOPHIL % 0.7 % (0.0-2.0); EOSINOPHIL % 6.1 % (0-5); GRANULOCYTE % 57.2 % (42.2-75.2); HEMATOCRIT 23.2 % (42-52); MEAN CORPUSCULAR HGB 21.8 PG (27.0-31.0); MEAN CORPUSCULAR HGB CONC 30.6 G/DL (33.0-37.0); PLATELET COUNT 179 /CUMM (130-400); RBC DISTRIBUTION WIDTH 19.8 % (11.5-14.5); RED BLOOD CELL CT 3.27 /CUMM (4.70-6.10); WHITE BLOOD CELL COUNT 8.2 /CUMM (4.8-10.8)
--- NOTE | 2017-07-14 09:06 | Patient Discharge Instructions ---
Discharge Instructions General Discharge Information You were seen/treated for: Episodes of unconsiousness, possibly secondary to meningioma leading to seizures. Special Instructions: Please follow up with PCP with in a week of discharge Please follow up with [facility] for further work up of anemia. Please follow up with the neurologist within a week of discharge Please follow up with the director of collections and archives within a week of discharge for blood sugar control HOSPITAL BED, MAYE LIFT AND BELT HAVE BEEN ORDERED FOR YOU Diet Recommended Diet: Regular Activity Other activity limits: As tolerated Acute Coronary Syndrome Inclusion Criteria At DC or during hospital stay patient has or had the following: ACS DIAGNOSIS No Discharge Core Measures Meds if any: Prescribed or Continued at Discharge Meds if any: NOT Prescribed or Continued at Discharge Congestive Heart Failure Inclusion Criteria At DC or during hospital stay patient has or had the following: CHF DIAGNOSIS No Discharge Core Measures Meds if any: Prescribed or Continued at Discharge Meds if any: NOT Prescribed or Continued at Discharge Cerebrovascular accident Inclusion Criteria At DC or during hospital stay patient has or had the following: CVA/TIA Diagnosis No Discharge Core Measures Meds if any: Prescribed or Continued at Discharge Meds if any: NOT Prescribed or Continued at Discharge Venous thromboembolism Inclusion Criteria VTE Diagnosis No VTE Type NONE VTE Confirmed by (Test) NONE Discharge Core Measures - Per Current guidelines, there needs to be overlap - treatment for the first 5 days of Warfarin therapy. - If discharged on Warfarin prior to 5 days of - overlap therapy, the patient will need to be - assessed for post discharge needs including - *Post discharge parental anticoagulation - *Warfarin and/or parental anticoagulation education - *Follow up date to check INR post discharge At least 5 days overlap therapy as Inpatient No Meds if any: Prescribed or Continued at Discharge Note: Overlap Therapy is Warfarin and Anticoagulant Meds if any: NOT Prescribed or Continued at Discharge
--- NOTE | 2017-07-14 12:53 | Cons- Endocrinology ---
General Information and HPI Consulting Request Date of Consult: 07/14/17 Requested By: medical team Reason for Consult: uncontrolled diabetes Source of Information: old records, relative Exam Limitations: unable to give history History of Present Illness: I was asked to see this patient with regard to his uncontrolled blood sugar. The patient into the hospital with an spell in which he became unresponsive. He has a past history of diabetes. He is living with a relative and was on insulin at home including 10 units of Levemir twice a day as well as sliding scale NovoLog. The patient has chronic renal insufficiency. He also has a seizure disorder. The patient's Levemir was recently increased to 15 units twice a day. His blood sugar fasting this morning was 240. Apparently the patient is eating well. Review of his sugars for the past several days reveals that there all high in the 200 to 300 range. Allergies/Medications Allergies: Coded Allergies: NO KNOWN ALLERGIES (07/10/17) Home Med List: Acetaminophen (Tylenol) 325 MG TABLET 2 TAB PO Q6-PRN PRN PAIN (Reported) Aspirin (Aspirin*) 81 MG TAB.CHEW 1 TAB PO DAILY HEART HEALTH Atorvastatin Calcium (Lipitor) 40 MG TABLET 1 TAB PO DAILY CHOLESTEROL ( Reported) Cholecalciferol (Vitamin D3) (Vitamin D) 2,000 UNIT CAPSULE 1 CAP PO DAILY SUPPLEMENT (Reported) Docusate Sodium (Colace) 100 MG CAPSULE 2 CAP PO DAILY STOOL SOFTENER ( Reported) Ferrous Sulfate 325 MG (65 MG IRON) TABLET 1 TAB PO BID SUPPLEMENT (Reported) Finasteride 5 MG TABLET 1 TAB PO DAILY PROSTATE (Reported) Insulin Detemir (Levemir) 100 UNIT/ML VIAL 10 UNITS SC BID diabetes .. Insulin Lispro (Humalog Kwikpen U-100) 100 UNIT/ML INSULN.PEN 0 SC TIDAC DIABETES before meals less than 80 mg/dl take cup of apple juice 80-150 4 units 151-200 6 units 201-250 8 units 251-300 10 units 301-350 12 units 351-400 13 units >400 14 units Bedtime 251-300 2 units 301-350 3 units 351-400 4 units >400 5 units Latanoprost 0.005 % DROPS 1 GTT OPH QPM BOTH EYES (Reported) Memantine HCl (Namenda) 10 MG TABLET 2 TAB PO QHS MEMORY (Reported) Omeprazole Magnesium (Prilosec Otc) 20 MG TABLET. 1 TAB PO DAILY ACID REFLUX Polyethylene Glycol 3350 (Miralax) 17 GRAM POWD.PACK 1 PAC PO DAILY GI ( Reported) dissolve in water Tamsulosin HCl (Flomax) 0.4 MG CAP.ER.24H 1 CAP PO DAILY PROSTATE (Reported) Review of Systems Comments Cannot give review of systems Past History Travel History Traveled to [place] past 21 day No Medical History Neurological: dementia EENT: blindness, glaucoma, hearing loss Cardiovascular: hypertension, hyperlipidemia Respiratory: pneumonia Gastrointestinal: umbilical hernia Hepatic: NONE Renal: benign prost hyperplasia, FREQUENT UTI'S Musculoskeletal: degen joint disease, osteoarthritis Psychiatric: NONE Endocrine: diabetes Blood Disorders: anemia Cancer(s): NONE 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 child (dtr/Rafaela BOLIVAR & her son) Services at Home: Home Health Aide Primary Language: [place], Citizen Of [place] Smoking Status: Never Smoked Living Will? no Power of Handicrafts Teacher/HCP? yes Name of POA/HCP: Pt/s Rafaela seo [phone] Functional Ability ADLs Needs Assist: dressing, eating, toileting, bathing. Ambulation: non-ambulatory (wheelchair bound) IADLs Needs Assist: shopping, housework, finances, food prep, telephone, transportation, medication admin. Exam & Diagnostic Data Last 24 Hrs of Vital Signs/I&O Vital Signs Date Time Temp Pulse Resp B/P B/P Pulse O2 O2 Flow FiO2 Mean Ox Delivery Rate 07/136 97.9 98 16 126/58 96 07/13 1447 97.8 93 14 118/68 95 Room Air Intake & Output 07/14 1600 07/14 0800 07/14 0000 Intake Total 120 350 Output Total Balance 120 350 Intake, IV 20 Intake, Oral 100 350 Number 1 2 Bowel Movements Vital Signs Date Time Temp Pulse Resp B/P B/P Pulse O2 O2 Flow FiO2 Mean Ox Delivery Rate 07/136 97.9 98 16 126/58 96 07/13 1447 97.8 93 14 118/68 95 Room Air Intake & Output 07/14 1600 07/14 0800 07/14 0000 Intake Total 120 350 Output Total Balance 120 350 Intake, IV 20 Intake, Oral 100 350 Number 1 2 Bowel Movements Physical Exam General Appearance: awake, comfortable Eyes: Bilateral: other (legally blind). Neck: normal inspection Respiratory: normal breath sounds Cardiovascular: regular rate/rhythm Gastrointestinal: normal bowel sounds, soft Extremities: normal inspection Labs/Michael Results: Laboratory Tests 07/14 0655 Chemistry Sodium (137 - 145 mmol/L) 141 Potassium (3.5 - 5.1 mmol/L) 4.2 Chloride (98 - 107 mmol/L) 106 Carbon Dioxide (22 - 30 mmol/L) 29 Anion Gap (5 - 16) 7 BUN (9 - 20 mg/dL) 26 H Creatinine (0.7 - 1.2 mg/dL) 1.4 H Estimated GFR (>60 ml/min) 48 L BUN/Creatinine Ratio (7 - 25 %) 18.6 Hematology CBC w Diff NO MAN DIFF REQ WBC (4.8 - 10.8 /CUMM) 8.2 RBC (4.70 - 6.10 /CUMM) 3.27 L Hgb (14.0 - 18.0 G/DL) 7.1 *L Hct (42 - 52 %) 23.2 L MCV (80.0 - 94.0 FL) 71.0 L MCH (27.0 - 31.0 PG) 21.8 L MCHC (33.0 - 37.0 G/DL) 30.6 L RDW (11.5 - 14.5 %) 19.8 H Plt Count (130 - 400 /CUMM) 179 MPV (7.4 - 10.4 FL) 10.4 Gran % (42.2 - 75.2 %) 57.2 Lymphocytes % (20.5 - 51.1 %) 27.5 Monocytes % (1.7 - 9.3 %) 8.5 Eosinophils % (0 - 5 %) 6.1 H Basophils % (0.0 - 2.0 %) 0.7 Absolute Granulocytes (1.4 - 6.5 /CUMM) 4.7 Absolute Lymphocytes (1.2 - 3.4 /CUMM) 2.2 Absolute Monocytes (0.10 - 0.60 /CUMM) 0.7 H Absolute Eosinophils (0.0 - 0.7 /CUMM) 0.5 Absolute Basophils (0.0 - 0.2 /CUMM) 0.1 Assessment/Plan Assessment/Plan This 82-year-old male with history of carcinoma of the colon and a meningioma came in with an episode of unresponsiveness. This was most likely due to a seizure. The patient is presently on antiseizure medication. The patient was on insulin at home but his indian trader states that his sugars were always running high. He is presently on Levemir 15 units twice a day as well as sliding scale NovoLog. Levemir was increased just recently. The philosophy an elderly patient like this with multiple comorbidities should be not shoot for tight control. However we would like to bring his blood sugar down a little bit. We need to watch carefully for hypoglycemia. As long as the patient is eating okay I would adjust the patient's sliding scale NovoLog before meals. Sliding scale NovoLog before meals should be 80- 150 give 4 units NovoLog, 151-200 give 6 units NovoLog, 201-250 give 8 units NovoLog, 251 and 300 give 9 units NovoLog, 301 06/21/1951 give 10 units NovoLog, 351-400 give 11 units NovoLog. The separate bedtime sliding scale NovoLog should stay as written. Consult Acknowledgment - Thank you for your consult request.
[2017-07-14 14:14] VITALS: BP 118/60
--- NOTE | 2017-07-14 17:05 | PN- Infect Dx ---
Subjective Subjective: No abd pain; receiving 1 unit PRBC w/o side effects. No fever. Review of Systems Comments: 12 points reviewed as noted, otherwise negative. Objective Last 24 Hrs of Vital Signs/I&O Vital Signs Date Time Temp Pulse Resp B/P B/P Pulse O2 O2 Flow FiO2 Mean Ox Delivery Rate 07/14 1652 94 Nasal 2.0L Cannula 07/14 1414 97.1 86 20 118/60 93 Room Air 07/13 2306 97.9 98 16 126/58 96 Intake & Output 07/14 1600 07/14 0800 07/14 0000 Intake Total 750 120 350 Output Total Balance 750 120 350 Intake, Blood 350 Product Intake, IV 20 Intake, Oral 400 100 350 Number 1 1 2 Bowel Movements Physical Exam Other Physical Findings: He is currently awake and alert in no acute distress HEENT AT/NC + thrush Neck No JVD Lungs are clear Heart regular rhythm with no murmur Abdomen is soft, protuberant, positive bowel sounds; no CVA tenderness Extremities no pedal edema Neuro: awake, slow to answer questions Results Last 24 Hours of Lab Results: Laboratory Tests 07/14 0655 Chemistry Sodium (137 - 145 mmol/L) 141 Potassium (3.5 - 5.1 mmol/L) 4.2 Chloride (98 - 107 mmol/L) 106 Carbon Dioxide (22 - 30 mmol/L) 29 Anion Gap (5 - 16) 7 BUN (9 - 20 mg/dL) 26 H Creatinine (0.7 - 1.2 mg/dL) 1.4 H Estimated GFR (>60 ml/min) 48 L BUN/Creatinine Ratio (7 - 25 %) 18.6 Hematology CBC w Diff NO MAN DIFF REQ WBC (4.8 - 10.8 /CUMM) 8.2 RBC (4.70 - 6.10 /CUMM) 3.27 L Hgb (14.0 - 18.0 G/DL) 7.1 *L Hct (42 - 52 %) 23.2 L MCV (80.0 - 94.0 FL) 71.0 L MCH (27.0 - 31.0 PG) 21.8 L MCHC (33.0 - 37.0 G/DL) 30.6 L RDW (11.5 - 14.5 %) 19.8 H Plt Count (130 - 400 /CUMM) 179 MPV (7.4 - 10.4 FL) 10.4 Gran % (42.2 - 75.2 %) 57.2 Lymphocytes % (20.5 - 51.1 %) 27.5 Monocytes % (1.7 - 9.3 %) 8.5 Eosinophils % (0 - 5 %) 6.1 H Basophils % (0.0 - 2.0 %) 0.7 Absolute Granulocytes (1.4 - 6.5 /CUMM) 4.7 Absolute Lymphocytes (1.2 - 3.4 /CUMM) 2.2 Absolute Monocytes (0.10 - 0.60 /CUMM) 0.7 H Absolute Eosinophils (0.0 - 0.7 /CUMM) 0.5 Absolute Basophils (0.0 - 0.2 /CUMM) 0.1 Last 24 Hours of Michael Results: SPEC #: [id number] CAROLE: 07/10/17 STATUS: COMP RECD: 07/10/[address]: Myron Liu MD SOURCE: UPPER RESP ENTR: 07/10/[address]: Kelly Christianson APRN SPDESC: CALL CENTER RN Luis Eduardo SALINAS, Fadi ORDERED: ACT SURV NARES Procedure Result > ACTIVE SURVEILLANCE CULTURE Final 07/12/17 NO METHICILLIN RESISTANT STAPH AUREUS ISOLATED Recent Imaging Studies: Reviewed Assessment/Plan ID Impression: 82-year-old man with a history of DM2, dementia, diagnosed 3 months prior to admission with a 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 Treated initially with Ceftriaxone/Flagyl, currently on oral abx. Repeat BC's not received by the lab. SCN bacteremia (likely contaminant). Worsening anemia Suggestion: 1.Supportive care per team 2. Augmentin 500 mg po every 12 hours D #4 (in order to complete total 10 d therapy); 3. Call if needed.
--- NOTE | 2017-07-14 21:07 | PN- Cardiology ---
Subjective Subjective: * The patient has no complaints and his daughter feels that he is back to his baseline. * creatinine is 1.4 * severe anemia Objective Vital Signs and I&Os Vital Signs Date Time Temp Pulse Resp B/P B/P Pulse O2 O2 Flow FiO2 Mean Ox Delivery Rate 07/14 1414 97.1 86 20 118/60 93 Room Air 07/13 2306 97.9 98 16 126/58 96 Intake & Output 07/14 1600 07/14 0800 07/14 0000 07/13 1600 07/13 0800 07/13 0000 Intake Total 750 120 350 600 120 120 Output Total Balance 750 120 350 600 120 120 Intake, Blood 350 Product Intake, IV 20 0 Intake, Oral 400 100 350 600 120 120 Number 1 1 2 2 Bowel Movements Physical Exam: General: WD/WN male in NAD; awake and responsive HEENT: NC/AT, eyes closed Neck: no JVD, no carotid bruit Heart: RRR w/o murmur Lungs: clear bilaterally Abdomen: soft, NT, +ve bowel sounds Extremities: no edema Assessment/Plan Assessment/Plan * This patient had an elevated blood glucose upon admission and appears to have been at least mildy dehydrated. He is back to his baseline according to his daughter. It is now felt by neurology that he may be having convusions with a post-ictal state and they recommended Keppra which appears to be helping. There is no evidence of myocardial ischemia or decompensated CHF. The patient has a known normal EF which makes a malignant ventricular dysrhythmia much less likely but he could have episodes of heart block or bradycardia. Okay to DC telemetry. Continue telemetry? No
[2017-07-14 22:16] VITALS: BP 102/60
[2017-07-15 07:03] VITALS: BP 120/54
--- NOTE | 2017-07-15 07:33 | PN- Diabetes ---
Assessment/Plan Diabetes Assessment: Apparently the patient did not eat or drink yesterday. He is sleeping this morning. The patient's blood sugars have remained high. His fingerstick sugar this morning is 269. Yesterday his sugar was 232 before dinner and 233 at bedtime. Plan: Suggest that if the patient eats today we can leave his insulin coverage as presently written. If he does not eat, we need to begin D5 half-normal saline at 100 cc/h. At that point we should reduce his Levemir to 12 units twice a day and change his sliding scale NovoLog to every 4 hours beginning with a sugar above 150. When he is not eating sliding scale NovoLog every 4 hours should be less than 150 give no insulin, 151 200 give 4 units NovoLog, 201-250 give 5 units NovoLog, 251 -300 give 6 units NovoLog, 301-350 give 7 units NovoLog, 351-400 give 8 units NovoLog. Subjective Subjective: Sleeping this morning Objective Last 24 Hrs of Vital Signs/I&O Vital Signs Date Time Temp Pulse Resp B/P B/P Pulse O2 O2 Flow FiO2 Mean Ox Delivery Rate 07/15 0703 98.6 72 20 120/54 94 Room Air 07/14 2215 98.0 80 20 102/60 91 07/14 1414 97.1 86 20 118/ 93 Room Air Intake & Output 07/15 0000 07/14 1600 Intake Total 50 110 750 Output Total Balance 50 110 750 Intake, Blood 350 Product Intake, IV 10 Intake, Oral 50 100 400 Number 1 1 1 Bowel Movements Vital Signs Date Time Temp Pulse Resp B/P B/P Pulse O2 O2 Flow FiO2 Mean Ox Delivery Rate 07/15 0703 98.6 72 20 120/54 94 Room Air 07/14 2215 98.0 80 20 102/60 91 07/14 1414 97.1 86 20 118/60 93 Room Air Intake & Output 07/15 0000 07/14 1600 Intake Total 50 110 750 Output Total Balance 50 110 750 Intake, Blood 350 Product Intake, IV 10 Intake, Oral 50 100 400 Number 1 1 1 Bowel Movements Physical Exam Head: normal appearance Respiratory: normal breath sounds Cardiovascular: regular rate/rhythm Abdomen: normal bowel sounds Current Medications: Current Medications Sig/Zoe Start time Last Medication Dose Route Stop Time Status Admin Acetaminophen 650 MG Q6-PRN PRN 07/09 0515 AC 07/10 PO 1044 Amoxicillin/ 500 MG Q12 07/11 2200 AC 07/14 Clavulanate Potassium PO 2126 Atorvastatin Calcium 40 MG 1700 07/09 1700 AC 07/14 PO 1637 Cholecalciferol 400 IU DAILY 07/09 1000 AC 07/14 PO 1040 Docusate Sodium 200 MG DAILY 07/09 1000 AC 07/14 PO 1040 Ferrous Sulfate 325 MG DAILY 07/09 1000 AC 07/14 PO 1040 Finasteride 5 MG DAILY 07/09 1000 AC 07/14 PO 1040 Insulin Aspart 0 AT BEDTIME 07/10 2200 AC 07/13 SC 2202 Insulin Aspart 0 TIDAC 07/10 1700 AC 07/14 SC 1746 Insulin Detemir 15 UNITS BID 07/13 2199 AC 07/14 SC 2128 Latanoprost 1 GTT QPM 07/09 2200 AC 07/14 OPH 2128 Levetiracetam 1,000 MG BID 07/11 2200 AC 07/14 PO 2126 Melatonin 5 MG AT BEDTIME 07/09 2200 AC 07/14 PO 2126 Memantine 20 MG AT BEDTIME 07/09 2200 AC 07/14 PO 2127 Omeprazole 40 MG DAILY AC 07/09 0700 AC 07/15 PO 0622 Polyethylene Glycol 17 GM DAILY 07/09 1000 AC 07/13 PO 0952 Senna 187 MG AT BEDTIME 07/10 220 AC 07/13 PO 2202 Tamsulosin HCl 0.4 MG DAILY 07/09 1000 AC 07/14 PO 1041 Findings Pertinent Lab/Michael Results: Laboratory Tests 07/15 0640 Chemistry Sodium Pending Potassium Pending Chloride Pending Carbon Dioxide Pending Anion Gap Pending BUN Pending Creatinine Pending BUN/Creatinine Ratio Pending Hematology CBC w Diff Pending WBC Pending RBC Pending Hgb Pending Hct Pending MCV Pending MCH Pending MCHC Pending RDW Pending Plt Count Pending MPV Pending
--- NOTE | 2017-07-15 07:42 | PN- Housestaff ---
See Addendum Subjective Follow-up For: Possible Seizures AMS Hyperglycemia GNR in blood Tele-Events Since Last Visit: OFF TELE Subjective: No complaints or acute events overnight. Daughter at bedside reports patient still confused. Review of Systems Constitutional: Reports: see HPI. Objective Last 24 Hrs of Vital Signs/I&O Vital Signs Date Time Temp Pulse Resp B/P B/P Pulse O2 O2 Flow FiO2 Mean Ox Delivery Rate 07/15 1431 98.1 84 20 112/60 95 Room Air 07/15 1031 124/62 07/15 0703 98.6 72 20 120/54 94 Room Air 07/14 2216 98.0 80 20 102/60 91 Intake & Output 07/15 1600 07/15 0800 07/15 0000 Intake Total 400 50 110 Output Total Balance 400 50 110 Intake, IV 10 Intake, Oral 400 50 100 Number 1 1 Bowel Movements Physical Exam General Appearance: Disoriented Cardiovascular: Regular Rate, Normal S1, Normal S2 Lungs: Clear to Auscultation, Normal Air Movement Abdomen: Normal Bowel Sounds, Soft, No Tenderness Current Medications: Current Medications Sig/Zoe Start time Last Medication Dose Route Stop Time Status Admin Acetaminophen 650 MG Q6-PRN PRN 07/09 0515 AC 07/10 PO 1044 Amoxicillin/ 500 MG Q12 07/11 2199 AC 07/14 Clavulanate Potassium PO 2125 Atorvastatin Calcium 40 MG 1700 07/09 1700 AC 07/14 PO 1637 Cholecalciferol 400 IU DAILY 07/09 1000 AC 07/14 PO 1040 Docusate Sodium 200 MG DAILY 07/09 1000 AC 07/14 PO 1040 Ferrous Sulfate 325 MG DAILY 07/09 1000 AC 07/14 PO 1040 Finasteride 5 MG DAILY 07/09 1000 AC 07/14 PO 1040 Insulin Aspart 0 AT BEDTIME 07/10 2199 AC 07/13 SC 220 Insulin Aspart 0 TIDAC 07/10 1700 AC 07/15 SC 0827 Insulin Detemir 15 UNITS BID 07/13 2199 AC 07/15 SC 0828 Latanoprost 1 GTT QPM 07/09 2199 AC 07/14 OPH 2128 Levetiracetam 1,000 MG BID 07/11 2200 AC 07/14 PO 2126 Melatonin 5 MG AT BEDTIME 07/09 2199 AC 07/14 PO 2126 Memantine 20 MG AT BEDTIME 07/09 2199 AC 07/14 PO 2127 Omeprazole 40 MG DAILY AC 07/09 0700 AC 07/15 PO 0622 Polyethylene Glycol 17 GM DAILY 07/09 1000 AC 07/13 PO 0952 Senna 187 MG AT BEDTIME 07/10 2199 AC 07/13 PO 2202 Tamsulosin HCl 0.4 MG DAILY 07/09 1000 AC 07/14 PO 1041 Last 24 Hrs of Lab/Michael Results Last 24 Hrs of Labs/Mics: Laboratory Tests 07/15/17 0640: Anion Gap 5, Estimated GFR 48 L, BUN/Creatinine Ratio 18.6, CBC w Diff NO MAN DIFF REQ, RBC 3.65 L, MCV 73.4 L, MCH 23.1 L, MCHC 31.5 L, RDW 22.1 H, MPV 10.2, Gran % 61.0, Lymphocytes % 24.8, Monocytes % 7.9, Eosinophils % 5.3 H, Basophils % 1.0, Absolute Granulocytes 6.0, Absolute Lymphocytes 2.4, Absolute Monocytes 0.8 H, Absolute Eosinophils 0.5, Absolute Basophils 0.1 Assessment/Plan Assessment: Mr Galvez is a 82-year-old gentleman with past medical history significant for ESBL, MRSA, legally blind, glaucoma, hypertension, hyperlipidemia, diabetes, DJD , BPH, adenocarcinoma of TV colon dx in 2017 with no wish for intervention, meningioma with no intervention, who comes in for chief complaint of unresponsiveness. Initially admitted to [facility] floor for work up but had 2 rapid response for unresponsiveness transfered from ICU to telemetry Possible Seizures with history of meningioma CT of the head 2 shows no acute process. ACS ruled out with serial trop/ECG. Note EKG shows RBBB with what looks like an intermittent 2nd degree block that was present in a previous EKG. He remains asymptomatic w/o CP or palpitations. Echocardiogram shows mild LVH, EF of 60, trace MR and trace TR. TSH initially elevated but repeat TSH, and rest of TFT wnl * Neurology recommendations appreciated * Cardiology recommendations appreciated * Neuro checks every 4 * Continue levetiracetam 1000 BID * PT recommends Home PT/24 hr care Bacteremia July 09 blood cultures 1 is showing gram-negative rods - Klebsiella pneumonia which is resistant to ampicillin and a second bottle positive for coag negative staph. Per ID, the coag staph is likely a contaminant but cannot rule out Klebsiella given that patient has hx of malignancy and is potentially susceptible to bacterial translocation. Patient was initially started on ceftriaxone and Flagyl which has been switched to by mouth Augmentin 500 mg BID on 07/11. Fem line DC 07/11/2017 * PICC line placed on 07/11/2017 * ID recommendations appreciated * Continue Augmentin for 10-day course Microcytic Anemia s/p 1U prbcs * hgb goal >8 * Stool guiac * Hold Aspirin and heparin * GI recommends no medical intervention as per family's wishes. Patient to be given referral for Colorectal surgery if family changes mind about management IDDM with Uncontrolled Diabetes A1C 8.8 * c/w INS SS * Blood glucose levels remain elevated * Levemir decreased to 12 units BID * Consistent carb 1 diet * Endo consult CKD * Avoid nephrotoxins BPH s/p prostatectomy * Con't Proscar * Con't Flomax Dementia * Cont' Namenda 10 mg daily DVT prophylaxis: Alps CODE STATUS: Full Patient stable for discharge. Problem List: 1. Seizure 2. Bacteremia 3. Uncontrolled diabetes mellitus Pain Ratin Pain Location: NA Pain Goal: Remain pain free Pain Plan: NA Tomorrow's Labs & Rationales: None
[2017-07-15 08:16] LABS: ABSOLUTE BASOPHIL COUNT 0.1 /CUMM (0.0-0.2); ABSOLUTE EOSINOPHIL COUNT 0.5 /CUMM (0.0-0.7); ABSOLUTE LYMPH COUNT 2.4 /CUMM (1.2-3.4); ABSOLUTE MONOCYTE COUNT 0.8 /CUMM (0.10-0.60); EOSINOPHIL % 5.3 % (0-5); HEMATOCRIT 26.8 % (42-52); MEAN CORPUSCULAR HGB 23.1 PG (27.0-31.0); MEAN CORPUSCULAR HGB CONC 31.5 G/DL (33.0-37.0); MEAN CORPUSCULAR VOLUME 73.4 FL (80.0-94.0); MEAN PLATELET VOLUME 10.2 FL (7.4-10.4); PLATELET COUNT 176 /CUMM (130-400); RBC DISTRIBUTION WIDTH 22.1 % (11.5-14.5); RED BLOOD CELL CT 3.65 /CUMM (4.70-6.10); WHITE BLOOD CELL COUNT 9.8 /CUMM (4.8-10.8)
[2017-07-15 14:31] VITALS: BP 112/60
[2017-07-15] MEDS ORDERED: AUGMENTIN 500-1 EACH PO (15:06)
[2017-07-15] MEDS ORDERED: KEPPRA500 M1 PO (15:09)
[2017-07-15] MEDS ORDERED: LEVEMIR100 UNIT/1 SC (15:37)
--- NOTE | 2017-07-15 16:13 | Discharge Summary ---
Visit Information Visit Dates Admission Date: 07/10/17 Discharge Date: 07/15/17 Hospital Course Course Attending Physician: Myron Liu MD Primary Care Physician: Sammy HANNAKelly Layton Hospital Course: Mr Galvez is a 82-year-old gentleman with past medical history significant for ESBL, MRSA, legally blind, glaucoma, hypertension, hyperlipidemia, diabetes, DJD , BPH, colonic adenocarcinoma (2017), meningioma, BIBA for unresponsiveness. Possible Seizures with history of meningioma Patient was initially placed on 23 hour observation on telemetry for further work up but had 2 rapid response for unresponsiveness and was subsequently changed to a full admit and transfered to ICU. Neurology and Cardiology were consulted. He was placed on levetiracetam 1000 twice daily. Once stable he was sent back to telemetry. CT of the head 2 showed no acute process. ACS was ruled out with serial trop/ECG. Note EKG showed a LBBB on admission. He remained asymptomatic without chest pain, shortness of breath or palpitations. Echocardiogram showed mild LVH, EF of 60, trace MR and trace TR. TSH was initially elevated but repeat TSH wnl Bacteremia Blood cultures 1 showed gram-negative rods - Klebsiella pneumonia resistant to ampicillin and a second bottle positive for coag negative staph. Infectious disease was consulted. PICC line placed due to hard IV access. His femoral line placed in the ED was discontinued. Patient was initially started on ceftriaxone and Flagyl which has been switched to by mouth Augmentin 500 mg twice daily. He was discharged home on Augmentin for a 10-day course Microcytic Anemia (donaldo 7.0) s/p 1U prbcs Patient was transfused 1 unit of packed red blood cells with a goal hemoglobin > 8. Aspirin and subcutaneous heparin was held. GI was consulted. GI recommended no medical intervention as per family's wishes. Patient was given referral for Colorectal surgery for his reported history of colon cancer to follow-up as an outpatient, if family changed mind about intervention IDDM with Uncontrolled Diabetes Blood glucose levels remain elevated. Endocrinology was consulted. His insulin sliding scale was modified and he was instructed to follow-up with endocrinology upon discharge DVT prophylaxis: ALPS Allergies: Coded Allergies: NO KNOWN ALLERGIES (07/10/17) Pertinent Lab Results: 07/09/17 CT ABD & PELVIS W/O IV CONTRAS IMPRESSION: Significant constipation without any signs of obstruction. No free air or free fluid. A Cochran's catheter and a right femoral venous line is noted. 07/09/17 ECHOCARDIOGRAM CONCLUSIONS 1. Small left ventricle with mild left ventricular hypertrophy. 2. Normal EF of 60%. 3. Trace mitral regurgitation. 4. Trace tricuspid regurgitation. 07/09/17 XRY-PORTABLE CHEST XRAY IMPRESSION: Low lung volumes with bronchovascular crowding. No dense consolidation. 07/09/17 CT HEAD WO IV CONTRAST IMPRESSION: No acute intracranial pathology. Volume loss with small vessel ischemic changes. Stable appearance of the right frontal extra-axial mass consistent with meningioma. 07/11/17 XRY-PORTABLE CHEST XRAY IMPRESSION: The right-sided PICC line tip is seen at the cavoatrial junction. No other significant change since 07/09/2017. 07/11/17 MRI-HEAD W/O ROBER IMPRESSION: - No acute intracranial findings. No acute infarct - There is a stable appearing 3.7 cm AP by 1.8 cm TV meningioma along the anterior right frontal convexity that results in mild mass effect on the adjacent right frontal lobe. There is no adjacent parenchymal edema. - Global cerebral volume loss and moderate chronic microangiopathy. - There is a large left and there is a small right mastoid effusion. Disposition Summary Disposition Principal Diagnosis: Seizures Additional Diagnosis: Uncontrolled Diabetes Bacteremia Discharge Disposition: home health services Discharge Instructions General Discharge Information Code Status: Full Code Patient's Diet: Diabetic Patient's Activity: As tolerated Follow-Up Instructions/Appts: Please follow up with PCP with in a week of discharge Please follow up with [facility] for further work up of anemia. Please follow up with the neurologist within a week of discharge Please follow up with the train operations manager within a week of discharge for blood sugar control HOSPITAL BED, MAYE LIFT AND BELT HAVE BEEN ORDERED FOR YOU Medications at Discharge Discharge Medications: Stop taking the following medications: Aspirin (Aspirin*) 81 MG TAB.CHEW ORAL DAILY Qty = 30 Continue taking these medications: Finasteride (Finasteride) 5 MG TABLET 1 Tablet ORAL DAILY Comments: Last Taken: 07/15/17 Time: 1000 Tamsulosin HCl (Flomax) 0.4 MG CAP.ER.24H 1 Capsule ORAL DAILY Comments: Last Taken: 07/15/17 Time: 10 AM Atorvastatin Calcium (Lipitor) 40 MG TABLET 1 Tablet ORAL DAILY Comments: Last Taken: 07/15/17 Time: 5:00 PM Ferrous Sulfate (Ferrous Sulfate) 325 MG (65 MG IRON) TABLET 1 Tablet ORAL TWICE DAILY Comments: Last Taken: 07/15/17 Time: 9:30 am Cholecalciferol (Vitamin D3) (Vitamin D) 2,000 UNIT CAPSULE 1 Capsule ORAL DAILY Comments: Last Taken:07/15/17 Time:1000 Memantine HCl (Namenda) 10 MG TABLET 2 Tablet ORAL TAKE AT BEDTIME Comments: Last Taken: 07/14/17 Time: 10 PM Docusate Sodium (Colace) 100 MG CAPSULE 2 Capsule ORAL DAILY Comments: Last Taken:07/13/17 Time:1000 Polyethylene Glycol 3350 (Miralax) 17 GRAM POWD.PACK 1 Packet ORAL DAILY Instructions: dissolve in water Comments: Last Taken: 07/14/17 Time: 10AM Latanoprost (Latanoprost) 0.005 % DROPS 1 Drop In the eye Every night Comments: Last Taken:07/14/17 TimE:1000PM Acetaminophen (Tylenol) 325 MG TABLET 2 Tablet ORAL EVERY 6 HOURS NEEDED as needed for PAIN Comments: TAKEN: 04/16/17 @ 10 PM Omeprazole Magnesium (Prilosec Otc) 20 MG TABLET.DR 1 Tablet ORAL DAILY Qty = 30 Comments: Last Taken:07/15/17 Time:0700 Insulin Lispro (Humalog Kwikpen U-100) 100 UNIT/ML INSULN.PEN 0 Inject into fatty tissue 3 TIMES DAILY BEFORE MEALS Qty = 90 Instructions: before meals less than 80 mg/dl take cup of apple juice 80-150 4 units 151-200 6 units 201-250 8 units 251-300 10 units 301-350 12 units 351-400 13 units >400 14 units Bedtime 251-300 2 units 301-350 3 units 351-400 4 units >400 5 units Comments: Last Taken: 07/15/17 NOVOLOG Time: 4:45 PM Start taking the following new medications: Augmentin (Augmentin 500-125 Tablet) 500 MG-125 MG TABLET 500 Milligram ORAL EVERY 12 HOURS Qty = 12 No Refills Comments: Last Taken:07/15/17 Time:1000 Levetiracetam (Keppra) 500 MG TABLET 1,000 Milligram ORAL TWICE DAILY Qty = 60 No Refills Comments: Last Taken:07/15/17 Time:1000 Insulin Detemir (Levemir) 100 UNIT/ML VIAL 12 Units Inject into fatty tissue TWICE DAILY Qty = 30 No Refills Comments: Last Taken:07/15/17 Time:1000 Copies To: Abhilash Galeano MD; Kelly Christianson APRN; Bharathi Beth MD; Martell Sorto MD; Antonio SALINAS PHD,Nam Harinder 12 Units Inject into fatty tissue TWICE DAILY Qty = 30 No Refills Comments: Last Taken:07/15/17 Time:1000 Copies To: Abhilash Galeano MD; Kelly Christianson APRN; Bharathi Beth MD; aMrtell Sorto MD; Antonio SALINAS PHD,Nam SAsuncion
--- NOTE | 2017-07-15 17:19 | PN- Infect Dx ---
Subjective Subjective: No fever. Denies abd pain. Review of Systems Comments: 12 points reviewed as noted, otherwise negative. Objective Last 24 Hrs of Vital Signs/I&O Vital Signs Date Time Temp Pulse Resp B/P B/P Pulse O2 O2 Flow FiO2 Mean Ox Delivery Rate 07/15 1431 98.1 84 20 112/60 95 Room Air 07/15 1031 124/62 07/15 0703 98.6 72 20 120/54 94 Room Air 07/14 2216 98.0 80 20 102/60 91 Intake & Output 07/15 1600 07/15 0800 07/15 0000 Intake Total 400 50 110 Output Total Balance 400 50 110 Intake, IV 10 Intake, Oral 400 50 100 Number 1 1 Bowel Movements Physical Exam Other Physical Findings: He is currently awake and alert in no acute distress HEENT AT/NC + thrush Neck No JVD Lungs are clear Heart regular rhythm with no murmur Abdomen is soft, protuberant, positive bowel sounds; no CVA tenderness Extremities no pedal edema Neuro: awake, slow to answer questions Results Last 24 Hours of Lab Results: Laboratory Tests 07/15 0640 Chemistry Sodium (137 - 145 mmol/L) 138 Potassium (3.5 - 5.1 mmol/L) 4.3 Chloride (98 - 107 mmol/L) 102 Carbon Dioxide (22 - 30 mmol/L) 31 H Anion Gap (5 - 16) 5 BUN (9 - 20 mg/dL) 26 H Creatinine (0.7 - 1.2 mg/dL) 1.4 H Estimated GFR (>60 ml/min) 48 L BUN/Creatinine Ratio (7 - 25 %) 18.6 Hematology CBC w Diff NO MAN DIFF REQ WBC (4.8 - 10.8 /CUMM) 9.8 RBC (4.70 - 6.10 /CUMM) 3.65 L Hgb (14.0 - 18.0 G/DL) 8.4 L Hct (42 - 52 %) 26.8 L MCV (80.0 - 94.0 FL) 73.4 L MCH (27.0 - 31.0 PG) 23.1 L MCHC (33.0 - 37.0 G/DL) 31.5 L RDW (11.5 - 14.5 %) 22.1 H Plt Count (130 - 400 /CUMM) 176 MPV (7.4 - 10.4 FL) 10.2 Gran % (42.2 - 75.2 %) 61.0 Lymphocytes % (20.5 - 51.1 %) 24.8 Monocytes % (1.7 - 9.3 %) 7.9 Eosinophils % (0 - 5 %) 5.3 H Basophils % (0.0 - 2.0 %) 1.0 Absolute Granulocytes (1.4 - 6.5 /CUMM) 6.0 Absolute Lymphocytes (1.2 - 3.4 /CUMM) 2.4 Absolute Monocytes (0.10 - 0.60 /CUMM) 0.8 H Absolute Eosinophils (0.0 - 0.7 /CUMM) 0.5 Absolute Basophils (0.0 - 0.2 /CUMM) 0.1 Last 24 Hours of Michael Results: reviewed Recent Imaging Studies: reviwed Assessment/Plan ID Impression: 82-year-old man with a history of DM2, dementia, diagnosed 3 months prior to admission with a 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 Treated initially with Ceftriaxone/Flagyl, currently on oral abx. Repeat BC's not received by the lab. SCN bacteremia (likely contaminant). Anemia; requiring PRBC transfusions Suggestion: 1.Supportive care per team; nystatin swish and swallow x14 d. 2. Augmentin 500 mg po every 12 hours D #5/7. 3. Overall prognosis poor.
== END 2017-07-15 17:30 | DRG 53 ==
LOC: ERH 00:34 → 1NO 03:14 → ERHI 03:14 → ENRESERV 16:39 → ENTRNSPT 18:21 → EDTRNSPTSTS 18:32 → 1NO 18:49 → CMPTRNSPT 18:53 → 1NO 18:55 → CRI 07-10 16:24 → ENTRNSPT 07-13 13:37 → EDTRNSPTSTS 07-13 14:01 → EDTRNSPT 07-13 14:01 → CMPTRNSPT 07-13 14:18 → 1NO 07-13 14:28
PROVIDERS: Internal Medicine; Internal Medicine Infectious Disease; Pediatrics; Student in an Organized Health Care Education/Training Program
PROC: 02HV33Z Insertion of Infusion Device into Superior Vena Cava, Percutaneous Approach (ICD-10-PCS; principal; 2017-07-12)
DX: R56.9 Unspecified convulsions (principal); E11.65 Type 2 diabetes mellitus with hyperglycemia; R78.81 Bacteremia; F03.90 Unspecified dementia, unspecified severity, without behavioral disturbance, psychotic disturbance, mood disturbance, and anxiety; H54.8 Legal blindness, as defined in USA; E78.5 Hyperlipidemia, unspecified; M19.90 Unspecified osteoarthritis, unspecified site; C18.9 Malignant neoplasm of colon, unspecified; D32.9 Benign neoplasm of meninges, unspecified; E86.0 Dehydration; E11.22 Type 2 diabetes mellitus with diabetic chronic kidney disease; I44.1 Atrioventricular block, second degree; N18.9 Chronic kidney disease, unspecified; Z79.4 Long term (current) use of insulin; H40.9 Unspecified glaucoma; N40.0 Benign prostatic hyperplasia without lower urinary tract symptoms; G47.00 Insomnia, unspecified; Z90.79 Acquired absence of other genital organ(s); H91.90 Unspecified hearing loss, unspecified ear; K42.9 Umbilical hernia without obstruction or gangrene; Z87.440 Personal history of urinary (tract) infections; Z83.3 Family history of diabetes mellitus; Z82.49 Family history of ischemic heart disease and other diseases of the circulatory system; Z79.82 Long term (current) use of aspirin; I12.9 Hypertensive chronic kidney disease with stage 1 through stage 4 chronic kidney disease, or unspecified chronic kidney disease; K59.00 Constipation, unspecified; I45.10 Unspecified right bundle-branch block; I25.10 Atherosclerotic heart disease of native coronary artery without angina pectoris; D50.9 Iron deficiency anemia, unspecified; B96.1 Klebsiella pneumoniae [K. pneumoniae] as the cause of diseases classified elsewhere
CPT/HCPCS: 1NP; 70551; CCU; 36415; 36592; 71045; 74176; 80307; 81003; 82436; 86920; 86922; 87040; 87086; 87147; 87804; 87804-59; 93005; 93010; 93306; 95816; 97110-GP; 97161-GP; 97530-GO; 97530-GP; 99291; C1769; G0480; J0131; J0696; J1644; J1953; J3490; J7040; P9016

== ENCOUNTER 2017-07-28 21:20 | Observation (INO) | payer OTHER ==
[~2017-07-28] VITALS: Ht 170.2 cm; Wt 79.4 kg
[~2017-07-28 21:20] MED LIST changes: +AUGMENTIN 500-1 EACH PO; +KEPPRA500 M1 PO
--- NOTE | 2017-07-28 21:34 | ED GENERAL ADULT ---
History of Present Illness General Chief Complaint: General Adult Stated Complaint: UNRESPONSIVE Source: family, old records, EMS Exam Limitations: clinical condition Vital Signs & Intake/Output Vital Signs & Intake/Output Vital Signs Date Time Temp Pulse Resp B/P B/P Pulse O2 O2 Flow FiO2 Mean Ox Delivery Rate 07/28 2201 99 Room Air 07/28 2128 96.8 86 18 147/77 99 Room Air Allergies Coded Allergies: NO KNOWN ALLERGIES (07/10/17) Reconcile Medications Acetaminophen (Tylenol) 325 MG TABLET 2 TAB PO Q6-PRN PRN PAIN (Reported) Atorvastatin Calcium (Lipitor) 40 MG TABLET 1 TAB PO DAILY CHOLESTEROL ( Reported) Augmentin (Augmentin 500-125 Tablet) 500 MG-125 MG TABLET 500 MG PO Q12 BLOOD INFECTION Cholecalciferol (Vitamin D3) (Vitamin D) 2,000 UNIT CAPSULE 1 CAP PO DAILY SUPPLEMENT (Reported) Docusate Sodium (Colace) 100 MG CAPSULE 2 CAP PO DAILY STOOL SOFTENER ( Reported) Ferrous Sulfate 325 MG (65 MG IRON) TABLET 1 TAB PO BID SUPPLEMENT (Reported) Finasteride 5 MG TABLET 1 TAB PO DAILY PROSTATE (Reported) Insulin Detemir (Levemir) 100 UNIT/ML VIAL 12 UNITS SC BID DIABETES Insulin Lispro (Humalog Kwikpen U-100) 100 UNIT/ML INSULN.PEN 0 SC TIDAC DIABETES before meals less than 80 mg/dl take cup of apple juice 80-150 4 units 151-200 6 units 201-250 8 units 251-300 10 units 301-350 12 units 351-400 13 units >400 14 units Bedtime 251-300 2 units 301-350 3 units 351-400 4 units >400 5 units Latanoprost 0.005 % DROPS 1 GTT OPH QPM BOTH EYES (Reported) Levetiracetam (Keppra) 500 MG TABLET 1,000 MG PO BID SEIZURE PROPHYLAXIS Memantine HCl (Namenda) 10 MG TABLET 2 TAB PO QHS MEMORY (Reported) Omeprazole Magnesium (Prilosec Otc) 20 MG TABLET.DR 1 TAB PO DAILY ACID REFLUX Polyethylene Glycol 3350 (Miralax) 17 GRAM POWD.PACK 1 PAC PO DAILY GI ( Reported) dissolve in water Tamsulosin HCl (Flomax) 0.4 MG CAP.ER.24H 1 CAP PO DAILY PROSTATE (Reported) Triage Nurses Notes Reviewed? yes HPI: The patient has dementia and lives at home with his family. This evening patient was sitting in his wheelchair to have soup. After about 5 bites he stated he wasn't hungry anymore. Patient was more lethargic than normal. Patient was placed back in bed. They checked on him approximately 30 minutes later and found him unresponsive. Patient was admitted 2 weeks ago after a similar episode. During that hospitalization he had 2 other episodes of unresponsiveness. It was unsure if these are secondary to seizure so the patient was started on Keppra. Past History Travel History Traveled to [place] past 21 day No Medical History Any Pertinent Medical History? 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 No Review of Systems Review of Systems Constitutional: Reports: see HPI. Physical Exam Physical Exam General Appearance: UNBRESPONSIVE Head: atraumatic Eyes: Bilateral: PERRL. Ears, Nose, Throat: moist mucus membranes Neck: supple, NO JVD Respiratory: chest non-tender, lungs clear Cardiovascular: regular rate/rhythm, normal peripheral pulses Gastrointestinal: normal bowel sounds, soft Back: normal inspection Extremities: normal inspection, normal capillary refill, normal range of motion Neurologic/Psych: UNRESPONSIVE Skin: DRY SKIN Core Measures ACS in differential dx? No CVA/TIA Diagnosis: No Sepsis Present: No Sepsis Focused Exam Completed? No Progress Differential Diagnoses I considered the following diagnoses in my evaluation of the patient: [ ELECTROLYTE ABNORMALITY, AMI, DKA, CVA] Plan of Care: Orders Procedure Date/time Status Heart Healthy Diet 07/[address] in observation 07/28 2310 Active ED Holding Orders 03/12 2311 Active Vital Signs 07/28 2310 Active Code Status 07/28 2310 Active Cochran, Insertion/Removal/Asses 07/28 2150 Active CULTURE,URINE 07/28 2150 Active MIXED VENOUS BLOOD GAS (GEN) 07/28 2132 Complete XRY-PORTABLE CHEST XRAY 07/28 2132 Active Telemetry/Industrial Maintenance Mechanic 07/28 2132 Active URINALYSIS 07/28 2132 Complete TROPONIN LEVEL 07/28 2132 Complete COMPREHENSIVE METABOLIC PANEL 07/28 2132 Complete CBC WITHOUT DIFFERENTIAL 07/28 2132 Complete EKG 07/28 2124 Active Laboratory Tests 07/28/172158: Urine Color YEL, Urine Clarity CLEAR, Urine pH 6.5, Ur Specific [place] 1.015, Urine Protein NEG, Urine Ketones NEG, Urine Nitrite NEG, Urine Bilirubin NEG, Urine Urobilinogen 1.0, Ur Leukocyte Esterase NEG, Ur Microscopic EXAM NOT REQUIRED, Urine Hemoglobin NEG, Urine Glucose >=1000 H 07/28/172154: Bicarbonate Actual 28 H, Mixed VBG pH 7.33, Mixed VBG pCO2 54 H, Mixed VBG O2 Saturation 24 L, Carboxyhemoglobin 0.9 L, O2 Concentration % R/A, Phlebotomy Draw Site VENOUS 07/28/172139: Anion Gap 13, Estimated GFR 48 L, BUN/Creatinine Ratio 18.6, Glucose 337 H, Calcium 9.5, Total Bilirubin 1.1, AST 38, ALT 42, Alkaline Phosphatase 115, Troponin I < 0.01, Total Protein 7.2, Albumin 4.1, Globulin 3.1, Albumin/ Globulin Ratio 1.3, CBC w Diff NO MAN DIFF REQ, RBC 5.00, MCV 74.1 L, MCH 22.8 L, MCHC 30.8 L, RDW 22.3 H, MPV 10.0, Gran % 66.4, Lymphocytes % 22.1, Monocytes % 6.3, Eosinophils % 4.4, Basophils % 0.8, Absolute Granulocytes 6.0, Absolute Lymphocytes 2.0, Absolute Monocytes 0.6, Absolute Eosinophils 0.4, Absolute Basophils 0.1 Microbiology 07/28 2158 URINE ROUT: Urine Culture - RECD Diagnostic Imaging: Viewed by Me: Radiology Read. Discussed w/RAD: Radiology Read. Initial ED EKG: BIFASICULAR BLOCK AND LVH, NO CHANGE FROM PRIOR Prior EKG: unchanged Comments: MRI AND CT SCAN REVIEWED FROM LAST MONTH Patient is currently a week and back to his baseline mental status. This episode seems very similar to the episode for which she was admitted last time as well as the 2 episodes that he had while in the hospital. According to neurology's consultation they wanted to repeat EEG if he had any further episodes. The patient will be placed 23 hour telemetry observation for serial enzymes as this might have been a syncopal episode. Departure Departure Disposition: STILL A PATIENT Condition: Stable Clinical Impression Primary Impression: Unresponsive episode Referrals: Kelly Christianson APRN (PCP/Family) Departure Forms: Customer Survey General Discharge Information Observation Note Spoke With: Zuleika Higgins MD Physician Advisor Notified: MARISOL SALINAS,MARAH [address] Patient In: Non-ED OBS Care Area Rationale for Observation: My rational for observation is as follows [telemetry monitoring, serial enzymes, neurology consultation, EEG]. Critical Care Note Critical Care Note Critical Care Time: non-applicable
[2017-07-28 22:02] LABS: ABSOLUTE BASOPHIL COUNT 0.1 /CUMM (0.0-0.2); ABSOLUTE EOSINOPHIL COUNT 0.4 /CUMM (0.0-0.7); ABSOLUTE MONOCYTE COUNT 0.6 /CUMM (0.10-0.60); BASOPHIL % 0.8 % (0.0-2.0); EOSINOPHIL % 4.4 % (0-5); GRANULOCYTE % 66.4 % (42.2-75.2); MEAN CORPUSCULAR HGB 22.8 PG (27.0-31.0); MEAN CORPUSCULAR HGB CONC 30.8 G/DL (33.0-37.0); MEAN CORPUSCULAR VOLUME 74.1 FL (80.0-94.0); PLATELET COUNT 233 /CUMM (130-400); RBC DISTRIBUTION WIDTH 22.3 % (11.5-14.5)
--- NOTE | 2017-07-28 23:14 | RADIOLOGY REPORT ---
EXAMINATION: XR PORTABLE CHEST CLINICAL INFORMATION: Unresponsive COMPARISON: 07/11/2017 TECHNIQUE: Portable frontal view of the chest was obtained. FINDINGS: The lungs are clear with no focal consolidation. No evidence of pneumothorax, pulmonary edema, or pleural effusions. Cardiac size is within normal limits. Calcification is present at the aortic arch. No acute osseous findings are seen. Degenerative changes are noted in the shoulders. IMPRESSION: No acute cardiopulmonary findings.
--- NOTE | 2017-07-28 23:40 | History & Physical ---
General Information and HPI Allergies/Medications Allergies: Coded Allergies: NO KNOWN ALLERGIES (07/10/17) Home Med list Acetaminophen (Tylenol) 325 MG TABLET 2 TAB PO Q6-PRN PRN PAIN (Reported) Atorvastatin Calcium (Lipitor) 40 MG TABLET 1 TAB PO DAILY CHOLESTEROL ( Reported) Augmentin (Augmentin 500-125 Tablet) 500 MG-125 MG TABLET 500 MG PO Q12 BLOOD INFECTION Cholecalciferol (Vitamin D3) (Vitamin D) 2,000 UNIT CAPSULE 1 CAP PO DAILY SUPPLEMENT (Reported) Docusate Sodium (Colace) 100 MG CAPSULE 2 CAP PO DAILY STOOL SOFTENER ( Reported) Ferrous Sulfate 325 MG (65 MG IRON) TABLET 1 TAB PO BID SUPPLEMENT (Reported) Finasteride 5 MG TABLET 1 TAB PO DAILY PROSTATE (Reported) Insulin Detemir (Levemir) 100 UNIT/ML VIAL 12 UNITS SC BID DIABETES Insulin Lispro (Humalog Kwikpen U-100) 100 UNIT/ML INSULN.PEN 0 SC TIDAC DIABETES before meals less than 80 mg/dl take cup of apple juice 80-150 4 units 151-200 6 units 201-250 8 units 251-300 10 units 301-350 12 units 351-400 13 units >400 14 units Bedtime 251-300 2 units 301-350 3 units 351-400 4 units >400 5 units Latanoprost 0.005 % DROPS 1 GTT OPH QPM BOTH EYES (Reported) Levetiracetam (Keppra) 500 MG TABLET 1,000 MG PO BID SEIZURE PROPHYLAXIS Memantine HCl (Namenda) 10 MG TABLET 2 TAB PO QHS MEMORY (Reported) Omeprazole Magnesium (Prilosec Otc) 20 MG TABLET.DR 1 TAB PO DAILY ACID REFLUX Polyethylene Glycol 3350 (Miralax) 17 GRAM POWD.PACK 1 PAC PO DAILY GI ( Reported) dissolve in water Tamsulosin HCl (Flomax) 0.4 MG CAP.ER.24H 1 CAP PO DAILY PROSTATE (Reported) Past History Travel History Traveled to [place] past 21 day No Medical History Neurological: dementia EENT: blindness, glaucoma, hearing loss Cardiovascular: hypertension, hyperlipidemia Respiratory: pneumonia Gastrointestinal: umbilical hernia Hepatic: NONE Renal: benign prost hyperplasia, FREQUENT UTI'S Musculoskeletal: degen joint disease, osteoarthritis Psychiatric: NONE Endocrine: diabetes Blood Disorders: anemia Cancer(s): 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 child (dtr/KATT Rafaela Williams & her son) Services at Home: Home Health Aide Primary Language: Chinese, Bol[place]ian Living Will? no Power of Telecommunications Administrator/HCP? yes Name of POA/HCP: Pt/s dtsaba Rafaela Williams [phone] Functional Ability ADLs Needs Assist: dressing, eating, toileting, bathing. Ambulation: non-ambulatory (wheelchair bound) IADLs Needs Assist: shopping, housework, finances, food prep, telephone, transportation, medication admin. Core Measures/Misc (02/02) Cerebrovascular Accident CVA/TIA Diagnosis: No Sepsis (View protocol) Sepsis Present: No
--- NOTE | 2017-07-29 00:27 | History & Physical ---
[facility] General Information and HPI MD Statement: I have seen and personally examined EDILBERTO MARTIN and documented this H&P. The patient is a 82 year old M who presented with a patient stated chief complaint of [unresponsive]. 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 Most of the history obtained from patient's daughter. Patient is able to answer some questions. Patient recently discharged from our hospital at 07/15/2017 after pain management for similar episode of unresponsiveness, CAT scan was done twice which showed meningioma, at that time an EEG was done which was negative for any seizure activity he was seen by neurology service who recommended to start him on Keppra 1000 twice a day, also they recommended to repeat EEG in case he had any repeated episodes of unresponsiveness, patient was also treated for bacteremia he found to grow coagulase negative staph, and gram-positive cocci he is status post 10 day course of Augmentin. He was also noted to have microcytic anemia and he received 1 unit of blood transfusion on the recent admission. Per daughter, after his discharge he went home and he was back to his baseline, however she mentioned that due to his dementia his mental status is waxing and waning, he is bed bound at his baseline since November last year and she attributed that to his blindness he is afraid to move out of the bed. She noticed that he has decrease oral intake since last Friday, today while she is feeding him some soup at dinnertime she tried to communicate with him verbally but he was not responsive for about 20 minutes, she didn't notice any jerky movement, no upper or lower extremity tonic-clonic movements, no tongue biting, he is incontinent at his baseline. Dughter report that he didn't has any difficulty swallowing, no choking episodes while she was feeding him. Patient himself denies any chest pain, shortness of breath, headache, dizziness, nausea, vomiting, abdominal pain and no change in urinary or bowel habits. Of note: Patient refused surgical option for colonic adenocarcinoma, they don't want colostomy or surgery. Allergies/Medications Allergies: Coded Allergies: NO KNOWN ALLERGIES (07/10/17) Home Med list Acetaminophen (Tylenol) 325 MG TABLET 2 TAB PO Q6-PRN PRN PAIN (Reported) Atorvastatin Calcium (Lipitor) 40 MG TABLET 1 TAB PO DAILY CHOLESTEROL ( Reported) Augmentin (Augmentin 500-125 Tablet) 500 MG-125 MG TABLET 500 MG PO Q12 BLOOD INFECTION Cholecalciferol (Vitamin D3) (Vitamin D) 2,000 UNIT CAPSULE 1 CAP PO DAILY SUPPLEMENT (Reported) Docusate Sodium (Colace) 100 MG CAPSULE 2 CAP PO DAILY STOOL SOFTENER ( Reported) Ferrous Sulfate 325 MG (65 MG IRON) TABLET 1 TAB PO BID SUPPLEMENT (Reported) Finasteride 5 MG TABLET 1 TAB PO DAILY PROSTATE (Reported) Insulin Detemir (Levemir) 100 UNIT/ML VIAL 12 UNITS SC BID DIABETES Insulin Lispro (Humalog Kwikpen U-100) 100 UNIT/ML INSULN.PEN 0 SC TIDAC DIABETES before meals less than 80 mg/dl take cup of apple juice 80-150 4 units 151-200 6 units 201-250 8 units 251-300 10 units 301-350 12 units 351-400 13 units >400 14 units Bedtime 251-300 2 units 301-350 3 units 351-400 4 units >400 5 units Latanoprost 0.005 % DROPS 1 GTT OPH QPM BOTH EYES (Reported) Levetiracetam (Keppra) 500 MG TABLET 1,000 MG PO BID SEIZURE PROPHYLAXIS Memantine HCl (Namenda) 10 MG TABLET 2 TAB PO QHS MEMORY (Reported) Omeprazole Magnesium (Prilosec Otc) 20 MG TABLET.DR 1 TAB PO DAILY ACID REFLUX Polyethylene Glycol 3350 (Miralax) 17 GRAM POWD.PACK 1 PAC PO DAILY GI ( Reported) dissolve in water Tamsulosin HCl (Flomax) 0.4 MG CAP.ER.24H 1 CAP PO DAILY PROSTATE (Reported) Past History Travel History Traveled to [place] past 21 day No Medical History Neurological: dementia EENT: blindness, glaucoma, hearing loss Cardiovascular: hypertension, hyperlipidemia Respiratory: pneumonia Gastrointestinal: umbilical hernia Hepatic: NONE Renal: benign prost hyperplasia, FREQUENT UTI'S Musculoskeletal: degen joint disease, osteoarthritis Psychiatric: NONE Endocrine: diabetes Blood Disorders: anemia Cancer(s): NONE 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 child (dtr/POARafaela & her son) Services at Home: Home Health Aide Primary Language: Swazi, Jude Living Will? no Power of Fibre Optic Cable Splicer/HCP? yes Name of POA/HCP: Pt/s dtRafaela walter [phone] Functional Ability ADLs Needs Assist: dressing, eating, toileting, bathing. Ambulation: non-ambulatory (wheelchair bound) IADLs Needs Assist: shopping, housework, finances, food prep, telephone, transportation, medication admin. Review of Systems Review of Systems Constitutional: Reports: no symptoms. EENTM: Reports: no symptoms. Cardiovascular: Reports: no symptoms. Respiratory: Reports: no symptoms. GI: Reports: no symptoms. Neurological/Psychological: Reports: see HPI. Exam & Diagnostic Data Last 24 Hrs of Vital Signs/I&O Vital Signs Date Time Temp Pulse Resp B/P B/P Pulse O2 O2 Flow FiO2 Mean Ox Delivery Rate 07/28 2318 96.7 69 18 160/72 98 Room Air 07/282 99 Room Air 07/289 96.8 86 18 147/77 99 Room Air Intake & Output 07/29 0800 07/29 0000 07/28 1600 Intake Total Output Total Balance Patient 175 lb Weight Weight Estimated Measurement Method Physical Exam General Appearance Alert, Cooperative, No Acute Distress Skin No Rashes, No Breakdown, No Significant Lesion Lymphatic Axillary nl, Cervical nl Cardiovascular Regular Rate, Normal S1, Normal S2 Lungs Clear to Auscultation, Normal Air Movement Abdomen Normal Bowel Sounds, Soft, No Tenderness Neurological Normal Speech, Sensation Intact, Cranial Nerves 3-12 NL, strength is 3 over 5 x4 Ext Extremities No Edema, Normal Pulses Vascular Normal Pulses, Pulses Symmetrical Last 24 Hrs of Labs/Michael: Laboratory Tests 07/28/172158: Urine Color YEL, Urine Clarity CLEAR, Urine pH 6.5, Ur Specific [place] 1.015, Urine Protein NEG, Urine Ketones NEG, Urine Nitrite NEG, Urine Bilirubin NEG, Urine Urobilinogen 1.0, Ur Leukocyte Esterase NEG, Ur Microscopic EXAM NOT REQUIRED, Urine Hemoglobin NEG, Urine Glucose >=1000 H 07/28/172154: Bicarbonate Actual 28 H, Mixed VBG pH 7.33, Mixed VBG pCO2 54 H, Mixed VBG O2 Saturation 24 L, Carboxyhemoglobin 0.9 L, O2 Concentration % R/A, Phlebotomy Draw Site VENOUS 07/28/172139: Anion Gap 13, Estimated GFR 48 L, BUN/Creatinine Ratio 18.6, Glucose 337 H, Calcium 9.5, Total Bilirubin 1.1, AST 38, ALT 42, Alkaline Phosphatase 115, Troponin I < 0.01, Total Protein 7.2, Albumin 4.1, Globulin 3.1, Albumin/ Globulin Ratio 1.3, CBC w Diff NO MAN DIFF REQ, RBC 5.00, MCV 74.1 L, MCH 22.8 L, MCHC 30.8 L, RDW 22.3 H, MPV 10.0, Gran % 66.4, Lymphocytes % 22.1, Monocytes % 6.3, Eosinophils % 4.4, Basophils % 0.8, Absolute Granulocytes 6.0, Absolute Lymphocytes 2.0, Absolute Monocytes 0.6, Absolute Eosinophils 0.4, Absolute Basophils 0.1 Microbiology 07/28 2158 URINE ROUT: Urine Culture - RECD Assessment/Plan Assessment: 82 year old male with a PMH of dementia, history of ESBL/MRSA, legally blind, glaucoma, HTN, HLD, DM, DJD, BPH status post prostatectomy and insomnia, moderately differentiated adenocarcinoma of colon, who presented to the ED after he had an episode of unresponsiveness. Placed under observation to R/O ACS, SEIZURE Assessment and plan He is under observation on telemetry given the episode of unresponsiveness/ syncope versus seizure like activity -Syncope Rule out ACS with troponins and EKG at 3am, 9am groundwater monitoring technician Will repeat EEG to rule out any seizures Neurology consult in a.m. Patient was seen last time by hose seamer (Dr. Alvarez), his most recent echo last month showed normal ejection fraction with no significant abnormalities On neuro checks every 4 Will start his diet from a.m., will place on official swallow eval Patient also could be dehydrated, will start him on IV NS @75ml/hr -Dementia Continue on Namenda 10 mg daily -Diabetes Continue on Levemir 10 units twice a day subcutaneous On Novolin R while nothing by mouth Accu-Cheks every 6 while in by mouth -BPH Continue on tamsulosin 0.4 mg daily, finasteride 5 mg by mouth daily -Glaucoma Continue latanoprost eyedrops -Lipidemia Continue on baby aspirin and atorvastatin 40 mg daily by mouth DVT prophylaxis SC heparin Code Status Confirmed with the daughter, she states that this time she want to keep him full code because she discussed with him and he wants to be alive. As Ranked By This Provider Problem List: 1. Unresponsive episode Core Measures/Misc (02/02) Acute Coronary Syndrome ACS Diagnosis: No Congestive Heart Failure Congestive Heart Failure Diagnosis No Cerebrovascular Accident CVA/TIA Diagnosis: No VTE (View Protocol) VTE Risk Factors Acute Medical Illness No Mechanical VTE Prophylaxis d/t N/A MechProphylax Ordered No VTE Pharm Prophylaxis d/t NA PharmProphylax ordered Sepsis (View protocol) Sepsis Present: No Zuleika Higgins 07/29/17 0422: Attending MD Review Statement Attending Statement Attending MD Statement: examined this patient, discuss w/resident/PA/RETAIL SALES MANAGER, agreed w/resident/PA/RETAIL SALES MANAGER, reviewed EMR data (avail), reviewed images, amended to note Attending Assessment/Plan: CC: short period of unresponsiveness PMH: Dementia, history of MRSA, legally blind, glaucoma, HTN HLD, DM, BPH, S/P TURP, nearly obstructing moderately differentiated adenocarcinoma of transverse colon not treated History is obtained from patient's daughter, she was feeding him something when He suddenly became unresponsive, approximately 20 minutes, not talking to her at all. She immediately called EMS. Patient started conversation 20 minutes later, daughter did not notice any seizure-like activity, patient is blind so unable to address staring spells, patient is incontinent at baseline, he was breathing. In last few days patient's appetite is markedly decreased, otherwise complete ROS unremarkable but limited as patient has dementia. Vitals: Afebrile, pulse 86, RR 18, blood pressure 147/77, saturating 99% on room air. On exam: A O X1, cooperative, no acute distress, neck supple, JVD normal, no lymphadenopathy, mucosa moist, no focal neurological deficit, no dependent edema , no obvious skin rashes or inflammation CVS: S1-S2, RRR. RS: Clear to auscultate bilaterally. Abdomen: Soft, NT, ND, bowel sounds present. CXR: No acute cardiopulmonary findings. Assessment and plan 82-year-old male with multiple comorbidities presented in ER for unresponsive spell for 20 min. Examination is unremarkable. Patient was admitted from July 09 for similar episode, investigated for syncopal episode versus seizure. Neurology consulted at that time suggested to continue Keppra 1 g twice a day, likely seizure secondary to meningioma. They also suggested to repeat EEG if episode recurs. Patient has chronically elevated creatinine and hyperglycemia otherwise labs unremarkable. Patient's unresponsive episode be secondary to syncope plus or minus repeat episode of seizure. Hypoactive delirium secondary to dementia is also a possibility as patient has waxing and waning mental status at home at baseline secondary to his dementia. + Unresponsive episode : syncope and seizure + History of Dementia, history of MRSA, legally blind, glaucoma, HTN HLD, DM, BPH, S/P TURP, nearly obstructing moderately differentiated adenocarcinoma of transverse colon not treated - Place in observation on telemetry - Continuous telemetry monitoring - Serial troponin and EKG - Orthostatic vitals - Cardiology consult - EEG - Neurology consult - Neurochecks - Seizure precaution - Fall precaution - Continue gentle hydration 75 mL normal saline for 1 L - DVT prophylaxis - Adequate pain control - Full code
[2017-07-29 06:21] LABS: ABSOLUTE BASOPHIL COUNT 0.1 /CUMM (0.0-0.2); ABSOLUTE EOSINOPHIL COUNT 0.4 /CUMM (0.0-0.7); ABSOLUTE MONOCYTE COUNT 0.5 /CUMM (0.10-0.60)
[2017-07-29 06:30] LABS: ABSOLUTE GRANULOCYTE CT 4.8 /CUMM (1.4-6.5); ABSOLUTE LYMPH COUNT 2.3 /CUMM (1.2-3.4); EOSINOPHIL % 5.4 % (0-5); GRANULOCYTE % 59.5 % (42.2-75.2); MEAN CORPUSCULAR HGB CONC 31.1 G/DL (33.0-37.0); MEAN CORPUSCULAR VOLUME 73.9 FL (80.0-94.0); MEAN PLATELET VOLUME 9.7 FL (7.4-10.4); PLATELET COUNT 202 /CUMM (130-400); RED BLOOD CELL CT 4.18 /CUMM (4.70-6.10); WHITE BLOOD CELL COUNT 8.1 /CUMM (4.8-10.8)
[2017-07-29 06:32] LABS: HEMATOCRIT 30.9 % (42-52)
[2017-07-29 09:20] VITALS: BP 140/76
--- NOTE | 2017-07-29 14:27 | Cons- Neurology ---
General Information and HPI Consulting Request Date of Consult: 07/29/17 Requested By: Andre Berumen MD Reason for Consult: Recurrent change in mental status Source of Information: family, old records Exam Limitations: dementia History of Present Illness: 82 year old man with multiple comorbid disease, poorly defined dementia and blindness x 20 years, presenting back to the hospital due to unresponsiveness. He was at home, and his daughter was feeding him, when he suddenly stopped talking and seemed fazed. His eyes were moving rapidly under his eyelids. He was not shaking and was not stiff. His daughter attempted to wake him up, even slapping his face, but to no avail. EMS was called and he was still obtunded. He was also incontinent to stool, not urine. He did not bite his tongue. He came back to it when he reached the ER. According to the hospitalist the patient has been admitted in the past for this and EEGs were negative. According to his dedicated daughter, he has major fluctuations in mental status where at times he seems so lucid as if he does not have dementia. Further, she admits he has visual hallucinations of "little people". Allergies/Medications Allergies: Coded Allergies: NO KNOWN ALLERGIES (07/10/17) Home Med List: Acetaminophen (Tylenol) 325 MG TABLET 2 TAB PO Q6-PRN PRN PAIN (Reported) Atorvastatin Calcium (Lipitor) 40 MG TABLET 1 TAB PO DAILY CHOLESTEROL ( Reported) Augmentin (Augmentin 500-125 Tablet) 500 MG-125 MG TABLET 500 MG PO Q12 BLOOD INFECTION Cholecalciferol (Vitamin D3) (Vitamin D) 2,000 UNIT CAPSULE 1 CAP PO DAILY SUPPLEMENT (Reported) Docusate Sodium (Colace) 100 MG CAPSULE 2 CAP PO DAILY STOOL SOFTENER ( Reported) Ferrous Sulfate 325 MG (65 MG IRON) TABLET 1 TAB PO BID SUPPLEMENT (Reported) Finasteride 5 MG TABLET 1 TAB PO DAILY PROSTATE (Reported) Insulin Detemir (Levemir) 100 UNIT/ML VIAL 12 UNITS SC BID DIABETES Insulin Lispro (Humalog Kwikpen U-100) 100 UNIT/ML INSULN.PEN 0 SC TIDAC DIABETES before meals less than 80 mg/dl take cup of apple juice 80-150 4 units 151-200 6 units 201-250 8 units 251-300 10 units 301-350 12 units 351-400 13 units >400 14 units Bedtime 251-300 2 units 301-350 3 units 351-400 4 units >400 5 units Latanoprost 0.005 % DROPS 1 GTT OPH QPM BOTH EYES (Reported) Levetiracetam (Keppra) 500 MG TABLET 1,000 MG PO BID SEIZURE PROPHYLAXIS Memantine HCl (Namenda) 10 MG TABLET 2 TAB PO QHS MEMORY (Reported) Omeprazole Magnesium (Prilosec Otc) 20 MG TABLET.DR 1 TAB PO DAILY ACID REFLUX Polyethylene Glycol 3350 (Miralax) 17 GRAM POWD.PACK 1 PAC PO DAILY GI ( Reported) dissolve in water Tamsulosin HCl (Flomax) 0.4 MG CAP.ER.24H 1 CAP PO DAILY PROSTATE (Reported) Current Medications: Current Medications Sig/Zoe Start time Last Medication Dose Route Stop Time Status Admin Atorvastatin Calcium 40 MG 1700 07/29 1700 AC PO Cholecalciferol 1,000 IU DAILY 07/29 1000 AC 07/29 PO 1153 Ferrous Sulfate 325 MG BID 07/29 1000 AC 07/29 PO 1153 Heparin Sodium 0 .STK-MED ONE 07/29 06 DC (Porcine) .ROUTE Heparin Sodium 5,000 UNIT Q8 07/29 0600 AC 07/29 (Porcine) SC 0630 Insulin Aspart 0 TIDAC 07/29 0800 AC 07/29 SC 1223 Insulin Detemir 12 UNITS BID 07/29 1000 AC 07/29 SC 1216 Latanoprost 1 GTT QPM 07/29 2200 AC OPH Levetiracetam 1,000 MG BID 07/29 0124 AC 07/29 PO 1153 Memantine 20 MG AT BEDTIME 07/29 2200 AC PO Omeprazole 20 MG DAILY AC 07/29 0700 AC 07/29 PO 0630 Omeprazole 0 .STK-MED ONE 07/29 0633 DC PO Polyethylene Glycol 17 GM DAILY 07/29 1000 AC 07/29 PO 1154 Sodium Chloride 1,000 ML Q13H 07/29 0730 AC 07/29 IV 0841 Sodium Chloride 1,000 ML Q13H 07/29 0015 DC 07/29 IV 07/29 1314 0127 Sodium Chloride 1,000 ML BOLUS ONE 07/28 2145 DC 07/28 IV 07/28 2244 2202 Sodium Chloride 1,000 ML BOLUS ONE 07/28 2145 DC 07/28 IV 07/28 2244 2202 Tamsulosin HCl 0.4 MG DAILY 07/29 1000 AC 07/29 PO 1155 Review of Systems Review of Systems: As per HPI. 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 child (dtr/Rafaela BOLIVAR & her son) Services at Home: Home Health Aide Primary Language: Estonian, Slovenian Smoking Status: Unknown If Ever Smoked Living Will? no Power of Powder Blender And Pourer/HCP? yes Name of POA/HCP: Pt/s dtRafaela walter [phone] Functional Ability ADLs Needs Assist: dressing, eating, toileting, bathing. Ambulation: non-ambulatory (wheelchair bound) IADLs Needs Assist: shopping, housework, finances, food prep, telephone, transportation, medication admin. Exam & Diagnostic Data Vital Signs and I&O Vital Signs Date Time Temp Pulse Resp B/P B/P Pulse O2 O2 Flow FiO2 Mean Ox Delivery Rate 07/29 1155 97.7 75 20 140/76 07/29 0920 97.7 75 20 140/76 97 Room Air Room Air 07/29 0758 75 17 138/81 99 Room Air 07/29 0716 96 Room Air 07/29 0629 97.2 07/29 0538 71 20 156/75 100 Room Air 07/29 0430 97 Room Air 07/28 2318 96.7 69 18 160/72 98 Room Air 07/28 2202 99 Room Air 07/28 2129 96.8 86 18 147/77 99 Room Air Intake & Output 07/29 1600 07/29 0800 07/29 0000 Intake Total 360 Output Total 300 1200 Balance 60 -1200 Intake, Oral 360 Output, Urine 300 1200 Patient 175 lb Weight Weight Estimated Measurement Method Physical Exam: He is alert with eyes closed. When opens eys the cornea is opacified with a dense cataract bilateraly. Face is symmetric. He can chew and swallow fine. Tongue midline. Right arm is stiffer than left. No rest tremor. No clear coghweeling. Legs are stiff (does not walk). Can move all limbs equally. Rest of exam was deferred due to his condition. Last 48 Hours of Lab Results: Laboratory Tests 07/29 07/29 07/29 1125 0900 0550 Chemistry Sodium (137 - 145 mmol/L) 140 Potassium (3.5 - 5.1 mmol/L) 4.5 Chloride (98 - 107 mmol/L) 105 Carbon Dioxide (22 - 30 mmol/L) 27 Anion Gap (5 - 16) 7 BUN (9 - 20 mg/dL) 20 Creatinine (0.7 - 1.2 mg/dL) 1.1 Estimated GFR (>60 ml/min) > 60 BUN/Creatinine Ratio (7 - 25 %) 18.2 Troponin I (<0.11 ng/ml) < 0.01 Cancelled < 0.01 Hematology CBC w Diff NO MAN DIFF REQ WBC (4.8 - 10.8 /CUMM) 8.1 RBC (4.70 - 6.10 /CUMM) 4.18 L Hgb (14.0 - 18.0 G/DL) 9.6 L Hct (42 - 52 %) 30.9 L MCV (80.0 - 94.0 FL) 73.9 L MCH (27.0 - 31.0 PG) 23.0 L MCHC (33.0 - 37.0 G/DL) 31.1 L RDW (11.5 - 14.5 %) 22.0 H Plt Count (130 - 400 /CUMM) 202 MPV (7.4 - 10.4 FL) 9.7 Gran % (42.2 - 75.2 %) 59.5 Lymphocytes % (20.5 - 51.1 %) 28.1 Monocytes % (1.7 - 9.3 %) 6.0 Eosinophils % (0 - 5 %) 5.4 H Basophils % (0.0 - 2.0 %) 1.0 Absolute Granulocytes (1.4 - 6.5 /CUMM) 4.8 Absolute Lymphocytes (1.2 - 3.4 /CUMM) 2.3 Absolute Monocytes (0.10 - 0.60 /CUMM) 0.5 Absolute Eosinophils (0.0 - 0.7 /CUMM) 0.4 Absolute Basophils (0.0 - 0.2 /CUMM) 0.1 07/29 07/28 07/28 0436 2159 2155 Blood Gas Bicarbonate Actual (22 - 26 MEQ/L) 28 H Mixed VBG pH (7.31 - 7.41 PH) 7.33 Mixed VBG pCO2 (41 - 51 TORR) 54 H Mixed VBG O2 Saturation (35 - 45 TORR) 24 L Carboxyhemoglobin (1.5 - 5.0 %) 0.9 L O2 Concentration % R/A Chemistry Troponin I Cancelled Miscellaneous Phlebotomy Draw Site VENOUS Urines Urine Color (YEL,AMB,STR) YEL Urine Clarity (CLEAR) CLEAR Urine pH (5.0 - 8.0) 6.5 Ur Specific [employer] (1.001 - 1.035) 1.015 Urine Protein (NEG,<30 MG/DL) NEG Urine Ketones (NEG) NEG Urine Nitrite (NEG) NEG Urine Bilirubin (NEG) NEG Urine Urobilinogen (0.1 - 1.0 EU/dl) 1.0 Ur Leukocyte Esterase (NEG) NEG Ur Microscopic EXAM NOT REQUIRED Urine Hemoglobin (NEG) NEG Urine Glucose (N MG/DL) >=1000 H 07/29 2139 Chemistry Sodium (137 - 145 mmol/L) 137 Potassium (3.5 - 5.1 mmol/L) 4.9 Chloride (98 - 107 mmol/L) 98 Carbon Dioxide (22 - 30 mmol/L) 27 Anion Gap (5 - 16) 13 BUN (9 - 20 mg/dL) 26 H Creatinine (0.7 - 1.2 mg/dL) 1.4 H Estimated GFR (>60 ml/min) 48 L BUN/Creatinine Ratio (7 - 25 %) 18.6 Glucose (65 - 99 mg/dL) 337 H Calcium (8.4 - 10.2 mg/dL) 9.5 Total Bilirubin (0.2 - 1.3 mg/dL) 1.1 AST (17 - 59 U/L) 38 ALT (21 - 72 U/L) 42 Alkaline Phosphatase (< 127 U/L) 115 Troponin I (<0.11 ng/ml) < 0.01 Total Protein (6.3 - 8.2 g/dL) 7.2 Albumin (3.5 - 5.0 g/dL) 4.1 Globulin (1.9 - 4.2 gm/dL) 3.1 Albumin/Globulin Ratio (1.1 - 2.2 %) 1.3 Hematology CBC w Diff NO MAN DIFF REQ WBC (4.8 - 10.8 /CUMM) 9.0 RBC (4.70 - 6.10 /CUMM) 5.00 Hgb (14.0 - 18.0 G/DL) 11.4 L Hct (42 - 52 %) 37.0 L MCV (80.0 - 94.0 FL) 74.1 L MCH (27.0 - 31.0 PG) 22.8 L MCHC (33.0 - 37.0 G/DL) 30.8 L RDW (11.5 - 14.5 %) 22.3 H Plt Count (130 - 400 /CUMM) 233 MPV (7.4 - 10.4 FL) 10.0 Gran % (42.2 - 75.2 %) 66.4 Lymphocytes % (20.5 - 51.1 %) 22.1 Monocytes % (1.7 - 9.3 %) 6.3 Eosinophils % (0 - 5 %) 4.4 Basophils % (0.0 - 2.0 %) 0.8 Absolute Granulocytes (1.4 - 6.5 /CUMM) 6.0 Absolute Lymphocytes (1.2 - 3.4 /CUMM) 2.0 Absolute Monocytes (0.10 - 0.60 /CUMM) 0.6 Absolute Eosinophils (0.0 - 0.7 /CUMM) 0.4 Absolute Basophils (0.0 - 0.2 /CUMM) 0.1 Imaging/Other Studies: Recent MRI brain>> IMPRESSION: - No acute intracranial findings. No acute infarct - There is a stable appearing 3.7 cm AP by 1.8 cm TV meningioma along the anterior right frontal convexity that results in mild mass effect on the adjacent right frontal lobe. There is no adjacent parenchymal edema. - Global cerebral volume loss and moderate chronic microangiopathy. Assessment/Plan Assessment: 82 year old man with recurrent episodic unresponsiveness. These events are not clearly seizures per the described semiology and could even be as simple as vasovagal events. However, being that he has likely Lewy body dementia (or any dementia) and a large meningioma skimming his frontal lobe, the possibility of these events being seizures cannot be ignored. Previous EEGs have been normal, however, the sensitivity of a short EEG is 30% to orange picker machine operator abnormalities. He cannot have a 24 hour EEG as he will surely pul the leads off. Recommendations: Therefore recommend another EEG. If we cannot draw clear concusions may recommend starting Depakote ER 500mg daily empirically to see if this can prevent these events clinically. Consult Acknowledgment - Thank you for your consult request.
--- NOTE | 2017-07-29 14:35 | PN- Att Addend ---
Attending Addendum Attending Brief Note Patient seen and examined. History and physical done earlier on today noted. I did speak in detail with the patient's daughter. Case also discussed with the neurology service. Patient is lying in bed and not in acute distress. He is alert and oriented 3. Denies any chest pain or shortness of breath. Denies any dizziness. On examination he is legally blind. He is able to move all extremities spontaneously and to command although very weakly. He requires assistance with movement. I did speak with his daughter. She reports that patient was in his usual state of health yesterday when he suddenly became nonverbal. She reports that he appeared awake but did not respond to command. This lasted several minutes before he was eventually brought to the hospital for evaluation. He had similar episode last month. He was evaluated by the cardiology and neurology service. no significant arrhythmia was identified. He was started on Keppra by the neurology service for presumed seizure. It is unclear the cause of his unresponsive episode yesterday. It may be related seizures. An EEG has been ordered again. Also within differential is hypoactive delirium. This may have been brought on by dehydration as patient did present with evidence of acute kidney injury and prerenal azotemia. His renal function has improved today. Recommendations: -Awaiting EEG. Neurology consultation appreciated. There is consideration of switching patient to Depakote ER. -Discontinue IV fluids. Ensure adequate oral intake. -Continue his home insulin regimen with sliding scale coverage. Monitor glucose levels closely. -Patient has chronic anemia. He has history of colon adenocarcinoma for which family declined any treatment. No evidence of active bleeding at present. -Patient will remain in the hospital today for continued telemetry monitoring to rule out arrhythmias and to obtain his EEG. -If no events overnight and patient remains clinically stable we may anticipate discharge tomorrow. -Mobilize patient as tolerated.
--- NOTE | 2017-07-29 14:55 | Patient Discharge Instructions ---
Discharge Instructions General Discharge Information You were seen/treated for: Syncope Seizures Watch for these problems: Loss of consciousness Unresponsive Chest pain Palpitations Special Instructions: Please follow-up with neurologist as an outpatient. Please follow-up with primary care physician as an outpatient. Diet Continue normal diet: Yes Activity Activity Self Limited: Yes Acute Coronary Syndrome Inclusion Criteria At DC or during hospital stay patient has or had the following: ACS DIAGNOSIS No Discharge Core Measures Meds if any: Prescribed or Continued at Discharge Meds if any: NOT Prescribed or Continued at Discharge Congestive Heart Failure Inclusion Criteria At DC or during hospital stay patient has or had the following: CHF DIAGNOSIS No Discharge Core Measures Meds if any: Prescribed or Continued at Discharge Meds if any: NOT Prescribed or Continued at Discharge Cerebrovascular accident Inclusion Criteria At DC or during hospital stay patient has or had the following: CVA/TIA Diagnosis No Discharge Core Measures Meds if any: Prescribed or Continued at Discharge Meds if any: NOT Prescribed or Continued at Discharge Venous thromboembolism Inclusion Criteria VTE Diagnosis No VTE Type NONE VTE Confirmed by (Test) NONE Discharge Core Measures - Per Current guidelines, there needs to be overlap - treatment for the first 5 days of Warfarin therapy. - If discharged on Warfarin prior to 5 days of - overlap therapy, the patient will need to be - assessed for post discharge needs including - *Post discharge parental anticoagulation - *Warfarin and/or parental anticoagulation education - *Follow up date to check INR post discharge At least 5 days overlap therapy as Inpatient No Meds if any: Prescribed or Continued at Discharge Note: Overlap Therapy is Warfarin and Anticoagulant Meds if any: NOT Prescribed or Continued at Discharge
[2017-07-29 15:18] VITALS: BP 130/70
[2017-07-29 21:57] VITALS: BP 128/60
[2017-07-30 06:54] VITALS: BP 156/80
--- NOTE | 2017-07-30 07:35 | PN-Observation ---
Dari SALINAS,Lizet 07/30/17 0735: Observation Note Observation Note _ I have personally examined EDILBERTO MARTIN. him disposition is uncertain at this time. Before a determination can be made, he requires continued observation for the following reasons [EEG]. 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 At presentation physical exam is unremarkable. Patient was admitted from July 09 for similar episode, investigated for syncopal episode vs seizure. Neurology consulted at that time suggested to continue Keppra 1 g twice a day, likely seizure secondary to meningioma. Possible etiology Patient's unresponsive episode be secondary to syncope plus or minus repeat episode of seizure. Hypoactive delirium secondary to dementia is also a possibility as patient has waxing and waning mental status at home at baseline secondary to his dementia. Problem list Unresponsive episode : syncope and seizure History of Dementia legally blind Glaucoma, continue to observe in telemetry floor due to consideration of seizure. Plan Unresposive episode Possible etiology is vasovagal episodes. Need to rule out seizures given meningioma history. 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 * EEG ruled out seizure, did show mild slowing in background suggestive of neurodegenerative condition. * Continue keppra. 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 - DVT prophylaxis - Adequate pain control - Full code Problem List: 1. Unresponsive episode 2. Seizure Plan: Tylenol prn DVT/Prophylaxis: mechanical Consulting Request: Consulting Specialty: Neurology Discharge Plan Discharge Disposition: home Stable for Discharge? Yes Anticipated Discharge (Day): today Subjective Follow-up For: Unresponsive episode Possible seizures Subjective: seen and examined He is lying in the bed. Able to say his name and date of . when trying to communicate, started speaking in different language. Unable to elicit any information. Review of Systems Constitutional: Reports: see HPI. Comments: ROS cannot be elicited due to clinical condition Objective Last 24 Hrs of Vital Signs/I&O Vital Signs Date Time Temp Pulse Resp B/P B/P Pulse O2 O2 Flow FiO2 Mean Ox Delivery Rate 07/30 0654 98.5 91 20 156/80 97 Room Air 07/29 2157 97.4 90 20 128/60 94 07/29 1518 98.0 77 20 130/70 95 07/29 1155 97.7 75 20 140/76 07/29 0920 97.7 75 20 140/76 97 Room Air Room Air 07/29 0758 75 17 138/81 99 Room Air Intake & Output 07/30 0800 07/30 0000 07/29 1600 Intake Total 110 100 910 Output Total 875 Balance 110 100 35 Intake, IV 10 300 Intake, Oral 100 100 610 Number 2 1 Bowel Movements Output, Urine 875 Physical Exam General Appearance: Alert Skin: No Rashes, No Breakdown HEENT: Atraumatic, PERRLA, EOMI Neck: Supple, No JVD Cardiovascular: Normal S1, Normal S2 Lungs: Clear to Auscultation, Normal Air Movement Abdomen: Normal Bowel Sounds, Soft, No Tenderness Neurological: unable to elicit Extremities: No Clubbing, No Cyanosis Current Medications: Current Medications Sig/Zoe Start time Last Medication Dose Route Stop Time Status Admin Atorvastatin Calcium 40 MG 1700 07/29 1700 AC 07/29 PO 1625 Cholecalciferol 1,000 IU DAILY 07/29 1000 AC 07/30 PO 0900 Ferrous Sulfate 325 MG BID 07/29 1000 AC 07/30 PO 0900 Heparin Sodium 5,000 UNIT Q8 07/29 0600 AC 07/30 (Porcine) SC 0537 Insulin Aspart 0 TIDAC 07/29 0800 AC 07/30 SC 1205 Insulin Detemir 12 UNITS BID 07/29 1000 AC 07/30 SC 0848 Latanoprost 1 GTT QPM 07/29 2200 AC 07/29 OPH 2136 Levetiracetam 1,000 MG BID 07/29 0124 AC 07/30 PO 0900 Memantine 20 MG AT BEDTIME 07/29 2200 AC 07/29 PO 2136 Omeprazole 20 MG DAILY AC 07/29 0700 AC 07/30 PO 0537 Polyethylene Glycol 17 GM DAILY 07/29 1000 AC 07/30 PO 0900 Tamsulosin HCl 0.4 MG DAILY 07/29 1000 AC 07/30 PO 0900 Last 24 Hrs of Labs/Mics: Laboratory Tests 07/30/17 0835: Anion Gap 7, Estimated GFR 58 L, BUN/Creatinine Ratio 16.7 07/30/17 0635: CBC w Diff NO MAN DIFF REQ, RBC 4.48 L, MCV 73.2 L, MCH 22.6 L, MCHC 30.9 L, RDW 22.2 H, MPV 10.3, Gran % 59.2, Lymphocytes % 29.6, Monocytes % 5.4, Eosinophils % 4.9, Basophils % 0.9, Absolute Granulocytes 4.5, Absolute Lymphocytes 2.2, Absolute Monocytes 0.4, Absolute Eosinophils 0.4, Absolute Basophils 0.1 07/29/17 1500: Troponin I Cancelled Davon West MD 07/30/17 1201: Observation Note Observation Note _ I have personally examined EDILBERTO MARTIN. him disposition is uncertain at this time. Before a determination can be made, he requires continued observation for the following reasons []. Patient seen and examined. Resting comfortably not in any acute distress. No issues overnight reported by nursing staff. No events on telemetry monitoring. He is alert but does have periods of confusion. He is moving all extremities spontaneously but very slowly. Awaiting results of EEG and neurology follow-up. Recommendations: -Follow-up EEG results. Follow-up with the neurology service regarding recommendations for antiepileptic therapy. -Physical therapy consultation for discharge planning. -Patient may be discharged later on today after above.
[2017-07-30 08:16] LABS: ABSOLUTE BASOPHIL COUNT 0.1 /CUMM (0.0-0.2); ABSOLUTE EOSINOPHIL COUNT 0.4 /CUMM (0.0-0.7); ABSOLUTE GRANULOCYTE CT 4.5 /CUMM (1.4-6.5); ABSOLUTE LYMPH COUNT 2.2 /CUMM (1.2-3.4); ABSOLUTE MONOCYTE COUNT 0.4 /CUMM (0.10-0.60); BASOPHIL % 0.9 % (0.0-2.0); EOSINOPHIL % 4.9 % (0-5); GRANULOCYTE % 59.2 % (42.2-75.2); HEMATOCRIT 32.8 % (42-52); MEAN CORPUSCULAR HGB 22.6 PG (27.0-31.0); MEAN CORPUSCULAR HGB CONC 30.9 G/DL (33.0-37.0); MEAN CORPUSCULAR VOLUME 73.2 FL (80.0-94.0); MEAN PLATELET VOLUME 10.3 FL (7.4-10.4); PLATELET COUNT 226 /CUMM (130-400); RBC DISTRIBUTION WIDTH 22.2 % (11.5-14.5); RED BLOOD CELL CT 4.48 /CUMM (4.70-6.10); WHITE BLOOD CELL COUNT 7.6 /CUMM (4.8-10.8)
[2017-07-30 16:49] VITALS: BP 110/70
--- NOTE | 2017-07-30 17:49 | ELECTROENCEPHALOGRAM REPORT ---
Electroencephalogram Report Electroencephalogram Results Date of service: 07/30/17 Attending MD: Andre Berumen MD Eyeglass Lens Cutter: Harjinder EEG Number: [id number] Test Utilizes: 10-20 system, 21 lead 18 channel digital recording Pertinent Hx/Physical/Neuro Findings/Clin Diagnosis: Recurrent episodes of change in mental status. Inpatient Medications: Current Medications Sig/Zoe Start time Last Medication Dose Route Stop Time Status Admin Atorvastatin Calcium 40 MG 1700 07/29 1700 AC 07/30 PO 1708 Cholecalciferol 1,000 IU DAILY 07/29 1000 AC 07/30 PO 0900 Ferrous Sulfate 325 MG BID 07/29 1000 AC 07/30 PO 0900 Heparin Sodium 5,000 UNIT Q8 07/29 0600 AC 07/30 (Porcine) SC 1710 Insulin Aspart 0 TIDAC 07/29 0800 AC 07/30 SC 1711 Insulin Detemir 12 UNITS BID 07/29 1000 AC 07/30 SC 0848 Latanoprost 1 GTT QPM 07/29 2200 AC 07/29 OPH 2136 Levetiracetam 1,000 MG BID 07/29 0124 AC 07/30 PO 0900 Memantine 20 MG AT BEDTIME 07/29 2200 AC 07/29 PO 2136 Omeprazole 20 MG DAILY AC 07/29 0700 AC 07/30 PO 0537 Polyethylene Glycol 17 GM DAILY 07/29 1000 AC 07/30 PO 0900 Tamsulosin HCl 0.4 MG DAILY 07/29 1000 AC 07/30 PO 0900 Interpretation: The recording demonstrates a reduction in the usual frequency gradient. Throughout most of the study the patient was either drowsy or asleep and as expected the majority of the background rhythms are an intermixed theta and delta rhythms. At times during short intervals of wakefulness the rhythms belt picker to a low alpha with the posterior dominant rhythm peaking at 8 herzt. There is relative slowing within the left >right temporal lobes during wakefulness. There amplitude is also very low in the 5-10 microvolt range. No paroxysmal sharps or spikes were recorded. Impression: Recording suggestive of mild slowing of the backgrounds and focal slowing within the temporal lobes that could be compatible with a neurodegenerative condition. No suggestion of seizure activity.
== END 2017-07-30 19:52 ==
LOC: ERH 21:20 → 1NO 23:11 → ERHI 23:11 → ENRESERV 07-29 07:23 → ERHI 07-29 07:50 → ENTRNSPT 07-29 09:00 → EDTRNSPT 07-29 09:12 → EDTRNSPTSTS 07-29 09:12 → 1NO 07-29 09:18 → CMPTRNSPT 07-29 09:36 → ENPENDDIS 07-30 19:10 → 1NO 07-30 19:52
PROVIDERS: Emergency Medicine; Internal Medicine Hematology & Oncology; Student in an Organized Health Care Education/Training Program
DX: R55 Syncope and collapse (principal); F03.90 Unspecified dementia, unspecified severity, without behavioral disturbance, psychotic disturbance, mood disturbance, and anxiety; Z86.14 Personal history of Methicillin resistant Staphylococcus aureus infection; H54.8 Legal blindness, as defined in USA; H40.9 Unspecified glaucoma; I10 Essential (primary) hypertension; E78.5 Hyperlipidemia, unspecified; E11.9 Type 2 diabetes mellitus without complications; Z79.4 Long term (current) use of insulin; M19.90 Unspecified osteoarthritis, unspecified site; N40.0 Benign prostatic hyperplasia without lower urinary tract symptoms; G47.00 Insomnia, unspecified; R56.9 Unspecified convulsions; D32.0 Benign neoplasm of cerebral meninges; Z85.038 Personal history of other malignant neoplasm of large intestine; D64.9 Anemia, unspecified; Z87.440 Personal history of urinary (tract) infections
CPT/HCPCS: 36592; 71045; 81003; 82436; 87086; 92610-GN; 93005; 93010; 95816; 96360; 96361; 96372; 97161-GP; 97530-GP; 99291; G0378; G8978-GP; G8979-GP; G8980-GP; G8996-GN; G8997-GN; G8998-GN; J1644

== ENCOUNTER 2017-08-05 18:01 | Inpatient (IN) | payer OTHER ==
[~2017-08-05] VITALS: Ht 167.6 cm; Wt 70.5 kg
--- NOTE | 2017-08-05 18:29 | ED AMS/SEIZURE/WEAK/DIZZY ---
History of Present Illness General Chief Complaint: Altered Mental Status Stated Complaint: BIBA FOR ALTERED MENTAL STATUS Source: patient Exam Limitations: no limitations Vital Signs & Intake/Output Vital Signs & Intake/Output Vital Signs Date Time Temp Pulse Resp B/P B/P Pulse O2 O2 Flow FiO2 Mean Ox Delivery Rate 08/05 1953 98.7 84 18 139/72 94 Room Air 08/05 1824 94 08/05 1808 97.8 98 18 137/78 94 Room Air Room Air Allergies Coded Allergies: NO KNOWN ALLERGIES (07/10/17) Reconcile Medications Acetaminophen (Tylenol) 325 MG TABLET 2 TAB PO Q6-PRN PRN PAIN (Reported) Atorvastatin Calcium (Lipitor) 40 MG TABLET 1 TAB PO DAILY CHOLESTEROL ( Reported) Cholecalciferol (Vitamin D3) (Vitamin D) 2,000 UNIT CAPSULE 1 CAP PO DAILY SUPPLEMENT (Reported) Docusate Sodium (Colace) 100 MG CAPSULE 2 CAP PO DAILY STOOL SOFTENER ( Reported) Ferrous Sulfate 325 MG (65 MG IRON) TABLET 1 TAB PO BID SUPPLEMENT (Reported) Finasteride 5 MG TABLET 1 TAB PO DAILY PROSTATE (Reported) Insulin Detemir (Levemir) 100 UNIT/ML VIAL 12 UNITS SC BID DIABETES Insulin Lispro (Humalog Kwikpen U-100) 100 UNIT/ML INSULN.PEN 0 SC TIDAC DIABETES before meals less than 80 mg/dl take cup of apple juice 80-150 4 units 151-200 6 units 201-250 8 units 251-300 10 units 301-350 12 units 351-400 13 units >400 14 units Bedtime 251-300 2 units 301-350 3 units 351-400 4 units >400 5 units Latanoprost 0.005 % DROPS 1 GTT OPH QPM BOTH EYES (Reported) Levetiracetam (Keppra) 500 MG TABLET 1,000 MG PO BID SEIZURE PROPHYLAXIS Memantine HCl (Namenda) 10 MG TABLET 2 TAB PO QHS MEMORY (Reported) Omeprazole Magnesium (Prilosec Otc) 20 MG TABLET.DR 1 TAB PO DAILY ACID REFLUX Polyethylene Glycol 3350 (Miralax) 17 GRAM POWD.PACK 1 PAC PO DAILY GI ( Reported) dissolve in water Tamsulosin HCl (Flomax) 0.4 MG CAP.ER.24H 1 CAP PO DAILY PROSTATE (Reported) Triage Nurses Notes Reviewed? yes Onset: Abrupt Duration: day(s): (2), changing over time, continues in ED, getting worse Timing: single episode today Injury Environment: home Severity: moderate, severe No Modifying Factors: none HPI: 82-year-old male past medical history of dementia, colon cancer, hypertension, hyperlipidemia, diabetes, blindness, seizure disorder presents for evaluation of altered mental status. Patient's daughter reports that over the past 2 days has been more lethargic than usual and not eating. She states that today he had a low-grade temperature. He normally is able to eat normally and converse. He is unable to provide any history due to mental status. There is been no vomiting diarrhea hemoptysis or lower extremity edema. Patient currently HAs colon cancer is not being treated. (Landry Terrell) Past History Travel History Traveled to [place] past 21 day No Medical History Any Pertinent Medical History? 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 No (Landry Terrell) Review of Systems Review of Systems Constitutional: Reports: fever. EENTM: Reports: no symptoms. Respiratory: Reports: no symptoms. Cardiovascular: Reports: no symptoms. GI: Reports: no symptoms. Genitourinary: Reports: no symptoms. Musculoskeletal: Reports: no symptoms. Skin: Reports: no symptoms. Neurological/Psychological: Reports: see HPI, confusion, dementia. Hematologic/Endocrine: Reports: no symptoms. Immunologic/Allergic: Reports: no symptoms. All Other Systems: Reviewed and Negative (Landry Terrell) Physical Exam Physical Exam General Appearance: well developed/nourished, no apparent distress, lethargic, RESPONSIVE TO PAINFUL STIMULI ONLY Head: atraumatic, normal appearance Eyes: Bilateral: EOMI, other (CATARACTS). Ears, Nose, Throat: normal pharynx, normal ENT inspection Neck: normal inspection, supple, full range of motion Respiratory: normal breath sounds, chest non-tender, no respiratory distress, lungs clear Cardiovascular: regular rate/rhythm, normal peripheral pulses Peripheral Pulses: 2+ radial (R), 2+ radial (L) Gastrointestinal: soft, non-tender Back: normal inspection, normal range of motion, no vertebral tenderness Extremities: MOVING ALL EXTREMITIES EQUALLY Neurologic/Psych: no motor/sensory deficits, BASELINE DEMENTIA. oN INITIAL EVALUATION PATIENT IS RESPONSIVE TO PAINFUL STIMULI ONLY NOT FOLLOWING COMMANDS Skin: intact, normal color, warm/dry Lymphatic: no anterior cervical bora Core Measures ACS in differential dx? No CVA/TIA Diagnosis No Sepsis Present: No Sepsis Focused Exam Completed? Yes (Landry Terrell) ED Sepsis Exam Date of Focused Sepsis Exam: 08/05/17 Time of Focused Sepsis Exam: 1929 Sepsis Cardiac Exam: Regular Rate/Rhythm Sepsis Resp Exam: CTA Sepsis Cap Refill Exam: <2 Sec Sepsis Peripheral Pulse Exam: Normal Sepsis Peripheral Pulse Location: Radial Sepsis Skin Color Exam: Normal for Ethnicity Skin Temp/Moisture Exam: Warm/Dry (Landry Terrell) Progress Differential Diagnosis: arrythmia, anemia, CVA/stroke, dehydration, drug intoxication, electrolyte imbalance, GI bleed, intracranial Hem., intracranial mass/tumor, migraine LAST, pneumonia, postural hypotension, sepsis, UTI/pyelo Plan of Care: Orders Procedure Date/time Status Consistent Carbohydrate 1 08/06 B Active Misc Message 08/06 2139 Active ED Holding Orders 08/06 2139 Active Admit to inpatient 08/06 2139 Active Vital Signs 08/06 2139 Active Code Status 08/06 2139 Active Patient Data 08/05 2126 Active LACTIC ACID 08/05 210 Complete Straight Cath 08/05 1829 Active BLOOD CULTURE 08/05 1829 Active URINALYSIS 08/05 180 Complete TROPONIN LEVEL 08/05 1805 Complete LACTIC ACID 08/05 180 Complete COMPREHENSIVE METABOLIC PANEL 08/05 180 Complete CBC WITHOUT DIFFERENTIAL 08/05 180 Complete EKG 08/05 180 Active Current Medications Sig/Zoe Start time Last Medication Dose Stop Time Status Admin Azithromycin 500 MG ONCE ONE 08/05 2044 AC 08/05 (Zithromax) 08/05 Dextrose/Water 250 ML (D5W) Laboratory Tests 08/05/172104: Lactic Acid 2.1 08/05/171938: Urine Color YEL, Urine Clarity CLEAR, Urine pH 6.0, Ur Specific [place] 1.020, Urine Protein NEG, Urine Ketones NEG, Urine Nitrite NEG, Urine Bilirubin NEG, Urine Urobilinogen 0.2, Ur Leukocyte Esterase NEG, Ur Microscopic SEDIMENT EXAMINED, Urine RBC 1-3, Urine WBC RARE, Ur Epithelial Cells RARE, Urine Mucus RARE, Urine Hemoglobin TRACE-INTACT H, Urine Glucose >=1000 H 08/05/171818: Anion Gap 13, Estimated GFR 45 L, BUN/Creatinine Ratio 27.3 H, Glucose 430 H, Lactic Acid 2.4 H, Calcium 10.0, Total Bilirubin 1.0, AST 28, ALT 29, Alkaline Phosphatase 103, Troponin I < 0.01, Total Protein 6.8, Albumin 3.8, Globulin 3.0 , Albumin/Globulin Ratio 1.3, CBC w Diff NO MAN DIFF REQ, RBC 4.70, MCV 73.6 L, MCH 22.9 L, MCHC 31.1 L, RDW 21.7 H, MPV 11.2 H, Gran % 77.0 H, Lymphocytes % 13.2 L, Monocytes % 5.7, Eosinophils % 3.4, Basophils % 0.7, Absolute Granulocytes 10.4 H, Absolute Lymphocytes 1.8, Absolute Monocytes 0.8 H, Absolute Eosinophils 0.5, Absolute Basophils 0.1 Microbiology 08/05 2004 BLOOD: Blood Culture - RECD 08/05 1949 BLOOD: Blood Culture - RECD Patient seen and evaluated. Her initial evaluation is responsive to painful stimuli only. His vital signs are stable. He is moving all at extremities equally. Similar presentations in the past and it was thought to be related to seizures possibly being caused by his meningioma getting larger. He was started on Keppra. His daughter reports a low-grade temperature today. We'll check basic labs CT scan of the brain and chest abdomen and pelvis. Blood cultures basic labs EKG obtained. CT scan show a developing pneumonia in the right upper lobe. Additionally he has what appears to be lesions on some of the bones. This could be related to metastatic disease from colon cancer. She has an elevated white blood cell count of 13,000 and lactic acidosis. This lung with altered mental status she will require admission for IV antibiotics. IV fluids ordered ceftriaxone and Zithromax ordered. Case discussed with Dr. Maldonado he agrees. Diagnostic Imaging: Viewed by Me: Radiology Read. Discussed w/RAD: Radiology Read. Radiology Impression: PATIENT: EDILBERTO MARTIN PRESENT AGE: 82 PATIENT ACCOUNT NO: [id number] : 33 LOCATION: [facility] ORDERING PHYSICIAN: Landry LEROY SERVICE DATE: 08/05/17 EXAM TYPE: CAT - CT ABD & PELVIS W/O IV CONTRAS; CT CHEST WO IV CONTRAST; CT HEAD WO IV CONTRAST EXAMINATION: CT CHEST, ABDOMEN AND PELVIS WITHOUT CONTRAST CT HEAD WITHOUT CONTRAST CLINICAL INFORMATION: 82-year-old male with acute mental status change. Unresponsive. Presumptive diagnoses: Acute abdomen, pneumonia. COMPARISON: CT the brain on 01/14/2017, 05/28/2017, 07/09/2017, and 07/10/2017. CT of the abdomen and pelvis on 03/05/2017, 04/08/2017, 04/11/2017, 05/28/2017, and 2017. (Right frontal meningioma). TECHNIQUE: Contiguous axial imaging was performed from the skull base to vertex without intravenous administration of contrast. Multidetector volumetric imaging was performed from the thoracic inlet through the pubic symphysis without intravenous contrast. Oral contrast: None Sagittal and coronal reformatted images were obtained on the technologist workstation. Total exam dose-length product 644 mGy-cm for abdomen and pelvis. Total exam dose-length product 648 mGy-cm for brain. FINDINGS: BRAIN: There is no evidence of acute intracranial hemorrhage or territorial infarction. No abnormal mass effect or midline shift is seen. Petit to white matter differentiation is well preserved. No extra-axial fluid collections are identified. The right frontal meningioma shows no significant growth since 01/14. The prominent ventricles are concordant with the deepened cortical sulci due to age related atrophy. There are mild chronic white matter microangiopathic changes. Multiple "punched-out" lytic lesions are still present in the calvarium. The The mastoid air cells and visualized portions of the paranasal sinuses are well aerated. FINDINGS: CHEST, ABDOMEN, PELVIS: INTERNET MARKETING DIRECTOR: Noncontributory. No obvious lytic lesions in the visualized axial or appendicular skeleton. LUNG: Small apical blebs are present on the right. An 8 mm ovoid slightly irregular nodule is located in left apex. Series 5, image 54. Focal area of peripheral parenchymal opacity is located in the posterior apical segment of the right upper lobe. Series 5, images 148 - 172. There is also dependent atelectasis of both lower lobes. PLEURA: No pleural effusion or pneumothorax. MEDIASTINUM: Normal heart size. No pericardial effusion. No hilar or mediastinal lymphadenopathy. VASCULAR: Unremarkable. CHEST WALL/AXILLA: No axillary or internal mammary lymphadenopathy. ABDOMEN/PELVIS: LIVER, GALLBLADDER, AND BILIARY TREE: The liver is normal in size, shape, and attenuation. No focal hepatic lesion or biliary ductal dilatation is present. The gallbladder is unremarkable with no evidence of radiopaque gallstones, gallbladder wall thickening, or obvious pericholecystic inflammatory changes. PANCREAS: Normal; no mass or surrounding fluid. SPLEEN: Normal size. No focal lesion. ADRENAL GLANDS: Normal; no mass. KIDNEYS AND URETERS: The left kidney is incompletely rotated. A small cortical cyst is seen in the lower pole of the right kidney. A tiny exophytic cyst is seen in the midportion of the left kidney. There is no hydronephrosis or stone formation. There is a mass in the midportion of the left kidney which shows higher attenuation than the adjacent cortex. This measures 2.7 cm in diameter. Previously 1.4 cm in 03/05/2017. Series 602, image 72. GASTROINTESTINAL TRACT: Stomach and small bowel non- dilated. No colonic wall thickening or pericolonic inflammatory changes. There is an increased burden of formed stool throughout the colon from cecum to rectum. No obstruction. No free fluid. No free air. ABDOMINAL WALL: No significant hernia is appreciated. LYMPHOVASCULAR STRUCTURES: No lymphadenopathy. The aorta is unremarkable. BLADDER: Empty. PELVIC VISCERA: No change. OSSEOUS STRUCTURES: No acute or suspicious osseous abnormality. IMPRESSION: 1. Stable right frontal meningioma. Parenchymal volume loss and mild chronic white matter microangiopathy. No acute intracranial pathology. 2. Multiple lytic punched out lesions in the bone calvarium. A serum protein electrophoresis would exclude myeloma. 3. Early pneumonia posterior apical segment of the right upper lobe. 4. Mass in the left kidney increasing in size and showing abnormal attenuation. A renal neoplasm is possible. Pre- and post-IV contrast scans of the kidneys would elucidate. 5. Increased burden of formed stool throughout the colon. No obstruction. No free air. DICTATED BY: Tavo Rogers MD DATE/TIME DICTATED:08/05/171857 PRODUCTION COOK:ANASTASIIA DATE/ TIME TRANSCRIBED:08/05/171857 CONFIDENTIAL, DO NOT COPY WITHOUT APPROPRIATE AUTHORIZATION. Initial ED EKG: normal sinus rhythm, FIRST DEGREE AV BLOCK, RBBB LAFB, LVH Comments: PATIENT: EDILBERTO MARTIN PRESENT AGE: 82 PATIENT ACCOUNT NO: [id number] : 33 LOCATION: [facility] ORDERING PHYSICIAN: Landry LEROY SERVICE DATE: 08/05/17 EXAM TYPE: RAD - XRY-PORTABLE CHEST XRAY EXAMINATION: XR PORTABLE CHEST CLINICAL INFORMATION: Pneumonia COMPARISON: 07/28/2017 TECHNIQUE: Portable frontal view of the chest was obtained. FINDINGS: No convincing evidence for an acute process. No obvious failure or infiltrate. No effusion on this portable study. IMPRESSION: No convincing evidence for an acute process on this portable film. DICTATED BY: Dell Wynn MD DATE/TIME DICTATED:08/05/171835 PRODUCTION COOK:ANASTASIIA DATE/TIME TRANSCRIBED:08/05/171835 CONFIDENTIAL, DO NOT COPY WITHOUT APPROPRIATE AUTHORIZATION. <Electronically signed in Other Vendor System> SIGNED BY: Dell Wynn MD 08/05/171839 (Landry Terrell) Departure Departure Disposition: STILL A PATIENT Condition: Stable Clinical Impression Primary Impression: Pneumonia Qualifiers: Pneumonia type: due to unspecified organism Laterality: right Lung location: upper lobe of lung Qualified Code: J18.1 - Lobar pneumonia, unspecified organism Secondary Impressions: Leukocytosis Qualifiers: Leukocytosis type: unspecified Qualified Code: D72.829 - Elevated white blood cell count, unspecified Referrals: Kelly Christianson APRN (PCP/Family) Departure Forms: Customer Survey General Discharge Information Admission Note Spoke With: Fadi Hoff MD Documentation of Exam: Documentation of any treatments & extenuating circumstances including Concerns Regarding Discharge (functional status, medication knowledge or non-compliance, living conditions, etc.) that warrant an admission rather than observation: [ Serial labs, serial chest x-rays, IV fluids, IV antibiotics, pulmonology consult , case management, physical therapy] (Landry Terrell) PA/CONTRACT TECHNICIAN Co-Sign Statement Statement: ED Attending supervision documentation- [X] I saw and evaluated the patient. I have also reviewed all the pertinent lab results and diagnostic results. I agree with the findings and the plan of care as documented in the PA's/CONTRACT TECHNICIAN's documentation. Patient presents for altered mental status and decreased ROGELIO intake. Physical examination reveals an alert gentleman in no apparent respiratory distress. No focal neurologic deficit noted. [] I have reviewed the ED Record and agree with the PA's/CONTRACT TECHNICIAN's documentation. [] Additions or exceptions (if any) to the PAs/CONTRACT TECHNICIAN's note and plan are summarized below: [] (Erica SALINAS,Dell Colón)
[2017-08-05 18:37] LABS: ABSOLUTE BASOPHIL COUNT 0.1 /CUMM (0.0-0.2); ABSOLUTE EOSINOPHIL COUNT 0.5 /CUMM (0.0-0.7); ABSOLUTE GRANULOCYTE CT 10.4 /CUMM (1.4-6.5); ABSOLUTE LYMPH COUNT 1.8 /CUMM (1.2-3.4); ABSOLUTE MONOCYTE COUNT 0.8 /CUMM (0.10-0.60); BASOPHIL % 0.7 % (0.0-2.0); EOSINOPHIL % 3.4 % (0-5); HEMATOCRIT 34.5 % (42-52); MEAN CORPUSCULAR HGB 22.9 PG (27.0-31.0); MEAN CORPUSCULAR HGB CONC 31.1 G/DL (33.0-37.0); MEAN CORPUSCULAR VOLUME 73.6 FL (80.0-94.0); MEAN PLATELET VOLUME 11.2 FL (7.4-10.4); PLATELET COUNT 231 /CUMM (130-400); RBC DISTRIBUTION WIDTH 21.7 % (11.5-14.5)
[2017-08-05 18:38] LABS: WHITE BLOOD CELL COUNT 13.6 /CUMM (4.8-10.8)
--- NOTE | 2017-08-05 18:40 | RADIOLOGY REPORT ---
EXAMINATION: XR PORTABLE CHEST CLINICAL INFORMATION: Pneumonia COMPARISON: 07/28/2017 TECHNIQUE: Portable frontal view of the chest was obtained. FINDINGS: No convincing evidence for an acute process. No obvious failure or infiltrate. No effusion on this portable study. IMPRESSION: No convincing evidence for an acute process on this portable film.
--- NOTE | 2017-08-05 19:52 | CT SCAN REPORT ---
EXAMINATION: CT CHEST, ABDOMEN AND PELVIS WITHOUT CONTRAST CT HEAD WITHOUT CONTRAST CLINICAL INFORMATION: 82-year-old male with acute mental status change. Unresponsive. Presumptive diagnoses: Acute abdomen, pneumonia. COMPARISON: CT the brain on 01/14/2017, 05/28/2017, 07/09/2017, and 07/10/2017. CT of the abdomen and pelvis on 03/05/2017, 04/08/2017, 04/11/2017, 05/28/2017, and 07/09/2017. (Right frontal meningioma). TECHNIQUE: Contiguous axial imaging was performed from the skull base to vertex without intravenous administration of contrast. Multidetector volumetric imaging was performed from the thoracic inlet through the pubic symphysis without intravenous contrast. Oral contrast: None Sagittal and coronal reformatted images were obtained on the technologist workstation. Total exam dose-length product 644 mGy-cm for abdomen and pelvis. Total exam dose-length product 648 mGy-cm for brain. FINDINGS: BRAIN: There is no evidence of acute intracranial hemorrhage or territorial infarction. No abnormal mass effect or midline shift is seen. Petit to white matter differentiation is well preserved. No extra-axial fluid collections are identified. The right frontal meningioma shows no significant growth since 01/14/2017. The prominent ventricles are concordant with the deepened cortical sulci due to age related atrophy. There are mild chronic white matter microangiopathic changes. Multiple "punched-out" lytic lesions are still present in the calvarium. The The mastoid air cells and visualized portions of the paranasal sinuses are well aerated. 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 No obvious lytic lesions in the visualized axial or appendicular skeleton. LUNG: Small apical blebs are present on the right. An 8 mm ovoid slightly irregular nodule is located in left apex. Series 5, image 54. Focal area of peripheral parenchymal opacity is located in the posterior apical segment of the right upper lobe. Series 5, images 148 - 172. There is also dependent atelectasis of both lower lobes. PLEURA: No pleural effusion or pneumothorax. MEDIASTINUM: Normal heart size. No pericardial effusion. No hilar or mediastinal lymphadenopathy. VASCULAR: Unremarkable. CHEST WALL/AXILLA: No axillary or internal mammary lymphadenopathy. ABDOMEN/PELVIS: LIVER, GALLBLADDER, AND BILIARY TREE: The liver is normal in size, shape, and attenuation. No focal hepatic lesion or biliary ductal dilatation is present. The gallbladder is unremarkable with no evidence of radiopaque gallstones, gallbladder wall thickening, or obvious pericholecystic inflammatory changes. PANCREAS: Normal; no mass or surrounding fluid. SPLEEN: Normal size. No focal lesion. ADRENAL GLANDS: Normal; no mass. KIDNEYS AND URETERS: The left kidney is incompletely rotated. A small cortical cyst is seen in the lower pole of the right kidney. A tiny exophytic cyst is seen in the midportion of the left kidney. There is no hydronephrosis or stone formation. There is a mass in the midportion of the left kidney which shows higher attenuation than the adjacent cortex. This measures 2.7 cm in diameter. Previously 1.4 cm in 03/05/2017. Series 602, image 72. GASTROINTESTINAL TRACT: Stomach and small bowel non-dilated. No colonic wall thickening or pericolonic inflammatory changes. There is an increased burden of formed stool throughout the colon from cecum to rectum. No obstruction. No free fluid. No free air. ABDOMINAL WALL: No significant hernia is appreciated. LYMPHOVASCULAR STRUCTURES: No lymphadenopathy. The aorta is unremarkable. BLADDER: Empty. PELVIC VISCERA: No change. OSSEOUS STRUCTURES: No acute or suspicious osseous abnormality. IMPRESSION: 1. Stable right frontal meningioma. Parenchymal volume loss and mild chronic white matter microangiopathy. No acute intracranial pathology. 2. Multiple lytic punched out lesions in the bone calvarium. A serum protein electrophoresis would exclude myeloma. 3. Early pneumonia posterior apical segment of the right upper lobe. 4. Mass in the left kidney increasing in size and showing abnormal attenuation. A renal neoplasm is possible. Pre- and post-IV contrast scans of the kidneys would elucidate. 5. Increased burden of formed stool throughout the colon. No obstruction. No free air.
--- NOTE | 2017-08-05 21:42 | History & Physical ---
Sunni SALINAS,[facility] 08/05/17 2141: General Information and HPI MD Statement: I have seen and personally examined EDILBERTO MARTIN and documented this H&P. The patient is a 82 year old M who presented with a patient stated chief complaint of [AMS]. Source of Information: family Exam Limitations: dementia History of Present Illness: Mr. Archibald is an 82-year-old gentleman with past medical history significant for dementia, colon cancer, hypertension, hyperlipidemia, diabetes, blindness, seizure disorder, BPH, frequent UTIs, osteoarthritis and chronic anemia who is brought in by his daughter for altered mental status and poor appetite x 2 days. According to daughter, patient is usually very fond of eating but has not eaten anything for the past 2 days. Patient has been very lethargic and less responsive on and off. Also reports low-grade fever(MAXIMUM TEMPERATURE of 99.5 ), cough with white to yellow sputum production and sore throat. Daughter states she has been giving him homemade remedies for cough without any relief. She checked his blood glucose today which were 447, she gave him 4 units of insulin with repeat blood sugar levels even higher at 479. Daughter denies any loss of consciousness or seizure episodes. Allergies/Medications Allergies: Coded Allergies: NO KNOWN ALLERGIES (07/10/17) Home Med list Acetaminophen (Tylenol) 325 MG TABLET 2 TAB PO Q6-PRN PRN PAIN (Reported) Atorvastatin Calcium (Lipitor) 40 MG TABLET 1 TAB PO DAILY CHOLESTEROL ( Reported) Cholecalciferol (Vitamin D3) (Vitamin D) 2,000 UNIT CAPSULE 1 CAP PO DAILY SUPPLEMENT (Reported) Docusate Sodium (Colace) 100 MG CAPSULE 2 CAP PO DAILY STOOL SOFTENER ( Reported) Ferrous Sulfate 325 MG (65 MG IRON) TABLET 1 TAB PO BID SUPPLEMENT (Reported) Finasteride 5 MG TABLET 1 TAB PO DAILY PROSTATE (Reported) Insulin Detemir (Levemir) 100 UNIT/ML VIAL 12 UNITS SC BID DIABETES Insulin Lispro (Humalog Kwikpen U-100) 100 UNIT/ML INSULN.PEN 0 SC TIDAC DIABETES before meals less than 80 mg/dl take cup of apple juice 80-150 4 units 151-200 6 units 201-250 8 units 251-300 10 units 301-350 12 units 351-400 13 units >400 14 units Bedtime 251-300 2 units 301-350 3 units 351-400 4 units >400 5 units Latanoprost 0.005 % DROPS 1 GTT OPH QPM BOTH EYES (Reported) Levetiracetam (Keppra) 500 MG TABLET 1,000 MG PO BID SEIZURE PROPHYLAXIS Memantine HCl (Namenda) 10 MG TABLET 2 TAB PO QHS MEMORY (Reported) Omeprazole Magnesium (Prilosec Otc) 20 MG TABLET.DR 1 TAB PO DAILY ACID REFLUX Polyethylene Glycol 3350 (Miralax) 17 GRAM POWD.PACK 1 PAC PO DAILY GI ( Reported) dissolve in water Tamsulosin HCl (Flomax) 0.4 MG CAP.ER.24H 1 CAP PO DAILY PROSTATE (Reported) Past History Travel History Traveled to [place] past 21 day No Medical History Neurological: dementia EENT: blindness, glaucoma, hearing loss Cardiovascular: hypertension, hyperlipidemia Respiratory: pneumonia Gastrointestinal: umbilical hernia Hepatic: NONE Renal: benign prost hyperplasia, FREQUENT UTI'S Musculoskeletal: degen joint disease, osteoarthritis Psychiatric: NONE Endocrine: diabetes Blood Disorders: anemia Cancer(s): NONE APPEALS REFEREE/Reproductive: NONE History of MRSA: Yes History of VRE: No History of CDIFF: No Surgical History Surgical History: prostatectomy, 08/08/16: circumcision for phimosis with balanitis Past Family/Social History Family History Relations & Conditions if any BROTHER FH: diabetes mellitus FH: glaucoma FH: heart disease SISTER FH: diabetes mellitus FH: glaucoma Psychosocial History Who Do You Live With? child (dianer/Rafaela BOLIVAR & her son) Services at Home: Home Health Aide Primary Language: R[place]an, Jude ETOH Use: denies use Illicit Drug Use: marijuana Living Will? no Power of Spotlight Operator/HCP? yes Name of POA/HCP: Pt/s Rafaela seo [phone] Functional Ability ADLs Needs Assist: dressing, eating, toileting, bathing. Ambulation: non-ambulatory (wheelchair bound) IADLs Needs Assist: shopping, housework, finances, food prep, telephone, transportation, medication admin. Review of Systems Review of Systems Constitutional: Reports: fever, malaise, weakness. EENTM: Reports: no symptoms. Cardiovascular: Reports: no symptoms. Respiratory: Reports: cough, sputum production. GI: Reports: no symptoms. Genitourinary: Reports: no symptoms. Musculoskeletal: Reports: no symptoms. Skin: Reports: no symptoms. Neurological/Psychological: Reports: no symptoms. Hematologic/Endocrine: Reports: no symptoms. Immunologic/Allergic: Reports: no symptoms. All Other Systems: Reviewed and Negative Exam & Diagnostic Data Last 24 Hrs of Vital Signs/I&O Vital Signs Date Time Temp Pulse Resp B/P B/P Pulse O2 O2 Flow FiO2 Mean Ox Delivery Rate 08/06 0204 83 146/81 08/06 0137 96 Room Air 08/06 0048 97.0 82 20 134/68 98 Room Air 08/05 1954 98.7 84 18 139/72 94 Room Air 08/05 1824 94 08/05 1808 97.8 98 18 137/78 94 Room Air Room Air Intake & Output 08/06 0800 08/06 0000 08/05 1600 Intake Total 1000 Output Total Balance 1000 Intake, IV 1000 Intake, Oral 0 Patient 153 lb 180 lb Weight Weight Bed scale Estimated Measurement Method Physical Exam General Appearance Alert, Cooperative, No Acute Distress, oriented to person only Skin No Rashes, No Breakdown Cardiovascular Regular Rate, Normal S1, Normal S2, No Murmurs Lungs Normal Air Movement Abdomen Normal Bowel Sounds, Soft, No Tenderness Extremities No Clubbing, No Cyanosis, No Edema, Normal Pulses Last 24 Hrs of Labs/Michael: Laboratory Tests 08/05/172104: Lactic Acid 2.1 08/05/171938: Urine Color YEL, Urine Clarity CLEAR, Urine pH 6.0, Ur Specific [place] 1.020, Urine Protein NEG, Urine Ketones NEG, Urine Nitrite NEG, Urine Bilirubin NEG, Urine Urobilinogen 0.2, Ur Leukocyte Esterase NEG, Ur Microscopic SEDIMENT EXAMINED, Urine RBC 1-3, Urine WBC RARE, Ur Epithelial Cells RARE, Urine Mucus RARE, Urine Hemoglobin TRACE-INTACT H, Urine Glucose >=1000 H 08/05/171818: Anion Gap 13, Estimated GFR 45 L, BUN/Creatinine Ratio 27.3 H, Glucose 430 H, Lactic Acid 2.4 H, Calcium 10.0, Total Bilirubin 1.0, AST 28, ALT 29, Alkaline Phosphatase 103, Troponin I < 0.01, Total Protein 6.8, Albumin 3.8, Globulin 3.0 , Albumin/Globulin Ratio 1.3, CBC w Diff NO MAN DIFF REQ, RBC 4.70, MCV 73.6 L, MCH 22.9 L, MCHC 31.1 L, RDW 21.7 H, MPV 11.2 H, Gran % 77.0 H, Lymphocytes % 13.2 L, Monocytes % 5.7, Eosinophils % 3.4, Basophils % 0.7, Absolute Granulocytes 10.4 H, Absolute Lymphocytes 1.8, Absolute Monocytes 0.8 H, Absolute Eosinophils 0.5, Absolute Basophils 0.1 Microbiology 08/06 0014 NASOPHARYN: Influenza Virus A & B Rapid Smear - COMP 08/05 2317 URINE ROUT: Legionella Antigen - ORD 08/05 2317 URINE ROUT: Streptococcus pneumoniae Antigen (M - ORD 08/05 2004 BLOOD: Blood Culture - RECD 08/05 1949 BLOOD: Blood Culture - RECD Diagnostic Data EKG Results Normal sinus rhythm with 1 AVB, RBBB and LAFB Heart rate 93 QTC 503 CXR Results FINDINGS: No convincing evidence for an acute process. No obvious failure or infiltrate. No effusion on this portable study. IMPRESSION: No convincing evidence for an acute process on this portable film. Other Results CT ABD & PELVIS W/O IV CONTRAS; CT CHEST WO IV CONTRAST; CT HEAD WO IV CONTRAST IMPRESSION: 1. Stable right frontal meningioma. Parenchymal volume loss and mild chronic white matter microangiopathy. No acute intracranial pathology. 2. Multiple lytic punched out lesions in the bone calvarium. A serum protein electrophoresis would exclude myeloma. 3. Early pneumonia posterior apical segment of the right upper lobe. 4. Mass in the left kidney increasing in size and showing abnormal attenuation. A renal neoplasm is possible. Pre- and post-IV contrast scans of the kidneys would elucidate. 5. Increased burden of formed stool throughout the colon. No obstruction. No free air. Assessment/Plan Assessment: Mr. Archibald is an 82-year-old gentleman with past medical history significant for dementia, colon cancer, hypertension, hyperlipidemia, diabetes, blindness, seizure disorder, BPH, frequent UTIs, osteoarthritis and chronic anemia who is brought in by his daughter for altered mental status and poor appetite x 2 days. Problem List; 1. Pneumonia HCAP Versus aspiration. Altered mental status/lethargy likely secondary to pneumonia. Patient has had multiple recent hospital admissions, last admitted on July 29. The daughter denies any choking with food but given the dementia and the location of pneumonia on CAT scan, aspiration pneumonia is highly probable. 2. Lactic acidosis 3. Hyperglycemia 4. Incidental finding of lytic lesions on CT head 5. History of seizure disorder 6. History of dementia, colon cancer( no treatment as per the patient's family) , hypertension, hyperlipidemia, BPH, osteoarthritis and chronic anemia - We will admit the patient to telemetry floor - Start the patient on IV Unasyn. If patient becomes hypoxic, spikes a fever or white count continues to trend up on Unasyn, can consider changing antibiotics to vancomycin and ceftaz for HCAP. - Formal swallow evaluation in the a.m. Daughter refuses to keep the patient nothing by mouth. - Follow sputum culture, urine Legionella and strep antigen. - Tylenol as needed for fever. - Follow blood cultures. - Lactic acidosis resolved after IV hydration. - We'll continue Levemir 12 units twice a day and NovoLog sliding scale for hyperglycemia. Accu-Cheks TIDAC/at bedtime. - Can consider serum protein electrophoresis to rule out multiple myeloma as the patient has incidental finding of lytic lesions on head CT. - Continue home medications i.e, Keppra, Namenda, Lipitor, Prilosec, finasteride and tamsulosin. DVT prophylaxis; subcutaneous heparin Patient is full code. As Ranked By This Provider Problem List: 1. Pneumonia Qualifiers Pneumonia type: due to unspecified organism Laterality: right Lung location: upper lobe of lung Qualified Code: J18.1 - Lobar pneumonia, unspecified organism 2. Hyperglycemia Core Measures/Misc (02/02) Acute Coronary Syndrome ACS Diagnosis: No Congestive Heart Failure Congestive Heart Failure Diagnosis No Cerebrovascular Accident CVA/TIA Diagnosis: No VTE (View Protocol) VTE Risk Factors Age>40 No Mechanical VTE Prophylaxis d/t N/A MechProphylax Ordered No VTE Pharm Prophylaxis d/t NA PharmProphylax ordered Sepsis (View protocol) Sepsis Present: No Rahul Ibrahim 08/06/17 0139: Resident Review Statement Resident Statement: examined this patient, discussed with general internal medicine physician, agreed with general internal medicine physician, discussed with family, reviewed EMR data (avail), discussed with nursing , discussed with case mgmt, reviewed images, amended to note Other Findings: This is a 82-year-old male with past medical history significant for hypertension, hyperlipidemia, diabetes mellitus, BPH status post TURP procedure, right frontal meningioma, seizures, dementia, GERD, moderately differentiated adenocarcinoma transverse colon, refused surgery, osteoarthritis, anemia was brought in by ambulance for evaluation of altered mental status, lethargy, poor oral intake for 2 days. Most of the history was provided by the daughter who is at bedside. According to the daughter he is very lethargic for the past 2 days. Also reports no oral intake for last 2 days. He was very altered, unarousable on and off today. Patient also reports low-grade temperature, cough, sputum production, throat pain for last 2 days. She checked her blood sugars this afternoon which were 400, given 4 units of insulin after which blood sugar was again 479. Patient offers no complaints except for productive cough and throat pain. Patient was under observation status from July 29 to July 30 for evaluation of syncope. He was admitted in June for altered mental status, unresponsiveness. He has history of right frontal meningioma which is stable. He has history of colon cancer, refusing treatment. History of seizures, takes Keppra twice daily. He was admitted to the [facility] multiple times for altered mental status, unresponsiveness. ----- Vitals afebrile, heart rate 90, respiratory rate 18, blood pressure 137/70, 94 on room air. HEENT within normal limits. No JVD. S1-S2 normal no murmurs., Bilateral breath sounds normal, per abdomen soft, nontender, and nondistended. No lower extremity edema. Pertinent labs Leukocytosis 13.6, hemoglobin 10 and hematocrit 34, platelets 231. BUN 41 and creatinine 1.5. LFT, troponin, urinalysis normal EKG sinus rhythm, left ventricular hypertrophy, right bundle branch block, left anterior fascicular block CT head, chest, abd showed 1. Stable right frontal meningioma. Parenchymal volume loss and mild chronic white matter microangiopathy. No acute intracranial pathology. 2. Multiple lytic punched out lesions in the bone calvarium. A serum protein electrophoresis would exclude myeloma. 3. Early pneumonia posterior apical segment of the right upper lobe. 4. Mass in the left kidney increasing in size and showing abnormal attenuation. A renal neoplasm is possible. Pre- and post-IV contrast scans of the kidneys would elucidate. 5. Increased burden of formed stool throughout the colon. No obstruction. No free air. 1. Possible aspiration pneumonia Patient presented with altered mentation, lethargy, poor oral intake. Patient daughter reports that he has low grade temperature at home associated with productive cough and shortness of breath. She also reports that he never chokes on food. CAT scan chest findings suggestive of developing early pneumonia posterior apical segment of right upper lobe. He is afebrile in the emergency room with leukocytosis 13.6. * We'll admit him to the telemetry floor given his extensive history of altered mentation, syncope, seizures. * Continuous telemetry monitoring * Monitor vitals every shift * Monitor fever, leukocytosis * Provide supplemental oxygen if necessary * IV Unasyn 3000 mg every 6 hours for aspiration pneumonia * Patient daughter insisted that patient should eat tonight. Refused to keep him nothing by mouth. However we will do formal swallow evaluation in the a.m. * Follow blood cultures * Flu swab negative * Follow-up urine strep and Legionella * IV Tylenol if febrile 2. Altered mental status Patient family reports that he was altered, unresponsive on and off throughout the day. His blood sugars were high at home. denies any seizures, syncope, loss of consciousness. Altered mental status most possibly from poor oral intake. However in ER he is oriented 3, responding to the questions. He was admitted to [facility] multiple times for altered mental status, unresponsiveness, syncope. * Continuous telemetry monitoring * Aspiration precautions * Fall precautions * Monitor for any seizures, syncope Lactic acidosis Lactic acid 2.4, trended down to 0.1. Improved with 2 L normal saline bolus ckd Creatinine 1.5 at the time of admission. His baseline creatinine values in between 1.3-1.5. Hyperlipidemia continue Lipitor 40 daily Constipation continue bowel regimen whenever necessary BPH continue finasteride and tamsulosin Diabetes mellitus continue Levemir 12 twice daily and insulin sliding scale. Seizures continue Keppra 1000 twice daily dementia continue Namenda 20 mg daily Full code DVT prophylaxis subcutaneous heparin Regular diet, follow-up swallow evaluation am Luis Eduardo SALINAS, [facility] 08/06/17 0550: Attending MD Review Statement Attending Statement Attending MD Statement: examined this patient, discuss w/resident/PA/RANGE ECOLOGIST, agreed w/resident/PA/RANGE ECOLOGIST, discussed with family, reviewed images, amended to note Attending Assessment/Plan: 82 yo M with dementia, legally blind, HTN, T2DM, CKD stage 3, BPH, chronic DOUG, recently diagnosed colonic adenocarcinoma refused treatment, was subsequently admitted in Jun 2017 for unresponsive episode attributed to possible seizures from his underlying meningioma and bacteremia from underlying colon cancer. He was here again in July 2017 (13-14) for recurrent episodic unresponsiveness with possible vasovagal etiology as EEG was not suggestive of seizure. Today daughter brings him in for evaluation of increasing lethargy, altered mentation, no appetite, no oral intake for the past 2 days. Low grade temp of 99.5. Daughter notes that patient had a cough, was not breathing right and c/o his throat hurting. On ER arrival, he was unresponsive to verbal commands or tactile stimulus. Patient woke up when RN attempted straight catheterization. He then ate a sandwich and drank gingerale. Daughter feels patient perked up after receiving IV fluids. Vitals stable. Exam as above. Labs: WBC 13.6, microcytic anemia, BUN 41, creat 1.5 (baseline 1.2 1.4), glucose 430, lactic acid 2.4, trop neg. UA clear. CXR: neg. CT chest/ abd/ pelvis: stable right frontal meningioma, multiple lytic punched out lesions in bone calvarium, early pneumonia posterior apical segment of right upper lobe. Mass in left kidney increasing in size ?neoplasm. EKG: sinus rhythm, first degree AV block, RBBB, LAFB. Echo (2018): EF 60%. Assessment and plan: 1. Recurrent episodic unresponsiveness ?seizure 2. Right upper lobe pneumonia, possible aspiration 3. Uncontrolled Type 2 diabetes mellitus 4. Essential hypertension 5. Meningioma, seizures 6. Untreated colon adenocarcinoma 7. CKD stage 3 stable - Admit to Telemetry - Watch on tele for 24 hours - Panculture - IV Unasyn for now - Swallow eval in AM - Keep HOB elevated - Daughter refused to keep patient NPO, reports patient does not have choking/ aspiration problems - Gentle IV hydration - Accucheks, novolog SS and levemir - Resume keppra for seizures DVT ppx Hep SC. Full code.
[2017-08-06 01:30] VITALS: BP 182/94
[2017-08-06 02:04] VITALS: BP 146/81
--- NOTE | 2017-08-06 04:09 | Admission Certification ---
Admission Certification Certification Statement - As attending physician, I certify that at the time of - admission, based on clinical presentation, severity of - symptoms, need for further diagnostic testing and - therapeutic interventions, and risk of adverse outcomes - without in-hospital treatment, in my clinical assessment, - this patient requires an acute hospital stay for a minimum - of two nights or longer. I have also considered psychsocial - factors such as support system, advanced age, financial - issues, cognitive issues, and failed out-patient treatments, - past re-admission history, safety of patient, and lack of - compliance as applicable. Specific rationale supporting this admission is: Unresponsiveness, right upper lobe pneumonia.
[2017-08-06 07:26] VITALS: BP 152/76
--- NOTE | 2017-08-06 07:35 | PN- Housestaff ---
Monica Celaya 08/06/17 0734: Subjective Follow-up For: 1. Recurrent episodic unresponsiveness ?seizure 2. Right upper lobe pneumonia, possible aspiration 3. Uncontrolled Type 2 diabetes mellitus 4. Essential hypertension 5. Meningioma, seizures 6. Untreated colon adenocarcinoma 7. CKD stage 3 stable Tele-Events Since Last Visit: NSR 90s Subjective: No overnight event. Patient is awake and alert and oriented to himself, legally blind, conversational however not fully making sense. Answered my simple questions. No complaint. Appeared to be at basline mental status compared to last time I took care of him on floor. Review of Systems Constitutional: Reports: see HPI. Objective Last 24 Hrs of Vital Signs/I&O Vital Signs Date Time Temp Pulse Resp B/P B/P Pulse O2 O2 Flow FiO2 Mean Ox Delivery Rate 08/06 1054 Room Air Room Air 08/06 0826 85 160/70 08/06 0825 85 160/70 08/06 0800 Room Air 08/06 0726 98.6 79 20 152/76 94 Room Air 08/06 0204 83 146/81 08/06 0137 96 Room Air 08/06 0130 98.5 90 22 182/94 96 Room Air 08/06 0048 97.0 82 20 134/68 98 Room Air 08/05 1954 98.7 84 18 139/72 94 Room Air 08/05 1824 94 08/05 1808 97.8 98 18 137/78 94 Room Air Room Air Intake & Output 08/06 1600 08/06 0800 08/06 0000 Intake Total 920 1000 Output Total Balance 920 1000 Intake, IV 200 1000 Intake, Oral 720 0 Number 1 Bowel Movements Patient 69.57 kg 81.647 kg Weight Weight Bed scale Estimated Measurement Method Physical Exam General Appearance: Alert, Cooperative, No Acute Distress, oriented to self. HEENT: Atraumatic, Legally blind Cardiovascular: Regular Rate Lungs: Clear to Auscultation, Normal Air Movement Abdomen: Soft, No Tenderness Extremities: No Edema, Normal Pulses Current Medications: Current Medications Sig/Zoe Start time Last Medication Dose Route Stop Time Status Admin Acetaminophen 650 MG Q6P PRN 08/05 2315 AC PO Ampicillin Sodium/ 1,500 MG Q6 08/06 1200 AC Sulbactam Sodium IV Sodium Chloride 100 ML Ampicillin Sodium/ 3,000 MG Q6H 08/06 0800 DC 08/06 Sulbactam Sodium IV 0818 Sodium Chloride 100 ML Ampicillin Sodium/ 3,000 MG Q6 08/05 2359 DC 08/06 Sulbactam Sodium IV 0153 Sodium Chloride 100 ML Atorvastatin Calcium 40 MG 1700 08/06 1700 AC PO Azithromycin 500 MG ONCE ONE 08/05 204 DC 08/05 Dextrose/Water 250 ML IV 08/054 2118 Ceftriaxone Sodium 0 .STK-MED ONE 08/06 2115 DC .ROUTE Ceftriaxone Sodium 1,000 MG ONCE ONE 08/05 2044 DC 08/05 IV 08/05 Cholecalciferol 1,000 IU DAILY 08/06 1000 AC 08/06 PO 0826 Divalproex Sodium 500 MG DAILY 08/06 1030 AC PO Docusate Sodium 100 MG DAILY NEEDED PRN 08/05 2330 AC PO Ferrous Sulfate 325 MG BID 08/06 1000 AC 08/06 PO 0826 Finasteride 5 MG DAILY 08/06 1000 AC 08/06 PO 0826 Heparin Sodium 5,000 UNIT Q8 08/06 0600 AC 08/06 (Porcine) SC 0611 Insulin Aspart 0 TIDAC 08/06 1200 CAN SC Insulin Aspart 0 TIDAC/HS 08/06 0800 DC 08/06 SC 0907 Insulin Aspart 0 TIDAC 08/05 2330 DC SC Insulin Detemir 12 UNITS BID 08/06 1000 DC SC Insulin Detemir 12 UNITS BID 08/06 0145 AC 08/06 SC 0907 Insulin Human Regular 0 Q6 08/06 1200 AC SC Latanoprost 1 GTT QPM 08/06 2200 AC OPH Levetiracetam 1,000 MG BID 08/05 2359 DC 08/06 PO 0826 Memantine 20 MG AT BEDTIME 08/06 2200 AC PO Omeprazole 20 MG DAILY AC 08/06 0700 AC 08/06 PO 0611 Polyethylene Glycol 17 GM DAILY PRN 08/05 2330 AC PO Sodium Chloride 1,000 ML Q13H 08/06 0415 DC 08/06 IV 08/06 1714 0510 Sodium Chloride 1,000 ML BOLUS ONE 08/05 2000 DC 08/05 IV 08/05 2058 2007 Sodium Chloride 1,000 ML BOLUS ONE 08/05 1830 DC 08/05 IV 08/05 1929 1852 Tamsulosin HCl 0.4 MG DAILY 08/06 1000 AC 08/06 PO 0826 Last 24 Hrs of Lab/Michael Results Last 24 Hrs of Labs/Mics: Laboratory Tests 08/06/17 0610: Anion Gap 16, Estimated GFR 53 L, BUN/Creatinine Ratio 21.5, CBC w Diff NO MAN DIFF REQ, RBC 4.28 L, MCV 73.9 L, MCH 22.8 L, MCHC 30.8 L, RDW 21.8 H, MPV 11.0 H, Gran % 76.1 H, Lymphocytes % 15.5 L, Monocytes % 4.9, Eosinophils % 3.0, Basophils % 0.5, Absolute Granulocytes 9.0 H, Absolute Lymphocytes 1.8, Absolute Monocytes 0.6, Absolute Eosinophils 0.4, Absolute Basophils 0.1 08/05/172104: Lactic Acid 2.1 08/05/17 1939: Urine Color YEL, Urine Clarity CLEAR, Urine pH 6.0, Ur Specific [place] 1.020, Urine Protein NEG, Urine Ketones NEG, Urine Nitrite NEG, Urine Bilirubin NEG, Urine Urobilinogen 0.2, Ur Leukocyte Esterase NEG, Ur Microscopic SEDIMENT EXAMINED, Urine RBC 1-3, Urine WBC RARE, Ur Epithelial Cells RARE, Urine Mucus RARE, Urine Hemoglobin TRACE-INTACT H, Urine Glucose >=1000 H 08/05/17 181: Anion Gap 13, Estimated GFR 45 L, BUN/Creatinine Ratio 27.3 H, Glucose 430 H, Lactic Acid 2.4 H, Calcium 10.0, Total Bilirubin 1.0, AST 28, ALT 29, Alkaline Phosphatase 103, Troponin I < 0.01, Total Protein 6.8, Albumin 3.8, Globulin 3.0 , Albumin/Globulin Ratio 1.3, CBC w Diff NO MAN DIFF REQ, RBC 4.70, MCV 73.6 L, MCH 22.9 L, MCHC 31.1 L, RDW 21.7 H, MPV 11.2 H, Gran % 77.0 H, Lymphocytes % 13.2 L, Monocytes % 5.7, Eosinophils % 3.4, Basophils % 0.7, Absolute Granulocytes 10.4 H, Absolute Lymphocytes 1.8, Absolute Monocytes 0.8 H, Absolute Eosinophils 0.5, Absolute Basophils 0.1 Microbiology 08/06 0014 NASOPHARYN: Influenza Virus A & B Rapid Smear - COMP 08/05 2317 URINE ROUT: Legionella Antigen - COLB 03/20 2318 URINE ROUT: Streptococcus pneumoniae Antigen (M - COLB 08/05 2004 BLOOD: Blood Culture - RECD 08/05 1949 BLOOD: Blood Culture - RECD Assessment/Plan Assessment: Mr. Galvez is a 82-year-old male with past medical history significant for hypertension, hyperlipidemia, diabetes mellitus, BPH status post TURP procedure, right frontal meningioma, seizures, dementia, GERD, moderately differentiated adenocarcinoma transverse colon, refused surgery, osteoarthritis, anemia was brought in by ambulance for evaluation of altered mental status, lethargy, poor oral intake for 2 days. on admission Vitals afebrile, heart rate 90, respiratory rate 18, blood pressure 137/70, 94 on room air. HEENT within normal limits. No JVD. S1-S2 normal no murmurs., Bilateral breath sounds normal, per abdomen soft, nontender, and nondistended. No lower extremity edema. Pertinent labs Leukocytosis 13.6, hemoglobin 10 and hematocrit 34, platelets 231. BUN 41 and creatinine 1.5. LFT, troponin, urinalysis normal EKG sinus rhythm, left ventricular hypertrophy, right bundle branch block, left anterior fascicular block CT head, chest, abd showed 1. Stable right frontal meningioma. Parenchymal volume loss and mild chronic white matter microangiopathy. No acute intracranial pathology. 2. Multiple lytic punched out lesions in the bone calvarium. A serum protein electrophoresis would exclude myeloma. 3. Early pneumonia posterior apical segment of the right upper lobe. 4. Mass in the left kidney increasing in size and showing abnormal attenuation. A renal neoplasm is possible. Pre- and post-IV contrast scans of the kidneys would elucidate. 5. Increased burden of formed stool throughout the colon. No obstruction. No free air. 1. Possible aspiration pneumonia Patient presented with altered mentation, lethargy, poor oral intake. Patient daughter reports that he has low grade temperature at home associated with productive cough and shortness of breath. She also reports that he never chokes on food. CAT scan chest findings suggestive of developing early pneumonia posterior apical segment of right upper lobe. He is afebrile in the emergency room with leukocytosis 13.6. The imaging did not resemble a typical aspiration pneumonia as usually the development should be at lower lobe. * Continuous telemetry given his extensive history of altered mentation, syncope , seizures. * Monitor vitals every shift * Monitor fever, leukocytosis, currently WBC resolved to 11.9 * Provide supplemental oxygen if necessary * IV Unasyn 1.5 gm every 6 hours for aspiration pneumonia * Patient daughter insisted that patient should eat tonight. Refused to keep him nothing by mouth. However we will do formal swallow evaluation in the a.m. * Follow blood cultures * Flu swab negative * Follow-up urine strep and Legionella * IV Tylenol if febrile 2. Altered mental status Patient family reports that he was altered, unresponsive on and off throughout the day. His blood sugars were high at home. denies any seizures, syncope, loss of consciousness. Altered mental status most possibly from poor oral intake. However in ER he is oriented 3, responding to the questions. He was admitted to [facility] multiple times for altered mental status, unresponsiveness, syncope. * Continuous telemetry monitoring * Aspiration precautions * Fall precautions * Monitor for any seizures, syncope - Pending neuro consult. Lactic acidosis Lactic acid 2.4, trended down to 0.1. Improved with 2 L normal saline bolus. Will continue monitor. ckd Creatinine 1.5 at the time of admission. His baseline creatinine values in between 1.3-1.5. Hyperlipidemia continue Lipitor 40 daily Constipation continue bowel regimen whenever necessary BPH continue finasteride and tamsulosin Diabetes mellitus continue Levemir 12 twice daily and insulin sliding scale. Seizures switched to depakote 500mg PO QD, pending neurology consult. dementia continue Namenda 20 mg daily Full code DVT prophylaxis subcutaneous heparin Regular diet, follow-up swallow evaluation am Problem List: 1. Leukocytosis 2. Altered mental status 3. Microcytic anemia Pain Ratin Pain Location: NA Pain Goal: Remain pain free Pain Plan: see AP Tomorrow's Labs & Rationales: CBC/BEP Brett SALINAS,Davon 08/06/17 1359: Attending MD Review Statement Attending Statement Attending MD Statement: examined this patient, discuss w/resident/PA/TEMPORARY OFFICE ASSISTANT, agreed w/resident/PA/TEMPORARY OFFICE ASSISTANT, discussed with family, reviewed EMR data (avail), discussed with nursing, discussed with case mgmt, amended to note Attending Assessment/Plan: Patient is an 82-year-old male with history significant for dementia. He is also legally blind. Late last year he was diagnosed with colon cancer. Surgical intervention was recommended however his daughter declined this. He has fortunately not had any obstructive symptoms since being discharged. However patient has had 2 hospitalizations since then for unresponsiveness. Workup has been negative both times. Following the first episode he was started empirically on Keppra for presumed seizures by the neurology service. During the second admission the neurology service had recommended consideration of switching his antiepileptic regimen from Keppra to Depakote ER. I had an extensive conversation with the daughter at the bedside. Patient was brought back to the emergency room for evaluation yesterday. According to the daughter over the past week she has not been eating as much as he usually does. She was concerned about this and brought him for evaluation. She reported that he had a fever but stated that his temperature was 99.5. She reported that he had complaints of cough and sore throat. Daughter clearly denies any episodes of loss of consciousness or seizure-like activities that prompted her to return to the emergency room yesterday. She states that she brought in for evaluation only because he was not eating at home. Apparently in the emergency room patient stated that he was hungry and he ate a sandwich that he was given. Later on overnight she reportedly gave him it do not appreciate as well. This morning also staff did report that he ate some of his meals however he had very little of his lunch. On admission sodium levels were within normal limits however patient did have a prerenal azotemia. He does have hypernatremia today. General appearance: Well-developed, not in acute distress. Neurologic: Alert, responds to questioning occasionally with inappropriate answers. Tongue is midline. Upper and lower extremities are stiff. Heart: S1-S2 regular Lungs: Clear to auscultation bilaterally Abdomen: Soft and nontender. Extremities: No pedal edema. Problems: 1. Questionable pneumonia. Patient has abnormal infiltrates on x-ray. Daughter reports complaints of cough. He did have leukocytosis on presentation. 2. Poor oral intake; daughter reports that patient is declining to eat meals. Level of consciousness however has remained unchanged. 3. Hypernatremia 4. Chronic anemia; stable. 5. Untreated adenocarcinoma of the colon. Plan: -Continue empiric therapy with Unasyn. -Calculate free water deficit and supplement fluids with D5W Rather than normal saline. -Continue to encourage oral intake. -I did begin goals of care conversation with the daughter. She however would like everything possibly done for her father. She is of the impression that he has a reversible condition that could be easily treated. I did explain that if his decreased oral intake was indeed secondary to an infection on his electrolyte abnormality we do anticipate this improvement with treatment. However also within the differential is progression of his dementia. -I did discuss the case with neurologist Dr. Irma Sahni. She is of the impression that patient should be continued on Keppra with no change of his antiepileptic regimen. Recurrent seizures appears less likely. If seizure disorder is to be considered high within the differential he would benefit from referral to the seizure disorder center at [facility]. Patient's daughter however is not interested in this at this time. -Upon discharge patient should follow-up with palliative care services in the outpatient setting particularly with a history of untreated adenocarcinoma of the colon -Incidentally noted on CT scan of the renal mass. However this is chronic. Head CT also reports lytic lesions in the calvarium. However this was not reported on previous CTs including that done a few weeks ago. Will discuss this further with the radiologist. Will check serum protein electrophoresis.
[2017-08-06 08:11] LABS: ABSOLUTE BASOPHIL COUNT 0.1 /CUMM (0.0-0.2); ABSOLUTE EOSINOPHIL COUNT 0.4 /CUMM (0.0-0.7); ABSOLUTE LYMPH COUNT 1.8 /CUMM (1.2-3.4); ABSOLUTE MONOCYTE COUNT 0.6 /CUMM (0.10-0.60); BASOPHIL % 0.5 % (0.0-2.0); GRANULOCYTE % 76.1 % (42.2-75.2); HEMATOCRIT 31.6 % (42-52); MEAN CORPUSCULAR HGB 22.8 PG (27.0-31.0); MEAN CORPUSCULAR HGB CONC 30.8 G/DL (33.0-37.0); MEAN CORPUSCULAR VOLUME 73.9 FL (80.0-94.0); PLATELET COUNT 220 /CUMM (130-400); RBC DISTRIBUTION WIDTH 21.8 % (11.5-14.5); RED BLOOD CELL CT 4.28 /CUMM (4.70-6.10); WHITE BLOOD CELL COUNT 11.9 /CUMM (4.8-10.8)
[2017-08-06 08:25] VITALS: BP 160/70
--- NOTE | 2017-08-06 14:19 | Cons- Neurology ---
General Information and HPI Consulting Request Date of Consult: 08/06/17 Requested By: Davon West MD Reason for Consult: Unresponsive episodes Source of Information: family (dtr), hospitalist team, EMR Exam Limitations: not alert/orientated, dementia History of Present Illness: 82-year-old man with dementia for at least the past 5 years according to his daughter, never seen by a neurologist specifically regarding the dementia, blind in both eyes, with a tendency to maintain his eyes closed even during wakefulness. Since June, he has had numerous episodes of unresponsiveness in the face of stable vital signs and no witnessed convulsive activity. According to his daughter, the first episode that occurred in June was 1 in which she spoke to him and he did not respond to her, so she touched his face and he still did not response, then she shook him and he still did not respond. She called 911 and he was taken to the [facility] ED. She states that he remained in an unresponsive state for about 2 hours. He had a second episode while in the hospital which she still believes lasted about 40 minutes. Neurologic workup for TIA or stroke was unrevealing. He was placed on empiric Keppra that was readmitted with another unresponsive episode despite reported medication adherence. On this admission, his daughter has denies him having had an unresponsive episode, although ED records would speak against this. She states that he hasn' t been eating or drinking in the past few days, and that is the reason why she brought him in. He has a history of colon cancer, but the family has opted not to pursue treatment. Allergies/Medications Allergies: Coded Allergies: NO KNOWN ALLERGIES (07/10/17) Home Med List: Acetaminophen (Tylenol) 325 MG TABLET 2 TAB PO Q6-PRN PRN PAIN (Reported) Atorvastatin Calcium (Lipitor) 40 MG TABLET 1 TAB PO DAILY CHOLESTEROL ( Reported) Cholecalciferol (Vitamin D3) (Vitamin D) 2,000 UNIT CAPSULE 1 CAP PO DAILY SUPPLEMENT (Reported) Docusate Sodium (Colace) 100 MG CAPSULE 2 CAP PO DAILY STOOL SOFTENER ( Reported) Ferrous Sulfate 325 MG (65 MG IRON) TABLET 1 TAB PO BID SUPPLEMENT (Reported) Finasteride 5 MG TABLET 1 TAB PO DAILY PROSTATE (Reported) Insulin Detemir (Levemir) 100 UNIT/ML VIAL 12 UNITS SC BID DIABETES Insulin Lispro (Humalog Kwikpen U-100) 100 UNIT/ML INSULN.PEN 0 SC TIDAC DIABETES before meals less than 80 mg/dl take cup of apple juice 80-150 4 units 151-200 6 units 201-250 8 units 251-300 10 units 301-350 12 units 351-400 13 units >400 14 units Bedtime 251-300 2 units 301-350 3 units 351-400 4 units >400 5 units Latanoprost 0.005 % DROPS 1 GTT OPH QPM BOTH EYES (Reported) Levetiracetam (Keppra) 500 MG TABLET 1,000 MG PO BID SEIZURE PROPHYLAXIS Memantine HCl (Namenda) 10 MG TABLET 2 TAB PO QHS MEMORY (Reported) Omeprazole Magnesium (Prilosec Otc) 20 MG TABLET.DR 1 TAB PO DAILY ACID REFLUX Polyethylene Glycol 3350 (Miralax) 17 GRAM POWD.PACK 1 PAC PO DAILY GI ( Reported) dissolve in water Tamsulosin HCl (Flomax) 0.4 MG CAP.ER.24H 1 CAP PO DAILY PROSTATE (Reported) Current Medications: Current Medications Sig/Zoe Start time Last Medication Dose Route Stop Time Status Admin Acetaminophen 650 MG Q6P PRN 08/05 2315 AC PO Ampicillin Sodium/ 1,500 MG Q6 08/06 1200 AC 08/06 Sulbactam Sodium IV 1218 Sodium Chloride 100 ML Ampicillin Sodium/ 3,000 MG Q6H 08/06 0800 DC 08/06 Sulbactam Sodium IV 0818 Sodium Chloride 100 ML Ampicillin Sodium/ 3,000 MG Q6 08/05 2359 DC 08/06 Sulbactam Sodium IV 0153 Sodium Chloride 100 ML Atorvastatin Calcium 40 MG 1700 08/06 1700 AC PO Azithromycin 500 MG ONCE ONE 08/05 2044 DC 08/05 Dextrose/Water 250 ML IV 08/05 Ceftriaxone Sodium 0 .STK-MED ONE 08/06 2115 DC .ROUTE Ceftriaxone Sodium 1,000 MG ONCE ONE 08/05 2044 DC 08/05 IV 08/05 Cholecalciferol 1,000 IU DAILY 08/06 1000 AC 08/06 PO 0826 Divalproex Sodium 500 MG DAILY 08/06 1030 DC PO Docusate Sodium 100 MG DAILY NEEDED PRN 08/05 2330 AC PO Ferrous Sulfate 325 MG BID 08/06 1000 AC 08/06 PO 0826 Finasteride 5 MG DAILY 08/06 1000 AC 08/06 PO 0826 Heparin Sodium 5,000 UNIT Q8 08/06 0600 AC 08/06 (Porcine) SC 1331 Insulin Aspart 0 AT BEDTIME 08/06 2200 AC SC Insulin Aspart 0 TIDAC 08/06 1200 CAN SC Insulin Aspart 0 TIDAC 08/06 1200 AC 08/06 SC 1218 Insulin Aspart 0 TIDAC/HS 08/06 0800 DC 08/06 SC 0907 Insulin Aspart 0 TIDAC 08/05 2330 DC SC Insulin Detemir 12 UNITS BID 08/06 1000 DC SC Insulin Detemir 12 UNITS BID 08/06 0145 AC 08/06 SC 0907 Insulin Human Regular 0 Q6 08/06 1200 CAN SC Latanoprost 1 GTT QPM 08/06 220 AC OPH Levetiracetam 1,000 MG BID 08/06 2200 AC PO Levetiracetam 1,000 MG BID 08/05 2359 DC 08/06 PO 0826 Memantine 20 MG AT BEDTIME 08/06 220 AC PO Omeprazole 20 MG DAILY AC 08/06 0700 AC 08/06 PO 0611 Polyethylene Glycol 17 GM DAILY PRN 08/05 2330 AC PO Sodium Chloride 1,000 ML Q13H 08/06 0415 DC 08/06 IV 08/06 1714 0510 Sodium Chloride 1,000 ML BOLUS ONE 08/05 2000 DC 08/05 IV 08/059 2007 Sodium Chloride 1,000 ML BOLUS ONE 08/05 1830 DC 08/05 IV 08/05 1929 1852 Tamsulosin HCl 0.4 MG DAILY 08/06 1000 AC 08/06 PO 0826 Review of Systems Review of Systems: Unobtainable from the patient. According to his daughter, ever since she had an placed temporarily in an ECF while she was having hip surgery, his ambulatory skills have declined to essentially bed to chair and bed to wheelchair. 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 Home Who Do You Live With? child (dtr/KATTRafaela & her son) Services at Home: Home Health Aide Primary Language: Grenadian, Peruvian Smoking Status: Former Smoker ETOH Use: denies use Illicit Drug Use: marijuana Living Will? no Power of Set Off Blocker/HCP? yes Name of POA/HCP: Pt/s dtRafaela walter [phone] Functional Ability ADLs Needs Assist: dressing, eating, toileting, bathing. Ambulation: non-ambulatory (wheelchair bound) IADLs Needs Assist: shopping, housework, finances, food prep, telephone, transportation, medication admin. Exam & Diagnostic Data Vital Signs and I&O Vital Signs Date Time Temp Pulse Resp B/P B/P Pulse O2 O2 Flow FiO2 Mean Ox Delivery Rate 08/06 1054 Room Air Room Air 08/06 0826 85 160/70 08/06 0825 85 160/70 08/06 0800 Room Air 08/06 0726 98.6 79 20 152/76 94 Room Air 08/06 0204 83 146/81 08/06 0137 96 Room Air 08/06 0130 98.5 90 22 182/94 96 Room Air 08/06 0048 97.0 82 20 134/68 98 Room Air 08/05 1954 98.7 84 18 139/72 94 Room Air 08/05 1824 94 08/05 1808 97.8 98 18 137/78 94 Room Air Room Air Intake & Output 08/06 1600 08/06 0800 08/06 0000 Intake Total 920 1000 Output Total Balance 920 1000 Intake, IV 200 1000 Intake, Oral 720 0 Number 1 Bowel Movements Patient 153 lb 180 lb Weight Weight Bed scale Estimated Measurement Method Physical Exam: Maintains his eyes closed, but is awake and verbally responsive, though he has a thick [place]uvian accent for which I had to rely on his daughter for interpretation. He also intermittently responded in his g[place] tongue. He was oriented to person only, not to place or time Speech was essentially fluent He was able to follow several basic verbal commands, but he did tend to rid exist portions of the exam Pupillary exam and funduscopic exam were limited by corneal opacification Extraocular movements were full The face moves symmetrically The tongue protruded to midline There was no gross hearing loss Motor: Strength is at least antigravity throughout. Muscle bulk was reduced in the intrinsic hand muscles. There was paratonia. There was no obvious limb ataxia Light touch sensation appeared to be intact Last 48 Hours of Lab Results: Laboratory Tests 08/06 08/05 0610 2105 Chemistry Sodium (137 - 145 mmol/L) 147 H Potassium (3.5 - 5.1 mmol/L) 3.8 Chloride (98 - 107 mmol/L) 104 Carbon Dioxide (22 - 30 mmol/L) 26 Anion Gap (5 - 16) 16 BUN (9 - 20 mg/dL) 28 H Creatinine (0.7 - 1.2 mg/dL) 1.3 H Estimated GFR (>60 ml/min) 53 L BUN/Creatinine Ratio (7 - 25 %) 21.5 Lactic Acid (0.7 - 2.1 mmol/L) 2.1 Hematology CBC w Diff NO MAN DIFF REQ WBC (4.8 - 10.8 /CUMM) 11.9 H RBC (4.70 - 6.10 /CUMM) 4.28 L Hgb (14.0 - 18.0 G/DL) 9.8 L Hct (42 - 52 %) 31.6 L MCV (80.0 - 94.0 FL) 73.9 L MCH (27.0 - 31.0 PG) 22.8 L MCHC (33.0 - 37.0 G/DL) 30.8 L RDW (11.5 - 14.5 %) 21.8 H Plt Count (130 - 400 /CUMM) 220 MPV (7.4 - 10.4 FL) 11.0 H Gran % (42.2 - 75.2 %) 76.1 H Lymphocytes % (20.5 - 51.1 %) 15.5 L Monocytes % (1.7 - 9.3 %) 4.9 Eosinophils % (0 - 5 %) 3.0 Basophils % (0.0 - 2.0 %) 0.5 Absolute Granulocytes (1.4 - 6.5 /CUMM) 9.0 H Absolute Lymphocytes (1.2 - 3.4 /CUMM) 1.8 Absolute Monocytes (0.10 - 0.60 /CUMM) 0.6 Absolute Eosinophils (0.0 - 0.7 /CUMM) 0.4 Absolute Basophils (0.0 - 0.2 /CUMM) 0.1 08/05 1819 Chemistry Sodium (137 - 145 mmol/L) 145 Potassium (3.5 - 5.1 mmol/L) 4.3 Chloride (98 - 107 mmol/L) 104 Carbon Dioxide (22 - 30 mmol/L) 28 Anion Gap (5 - 16) 13 BUN (9 - 20 mg/dL) 41 H Creatinine (0.7 - 1.2 mg/dL) 1.5 H Estimated GFR (>60 ml/min) 45 L BUN/Creatinine Ratio (7 - 25 %) 27.3 H Glucose (65 - 99 mg/dL) 430 H Lactic Acid (0.7 - 2.1 mmol/L) 2.4 H Calcium (8.4 - 10.2 mg/dL) 10.0 Total Bilirubin (0.2 - 1.3 mg/dL) 1.0 AST (17 - 59 U/L) 28 ALT (21 - 72 U/L) 29 Alkaline Phosphatase (< 127 U/L) 103 Troponin I (<0.11 ng/ml) < 0.01 Total Protein (6.3 - 8.2 g/dL) 6.8 Albumin (3.5 - 5.0 g/dL) 3.8 Globulin (1.9 - 4.2 gm/dL) 3.0 Albumin/Globulin Ratio (1.1 - 2.2 %) 1.3 Hematology CBC w Diff NO MAN DIFF REQ WBC (4.8 - 10.8 /CUMM) 13.6 H RBC (4.70 - 6.10 /CUMM) 4.70 Hgb (14.0 - 18.0 G/DL) 10.7 L Hct (42 - 52 %) 34.5 L MCV (80.0 - 94.0 FL) 73.6 L MCH (27.0 - 31.0 PG) 22.9 L MCHC (33.0 - 37.0 G/DL) 31.1 L RDW (11.5 - 14.5 %) 21.7 H Plt Count (130 - 400 /CUMM) 231 MPV (7.4 - 10.4 FL) 11.2 H Gran % (42.2 - 75.2 %) 77.0 H Lymphocytes % (20.5 - 51.1 %) 13.2 L Monocytes % (1.7 - 9.3 %) 5.7 Eosinophils % (0 - 5 %) 3.4 Basophils % (0.0 - 2.0 %) 0.7 Absolute Granulocytes (1.4 - 6.5 /CUMM) 10.4 H Absolute Lymphocytes (1.2 - 3.4 /CUMM) 1.8 Absolute Monocytes (0.10 - 0.60 /CUMM) 0.8 H Absolute Eosinophils (0.0 - 0.7 /CUMM) 0.5 Absolute Basophils (0.0 - 0.2 /CUMM) 0.1 Urines Urine Color (YEL,AMB,STR) YEL Urine Clarity (CLEAR) CLEAR Urine pH (5.0 - 8.0) 6.0 Ur Specific Moro (1.001 - 1.035) 1.020 Urine Protein (NEG,<30 MG/DL) NEG Urine Ketones (NEG) NEG Urine Nitrite (NEG) NEG Urine Bilirubin (NEG) NEG Urine Urobilinogen (0.1 - 1.0 EU/dl) 0.2 Ur Leukocyte Esterase (NEG) NEG Ur Microscopic SEDIMENT EXAMINED Urine RBC (0 - 5 /HPF) 1-3 Urine WBC (0 - 2 /HPF) RARE Ur Epithelial Cells (NONE,FEW) RARE Urine Mucus (FEW,NONE) RARE Urine Hemoglobin (NEG) TRACE-INTACT H Urine Glucose (N MG/DL) >=1000 H Imaging/Other Studies: EEG 07/09/2017: Normal EEG 07/30/2017: Interpretation: The recording demonstrates a reduction in the usual frequency gradient. Throughout most of the study the patient was either drowsy or asleep and as expected the majority of the background rhythms are an intermixed theta and delta rhythms. At times during short intervals of wakefulness the rhythms clam picker to a low alpha with the posterior dominant rhythm peaking at 8 herzt. There is relative slowing within the left >right temporal lobes during wakefulness. There amplitude is also very low in the 5-10 microvolt range. No paroxysmal sharps or spikes were recorded. Impression: Recording suggestive of mild slowing of the backgrounds and focal slowing within the temporal lobes that could be compatible with a neurodegenerative condition. No suggestion of seizure activity. DICTATED BY: Getachew Hidalgo MD DATE/TIME DICTATED:07/30/171737 RADIATION OFFICER:BRENDEN DATE/TIME TRANSCRIBED:07/30/171737 REPORT NUMBER:[id number] PATIENT: EDILBERTO MARTIN PRESENT AGE: 82 PATIENT ACCOUNT NO: [id number] : 33 LOCATION: [facility] ORDERING PHYSICIAN: Landry LEROY SERVICE DATE: 08/05/17 EXAM TYPE: CAT - CT ABD & PELVIS W/O IV CONTRAS; CT CHEST WO IV CONTRAST; CT HEAD WO IV CONTRAST EXAMINATION: CT CHEST, ABDOMEN AND PELVIS WITHOUT CONTRAST CT HEAD WITHOUT CONTRAST CLINICAL INFORMATION: 82-year-old male with acute mental status change. Unresponsive. Presumptive diagnoses: Acute abdomen, pneumonia. COMPARISON: CT the brain on 01/14/2017, 05/28/2017, 07/09/2017, and 07/10/2017. CT of the abdomen and pelvis on 03/05/2017, 04/08/2017, 04/11/2017, 05/28/2017, and 07/09/2017. (Right frontal meningioma). TECHNIQUE: Contiguous axial imaging was performed from the skull base to vertex without intravenous administration of contrast. Multidetector volumetric imaging was performed from the thoracic inlet through the pubic symphysis without intravenous contrast. Oral contrast: None Sagittal and coronal reformatted images were obtained on the technologist workstation. Total exam dose-length product 644 mGy-cm for abdomen and pelvis. Total exam dose-length product 648 mGy-cm for brain. FINDINGS: BRAIN: There is no evidence of acute intracranial hemorrhage or territorial infarction. No abnormal mass effect or midline shift is seen. Petit to white matter differentiation is well preserved. No extra-axial fluid collections are identified. The right frontal meningioma shows no significant growth since 01/14/2017. The prominent ventricles are concordant with the deepened cortical sulci due to age related atrophy. There are mild chronic white matter microangiopathic changes. Multiple "punched-out" lytic lesions are still present in the calvarium. The The mastoid air cells and visualized portions of the paranasal sinuses are well aerated. FINDINGS: CHEST, ABDOMEN, PELVIS: PACKAGE SEALER MACHINE: Noncontributory. No obvious lytic lesions in the visualized axial or appendicular skeleton. LUNG: Small apical blebs are present on the right. An 8 mm ovoid slightly irregular nodule is located in left apex. Series 5, image 54. Focal area of peripheral parenchymal opacity is located in the posterior apical segment of the right upper lobe. Series 5, images 148 - 172. There is also dependent atelectasis of both lower lobes. PLEURA: No pleural effusion or pneumothorax. MEDIASTINUM: Normal heart size. No pericardial effusion. No hilar or mediastinal lymphadenopathy. VASCULAR: Unremarkable. CHEST WALL/AXILLA: No axillary or internal mammary lymphadenopathy. ABDOMEN/PELVIS: LIVER, GALLBLADDER, AND BILIARY TREE: The liver is normal in size, shape, and attenuation. No focal hepatic lesion or biliary ductal dilatation is present. The gallbladder is unremarkable with no evidence of radiopaque gallstones, gallbladder wall thickening, or obvious pericholecystic inflammatory changes. PANCREAS: Normal; no mass or surrounding fluid. SPLEEN: Normal size. No focal lesion. ADRENAL GLANDS: Normal; no mass. KIDNEYS AND URETERS: The left kidney is incompletely rotated. A small cortical cyst is seen in the lower pole of the right kidney. A tiny exophytic cyst is seen in the midportion of the left kidney. There is no hydronephrosis or stone formation. There is a mass in the midportion of the left kidney which shows higher attenuation than the adjacent cortex. This measures 2.7 cm in diameter. Previously 1.4 cm in 03/05/2017. Series 602, image 72. GASTROINTESTINAL TRACT: Stomach and small bowel non-dilated. No colonic wall thickening or pericolonic inflammatory changes. There is an increased burden of formed stool throughout the colon from cecum to rectum. No obstruction. No free fluid. No free air. ABDOMINAL WALL: No significant hernia is appreciated. LYMPHOVASCULAR STRUCTURES: No lymphadenopathy. The aorta is unremarkable. BLADDER: Empty. PELVIC VISCERA: No change. OSSEOUS STRUCTURES: No acute or suspicious osseous abnormality. IMPRESSION: 1. Stable right frontal meningioma. Parenchymal volume loss and mild chronic white matter microangiopathy. No acute intracranial pathology. 2. Multiple lytic punched out lesions in the bone calvarium. A serum protein electrophoresis would exclude myeloma. 3. Early pneumonia posterior apical segment of the right upper lobe. 4. Mass in the left kidney increasing in size and showing abnormal attenuation. A renal neoplasm is possible. Pre- and post-IV contrast scans of the kidneys would elucidate. 5. Increased burden of formed stool throughout the colon. No obstruction. No free air. DICTATED BY: Tavo Rogers MD DATE/TIME DICTATED:08/05/171857 RADIATION OFFICER:ANASTASIIA DATE/TIME TRANSCRIBED:08/05/171857 CONFIDENTIAL, DO NOT COPY WITHOUT APPROPRIATE AUTHORIZATION. <Electronically signed in Other Vendor System> SIGNED BY: Tavo Rogers MD 1953 Assessment/Plan Assessment: Has is an 82-year-old man with advanced dementia who is unresponsive episodes are likely reflective of progression of Alzheimer's, rather than nonconvulsive seizures. Episodes are recurring despite an empiric trial of anticonvulsant therapy. He also appears to be experiencing failure to thrive. Recommendations: Consider tapering off Keppra and observing. During the unresponsive episodes his vital signs reportedly remain stable, he remains bedbound and displays no convulsive activity. Consider geriatrics/palliative care consultation. If unresponsive spells become more frequent, one could consider transfer to [place] for video EEG, but given the overall picture I would lean toward conservative measures. Consult Acknowledgment - Thank you for your consult request.
[2017-08-06 14:36] VITALS: BP 136/68
--- NOTE | 2017-08-06 16:24 | Patient Discharge Instructions ---
Discharge Instructions General Discharge Information Special Instructions: - Please follow up with your primary care physician within 1-2 weeks of discharge. Inform your primary care physician of this admission to [facility]. - Continue your current medications per discharge instructions. - Please watch for these problems: Fever, Chills, Nausea, Vomiting, Shortness of Breath, Productive Cough, Chest Pain/Discomfort, Abdominal Pain, Active Bleeding or Bloody urine/stool. Diet Continue normal diet: Yes Recommended Diet: Diabetic Activity Full Activity/No Limits: No Activity Self Limited: Yes Acute Coronary Syndrome Inclusion Criteria At DC or during hospital stay patient has or had the following: ACS DIAGNOSIS No Discharge Core Measures Meds if any: Prescribed or Continued at Discharge Meds if any: NOT Prescribed or Continued at Discharge Congestive Heart Failure Inclusion Criteria At DC or during hospital stay patient has or had the following: CHF DIAGNOSIS No Discharge Core Measures Meds if any: Prescribed or Continued at Discharge Meds if any: NOT Prescribed or Continued at Discharge Cerebrovascular accident Inclusion Criteria At DC or during hospital stay patient has or had the following: CVA/TIA Diagnosis No Discharge Core Measures Meds if any: Prescribed or Continued at Discharge Meds if any: NOT Prescribed or Continued at Discharge Venous thromboembolism Inclusion Criteria VTE Diagnosis No VTE Type NONE VTE Confirmed by (Test) NONE Discharge Core Measures - Per Current guidelines, there needs to be overlap - treatment for the first 5 days of Warfarin therapy. - If discharged on Warfarin prior to 5 days of - overlap therapy, the patient will need to be - assessed for post discharge needs including - *Post discharge parental anticoagulation - *Warfarin and/or parental anticoagulation education - *Follow up date to check INR post discharge At least 5 days overlap therapy as Inpatient No Meds if any: Prescribed or Continued at Discharge Note: Overlap Therapy is Warfarin and Anticoagulant Meds if any: NOT Prescribed or Continued at Discharge
[2017-08-06 22:31] VITALS: BP 124/84
[2017-08-07 06:34] VITALS: BP 134/80
--- NOTE | 2017-08-07 07:22 | PN- Housestaff ---
Y[place]Monica 08/07/17 0722: Subjective Follow-up For: 1. Questionable pneumonia (Aspiration?), on 2. Poor oral intake, resolving 3. Hypernatremia, resolved 4. Chronic anemia; stable. 5. Untreated adenocarcinoma of the colon. Tele-Events Since Last Visit: Off tele Subjective: No overnight event. Patient's daughter stated that patient ate dinner around 2AM in the morning, and had full breakfast without any choking/complaint. Review of Systems Constitutional: Reports: see HPI. Objective Last 24 Hrs of Vital Signs/I&O Vital Signs Date Time Temp Pulse Resp B/P B/P Pulse O2 O2 Flow FiO2 Mean Ox Delivery Rate 08/07 0634 97.2 83 22 134/80 96 Room Air 08/06 2231 97.3 98 26 124/84 100 08/06 1436 97.8 99 20 136/68 95 Room Air 08/06 1054 Room Air Room Air Intake & Output 08/07 1600 08/07 0800 08/07 0000 Intake Total 1350 1180 Output Total Balance 1350 1180 Intake, IV 800 700 Intake, Oral 550 480 Number 1 2 Bowel Movements Patient 71.214 kg Weight Physical Exam General Appearance: Alert, Cooperative, No Acute Distress, At baseline oriented to self and some surrounding, conversational but not always answering the questions. Cardiovascular: Regular Rate Lungs: Clear to Auscultation, Normal Air Movement Abdomen: Soft, No Tenderness Current Medications: Current Medications Sig/Zoe Start time Last Medication Dose Route Stop Time Status Admin Acetaminophen 650 MG Q6P PRN 08/05 2315 AC PO Ampicillin Sodium/ 1,500 MG Q6 08/06 1200 AC 08/07 Sulbactam Sodium IV 0500 Sodium Chloride 100 ML Ampicillin Sodium/ 3,000 MG Q6H 08/06 0800 DC 08/06 Sulbactam Sodium IV 0818 Sodium Chloride 100 ML Atorvastatin Calcium 40 MG 1700 08/06 1700 AC 08/06 PO 1732 Cholecalciferol 1,000 IU DAILY 08/06 1000 AC 08/06 PO 0826 Dextrose/Water 1,000 ML Q13H 08/06 1530 DC 08/07 IV 08/07 1729 0448 Divalproex Sodium 500 MG DAILY 08/06 1030 DC PO Docusate Sodium 100 MG DAILY NEEDED PRN 08/05 2330 AC PO Ferrous Sulfate 325 MG BID 08/06 1000 AC 08/06 PO 2126 Finasteride 5 MG DAILY 08/06 1000 AC 08/06 PO 0826 Heparin Sodium 5,000 UNIT Q8 08/06 0600 AC 08/07 (Porcine) SC 0619 Insulin Aspart 0 AT BEDTIME 08/06 2200 AC 08/06 SC 212 Insulin Aspart 0 TIDAC 08/06 1200 CAN SC Insulin Aspart 0 TIDAC 08/06 1200 AC 08/07 SC 0814 Insulin Aspart 0 TIDAC/HS 08/06 0800 DC 08/06 SC 0907 Insulin Detemir 12 UNITS BID 08/06 0145 AC 08/06 SC 212 Insulin Human Regular 0 Q6 08/06 1200 CAN SC Latanoprost 1 GTT QPM 08/06 2200 AC 08/06 OPH 2127 Levetiracetam 1,000 MG DAILY 08/07 1000 AC PO Levetiracetam 1,000 MG BID 08/06 2200 DC PO Levetiracetam 1,000 MG BID 08/05 2359 DC 08/06 PO 0826 Memantine 20 MG AT BEDTIME 08/06 2200 AC 08/06 PO 2126 Omeprazole 20 MG DAILY AC 08/06 0700 AC 08/07 PO 0606 Polyethylene Glycol 17 GM DAILY PRN 08/05 2330 AC PO Sodium Chloride 1,000 ML Q13H 08/06 0415 DC 08/06 IV 08/06 1714 0510 Tamsulosin HCl 0.4 MG DAILY 08/06 1000 AC 08/06 PO 0826 Last 24 Hrs of Lab/Michael Results Last 24 Hrs of Labs/Mics: Laboratory Tests 08/07/17 0625: Anion Gap 10, Estimated GFR > 60, BUN/Creatinine Ratio 16.4 08/07/17 0625: Prot Electrophoresis Pending, Total Protein (PEP) Pending, Albumin % (PEP) Pending, Rfrml-[id number] Pending, Gzhql-6-Nybejqrha Pending, Chhz-9-Lshmatnw Pending, Pqoy-2-Uiqrgyqg Pending, Gamma Globulins Pending, Abnorm Protein Band 1 Pending, Abnorm Protein Band 2 Pending, Abnorm Protein Band 3 Pending, CBC w Diff Pending, WBC Pending, RBC Pending, Hgb Pending, Hct Pending, MCV Pending, MCH Pending, MCHC Pending, RDW Pending, Plt Count Pending, MPV Pending Assessment/Plan Assessment: Mr. Galvez is a 82-year-old male with past medical history significant for hypertension, hyperlipidemia, diabetes mellitus, BPH status post TURP procedure, right frontal meningioma, seizures, dementia, GERD, moderately differentiated adenocarcinoma transverse colon, refused surgery, osteoarthritis, anemia was brought in by ambulance for evaluation of altered mental status, lethargy, poor oral intake for 2 days. on admission Vitals afebrile, heart rate 90, respiratory rate 18, blood pressure 137/70, 94 on room air. HEENT within normal limits. No JVD. S1-S2 normal no murmurs., Bilateral breath sounds normal, per abdomen soft, nontender, and nondistended. No lower extremity edema. Pertinent labs Leukocytosis 13.6, hemoglobin 10 and hematocrit 34, platelets 231. BUN 41 and creatinine 1.5. LFT, troponin, urinalysis normal EKG sinus rhythm, left ventricular hypertrophy, right bundle branch block, left anterior fascicular block CT head, chest, abd showed 1. Stable right frontal meningioma. Parenchymal volume loss and mild chronic white matter microangiopathy. No acute intracranial pathology. 2. Multiple lytic punched out lesions in the bone calvarium. A serum protein electrophoresis would exclude myeloma. 3. Early pneumonia posterior apical segment of the right upper lobe. 4. Mass in the left kidney increasing in size and showing abnormal attenuation. A renal neoplasm is possible. Pre- and post-IV contrast scans of the kidneys would elucidate. 5. Increased burden of formed stool throughout the colon. No obstruction. No free air. Problem list 1. Questionable pneumonia (Aspiration?) 2. Poor oral intake, resolving 3. Hypernatremia, resolved 4. Chronic anemia; stable. 5. Untreated adenocarcinoma of the colon. * Monitor fever, leukocytosis, currently WBC resolved to 11.9, trending down, likely reactive * Provide supplemental oxygen if necessary * will switch to Augmentin and continue for 5 days. * Patient's PO intake had been adaquate, despite eating meals not on schedule. - Cultures NGTD * IV Tylenol if febrile * Aspiration precautions * Fall precautions * Monitor for any seizures, syncope - Appreciated neuro consult. Alireza consider discharge on Keppra 500bid, continue Namenda 20 mg daily, and palliative consult. - continue Lipitor 40 daily, bowel regimen whenever necessary, finasteride and tamsulosin - continue Levemir 12 twice daily and insulin sliding scale. Full code DVT prophylaxis subcutaneous heparin Regular diet Problem List: 1. Altered mental status 2. Uncontrolled diabetes mellitus Pain Ratin Pain Location: NA Pain Goal: Remain pain free Pain Plan: see AP Tomorrow's Labs & Rationales: HENNA West MD,Davon 08/07/17 1401: Attending MD Review Statement Attending Statement Attending MD Statement: examined this patient, discuss w/resident/PA/PYROTECHNICIAN, agreed w/resident/PA/PYROTECHNICIAN, discussed with family, reviewed EMR data (avail), discussed with nursing, discussed with case mgmt, amended to note Attending Assessment/Plan: Patient seen and examined. Resting comfortably not in any acute distress. Daughter reports that he had a late lunch yesterday. She also reports that he did not eat his dinner onto the early hours of this morning. She did report that he had tolerated. This morning he had breakfast on time with no events. He tolerated his meals with aspiration. He remains afebrile and hemodynamically stable. On examination he is alert and does answer some questions appropriately. He is at his baseline mental status according to his daughter. He does have generalized weakness which is his baseline per daughter. I have explained to the daughter that changes patient's mentation and desire to eat a likely related to his advancing dementia. There is a question that he has an underlying pneumonia however he does not appear septic from this. I did explain to her that these changes are likely to alcohol despite treated for pneumonia and repeated hospitalizations. She continues to insist that at baseline her father lost to eat. I did explain that his dementia may be advancing. Recommendations: -Transition patient to Augmentin tomorrow. Complete 5 days of therapy. -Wean down Keppra as recommended by the neurology service. -Patient should follow-up with the geriatric service and palliative care service upon discharge. -Anticipate discharge in 24 hours if he remains clinically stable.
[2017-08-07 08:30] LABS: ABSOLUTE BASOPHIL COUNT 0.1 /CUMM (0.0-0.2); ABSOLUTE EOSINOPHIL COUNT 0.4 /CUMM (0.0-0.7); ABSOLUTE GRANULOCYTE CT 4.4 /CUMM (1.4-6.5); ABSOLUTE MONOCYTE COUNT 0.4 /CUMM (0.10-0.60); BASOPHIL % 0.9 % (0.0-2.0); EOSINOPHIL % 4.9 % (0-5); GRANULOCYTE % 60.6 % (42.2-75.2); HEMATOCRIT 28.6 % (42-52); MEAN CORPUSCULAR HGB 23.3 PG (27.0-31.0); MEAN CORPUSCULAR HGB CONC 31.5 G/DL (33.0-37.0); MEAN CORPUSCULAR VOLUME 73.8 FL (80.0-94.0); MEAN PLATELET VOLUME 10.8 FL (7.4-10.4); PLATELET COUNT 194 /CUMM (130-400); RBC DISTRIBUTION WIDTH 22.1 % (11.5-14.5); RED BLOOD CELL CT 3.87 /CUMM (4.70-6.10); WHITE BLOOD CELL COUNT 7.2 /CUMM (4.8-10.8)
[2017-08-07] MEDS ORDERED: KEPPRA500 M1 PO (08:56)
[2017-08-07] MEDS ORDERED: AMOX-CLAV 875-1 EACH PO (08:56)
[2017-08-07 13:49] VITALS: BP 121/70
[2017-08-07 23:00] VITALS: BP 126/77
[2017-08-08 06:30] VITALS: BP 145/79
--- NOTE | 2017-08-08 07:25 | PN- Housestaff ---
Y[place]Monicaie 08/08/17 0724: Subjective Follow-up For: 1. Questionable pneumonia (Aspiration?), on 2. Poor oral intake, resolving 3. Hypernatremia, resolved 4. Chronic anemia; stable. 5. Untreated adenocarcinoma of the colon. Tele-Events Since Last Visit: Off tele Subjective: No overnight event. Patient's daughter at bedside stated that patient was about the same and ate all his meals on time, without any choking/complaint. Review of Systems Constitutional: Reports: see HPI. Objective Last 24 Hrs of Vital Signs/I&O Vital Signs Date Time Temp Pulse Resp B/P B/P Pulse O2 O2 Flow FiO2 Mean Ox Delivery Rate 08/07 2300 97.4 64 18 126/77 100 08/07 1600 Room Air 08/07 1349 98.3 87 20 121/70 100 Room Air Intake & Output 08/08 1600 08/08 0800 08/08 0000 Intake Total 560 Output Total Balance 560 Intake, Oral 560 Patient 70.534 kg Weight Weight Bed scale Measurement Method Physical Exam General Appearance: Pt sleeping Cardiovascular: Regular Rate Extremities: No Edema, Normal Pulses Current Medications: Current Medications Sig/Zoe Start time Last Medication Dose Route Stop Time Status Admin Acetaminophen 650 MG Q6P PRN 08/05 2315 AC PO Amoxicillin/ 875 MG Q12 08/07 1000 AC 08/07 Clavulanate Potassium PO 2150 Ampicillin Sodium/ 1,500 MG Q6 08/06 1200 DC 08/07 Sulbactam Sodium IV 0500 Sodium Chloride 100 ML Atorvastatin Calcium 40 MG 1700 08/06 1700 AC 08/07 PO 1645 Cholecalciferol 1,000 IU DAILY 08/06 1000 AC 08/07 PO 1044 Docusate Sodium 100 MG DAILY NEEDED PRN 08/05 2330 AC PO Ferrous Sulfate 325 MG BID 08/06 1000 AC 08/07 PO 2150 Finasteride 5 MG DAILY 08/06 1000 AC 08/07 PO 1044 Heparin Sodium 5,000 UNIT Q8 08/06 0600 AC 08/08 (Porcine) SC 0707 Insulin Aspart 0 AT BEDTIME 08/06 2200 AC 08/06 PR 2126 Insulin Aspart 0 TIDAC 08/06 1200 AC 08/07 SC 1231 Insulin Detemir 12 UNITS BID 08/06 0145 AC 08/07 PR 2149 Latanoprost 1 GTT QPM 08/06 2200 AC 08/07 OPH 2150 Levetiracetam 1,000 MG DAILY 08/07 1000 AC 08/07 PO 1050 Memantine 20 MG AT BEDTIME 08/06 2199 AC 08/07 PO 2150 Omeprazole 20 MG DAILY AC 08/06 0700 AC 08/08 PO 0707 Polyethylene Glycol 17 GM DAILY PRN 08/05 2330 AC PO Sodium Chloride 1 GTT DAILY 08/08 1000 AC OPH Tamsulosin HCl 0.4 MG DAILY 08/06 1000 AC 08/07 PO 1048 Assessment/Plan Assessment: Mr. Galvez is a 82-year-old male with past medical history significant for hypertension, hyperlipidemia, diabetes mellitus, BPH status post TURP procedure, right frontal meningioma, seizures, dementia, GERD, moderately differentiated adenocarcinoma transverse colon, refused surgery, osteoarthritis, anemia was brought in by ambulance for evaluation of altered mental status, lethargy, poor oral intake for 2 days. on admission Vitals afebrile, heart rate 90, respiratory rate 18, blood pressure 137/70, 94 on room air. HEENT within normal limits. No JVD. S1-S2 normal no murmurs., Bilateral breath sounds normal, per abdomen soft, nontender, and nondistended. No lower extremity edema. Pertinent labs Leukocytosis 13.6, hemoglobin 10 and hematocrit 34, platelets 231. BUN 41 and creatinine 1.5. LFT, troponin, urinalysis normal EKG sinus rhythm, left ventricular hypertrophy, right bundle branch block, left anterior fascicular block CT head, chest, abd showed 1. Stable right frontal meningioma. Parenchymal volume loss and mild chronic white matter microangiopathy. No acute intracranial pathology. 2. Multiple lytic punched out lesions in the bone calvarium. A serum protein electrophoresis would exclude myeloma. 3. Early pneumonia posterior apical segment of the right upper lobe. 4. Mass in the left kidney increasing in size and showing abnormal attenuation. A renal neoplasm is possible. Pre- and post-IV contrast scans of the kidneys would elucidate. 5. Increased burden of formed stool throughout the colon. No obstruction. No free air. Problem list 1. Questionable pneumonia (Aspiration?) 2. Poor oral intake, resolving 3. Hypernatremia, resolved 4. Chronic anemia; stable. 5. Untreated adenocarcinoma of the colon. * Monitor fever, leukocytosis, currently WBC resolved to 7.2 on latest lab, trending down, likely reactive * Provide supplemental oxygen if necessary * will switch to Augmentin and continue for 5 days. * Patient's PO intake had been adaquate, despite eating meals not on schedule. - Cultures NGTD * IV Tylenol if febrile * Aspiration precautions * Fall precautions * Monitor for any seizures, syncope - Appreciated neuro consult. Alireza consider discharge on Keppra 500bid, continue Namenda 20 mg daily, and palliative consult. - continue Lipitor 40 daily, bowel regimen whenever necessary, finasteride and tamsulosin - continue Levemir 12 twice daily and insulin sliding scale. overnight FSG 64- 228. Full code DVT prophylaxis subcutaneous heparin Regular diet Problem List: 1. Unresponsive episode Pain Ratin Pain Location: NA Pain Goal: Remain pain free Pain Plan: see AP Tomorrow's Labs & Rationales: HENNA West MD,Davon 08/08/17 1214: Attending MD Review Statement Attending Statement Attending MD Statement: examined this patient, discuss w/resident/PA/KETTLE LOADER, agreed w/resident/PA/KETTLE LOADER, discussed with family, reviewed EMR data (avail), discussed with nursing, discussed with case mgmt, amended to note Attending Assessment/Plan: Patient seen and examined. Resting comfortably and not in any acute distress. He is alert and oriented 3. Conversant appropriately. He is tolerating his meals. He remains afebrile. He is not requiring oxygen supplementation. On examination heart sounds are regular. Lungs are clear to auscultation bilaterally. Recommendations: -Patient is medically stable to be discharged home today. -His daughter brought him to the hospital for evaluation because she was refusing to eat. Here in the hospital he has been eating his meals although occasionally not at the schedule times. Daughter denies that there was any episodes of unresponsiveness when she brought him back to the hospital this time around. -We believe that his symptoms of not eating on schedule is likely related to advancing dementia. In view of this and also when considering the fact that he has colon cancer for which he is not undergoing any medical or surgical therapy patient will benefit from palliative care services at home. This has been discussed with the daughter. This has also been discussed with the case management service. We are recommending that patient obtains palliative care service upon discharge. Symptoms are only likely recur and progress due to these comorbidities. This has been discussed with the daughter. -Chest x-ray did raise concern for pneumonia. He did present with leukocytosis. We empirically treating him with antibiotic therapy to complete 5 days tomorrow. We have explained to the daughter that this is unlikely tge sole cause of his symptoms. -Case was discussed in detail with the neurology service. Dr. Irma Lopez is of the impression that symptoms may not be related to seizures. She has recommended weaning down his Keppra. Dose has been decreased.
[2017-08-08 08:12] VITALS: BP 145/70
--- NOTE | 2017-08-08 08:14 | Discharge Summary ---
Visit Information Visit Dates Admission Date: 08/05/17 Discharge Date: 08/08/17 Hospital Course Course Attending Physician: Davon West MD [facility]: Mr. Galvez is a 82-year-old male with past medical history significant for hypertension, hyperlipidemia, diabetes mellitus, BPH status post TURP procedure, right frontal meningioma, seizures, dementia, GERD, moderately differentiated adenocarcinoma transverse colon, refused surgery, osteoarthritis, anemia was brought in by ambulance for evaluation of altered mental status, lethargy, poor oral intake for 2 days. on admission Vitals afebrile, heart rate 90, respiratory rate 18, blood pressure 137/70, 94 on room air. HEENT within normal limits. No JVD. S1-S2 normal no murmurs., Bilateral breath sounds normal, per abdomen soft, nontender, and nondistended. No lower extremity edema. Pertinent labs Leukocytosis 13.6, hemoglobin 10 and hematocrit 34, platelets 231. BUN 41 and creatinine 1.5. LFT, troponin, urinalysis normal EKG sinus rhythm, left ventricular hypertrophy, right bundle branch block, left anterior fascicular block CT head, chest, abd showed 1. Stable right frontal meningioma. Parenchymal volume loss and mild chronic white matter microangiopathy. No acute intracranial pathology. 2. Multiple lytic punched out lesions in the bone calvarium. A serum protein electrophoresis would exclude myeloma. 3. Early pneumonia posterior apical segment of the right upper lobe. 4. Mass in the left kidney increasing in size and showing abnormal attenuation. A renal neoplasm is possible. Pre- and post-IV contrast scans of the kidneys would elucidate. 5. Increased burden of formed stool throughout the colon. No obstruction. No free air. Problem list 1. Questionable pneumonia, likely Aspiration 2. Poor oral intake, resolved 3. Hypernatremia, resolved 4. Chronic anemia; stable. 5. Untreated adenocarcinoma of the colon. Course: Upon admission, given patient's suspected clinical picture of aspirational pneumonia, he was started on IV Unasyn and later transitioned to oral Augmentin for a 5-day treatment course. Patient's leukocytosis resolved on hospital day 3 to 7.2 without febrile episodes. The possibility of reactive leukocytosis was also considered. Cultures had no growth so far. Patient's unresponsiveness without any signs of seizuring/syncope during this hospital stay was resolved spontaneously. Neurology recommended to consider discharge on Keppra at tapered dose, and to continue Namenda 20 mg daily, and possible palliative consult for patient's benefit. EEG from previous hospital stay had no definite seizuring waveforms. His meningioma had been stable in size and would defer to outpatient followup if needed. Patient's oral intake improved once he regained his mental status baseline. Patient was continued on home meds including Lipitor 40 daily, bowel regimen whenever necessary, finasteride and tamsulosin. Patient was maintained on Levemir 12 twice daily and insulin sliding scale high dose. His overnight fingerstick glucose was 64-228 prior discharge. Full code DVT prophylaxis subcutaneous heparin Regular diet Allergies: Coded Allergies: NO KNOWN ALLERGIES (07/10/17) Pertinent Lab Results: SERVICE DATE: 08/05/17 EXAM TYPE: RAD - XRY-PORTABLE CHEST XRAY IMPRESSION: No convincing evidence for an acute process on this portable film. SERVICE DATE: 08/05/17 EXAM TYPE: CAT - CT ABD & PELVIS W/O IV CONTRAS; CT CHEST WO IV CONTRAST; CT HEAD WO IV CONTRAST IMPRESSION: 1. Stable right frontal meningioma. Parenchymal volume loss and mild chronic white matter microangiopathy. No acute intracranial pathology. 2. Multiple lytic punched out lesions in the bone calvarium. A serum protein electrophoresis would exclude myeloma. 3. Early pneumonia posterior apical segment of the right upper lobe. 4. Mass in the left kidney increasing in size and showing abnormal attenuation. A renal neoplasm is possible. Pre- and post-IV contrast scans of the kidneys would elucidate. 5. Increased burden of formed stool throughout the colon. No obstruction. No free air. Disposition Summary Disposition Principal Diagnosis: 1. Questionable pneumonia, likely aspiration 2. Poor oral intake 3. Hypernatremia 4. Chronic anemia 5. Untreated adenocarcinoma of the colon. Additional Diagnosis: As above Discharge Disposition: home or self care Discharge Instructions General Discharge Information Code Status: Full Code Patient's Diet: Regular Patient's Activity: As tolerated Follow-Up Instructions/Appts: Patient will benefit from Palliative Care evaluation. Medications at Discharge Discharge Medications: Continue taking these medications: Finasteride (Finasteride) 5 MG TABLET 1 Tablet ORAL DAILY Comments: Last Taken:08/08/17 Time:1000 Tamsulosin HCl (Flomax) 0.4 MG CAP.ER.24H 1 Capsule ORAL DAILY Comments: Last Taken: 08/08/17 Time: 10 AM Atorvastatin Calcium (Lipitor) 40 MG TABLET 1 Tablet ORAL DAILY Comments: Last Taken: 08/08/17 Time: 4:30 PM Ferrous Sulfate (Ferrous Sulfate) 325 MG (65 MG IRON) TABLET 1 Tablet ORAL TWICE DAILY Comments: Last Taken: 08/08/17 Time: 9:30 am Cholecalciferol (Vitamin D3) (Vitamin D) 2,000 UNIT CAPSULE 1 Capsule ORAL DAILY Comments: Last Taken:08/08/17 Time:1000 Memantine HCl (Namenda) 10 MG TABLET 2 Tablet ORAL TAKE AT BEDTIME Comments: Last Taken: 08/07/17 Time: 10 PM Docusate Sodium (Colace) 100 MG CAPSULE 2 Capsule ORAL DAILY Comments: Last Taken:08/07/17 Time:1000 Polyethylene Glycol 3350 (Miralax) 17 GRAM POWD.PACK 1 Packet ORAL DAILY Instructions: dissolve in water Comments: Last Taken: 07/30/17 Time: 10AM Latanoprost (Latanoprost) 0.005 % DROPS 1 Drop In the eye Every night Comments: Last Taken:08/07/17 TimE:1000PM Acetaminophen (Tylenol) 325 MG TABLET 2 Tablet ORAL EVERY 6 HOURS NEEDED as needed for PAIN Comments: NOT TAKEN THIS ADMISSION Omeprazole Magnesium (Prilosec Otc) 20 MG TABLET.DR 1 Tablet ORAL DAILY Qty = 30 Comments: Last Taken:08/08/17 Time:0700 Insulin Lispro (Humalog Kwikpen U-100) 100 UNIT/ML INSULN.PEN 0 Inject into fatty tissue 3 TIMES DAILY BEFORE MEALS Qty = 90 Instructions: before meals less than 80 mg/dl take cup of apple juice 80-150 4 units 151-200 6 units 201-250 8 units 251-300 10 units 301-350 12 units 351-400 13 units >400 14 units Bedtime 251-300 2 units 301-350 3 units 351-400 4 units >400 5 units Comments: Last Taken: 08/08/17 NOVOLOG Time: 4:30 PM Insulin Detemir (Levemir) 100 UNIT/ML VIAL 12 Units Inject into fatty tissue TWICE DAILY Qty = 30 Comments: Last Taken:08/08/17 Time:0900 Start taking the following new medications: Amoxicillin/Clavulanate Potass (Amox-Clav 875-125 MG Tablet) 875 MG-125 MG TABLET 875 Milligram ORAL EVERY 12 HOURS Qty = 4 No Refills Instructions: . Comments: Last Taken:08/08/17 Time:1000 The following medications have been changed: Old: Levetiracetam (Keppra) 500 MG TABLET 1,000 Milligram ORAL TWICE DAILY Qty = 60 New: Levetiracetam (Keppra) 500 MG TABLET 500 Milligram ORAL TWICE DAILY Qty = 60 Comments: Last Taken:08/08/17 Time:1000 Copies To: Kelly Christianson APRN Attending Review Statement Documenting Attending: Davon West MD Other Findings: Discharged in stable condition in the company of his daughter.
[2017-08-08] MEDS ORDERED: AMOX-CLAV 875-1 EACH PO (16:59)
== END 2017-08-08 18:50 | DRG 137 ==
LOC: ERH 18:01 → 1NO 21:40 → ERHI 21:40 → ENRESERV 22:52 → 1NO 08-06 01:09
PROVIDERS: Hospitalist; Physician Assistant Medical
DX: J69.0 Pneumonitis due to inhalation of food and vomit (principal); E87.2 Acidosis; D72.829 Elevated white blood cell count, unspecified; D32.0 Benign neoplasm of cerebral meninges; F03.90 Unspecified dementia, unspecified severity, without behavioral disturbance, psychotic disturbance, mood disturbance, and anxiety; E11.65 Type 2 diabetes mellitus with hyperglycemia; Z79.4 Long term (current) use of insulin; E11.22 Type 2 diabetes mellitus with diabetic chronic kidney disease; I12.9 Hypertensive chronic kidney disease with stage 1 through stage 4 chronic kidney disease, or unspecified chronic kidney disease; N18.3 Chronic kidney disease, stage 3 (moderate); D50.9 Iron deficiency anemia, unspecified; E78.5 Hyperlipidemia, unspecified; H54.7 Unspecified visual loss; Z87.440 Personal history of urinary (tract) infections; M19.90 Unspecified osteoarthritis, unspecified site; G40.909 Epilepsy, unspecified, not intractable, without status epilepticus; N40.0 Benign prostatic hyperplasia without lower urinary tract symptoms; H40.9 Unspecified glaucoma; Z90.79 Acquired absence of other genital organ(s); K59.00 Constipation, unspecified; E87.0 Hyperosmolality and hypernatremia; Z85.038 Personal history of other malignant neoplasm of large intestine; K21.9 Gastro-esophageal reflux disease without esophagitis; C18.4 Malignant neoplasm of transverse colon
CPT/HCPCS: 1NP; ERO; 36592; 71045; 74176; 81001; 82436; 84165; 87040; 87449; 87450; 87804; 87804-59; 93005; 93010; J0456; J0696; J1644; J7060

== ENCOUNTER 2017-09-26 22:24 | Inpatient (IN) | payer OTHER ==
[~2017-09-26] VITALS: Ht 167.6 cm; Wt 124.3 kg
[~2017-09-26 22:24] MED LIST changes: +AMOX-CLAV 875-1 EACH PO
--- NOTE | 2017-09-26 22:30 | ED GI/GU/ABDOMINAL COMPLAINT ---
History of Present Illness General Chief Complaint: Abdominal Pain/Flank Pain Stated Complaint: GI BLEED| Source: old records, EMS Exam Limitations: dementia Vital Signs & Intake/Output Vital Signs & Intake/Output Vital Signs Date Time Temp Pulse Resp B/P B/P Pulse O2 O2 Flow FiO2 Mean Ox Delivery Rate 09/27 0110 97.5 95 18 130/83 97 Room Air 09/26 2232 96.3 99 18 138/76 99 Room Air ED Intake and Output 09/27 0000 09/26 1200 Intake Total Output Total Balance Patient 170 lb Weight Weight Estimated Measurement Method Allergies Coded Allergies: NO KNOWN ALLERGIES (07/10/17) Reconcile Medications Acetaminophen (Tylenol) 325 MG TABLET 2 TAB PO Q6-PRN PRN PAIN (Reported) Amoxicillin/Clavulanate Potass (Amox-Clav 875-125 MG Tablet) 875 MG-125 MG TABLET 875 MG PO Q12 Aspiration Pneumonia . Atorvastatin Calcium (Lipitor) 40 MG TABLET 1 TAB PO DAILY CHOLESTEROL ( Reported) Cholecalciferol (Vitamin D3) (Vitamin D) 2,000 UNIT CAPSULE 1 CAP PO DAILY SUPPLEMENT (Reported) Docusate Sodium (Colace) 100 MG CAPSULE 2 CAP PO DAILY STOOL SOFTENER ( Reported) Ferrous Sulfate 325 MG (65 MG IRON) TABLET 1 TAB PO BID SUPPLEMENT (Reported) Finasteride 5 MG TABLET 1 TAB PO DAILY PROSTATE (Reported) Insulin Detemir (Levemir) 100 UNIT/ML VIAL 12 UNITS SC BID DIABETES Insulin Lispro (Humalog Kwikpen U-100) 100 UNIT/ML INSULN.PEN 0 SC TIDAC DIABETES before meals less than 80 mg/dl take cup of apple juice 80-150 4 units 151-200 6 units 201-250 8 units 251-300 10 units 301-350 12 units 351-400 13 units >400 14 units Bedtime 251-300 2 units 301-350 3 units 351-400 4 units >400 5 units Latanoprost 0.005 % DROPS 1 GTT OPH QPM Glaucoma (Reported) Levetiracetam (Keppra) 500 MG TABLET 500 MG PO BID SEIZURE PROPHYLAXIS Memantine HCl (Namenda) 10 MG TABLET 2 TAB PO QHS MEMORY (Reported) Omeprazole Magnesium (Prilosec Otc) 20 MG TABLET.DR 1 TAB PO DAILY ACID REFLUX Polyethylene Glycol 3350 (Miralax) 17 GRAM POWD.PACK 1 PAC PO DAILY GI ( Reported) dissolve in water Tamsulosin HCl (Flomax) 0.4 MG CAP.ER.24H 1 CAP PO DAILY PROSTATE (Reported) Triage Nurses Notes Reviewed? yes Onset: Gradual Duration: hour(s): Timing: recent history Location: rectal bleed Radiation: no radiation Activities at Onset: none Associated Symptoms: dark stool HPI: 82 yo gentleman h/o gi bleed, colonic mass, advanced dementia, presents after a dark bowel movement, "that looked like it might be a bleed." He is otherwise well, without discomfort, vomiting, fever. His daughter reports that he has not been eating or drinking for the past 5 days. Past History Travel History Traveled to [place] past 21 day No Medical History Any Pertinent Medical History? see below for history Neurological: dementia EENT: blindness, glaucoma, hearing loss Cardiovascular: hypertension, hyperlipidemia Respiratory: pneumonia Gastrointestinal: umbilical hernia Hepatic: NONE Renal: benign prost hyperplasia, FREQUENT UTI'S Musculoskeletal: degen joint disease, osteoarthritis Psychiatric: NONE Endocrine: diabetes Blood Disorders: anemia Cancer(s): NONE [employer]ING [employer]ATOR/Reproductive: NONE History of MRSA: Yes History of VRE: No History of CDIFF: No Influenza Vaccine: 02/16/17 Surgical History Surgical History: prostatectomy, 08/08/16: circumcision for phimosis with balanitis Psychosocial History Who do you live with Daughter Services at Home Home Health Aide What is your primary language Ma[place] Family History Family History, If Any: BROTHER FH: diabetes mellitus FH: glaucoma FH: heart disease SISTER FH: diabetes mellitus FH: glaucoma Hx Contributory? No Review of Systems Review of Systems Constitutional: Reports: no symptoms. EENTM: Reports: no symptoms. Respiratory: Reports: no symptoms. Cardiovascular: Reports: no symptoms. GI: Reports: no symptoms. Genitourinary: Reports: no symptoms. Musculoskeletal: Reports: no symptoms. Skin: Reports: no symptoms. Neurological/Psychological: Reports: no symptoms. Hematologic/Endocrine: Reports: no symptoms. Immunologic/Allergic: Reports: no symptoms. All Other Systems: Reviewed and Negative Physical Exam Physical Exam General Appearance: well developed/nourished, no apparent distress Head: atraumatic, normal appearance Eyes: Bilateral: normal appearance. Ears, Nose, Throat, Mouth: moist mucous membrane Neck: normal inspection, supple, full range of motion Respiratory: normal breath sounds, chest non-tender, no respiratory distress, quiet respiration, lungs clear Cardiovascular: regular rate/rhythm Gastrointestinal: normal bowel sounds, soft, non-tender, no organomegaly Rectal: brown stool, guiac +, non tender Back: normal inspection Extremities: normal range of motion Neurologic/Psych: axox0, no verbal responsiveness Skin: intact, normal color, warm/dry Core Measures ACS in differential dx? No Sepsis Present: No Sepsis Focused Exam Completed? No Progress Differential Diagnosis: gi bleed Plan of Care: Orders Procedure Date/time Status Regular Diet 09/27 B Active Patient Data 09/28 215 Active Patient Data 09/27 213 Active Saline Lock 09/27 154 Active Misc Message 09/27 154 Active ED Holding Orders 09/27 154 Active Admit to inpatient 09/27 154 Active Vital Signs 09/27 154 Active Code Status 09/27 154 Active URINALYSIS 09/27 58 Active XRY-PORTABLE CHEST XRAY 09/27 56 Active EKG 09/27 56 Active PARTIAL THROMBOPLASTIN TIME 09/26 2229 Complete PROTHROMBIN TIME 09/26 2229 Complete COMPREHENSIVE METABOLIC PANEL 09/26 2229 Complete CBC WITHOUT DIFFERENTIAL 09/26 2229 Complete TYPE & SCREEN (NOT X-MATCH) 09/26 2229 Active Current Medications Sig/Zoe Start time Last Medication Dose Stop Time Status Admin Finasteride 5 MG DAILY 09/27 899 UNVr (Proscar) Levetiracetam 500 MG BID 09/27 899 UNVr (Keppra) Pantoprazole Sodium 40 MG DAILY 09/27 899 UNVr (Protonix) Tamsulosin HCl 0.4 MG DAILY 09/27 899 UNVr (Flomax) Ondansetron HCl 4 MG Q6P PRN 09/27 0230 UNVr (Zofran) Laboratory Tests 09/26/17 2449: Anion Gap 15, Estimated GFR 45 L, BUN/Creatinine Ratio 29.3 H, Glucose 292 H, Calcium 10.5 H, Total Bilirubin 0.8, AST 30, ALT 42, Alkaline Phosphatase 142 H, Total Protein 7.6, Albumin 4.1, Globulin 3.5, Albumin/Globulin Ratio 1.2, PT 11.7, INR 1.07, APTT 25, CBC w Diff NO MAN DIFF REQ, RBC 4.92, MCV 72.5 L, MCH 22.6 L, MCHC 31.2 L, RDW 20.7 H, MPV 10.2, Gran % 69.6, Lymphocytes % 19.1 L , Monocytes % 8.1, Eosinophils % 2.7, Basophils % 0.5, Absolute Granulocytes 10.4 H, Absolute Lymphocytes 2.9, Absolute Monocytes 1.2 H, Absolute Eosinophils 0.4, Absolute Basophils 0.1 Initial ED EKG: RBBB, lafb, nsr, no acute changes Departure Departure Disposition: HOME OR SELF CARE Condition: Stable Clinical Impression Primary Impression: GI bleed Secondary Impressions: Acute renal failure, Dehydration Referrals: Kelly Christianson APRN (PCP/Family) Departure Forms: Customer Survey General Discharge Information Admission Note Spoke With: Zuleika Higgins MD Documentation of Exam: Documentation of any treatments & extenuating circumstances including Concerns Regarding Discharge (functional status, medication knowledge or non-compliance, living conditions, etc.) that warrant an admission rather than observation: pt with elevated bun/creatinine, in context of not eating or drinking. also with guiac positive stools, likely hemoconcentrated hct... merits serial hct, iv fluids, pt and family would like benefit from further goals of care conversation / palliative care consult.... 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 Pt is also still full code. Conversation initiated in ED. Further conversation re goals of care is meritorious.
[2017-09-27 00:09] LABS: ABSOLUTE BASOPHIL COUNT 0.1 /CUMM (0.0-0.2); ABSOLUTE EOSINOPHIL COUNT 0.4 /CUMM (0.0-0.7); ABSOLUTE GRANULOCYTE CT 10.4 /CUMM (1.4-6.5); ABSOLUTE LYMPH COUNT 2.9 /CUMM (1.2-3.4); ABSOLUTE MONOCYTE COUNT 1.2 /CUMM (0.10-0.60); BASOPHIL % 0.5 % (0.0-2.0); EOSINOPHIL % 2.7 % (0-5); GRANULOCYTE % 69.6 % (42.2-75.2); HEMATOCRIT 35.7 % (42-52); MEAN CORPUSCULAR HGB 22.6 PG (27.0-31.0); MEAN CORPUSCULAR HGB CONC 31.2 G/DL (33.0-37.0); MEAN CORPUSCULAR VOLUME 72.5 FL (80.0-94.0); MEAN PLATELET VOLUME 10.2 FL (7.4-10.4); PLATELET COUNT 248 /CUMM (130-400); RBC DISTRIBUTION WIDTH 20.7 % (11.5-14.5); RED BLOOD CELL CT 4.92 /CUMM (4.70-6.10); WHITE BLOOD CELL COUNT 14.9 /CUMM (4.8-10.8)
[2017-09-27 00:18] LABS: PT 11.7 SEC (9.4-12.5); PTT 25 SEC (25-37)
--- NOTE | 2017-09-27 02:34 | History & Physical ---
Lena Villegas MD 09/27/17 0233: General Information and HPI MD Statement: I have seen and personally examined EDILBERTO MARTIN and documented this H&P. The patient is a 82 year old M who presented with a patient stated chief complaint of lethargy and weakness, dehydration melena Source of Information: family, old records Exam Limitations: unable to give history History of Present Illness: This is an 82 year old patient with a [facility] history significant for dementia, bilateral blindness, hyperlipidemia, hypertension, colon cancer, small meningioma on Keppra for seizure prevention that is brought in by ambulance for lethargy, weakness, failure to thrive, dehydration for one week and black tarry stools for the past 3 days. Most of the history is obtained from the patient's daughter who is his primary caregiver and old records. Apparently the patient was able to communicate, was able to walk from his bed to his wheelchair until this past week when he became more lethargic and stopped eating. Patient has been largely bedbound since. His daughter also noted a "foul smell" coming from his mouth and groin region. She states that his stool is black yet still formed (no diarrhea or constipation) for the past 3 days (2 separate bouts) and smells different than normal. Patient has received transfusions in the past for similar type of GI bleed. The daughter also states that the patient did complain of abdominal pain. Of note he has colon cancer, mass partially obstructing transverse colon, chosen to be left untreated by patient and family. He was last at [facility] for 3 days at the end of July for similar complaints, suspected to have aspirational pneumonia started on IV Unasyn. The daughter denies any fever, chills, rash, vomiting. The daughter states that some degree of cough is always normal for him. He has been eating much less, sometimes just a few bites of breakfast a day. He apparently sleeps well/too much, sleeps throughout the day and is up all night. He has no allergies. Allergies/Medications Allergies: Coded Allergies: NO KNOWN ALLERGIES (07/10/17) Home Med list Acetaminophen (Tylenol) 325 MG TABLET 2 TAB PO Q6-PRN PRN PAIN (Reported) Amoxicillin/Clavulanate Potass (Amox-Clav 875-125 MG Tablet) 875 MG-125 MG TABLET 875 MG PO Q12 Aspiration Pneumonia . Atorvastatin Calcium (Lipitor) 40 MG TABLET 1 TAB PO DAILY CHOLESTEROL ( Reported) Cholecalciferol (Vitamin D3) (Vitamin D) 2,000 UNIT CAPSULE 1 CAP PO DAILY SUPPLEMENT (Reported) Docusate Sodium (Colace) 100 MG CAPSULE 2 CAP PO DAILY STOOL SOFTENER ( Reported) Ferrous Sulfate 325 MG (65 MG IRON) TABLET 1 TAB PO BID SUPPLEMENT (Reported) Finasteride 5 MG TABLET 1 TAB PO DAILY PROSTATE (Reported) Insulin Detemir (Levemir) 100 UNIT/ML VIAL 12 UNITS SC BID DIABETES Insulin Lispro (Humalog Kwikpen U-100) 100 UNIT/ML INSULN.PEN 0 SC TIDAC DIABETES before meals less than 80 mg/dl take cup of apple juice 80-150 4 units 151-200 6 units 201-250 8 units 251-300 10 units 301-350 12 units 351-400 13 units >400 14 units Bedtime 251-300 2 units 301-350 3 units 351-400 4 units >400 5 units Latanoprost 0.005 % DROPS 1 GTT OPH QPM Glaucoma (Reported) Levetiracetam (Keppra) 500 MG TABLET 500 MG PO BID SEIZURE PROPHYLAXIS Memantine HCl (Namenda) 10 MG TABLET 2 TAB PO QHS MEMORY (Reported) Omeprazole Magnesium (Prilosec Otc) 20 MG TABLET.DR 1 TAB PO DAILY ACID REFLUX Polyethylene Glycol 3350 (Miralax) 17 GRAM POWD.PACK 1 PAC PO DAILY GI ( Reported) dissolve in water Tamsulosin HCl (Flomax) 0.4 MG CAP.ER.24H 1 CAP PO DAILY PROSTATE (Reported) Compliance With Home Meds: GOOD Past History Travel History Traveled to [place] past 21 day No Medical History Neurological: dementia EENT: blindness, glaucoma, hearing loss Cardiovascular: hypertension, hyperlipidemia Respiratory: pneumonia Gastrointestinal: umbilical hernia Hepatic: NONE Renal: benign prost hyperplasia, FREQUENT UTI'S Musculoskeletal: degen joint disease, osteoarthritis Psychiatric: NONE Endocrine: diabetes Blood Disorders: anemia Cancer(s): NONE BEHAVIOR CLINICIAN/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 child (dtr/POARafaela & her son) Services at Home: Home Health Aide Primary Language: Burmese, Jude Living Will? no Power of Steam Roller Operator/HCP? yes Name of POA/HCP: Pt/s dtRafaela walter [phone] Functional Ability ADLs Needs Assist: dressing, eating, toileting, bathing. Ambulation: non-ambulatory (wheelchair bound) IADLs Needs Assist: shopping, housework, finances, food prep, telephone, transportation, medication admin. Review of Systems Review of Systems Constitutional: Reports: weakness. EENTM: Reports: see HPI. Cardiovascular: Reports: no symptoms. Respiratory: Reports: no symptoms. GI: Reports: melena. Genitourinary: Reports: see HPI. Musculoskeletal: Reports: no symptoms. Skin: Reports: no symptoms. Neurological/Psychological: Reports: no symptoms, cognitive dysfunction. Hematologic/Endocrine: Reports: no symptoms. Exam & Diagnostic Data Last 24 Hrs of Vital Signs/I&O Vital Signs Date Time Temp Pulse Resp B/P B/P Pulse O2 O2 Flow FiO2 Mean Ox Delivery Rate 09/27 0400 97.8 90 18 132/66 94 Room Air 09/27 0110 97.5 95 18 130/83 97 Room Air 09/26 2232 96.3 99 18 138/76 99 Room Air Intake & Output 09/27 1600 09/27 0800 09/27 0000 Intake Total 1300 Output Total 300 Balance 1000 Intake, IV 1300 Number 0 Bowel Movements Output, Urine 300 Patient 153 lb 170 lb Weight Weight Bed scale Estimated Measurement Method Physical Exam General Appearance No Acute Distress Skin No Rashes, No Breakdown, No Significant Lesion Skin Temp/Moisture Exam: Warm/Dry Sepsis Skin Exam (color): Normal for Ethnicity HEENT patient has evidence of glaucoma, corneal ulcer, and dry mucous membranes Neck Supple, No JVD Cardiovascular Regular Rate, Normal S1, Normal S2 Lungs Clear to Auscultation, Normal Air Movement Abdomen Normal Bowel Sounds, Soft Neurological unable to assess as patient no cooperative Extremities No Clubbing, No Cyanosis, No Edema Vascular Normal Pulses, Pulses Symmetrical Sepsis Peripheral Pulse Location: Radial Sepsis Peripheral Pulse Exam: Normal Last 24 Hrs of Labs/Michael: Laboratory Tests 09/27/17 0730: Anion Gap 11, Estimated GFR 48 L, BUN/Creatinine Ratio 29.3 H, Calcium 9.1, CBC w Diff NO MAN DIFF REQ, RBC 4.19 L, MCV 73.6 L, MCH 22.5 L, MCHC 30.6 L, RDW 20.4 H, MPV 11.0 H, Gran % 71.2, Lymphocytes % 17.1 L, Monocytes % 8.6, Eosinophils % 2.6, Basophils % 0.5, Absolute Granulocytes 8.7 H, Absolute Lymphocytes 2.1, Absolute Monocytes 1.1 H, Absolute Eosinophils 0.3, Absolute Basophils 0.1 09/27/17605: Urine Color YEL, Urine Clarity CLEAR, Urine pH 6.0, Ur Specific [place] 1.025, Urine Protein NEG, Urine Ketones TRACE H, Urine Nitrite NEG, Urine Bilirubin NEG, Urine Urobilinogen 0.2, Ur Leukocyte Esterase NEG, Ur Microscopic EXAM NOT REQUIRED, Urine Hemoglobin NEG, Urine Glucose >=1000 H 09/26/17 4239: Anion Gap 15, Estimated GFR 45 L, BUN/Creatinine Ratio 29.3 H, Glucose 292 H, Calcium 10.5 H, Total Bilirubin 0.8, AST 30, ALT 42, Alkaline Phosphatase 142 H, Total Protein 7.6, Albumin 4.1, Globulin 3.5, Albumin/Globulin Ratio 1.2, PT 11.7, INR 1.07, APTT 25, CBC w Diff NO MAN DIFF REQ, RBC 4.92, MCV 72.5 L, MCH 22.6 L, MCHC 31.2 L, RDW 20.7 H, MPV 10.2, Gran % 69.6, Lymphocytes % 19.1 L , Monocytes % 8.1, Eosinophils % 2.7, Basophils % 0.5, Absolute Granulocytes 10.4 H, Absolute Lymphocytes 2.9, Absolute Monocytes 1.2 H, Absolute Eosinophils 0.4, Absolute Basophils 0.1 Microbiology 09/27 605 URINE ROUT: Urine Culture - RECD 09/27 340 BLOOD: Blood Culture - COLB 09/27 340 BLOOD: Blood Culture - COLB Assessment/Plan Assessment: This is an 82 year old patient with a [facility] history significant for dementia, bilateral blindness, hyperlipidemia, hypertension, colon cancer, small meningioma on Keppra for seizure prevention that is brought in by ambulance for lethargy, weakness, failure to thrive, dehydration for one week and black tarry stools for the past 3 days. Patient has a history of transverse colon adenocarcinoma and has had previous blood transfusions in the past. He also has abdominal pain. the patient's daughter is concerned of infection as she states that his groin area is malodorous. Patient was last admitted here in June and July for seizures and additionally suspicion of aspiration pneumonia treated with Unasyn. In the ED, temperature 96.3, pulse rate 99, respiratory rate 18, blood pressure 138/76, 99% oxygen saturation on room air. Patient was started on normal saline bolus. Hemoglobin was found to be 11.1, microcytic anemia with MCV 72.5, WBC count 14.9, sodium 139, potassium 4.7, BUN 44, creatinine 1.5 which is around his baseline. Calcium is elevated at 10.5 and liver function tests are normal. Chest x-ray showed no acute pulmonary finding, abdominal x-ray showed moderate stool and no obstruction. Of note, while the patient would not like any surgery for the patient's colon cancer, they would still like the patient to be full code. Patient will be evaluated and treated for the following in the general medicine floors: -Melena secondary to adenocarcinoma of the colon -Leukocytosis -Evidence of dehydration on Chem-7 -Hypercalcemia -Diabetes -Hypertension Plan -Monitor H&H and transfuse if below 7 -Normal saline at a rate of 100 cc/h, one bag and reevaluate need for continued fluids. Patient is dehydrated as is evident by elevated BUN. However this could be due to GI bleed as well. He clinically looks dry. -Type and cross and prepare 3 units of blood for potential transfusion. -Continue patient's Keppra 500 mg twice daily -Zofran every 6 hours as needed -Protonix 40 daily -Consider palliative care consult to discuss goals of care -Swallow evaluation as patient is obtunded and is refusing to cooperate on our exam. Advance diet as tolerated. -Follow-up blood and urine cultures. Patient's daughter is concerned for UTI so we will follow a urinalysis. -Continue to monitor creatinine -Patient likely has elevated calcium level secondary to malignancy as the albumin level is normal. -This level should decrease with addition of IV fluids -Start patient on low-dose sliding scale insulin for his diabetes. -Continue patient's home memantine 20 mg at bedtime -Continue Flomax 0.4 daily DVT prophylaxis with Alps only Patient is currently full code As Ranked By This Provider Problem List: 1. GI bleed 2. Dehydration Core Measures/Misc (02/02) Acute Coronary Syndrome ACS Diagnosis: No Congestive Heart Failure Congestive Heart Failure Diagnosis No Cerebrovascular Accident CVA/TIA Diagnosis: No VTE (View Protocol) VTE Risk Factors Acute Medical Illness No Mechanical VTE Prophylaxis d/t N/A MechProphylax Ordered No VTE Pharm Prophylaxis d/t Bleeding (Active) Sepsis (View protocol) Sepsis Present: No Christine Flores MD 09/27/17 0233: Resident Review Statement Resident Statement: examined this patient, discussed with record label intern, agreed with record label intern Other Findings: This is an 82-year-old gentleman with past medical history significant for dementia, glaucoma, blindness, DJD, diabetes, BPH, status post prostatectomy, hypertension, hyperlipidemia, known adenocarcinoma of colon, meningioma of brain with possible seizure and prophylactically started on Keppra, who comes in for chief complaint of dark tarry stool. His daughter who is POA and primary care partner brought him in. He had had three days of dark tarry stools but today it was more obvious. Per daughter, patient is not eating much for the past five days. Additionally he seemed to have foul breath and BM which concerned her. Patient has received transfusions in the past for similar complaint of GI bleed. Family has elected to forego surgical treatment for adenocarcinoma. No fevers or chills, syncope. He does complain of some abdominal pain in the evenings. He is largely bed bound but capable of ambulating from bed to his wheelchair with assist Problem list: Adenocarcinoma of the colon Melena Leukocytosis Elevated BUN/creatinine Diabetes Hypercalcemia Hypertension ASSESSMENT: This is an 82-year-old gentleman with past medical history significant for dementia, glaucoma, blindness, DJD, diabetes, BPH, CEA, hypertension, hyperlipidemia, known adenocarcinoma of colon, meningioma of brain , who comes in for chief complaint of dark tarry stool. There is c/o GIB in this pt w/ known CEA, but since surgery is the only cure and family refuses surgical procedure, we will manage conservatively. His H/H is higher than last admission so will hold off transfusion and monitor. On exam he is very dehydrated and this could also be alternative explanation for increase in BUN. Plan: Adenocarcinoma of the colon: Patient has hemoglobin 11.1 which is better than his previous hemoglobin of 9.0. He had one dark tarry bowel movement today. Family wishes to proceed with conservative measures. However patient is still full code. He has very little appetite and some what somnolent but rousable during physical exam. * Palliative care consult * Type and screen, no transfusion yet * Protonix * IVF * Check swallow eval Leukocytosis: There is no obvious source of infection and patient is afebrile. However, will monitor. * Monitor CBC * UA and UC * Bcx Elevated creatinine: Today at 1.5. He has had previous values around there. * Con't monitor Hypercalcemia: Todat at 10.5. Albumin nml. Possibly secondary to malignancy. * Trt with IVF * Con't monitor Diabetes mellitus * RISS * FS * Reg diet Hx seizure: * Con't Keppra Hx BPH s/p TURP: * Con't Flomax FC No chem ppx ALPS only Zuleika Higgins 09/27/17 0424: Attending MD Review Statement Attending Statement Attending MD Statement: examined this patient, discuss w/resident/PA/TUTORING MANAGER, agreed w/resident/PA/TUTORING MANAGER, discussed with family, reviewed EMR data (avail), reviewed images, amended to note Attending Assessment/Plan: CC: black colored stool PMH: Dementia, history of MRSA, legally blind, glaucoma, HTN HLD, DM, BPH, S/P TURP, nearly obstructing moderately differentiated adenocarcinoma of transverse colon not treated (colonoscopy March 2017), meningioma, possibility of seizure secondary to meningioma History is obtain from patient's daughter. According to her since last 1 week patient has not been doing well, appears more lethargic, decreased by mouth intake. Last 3 days she noticed that he has black colored stools. She denied any diarrhea. She states that every evening her father complaints of abdominal pain since long time. She is also worried about foul-smelling through his mouth, foul -smelling urine and foul-smelling stool. She denied fever or chills at home, denied noticing excessive cough or expectoration. History is limited secondary to patient's dementia. According to daughter patient is mostly bedbound but can transfer himself with one person assist and walking to the wheelchair. Sometimes he can tell bowel or bladder sensation, other times he is incontinent. Vitals: Temperature 96.3 on arrival improved to 97.5, pulse 99, blood pressure 138/76, saturating 99% on room air. On exam: Patient alert, arousable, oriented to self , not cooperative, no acute distress, neck supple, JVD normal, legally blind, no lymphadenopathy, mucosa moist, no focal neurological deficit, no dependent edema, no obvious skin rashes or inflammation, no pressure ulcer CVS: S1-S2, RRR. RS: Clear to auscultate bilaterally. Abdomen: Soft, distended, nontender, no guarding or rigidity, bowel sounds present. X-ray chest: No acute pulmonary finding. Assessment and plan 82-year-old male with extensive past medical history was brought in ER by patient's daughter for melena since last 3 days, not associated with diarrhea, xochitl blood. Patient has chronic abdominal pain which has not changed much. His blood pressure was stable, hemoglobin 11.1 which appears to be increased from previous 9.0 done on July 2017, probably secondary to hemoconcentration and dehydration, his BUN and creatinine is elevated from baseline. Patient has obvious colon cancer as a cause of this melena, does not need any further evaluation as family has opted out for treatment. Daughter also has concern regarding UTI, he has foul-smelling urine according to her and wants antibiotics. No UA was sent from ER, we will wait for UA to start any treatment, patient does have leukocytosis but it could be reactive. According to patient's daughter he's not been eating and drinking well since last 1 week, appears more lethargic: This could be his progression of dementia or waxing and waning status , physical deconditioning. It has resulted in dehydration. Patient was admitted in June 2017 and July 2017 for possible seizures, August 05 for possible aspiration pneumonia. During those hospitalization palliative consult was offered, given poor prognosis and untreatable disease. Again I had discussion with daughter today who continues to mention patient is full code according to his wishes, she cannot change his CODE STATUS even if she wants to. According to her rest of the family member want to continue his wishes as full code. I again confirmed that she does not want to get treated for colon cancer. She is primary caregiver and she has 24-hour help at home. + Dehydration + Physical deconditioning + Melena + Acute kidney injury + Rule out UTI + History of Dementia, history of MRSA, legally blind, glaucoma, HTN HLD, DM, BPH, S/P TURP, nearly obstructing moderately differentiated adenocarcinoma of transverse colon not treated (colonoscopy March 2017), meningioma, possibility of seizure secondary to meningioma - Admit to general medicine - Continue gentle hydration - UA urine culture - Oral hygiene, chlorhexidine mouthwash - Repeat CBC, BMP in a.m. - Blood transfusion goal: Hemoglobin of 7 or any acute bleeding or hypotension - Patient has history of ESBL Klebsiella history but he also had sensitive Klebsiella as well.. Patient's daughter requests antibiotic. We'll start ceftriaxone if urine positive for nitrites or leukocyte esterase awaiting cultures - Continue all the home medications - Consider palliative consult - X-ray abdomen in a.m. to rule out any obstruction, abdomen appears distended
--- NOTE | 2017-09-27 02:53 | RADIOLOGY REPORT ---
EXAMINATION: XR PORTABLE CHEST CLINICAL INFORMATION: Dyspnea COMPARISON: 08/05/2017 TECHNIQUE: Portable frontal view of the chest was obtained. FINDINGS: The lungs are well expanded. There is no focal consolidation, edema, or effusion. No pneumothorax. The cardiomediastinal silhouette is within normal limits. No acute osseous abnormality. IMPRESSION: No acute pulmonary finding.
[2017-09-27 04:00] VITALS: BP 132/66
--- NOTE | 2017-09-27 04:26 | Admission Certification ---
Admission Certification Certification Statement - As attending physician, I certify that at the time of - admission, based on clinical presentation, severity of - symptoms, need for further diagnostic testing and - therapeutic interventions, and risk of adverse outcomes - without in-hospital treatment, in my clinical assessment, - this patient requires an acute hospital stay for a minimum - of two nights or longer. I have also considered psychsocial - factors such as support system, advanced age, financial - issues, cognitive issues, and failed out-patient treatments, - past re-admission history, safety of patient, and lack of - compliance as applicable. Specific rationale supporting this admission is: Melena, history of colon cancer
[2017-09-27 09:01] LABS: ABSOLUTE BASOPHIL COUNT 0.1 /CUMM (0.0-0.2); ABSOLUTE EOSINOPHIL COUNT 0.3 /CUMM (0.0-0.7); ABSOLUTE GRANULOCYTE CT 8.7 /CUMM (1.4-6.5); ABSOLUTE LYMPH COUNT 2.1 /CUMM (1.2-3.4); ABSOLUTE MONOCYTE COUNT 1.1 /CUMM (0.10-0.60); BASOPHIL % 0.5 % (0.0-2.0); EOSINOPHIL % 2.6 % (0-5); GRANULOCYTE % 71.2 % (42.2-75.2); HEMATOCRIT 30.9 % (42-52); MEAN CORPUSCULAR HGB 22.5 PG (27.0-31.0); MEAN CORPUSCULAR HGB CONC 30.6 G/DL (33.0-37.0); MEAN CORPUSCULAR VOLUME 73.6 FL (80.0-94.0); PLATELET COUNT 218 /CUMM (130-400); RBC DISTRIBUTION WIDTH 20.4 % (11.5-14.5); RED BLOOD CELL CT 4.19 /CUMM (4.70-6.10); WHITE BLOOD CELL COUNT 12.2 /CUMM (4.8-10.8)
--- NOTE | 2017-09-27 09:09 | RADIOLOGY REPORT ---
EXAMINATION: XR PORTABLE ABDOMEN CLINICAL INFORMATION: GI bleed. COMPARISON: CT scan of . TECHNIQUE: AP view of the abdomen. FINDINGS: There is a nonobstructive bowel gas pattern. There is moderate stool through the course the colon. No abnormal calcifications. No acute bony abnormality. IMPRESSION: Moderate stool. No obstruction.
--- NOTE | 2017-09-27 10:29 | PN- Att Addend ---
Attending Addendum Attending Brief Note Patient seen and examined this morning. Daughter present at the bedside. Was really lethargic but awake. Daughter was attempting to have him drink ensure very strong. He was taking some sips. Blood glucose level this morning reported to be 400s. Coverage was provided. Daughter reports that for the past 5 days he has become more lethargic with decreasing intake. She reports that normally he lost to eat all within the past 5 days he has been eating very poorly. She reports that he is getting more lethargic. She also reports that she has been concerned because his stool was "brown" in color. She also reports seeing blood in the stool and this was "brown" in color as well. He was reported to be guaiac positive in the ER however this is in the context of known colon cancer for which family has deferred treatment. Hemoglobin level was elevated above baseline on admission and has trended down to baseline this morning. Records reviewed, patient was admitted in December and February 2017. But episodes were related to metabolic encephalopathy. Etiology was unclear at that time. He was again admitted in June and July 2017. Again with altered mental status. Workup during all admissions were unrevealing. During the last hospitalization neurology had recommended considering tapering patient off Keppra and observing him. His unresponsive episodes at that time with thought to be probably seizure related however he is nonconvulsive during those episodes. Consideration of EGD EGD was also mention if the spells were felt to be caused more frequent. He was discharged July 2017 who has been doing well at home until his admission overnight with similar complaints of poor oral intake and diminished responsiveness. Following my evaluation of the patient this morning rapid response was called. Patient was noted to be unresponsive. On examination he was noted to be rigid. During my evaluation of the patient prior was moving all extremities to command. He did not have a G-tube. Nursing staff to concur that during evaluation this morning and during changing of the sheets he was not rigid. Vital signs during the rapid response were within normal limits. He was hyperglycemic with glucose levels greater than 500. He was not hypoxic. He did not require oxygen supplementation. General appearance: Elderly male, not in any distress. Unresponsive to verbal stimuli or tactile stimuli. Neurologic: Rigid upper and lower extremities. No convulsive movements. Significant opacification of the left pupil. Right pupil is reactive. Heart: S1-S2 regular no audible murmur. Lungs: Clear to auscultation bilaterally Abdomen: Soft, nontender with normal bowel sounds. Extremities: No pedal edema Later on during the rapid response patient began to move his upper extremity slowly. He did attempt to squeeze fingers when asked. Problems: 1. Recurrent unresponsive episodes; likely seizure related 2. Uncontrolled diabetes mellitus 3. Rectal bleeding; in the setting of untreated colon cancer. Hemoglobin level is currently at baseline. 4. Hyperkalemia 5. Leukocytosis 6. Chronic kidney disease stage III. Plan: -Recommend EEG. This will be most helpful if we can be obtained in patient's current state. -Neurology consultation. Consider video EEG. -Head CT to rule out any acute intracranial pathology, this appears less likely given her current episodes in the past. -Transfer to telemetry to rule out arrhythmias has trigger of the above symptoms. Extended telemetry monitoring has been unfruitful in the past. -Start patient on half normal saline at 100 cc an hour. Begin patient on his home regimen of insulin Levemir 12 units twice daily. Repeat serum chemistry to ensure patient is not in diabetic ketoacidosis. A.m. labs earlier did not show evidence of metabolic acidosis although he did have trace ketones in the urine. -Keep n.p.o. -Potassium level should improve with initiation of insulin. Follow-up repeat serum chemistry. -Further recommendations based on clinical course. -Despite his advanced age, comorbidities including untreated colon cancer, repeated hospitalizations (6 within the past 10 months ) and poor long-term prognosis daughter wishes for the patient to remain a full code. She is not willing to change CODE STATUS or consider palliative care. I have personally had these conversations with her regarding in the past. -Recommend consultation with the palliative care service on Friday.
[2017-09-27 11:01] VITALS: BP 126/70
--- NOTE | 2017-09-27 13:38 | Event Note ---
Event Note Event Note: Patient was transferred to telemetry after an episode of unresponsiveness which led to a rapid response. Please see resident's rapid response note for full details. Of note patient is now alert. He was hyperglycemic during the episode of unresponsiveness, he was given insulin and his we are now doing Accu-Cheks every 2 to monitor for potential hypoglycemia Patient's home dose of Levemir 12 units subcutaneous twice daily restarted. Fingerstick glucose is trending down. We will follow up in EEG and ammonia level
--- NOTE | 2017-09-27 14:12 | Cons- Neurology ---
General Information and HPI Consulting Request Date of Consult: 09/27/17 Requested By: Zuleika Higgins MD History of Present Illness: 82-year-old male admitted to hospital today with history of lethargy and dehydration and black tarry stools over the past 3 days Patient is on able to give a history due to advanced dementia Per records he had been able to walk from bed to chair until a week ago when he started to decompensate He has had previous history of similar problems and required transfusions in the past for GI bleed He has a history of colon cancer There were no apparent convulsive activity noted He received a reactive alert today due to unresponsiveness Allergies/Medications Allergies: Coded Allergies: NO KNOWN ALLERGIES (07/10/17) Home Med List: Acetaminophen (Tylenol) 325 MG TABLET 2 TAB PO Q6-PRN PRN PAIN (Reported) Amoxicillin/Clavulanate Potass (Amox-Clav 875-125 MG Tablet) 875 MG-125 MG TABLET 875 MG PO Q12 Aspiration Pneumonia . Atorvastatin Calcium (Lipitor) 40 MG TABLET 1 TAB PO DAILY CHOLESTEROL ( Reported) Cholecalciferol (Vitamin D3) (Vitamin D) 2,000 UNIT CAPSULE 1 CAP PO DAILY SUPPLEMENT (Reported) Docusate Sodium (Colace) 100 MG CAPSULE 2 CAP PO DAILY STOOL SOFTENER ( Reported) Ferrous Sulfate 325 MG (65 MG IRON) TABLET 1 TAB PO BID SUPPLEMENT (Reported) Finasteride 5 MG TABLET 1 TAB PO DAILY PROSTATE (Reported) Insulin Detemir (Levemir) 100 UNIT/ML VIAL 12 UNITS SC BID DIABETES Insulin Lispro (Humalog Kwikpen U-100) 100 UNIT/ML INSULN.PEN 0 SC TIDAC DIABETES before meals less than 80 mg/dl take cup of apple juice 80-150 4 units 151-200 6 units 201-250 8 units 251-300 10 units 301-350 12 units 351-400 13 units >400 14 units Bedtime 251-300 2 units 301-350 3 units 351-400 4 units >400 5 units Latanoprost 0.005 % DROPS 1 GTT OPH QPM Glaucoma (Reported) Levetiracetam (Keppra) 500 MG TABLET 500 MG PO BID SEIZURE PROPHYLAXIS Memantine HCl (Namenda) 10 MG TABLET 2 TAB PO QHS MEMORY (Reported) Omeprazole Magnesium (Prilosec Otc) 20 MG TABLET.DR 1 TAB PO DAILY ACID REFLUX Polyethylene Glycol 3350 (Miralax) 17 GRAM POWD.PACK 1 PAC PO DAILY GI ( Reported) dissolve in water Tamsulosin HCl (Flomax) 0.4 MG CAP.ER.24H 1 CAP PO DAILY PROSTATE (Reported) Current Medications: Current Medications Sig/Zoe Start time Last Medication Dose Route Stop Time Status Admin Acetaminophen 650 MG Q6P PRN 09/27 0315 AC PO Acetaminophen 1,000 MG Q6P PRN 09/27 0315 AC IV Finasteride 5 MG DAILY 09/27 0900 AC 09/27 PO 0908 Insulin Aspart 0 TIDAC 09/27 1200 AC 09/27 SC 1206 Insulin Aspart 0 TIDAC 09/27 0800 DC 09/27 SC 0907 Insulin Detemir 12 UNITS BID 09/27 1043 AC 09/27 SC 1052 Insulin Human Regular 10 UNITS ONCE ONE 09/27 1000 DC 09/27 SC 09/27 1001 1023 Levetiracetam 500 MG BID 09/27 0900 AC 09/27 PO 0908 Memantine 20 MG AT BEDTIME 09/27 2100 AC PO Ondansetron HCl 4 MG Q6P PRN 09/27 0230 AC IV Pantoprazole Sodium 40 MG DAILY 09/27 0900 AC 09/27 IV 0909 Sodium Chloride 1,000 ML Q10H 09/27 0330 DC 09/27 IV 09/27 1329 0354 Sodium Chloride 1,000 ML ONCE ONE 09/27 0315 CAN IV 09/27 1634 Sodium Chloride 1,000 ML BOLUS ONE 09/27 0100 DC 09/27 IV 09/27 0159 0104 Tamsulosin HCl 0.4 MG DAILY 09/27 0900 AC 09/27 PO 0908 Review of Systems Review of Systems: Patient unable to cooperate for review of systems Past History Travel History Traveled to [place] past 21 day No Medical History Blood Transfusion Hx: Yes Neurological: dementia, POSSIBLE SEIZURE ACTIVITY EENT: blindness, glaucoma, hearing loss Cardiovascular: hypertension, hyperlipidemia Respiratory: pneumonia Gastrointestinal: umbilical hernia Hepatic: NONE Renal: benign prost hyperplasia, FREQUENT UTI'S Musculoskeletal: degen joint disease, osteoarthritis Psychiatric: NONE Endocrine: diabetes Blood Disorders: anemia Cancer(s): NONE 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 child (dtr/POARafaela & her son) Services at Home: Home Health Aide Primary Language: Khmer, [place] Smoking Status: Unknown If Ever Smoked Living Will? no Power of Grinder Needle Tip/HCP? yes Name of POA/HCP: Pt/s dtRafaela walter [phone] Functional Ability ADLs Needs Assist: dressing, eating, toileting, bathing. Ambulation: non-ambulatory (wheelchair bound) IADLs Needs Assist: shopping, housework, finances, food prep, telephone, transportation, medication admin. Exam & Diagnostic Data Vital Signs and I&O Vital Signs Date Time Temp Pulse Resp B/P B/P Pulse O2 O2 Flow FiO2 Mean Ox Delivery Rate 09/27 1101 96.6 92 18 126/70 96 Room Air 09/27 0908 97.8 90 18 132/66 09/27 0400 97.8 90 18 132/66 94 Room Air 09/27 0110 97.5 95 18 130/83 97 Room Air 09/26 2232 96.3 99 18 138/76 99 Room Air Intake & Output 09/27 1600 09/27 0800 09/27 0000 Intake Total 1300 Output Total 300 Balance 1000 Intake, IV 1300 Number 0 Bowel Movements Output, Urine 300 Patient 153 lb 170 lb Weight Weight Bed scale Estimated Measurement Method Physical Exam: Drowsy but arousable Not oriented Follows few simple commands Nystagmoid eye movements Pupil not reactive on right and opacified on left; does not appear to have vision No facial weakness Tongue and palate appear intact Hearing impairment bilaterally Diffuse rigidity upper and lower extremities Moves left upper extremity in preference to right Sensory examination not assessable but withdraws to noxious stimuli bilateral Deep tendon reflexes hypoactive Coordinative functions not assessable Last 48 Hours of Lab Results: Laboratory Tests 09/27 09/27 0730 0606 Chemistry Sodium (137 - 145 mmol/L) 137 Potassium (3.5 - 5.1 mmol/L) 5.7 H Chloride (98 - 107 mmol/L) 102 Carbon Dioxide (22 - 30 mmol/L) 24 Anion Gap (5 - 16) 11 BUN (9 - 20 mg/dL) 41 H Creatinine (0.7 - 1.2 mg/dL) 1.4 H Estimated GFR (>60 ml/min) 48 L BUN/Creatinine Ratio (7 - 25 %) 29.3 H Calcium (8.4 - 10.2 mg/dL) 9.1 Hematology CBC w Diff NO MAN DIFF REQ WBC (4.8 - 10.8 /CUMM) 12.2 H RBC (4.70 - 6.10 /CUMM) 4.19 L Hgb (14.0 - 18.0 G/DL) 9.4 L Hct (42 - 52 %) 30.9 L MCV (80.0 - 94.0 FL) 73.6 L MCH (27.0 - 31.0 PG) 22.5 L MCHC (33.0 - 37.0 G/DL) 30.6 L RDW (11.5 - 14.5 %) 20.4 H Plt Count (130 - 400 /CUMM) 218 MPV (7.4 - 10.4 FL) 11.0 H Gran % (42.2 - 75.2 %) 71.2 Lymphocytes % (20.5 - 51.1 %) 17.1 L Monocytes % (1.7 - 9.3 %) 8.6 Eosinophils % (0 - 5 %) 2.6 Basophils % (0.0 - 2.0 %) 0.5 Absolute Granulocytes (1.4 - 6.5 /CUMM) 8.7 H Absolute Lymphocytes (1.2 - 3.4 /CUMM) 2.1 Absolute Monocytes (0.10 - 0.60 /CUMM) 1.1 H Absolute Eosinophils (0.0 - 0.7 /CUMM) 0.3 Absolute Basophils (0.0 - 0.2 /CUMM) 0.1 Urines Urine Color (YEL,AMB,STR) YEL Urine Clarity (CLEAR) CLEAR Urine pH (5.0 - 8.0) 6.0 Ur Specific [place] (1.001 - 1.035) 1.025 Urine Protein (NEG,<30 MG/DL) NEG Urine Ketones (NEG) TRACE H Urine Nitrite (NEG) NEG Urine Bilirubin (NEG) NEG Urine Urobilinogen (0.1 - 1.0 EU/dl) 0.2 Ur Leukocyte Esterase (NEG) NEG Ur Microscopic EXAM NOT REQUIRED Urine Hemoglobin (NEG) NEG Urine Glucose (N MG/DL) >=1000 H 09/26 2359 Chemistry Sodium (137 - 145 mmol/L) 139 Potassium (3.5 - 5.1 mmol/L) 4.7 Chloride (98 - 107 mmol/L) 98 Carbon Dioxide (22 - 30 mmol/L) 27 Anion Gap (5 - 16) 15 BUN (9 - 20 mg/dL) 44 H Creatinine (0.7 - 1.2 mg/dL) 1.5 H Estimated GFR (>60 ml/min) 45 L BUN/Creatinine Ratio (7 - 25 %) 29.3 H Glucose (65 - 99 mg/dL) 292 H Calcium (8.4 - 10.2 mg/dL) 10.5 H Total Bilirubin (0.2 - 1.3 mg/dL) 0.8 AST (17 - 59 U/L) 30 ALT (21 - 72 U/L) 42 Alkaline Phosphatase (< 127 U/L) 142 H Total Protein (6.3 - 8.2 g/dL) 7.6 Albumin (3.5 - 5.0 g/dL) 4.1 Globulin (1.9 - 4.2 gm/dL) 3.5 Albumin/Globulin Ratio (1.1 - 2.2 %) 1.2 Coagulation PT (9.4 - 12.5 SEC) 11.7 INR (0.90 - 1.17) 1.07 APTT (25 - 37 SEC) 25 Hematology CBC w Diff NO MAN DIFF REQ WBC (4.8 - 10.8 /CUMM) 14.9 H RBC (4.70 - 6.10 /CUMM) 4.92 Hgb (14.0 - 18.0 G/DL) 11.1 L Hct (42 - 52 %) 35.7 L MCV (80.0 - 94.0 FL) 72.5 L MCH (27.0 - 31.0 PG) 22.6 L MCHC (33.0 - 37.0 G/DL) 31.2 L RDW (11.5 - 14.5 %) 20.7 H Plt Count (130 - 400 /CUMM) 248 MPV (7.4 - 10.4 FL) 10.2 Gran % (42.2 - 75.2 %) 69.6 Lymphocytes % (20.5 - 51.1 %) 19.1 L Monocytes % (1.7 - 9.3 %) 8.1 Eosinophils % (0 - 5 %) 2.7 Basophils % (0.0 - 2.0 %) 0.5 Absolute Granulocytes (1.4 - 6.5 /CUMM) 10.4 H Absolute Lymphocytes (1.2 - 3.4 /CUMM) 2.9 Absolute Monocytes (0.10 - 0.60 /CUMM) 1.2 H Absolute Eosinophils (0.0 - 0.7 /CUMM) 0.4 Absolute Basophils (0.0 - 0.2 /CUMM) 0.1 Imaging/Other Studies: CXR IMPRESSION: No acute pulmonary finding. Assessment/Plan Assessment: Mental status change in background of severe dementia Probable GI bleed Recommendations: Serum ammonia Electroencephalogram Establish level of care given history of dementia and GI cancer Consult Acknowledgment - Thank you for your consult request.
[2017-09-27 14:32] VITALS: BP 130/72
[2017-09-27 16:20] LABS: ABSOLUTE BASOPHIL COUNT 0.1 /CUMM (0.0-0.2); ABSOLUTE EOSINOPHIL COUNT 0.3 /CUMM (0.0-0.7); ABSOLUTE GRANULOCYTE CT 8.4 /CUMM (1.4-6.5); ABSOLUTE LYMPH COUNT 2.3 /CUMM (1.2-3.4); ABSOLUTE MONOCYTE COUNT 0.9 /CUMM (0.10-0.60); BASOPHIL % 0.7 % (0.0-2.0); EOSINOPHIL % 2.3 % (0-5); GRANULOCYTE % 70.6 % (42.2-75.2); HEMATOCRIT 33.6 % (42-52); MEAN CORPUSCULAR HGB 22.7 PG (27.0-31.0); MEAN CORPUSCULAR HGB CONC 31.2 G/DL (33.0-37.0); MEAN CORPUSCULAR VOLUME 72.8 FL (80.0-94.0); MEAN PLATELET VOLUME 10.9 FL (7.4-10.4); PLATELET COUNT 230 /CUMM (130-400); RBC DISTRIBUTION WIDTH 19.8 % (11.5-14.5); RED BLOOD CELL CT 4.62 /CUMM (4.70-6.10); WHITE BLOOD CELL COUNT 11.9 /CUMM (4.8-10.8)
--- NOTE | 2017-09-27 17:04 | Event Note ---
Event Note Event Note: S: Rapid response was called for altered mental status. B: 82 year old patient with a [facility] history significant for dementia, bilateral blindness, hyperlipidemia, hypertension, colon cancer, small meningioma on Keppra for seizure prevention brought in for lethargy, weakness, failure to thrive, dehydration and black tarry stools for 3 days. A: Vitals-blood pressure 140/80, saturation 96, pulse rate 90, respiratory rate 18. Patient responds only to tactile stimuli. Able to move his fingers. Not responding to verbal commands. EKG-old right bundle branch block R: Patient was sent to telemetry for monitoring. Neurology consult, EEG.
[2017-09-28] VITALS: BP 122/60
[2017-09-28 06:55] VITALS: BP 128/60
--- NOTE | 2017-09-28 08:16 | PN- Att Addend ---
Attending Addendum Attending Brief Note Patient seen and examined. No events on telemetry monitoring overnight. Remains in sinus rhythm. First degree AV block. His remained hemodynamically stable. He regained alertness soon after the rapid response yesterday. He remains alert this morning communicating appropriately answering questions. Denies any pain. Denies any nausea vomiting. Also staff reports that he has been declining meals and refusing blood work. He has refused a.m. labs this morning. Vital Signs Date Time Temp Pulse Resp B/P B/P Pulse O2 O2 Flow FiO2 Mean Ox Delivery Rate 09/28 0655 96.7 89 16 128/60 96 Room Air 09/28 0000 97.6 94 20 122/60 93 09/27 1432 96.8 100 18 130/72 96 Room Air 09/27 1101 96.6 92 18 126/70 96 Room Air 09/27 0908 97.8 90 18 132/66 General appearance: Not in any acute distress. Heart: S1-S2 regular with no audible murmur. Lungs: Adequate and symmetric air entry bilaterally with no added sounds. Abdomen: Nondistended with normal bowel sounds. Soft, nontender with no palpable masses. Extremities: No pedal edema. No cyanosis. Skin: Intact Laboratory Tests 09/27/17 1810: Ammonia < 9 L 09/27/17 1500: Anion Gap 13, Estimated GFR 48 L, BUN/Creatinine Ratio 25.7 H, CBC w Diff NO MAN DIFF REQ, RBC 4.62 L, MCV 72.8 L, MCH 22.7 L, MCHC 31.2 L, RDW 19.8 H, MPV 10.9 H, Gran % 70.6, Lymphocytes % 19.1 L, Monocytes % 7.3, Eosinophils % 2.3, Basophils % 0.7, Absolute Granulocytes 8.4 H, Absolute Lymphocytes 2.3, Absolute Monocytes 0.9 H, Absolute Eosinophils 0.3, Absolute Basophils 0.1 Problems: 1. Recurrent unresponsive episodes; likely seizure related 2. Uncontrolled diabetes mellitus 3. Rectal bleeding; in the setting of untreated colon cancer. Hemoglobin level is currently at baseline. 4. Hyperkalemia 5. Leukocytosis 6. Chronic kidney disease stage III. 7. Cerebral meningioma. 8. 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 Plan: -Continue antiepileptic therapy with Keppra. Follow-up with the neurology service regarding any need for titration or change of this medication. -Continue his current insulin regimen. -Hemoglobin level is stable. He does not appear to have an active GI bleed. -Discontinue telemetry monitoring. -Palliative care consultation in a.m. -Given his advanced age, comorbidities and untreated malignancy, long-term prognosis is guarded. He continues to have reported hospitalizations for changes in mentation which is likely caused by his seizures with resultant postictal confusion.
--- NOTE | 2017-09-28 08:38 | PN- Housestaff ---
Subjective Follow-up For: Dehydration Physical deconditioning Melena Acute kidney injury Tele-Events Since Last Visit: Normal sinus rhythm, heart rate 80s-100 Subjective: Patient seen and examined. He is seen lying in bed with his head elevated resting comfortably. He appears to be in no acute distress. He is somnolent and lethargic and not participating in the interview. At his bedside is his daughter Elmira who offers collateral information. She states that this morning he looked much better than when he arrived to the hospital and ate most of his breakfast. She feels he is improving. Subjective complaints and review of systems are unobtainable. Review of Systems Constitutional: Reports: see HPI. Objective Last 24 Hrs of Vital Signs/I&O Vital Signs Date Time Temp Pulse Resp B/P B/P Pulse O2 O2 Flow FiO2 Mean Ox Delivery Rate 09/28 0655 96.7 89 16 128/60 96 Room Air 09/28 0000 97.6 94 20 122/60 93 / 1432 96.8 100 18 130/72 96 Room Air Intake & Output 09/28 1600 09/28 0800 09/28 0000 Intake Total 100 Output Total 300 Balance -200 Intake, Oral 100 Output, Urine 300 Patient 66.933 kg Weight Physical Exam General Appearance: Alert, Oriented X3, Cooperative, No Acute Distress Other Physical Findings: General: Thin elderly -[place] man in no acute distress HEENT: NCAT, PERRLA, EOMI, anicteric sclera, moist mucous membranes Neck: Supple, no JVD, trachea midline Cardio: Normal S1/S2 without murmurs/gallops/rubs; regular rate and rhythm Pulmonary: Clear to auscultation bilaterally Abdomen: Soft, nontender, nondistended, bowel sounds intact Neuro: Somnolent/lethargic, cranial nerves II through XII grossly intact, hard of hearing Extremities: Normal pulses, no cyanosis or edema Current Medications: Current Medications Sig/Zoe Start time Last Medication Dose Route Stop Time Status Admin Acetaminophen 650 MG Q6P PRN 09/27 0315 AC PO Acetaminophen 1,000 MG Q6P PRN 09/27 0315 AC IV Finasteride 5 MG DAILY 09/27 0900 AC 09/28 PO 0829 Insulin Aspart 0 TIDAC 09/27 1200 AC 09/28 SC 1052 Insulin Aspart 0 TIDAC 09/27 0800 DC 09/27 SC 0907 Insulin Detemir 12 UNITS BID 09/27 1043 AC 09/28 SC 0826 Levetiracetam 500 MG BID 09/27 0900 AC 09/28 PO 0829 Memantine 20 MG AT BEDTIME 09/27 2100 AC PO Ondansetron HCl 4 MG Q6P PRN 09/27 0230 AC IV Pantoprazole Sodium 40 MG DAILY 09/27 09 AC 09/28 IV 0826 Sodium Chloride 1,000 ML Q10H 09/27 0330 DC 09/27 IV 09/27 1329 0354 Tamsulosin HCl 0.4 MG DAILY 09/27 899 AC 09/28 PO 0829 Last 24 Hrs of Lab/Michael Results Last 24 Hrs of Labs/Mics: Laboratory Tests 09/28/17 1040: Sodium Pending, Potassium Pending, Chloride Pending, Carbon Dioxide Pending, Anion Gap Pending, BUN Pending, Creatinine Pending, BUN/Creatinine Ratio Pending , CBC w Diff Pending, WBC Pending, RBC Pending, Hgb Pending, Hct Pending, MCV Pending, MCH Pending, MCHC Pending, RDW Pending, Plt Count Pending, MPV Pending 09/27/17 1810: Ammonia < 9 L 09/27/17 1500: Anion Gap 13, Estimated GFR 48 L, BUN/Creatinine Ratio 25.7 H, CBC w Diff NO MAN DIFF REQ, RBC 4.62 L, MCV 72.8 L, MCH 22.7 L, MCHC 31.2 L, RDW 19.8 H, MPV 10.9 H, Gran % 70.6, Lymphocytes % 19.1 L, Monocytes % 7.3, Eosinophils % 2.3, Basophils % 0.7, Absolute Granulocytes 8.4 H, Absolute Lymphocytes 2.3, Absolute Monocytes 0.9 H, Absolute Eosinophils 0.3, Absolute Basophils 0.1 Assessment/Plan Assessment: 82-year-old man with multiple medical problems significant for dementia and colon cancer without treatment seen for evaluation of dehydration and deconditioning with failure to thrive and 3 day duration of black tarry stool. Patient was transferred to the telemetry floor yesterday being found unresponsive with normal vital signs and blood sugar. He remains in normal sinus rhythm without events on telemetry. He is awake and eating this morning but during the interview is seen to be very tired. Clinically he appears euvolemic and improving. Creatinine is pending. EEG is still pending. Problem list -Dehydration, resolved -Failure to thrive -Melena -Acute kidney injury, likely prerenal azotemia -Dementia -Blindness -Hard of hearing -Hypertension -Hyperlipidemia -Meningioma, on Keppra for seizure prophylaxis -History of colon cancer, without treatment Plan -Downgraded to general medicine floor -Discontinue telemetry monitoring -Guaiac all stools, avoid NSAIDs -Seizure precautions -Avoid nephrotoxic agent -Encouraged oral intake -Accu-Cheks 3 times daily before meals/at bedtime -NovoLog/Levemir -Continue home meds: Keppra, finasteride -Neurology following for unresponsiveness/seizures -Palliative care consult tomorrow -PT evaluation -Daily CBC, monitor H&H -Follow-up EEG -Pain control with acetaminophen -Diabetic diet -DVT prophylaxis with Alps -Full code Problem List: 1. Dehydration 2. Acute renal failure Pain Ratin Pain Location: None Pain Goal: Remain pain free Pain Plan: See assessment Tomorrow's Labs & Rationales: BMP, CBC
[2017-09-28 11:04] LABS: ABSOLUTE BASOPHIL COUNT 0.1 /CUMM (0.0-0.2); ABSOLUTE EOSINOPHIL COUNT 0.3 /CUMM (0.0-0.7); ABSOLUTE GRANULOCYTE CT 5.6 /CUMM (1.4-6.5); ABSOLUTE MONOCYTE COUNT 0.7 /CUMM (0.10-0.60); BASOPHIL % 1.1 % (0.0-2.0); EOSINOPHIL % 3.9 % (0-5); GRANULOCYTE % 64.5 % (42.2-75.2); HEMATOCRIT 29.8 % (42-52); MEAN CORPUSCULAR HGB CONC 30.1 G/DL (33.0-37.0); MEAN CORPUSCULAR VOLUME 73.1 FL (80.0-94.0); MEAN PLATELET VOLUME 10.4 FL (7.4-10.4); PLATELET COUNT 233 /CUMM (130-400); RBC DISTRIBUTION WIDTH 20.7 % (11.5-14.5); RED BLOOD CELL CT 4.08 /CUMM (4.70-6.10); WHITE BLOOD CELL COUNT 8.7 /CUMM (4.8-10.8)
[2017-09-28 15:02] VITALS: BP 126/70
[2017-09-28 21:16] VITALS: BP 108/62
[2017-09-29 06:25] VITALS: BP 122/66
--- NOTE | 2017-09-29 07:48 | PN- Housestaff ---
Sai SALINAS,Bharathi 09/29/17 0748: Subjective Follow-up For: Uncontrolled diabetes mellitus Melena Unresponsive episode with history of seizure disorder Subjective: Patient was seen and examined at bedside. He was resting comfortably. He was not cooperative with review of systems questioning or much of the physical examination, stating that he wished to be left alone. He did deny chest pain or pain of any kind, however he refused the rest of review of systems questions. Review of Systems Constitutional: Reports: see HPI. Objective Last 24 Hrs of Vital Signs/I&O Vital Signs Date Time Temp Pulse Resp B/P B/P Pulse O2 O2 Flow FiO2 Mean Ox Delivery Rate 09/29 0625 98.3 92 18 122/66 94 Room Air 09/28 2116 98.9 110 108/62 92 Room Air 09/28 1502 97.7 96 18 126/70 96 Room Air Intake & Output 09/29 0800 09/29 0000 09/28 1600 Intake Total 310 Output Total 2 Balance -2 310 Intake, IV 10 Intake, Oral 300 Number 1 Bowel Movements Output, Urine 2 Patient 153 lb Weight Weight Bed scale Measurement Method Physical Exam General Appearance: drowsy but arousable Skin Temp/Moisture Exam: Warm/Dry Cardiovascular: Regular Rate, Normal S1, Normal S2 Lungs: slightly diminished breath sounds and difficult exam due to patient's refusal to cooperate Abdomen: Normal Bowel Sounds, Soft, No Tenderness Neurological: Normal Speech Current Medications: Current Medications Sig/Zoe Start time Last Medication Dose Route Stop Time Status Admin Acetaminophen 650 MG Q6P PRN 09/27 0315 AC PO Acetaminophen 1,000 MG Q6P PRN 09/27 0315 AC IV Finasteride 5 MG DAILY 09/27 0900 09/28 PO 0829 Insulin Aspart 5 UNITS ONCE ONE 09/28 2100 NV 09/28 ND 09/28 2101 2104 Insulin Aspart 0 TIDAC 09/28 1700 09/28 ND 1813 Insulin Aspart 10 UNITS ONCE ONE 09/28 1230 NV 09/28 ND 09/28 1231 1308 Insulin Aspart 0 TIDAC 09/27 1200 NV 09/28 ND 1215 Insulin Detemir 15 UNITS BID 09/28 2100 09/28 ND 2057 Insulin Detemir 10 UNITS ONCE ONE 09/28 1430 DC 09/28 ND 09/28 1431 1432 Insulin Detemir 12 UNITS BID 09/27 1043 DC 09/28 SC 0826 Latanoprost 1 GTT QPM 09/28 2129 AC OPH Levetiracetam 500 MG BID 09/27 899 AC 09/28 PO 2041 Memantine 20 MG AT BEDTIME 09/27 2100 AC 09/28 PO 2040 Ondansetron HCl 4 MG Q6P PRN 09/27 0230 AC IV Pantoprazole Sodium 40 MG DAILY 09/27 899 AC 09/28 IV 08 Patient Own 1 UNIT TID 09/28 2129 AC Medication OPH Tamsulosin HCl 0.4 MG DAILY 09/27 899 AC 09/28 PO 08 Last 24 Hrs of Lab/Michael Results Last 24 Hrs of Labs/Mics: Laboratory Tests 09/29/17 0710: Anion Gap 10, Estimated GFR 53 L, BUN/Creatinine Ratio 23.1, CBC w Diff NO MAN DIFF REQ, RBC 4.09 L, MCV 73.8 L, MCH 22.4 L, MCHC 30.3 L, RDW 20.9 H, MPV 9.6, Gran % 57.1, Lymphocytes % 29.6, Monocytes % 8.7, Eosinophils % 3.6, Basophils % 1.0, Absolute Granulocytes 5.5, Absolute Lymphocytes 2.9, Absolute Monocytes 0.8 H, Absolute Eosinophils 0.3, Absolute Basophils 0.1 Assessment/Plan Assessment: Patient is an 82-year-old male with a PMH significant for dementia, diabetes, colon cancer not currently being treated who presented to the [facility] ED with a chief complaint of melena as well as physical deconditioning and dehydration. Patient was initially admitted to general medicine, he found to telemetry on 05/05 secondary to an episode of unresponsiveness. #Uncontrolled diabetes At time of patient's altered mental status his fingerstick glucose was >500, he was monitored closely afterwards and his glucose dropped into the 300s, it was uncontrolled on 09/28/17, and his basal insulin dose was increased. -We will continue with IV rehydration and monitor Accu-Cheks 3 times daily before meals and at bedtime -Continue NovoLog sliding scale #episode of unresponsiveness, history of seizure disorder Prescription with Dr. West, attending over the weekend who has taken care of this patient private previously, this is a relatively common occurrence in this patient. Of note he returned to baseline mental function rapidly after receiving insulin. Neurology was consulted, ammonia levels were checked and were low. It is unlikely that this episode was a result of seizures. -Follow-up results of EEG -Continue to follow neurology recommendations -Current dose of Keppra -Patient is stable for transfer back to general medicine #Chronic kidney disease stage III Patient's renal function appears to be at baseline, we will need to divide IV hydration for now and monitor. #Chronic medical problems including colon cancer, right frontal meningioma, left kidney mass and a CT showing evidence of lytic lesions in the bony calvarium Up until today patient had been a full code, attending Rachel Rivera MD, had a goals of care discussion with the patient's daughter and he has now been changed to DNR/DNI. A consult was also placed with Dr. Marc for palliative care. The daughter expresse that she did not want the patient to go to a rehab facility -We will work with Dr. Regalado for further palliative care assessment. Diet: Diabetic diet DVT prophylaxis: Alps given GI bleed no pharmacologic DVT prophylaxis at this time CODE STATUS: DNR/DNI Problem List: 1. Uncontrolled diabetes mellitus 2. GI bleed 3. Dehydration Pain Ratin Pain Location: none Pain Goal: Remain pain free Pain Plan: pain pathway Tomorrow's Labs & Rationales: bep, BENI Shepherd MD,Rachel 09/29/17 1046: Attending MD Review Statement Attending Statement Attending Statement: examined this patient, discuss w/resident/PA/SLEEP SCIENTIST, agreed w/resident/PA/SLEEP SCIENTIST, discussed with family, reviewed EMR data (avail), discussed with nursing, discussed with case mgmt, reviewed images Attending Assessment/Plan: I spoke to the patient's daughter at length. This is an 82-year-old male with multiple medical problems including dementia, legally blind, diabetes, hypertension dementia, legally blind, diabetes, hypertension,, hyperlipidemia. He had recently diagnosed colon cancer in March 2017 and has not pursued treatment/not a candidate for treatment for the same. 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 In view of all of these comorbidities I spoke to the daughter at length and she has agreed to change the CODE STATUS to DNR/DNI. She understands that doing resuscitation and intubation given the competing medical problems the competing medical problems would be of no utility. Right now we are treating uncontrolled diabetes and he had uncontrolled hyperglycemia- we have increased his standing Levemir and hydrating him as well. There was a question of seizure-like episodes on Gen Med prompting a telemetry transfer. However he was seen by neurology and this is unlikely a seizure in origin. His shoe treer has been discontinued and he is a GEN med hold given the chronicity of his problems. We can continue his Keppra and he is going to get an EEG today. We have a palliative care consult with Dr. Marc pending for today. The patient's daughter is very very clear that she will not put her dad in a longterm and I did approach the subject of hospice care at home although that may be hard given that the daughter herself has medical issues. Will follow-up closely.
[2017-09-29 08:14] LABS: ABSOLUTE BASOPHIL COUNT 0.1 /CUMM (0.0-0.2); ABSOLUTE EOSINOPHIL COUNT 0.3 /CUMM (0.0-0.7); ABSOLUTE GRANULOCYTE CT 5.5 /CUMM (1.4-6.5); ABSOLUTE LYMPH COUNT 2.9 /CUMM (1.2-3.4); ABSOLUTE MONOCYTE COUNT 0.8 /CUMM (0.10-0.60); EOSINOPHIL % 3.6 % (0-5); GRANULOCYTE % 57.1 % (42.2-75.2); HEMATOCRIT 30.2 % (42-52); MEAN CORPUSCULAR HGB 22.4 PG (27.0-31.0); MEAN CORPUSCULAR HGB CONC 30.3 G/DL (33.0-37.0); MEAN CORPUSCULAR VOLUME 73.8 FL (80.0-94.0); MEAN PLATELET VOLUME 9.6 FL (7.4-10.4); PLATELET COUNT 219 /CUMM (130-400); RBC DISTRIBUTION WIDTH 20.9 % (11.5-14.5); RED BLOOD CELL CT 4.09 /CUMM (4.70-6.10); WHITE BLOOD CELL COUNT 9.7 /CUMM (4.8-10.8)
[2017-09-29 15:14] VITALS: BP 106/60
--- NOTE | 2017-09-29 21:05 | Cons- Palliative Care ---
General Information and HPI Consulting Request Date of Consult: 09/29/17 Requested By: Odette Walton MD Reason for Consult: non-pain symptom mgmt, care/transition planning, eval for hospice care Source family, old records, case management Exam Limitations unable to give history, not alert/orientated, confusion, dementia, physical impairment History of Present Illness: 82 year-old male with multiple medical problems admitted to hosptial following several episodes of melena. Review of medical records, along with discussion with daughter indicates that patient is suffering from likely colon malignancy. Workup to date, however, suggests a more advanced picture with the presence of lytic calvarial lesion of uncertain etiology, renal mass also of uncertain etiology. During hospitalization, he has been identified with uncontrolled diabetes, and recurrent loss of consciousness which has been attributed to a menigioma. A review of notes from Dr. Rachel Shepherd indicates she has spoken extensively with the patient's daughter who provides the bulk of his care. Goals have been ascertained which are to prioritize the patient's comfort and to forego interventions such as intubation and/or cardiac resuscitation. At this time, it is unclear as to the best mechanism to provide ongoing care to Mr. Galvez whose health appears to be deteriorating as a result of advancing medical illness. His daughter, with whom I spoke for over 30 minutes was able to share with me her disappointments from home care including episodes where she believes home health aides burglarized their home, and episodes in which visiting nurses visited to obtain vital signs, and brief examination, but from whom she obtained little substantive support or care. We discussed at length what her goals are - which are for her father to be cared for at home, but at this point, it is not yet fully clarified as to what that care should entail, though it seems clear, that aggressive, life prolonging therapy is not desired. Allergies/Medications Allergies: Coded Allergies: NO KNOWN ALLERGIES (07/10/17) Home Med List: Acetaminophen (Tylenol) 325 MG TABLET 2 TAB PO Q6-PRN PRN PAIN (Reported) Amoxicillin/Clavulanate Potass (Amox-Clav 875-125 MG Tablet) 875 MG-125 MG TABLET 875 MG PO Q12 Aspiration Pneumonia . Atorvastatin Calcium (Lipitor) 40 MG TABLET 1 TAB PO DAILY CHOLESTEROL ( Reported) Cholecalciferol (Vitamin D3) (Vitamin D) 2,000 UNIT CAPSULE 1 CAP PO DAILY SUPPLEMENT (Reported) Docusate Sodium (Colace) 100 MG CAPSULE 2 CAP PO DAILY STOOL SOFTENER ( Reported) Ferrous Sulfate 325 MG (65 MG IRON) TABLET 1 TAB PO BID SUPPLEMENT (Reported) Finasteride 5 MG TABLET 1 TAB PO DAILY PROSTATE (Reported) Insulin Detemir (Levemir) 100 UNIT/ML VIAL 12 UNITS SC BID DIABETES Insulin Lispro (Humalog Kwikpen U-100) 100 UNIT/ML INSULN.PEN 0 SC TIDAC DIABETES before meals less than 80 mg/dl take cup of apple juice 80-150 4 units 151-200 6 units 201-250 8 units 251-300 10 units 301-350 12 units 351-400 13 units >400 14 units Bedtime 251-300 2 units 301-350 3 units 351-400 4 units >400 5 units Latanoprost 0.005 % DROPS 1 GTT OPH QPM Glaucoma (Reported) Levetiracetam (Keppra) 500 MG TABLET 500 MG PO BID SEIZURE PROPHYLAXIS Memantine HCl (Namenda) 10 MG TABLET 2 TAB PO QHS MEMORY (Reported) Omeprazole Magnesium (Prilosec Otc) 20 MG TABLET.DR 1 TAB PO DAILY ACID REFLUX Polyethylene Glycol 3350 (Miralax) 17 GRAM POWD.PACK 1 PAC PO DAILY GI ( Reported) dissolve in water Tamsulosin HCl (Flomax) 0.4 MG CAP.ER.24H 1 CAP PO DAILY PROSTATE (Reported) Review of Systems Review of Systems: unable to obtain secondary to patient's poor level of arousal. daughter reports that the patient is experiencing significant anorexia Past History Medical History Blood Transfusion Hx Yes Neurological: dementia, POSSIBLE SEIZURE ACTIVITY EENT: blindness, glaucoma, hearing loss Cardiovascular: hypertension, hyperlipidemia Respiratory: pneumonia Gastrointestinal: umbilical hernia Hepatic: NONE Renal: benign prost hyperplasia, FREQUENT UTI'S Musculoskeletal: degen joint disease, osteoarthritis Psychiatric: NONE Endocrine: diabetes Blood Disorders: anemia Cancer(s): NONE CUT TOBACCO BULKER/Reproductive: NONE Surgical History Surgical History: prostatectomy, 08/08/16: circumcision for phimosis with balanitis Family History Relations & Conditions If Any BROTHER FH: diabetes mellitus FH: glaucoma FH: heart disease SISTER FH: diabetes mellitus FH: glaucoma Psychosocial History Who Do You Live With? child (dtr/POA, Rafaela Kramer & her son) Services at Home: Home Health Aide Primary Language: Croatian, Uzbek Smoking Status: Unknown If Ever Smoked Karnofsky Performance Scale: 20 Living Will? no Power of Power Barker Operator/HCP? yes Name of POA/HCP: Pt/s dianerRafaela Williams [phone] Functional Ability ADLs Needs Assist: dressing, eating, toileting, bathing. Ambulation: non-ambulatory (wheelchair bound) IADLs Needs Assist: shopping, housework, finances, food prep, telephone, transportation, medication admin. Exam & Diagnostic Data Last 24 Hrs of Vitals/I&Os: Vital Signs Date Time Temp Pulse Resp B/P B/P Pulse O2 O2 Flow FiO2 Mean Ox Delivery Rate 09/29 1514 97.8 96 18 106/60 96 Room Air 09/29 0958 92 122/66 09/29 0625 98.3 92 18 12266 94 Room Air Intake & Output 09/29 1600 09/29 0800 09/29 0000 Intake Total 1540 Output Total 2 Balance 1540 -2 Intake, IV 400 Intake, Oral 1140 Number 0 1 Bowel Movements Output, Urine 2 Patient 153 lb Weight Weight Bed scale Measurement Method Physical Exam: elderly male in bed, no acute distress, arousabale to voice Neck - no buits Lungs - CTA CV -RRR Abdomen - soft, non-tender, +bowel sounds Extremities - no cyanosis, edema Neurological - arouable, essentially immobile Diagnostic Data Lab/Micro/Pathology Results: Laboratory Tests 09/29/17 1805: Urine Color YEL, Urine Clarity CLEAR, Urine pH 6.0, Ur Specific [place] 1.020, Urine Protein NEG, Urine Ketones NEG, Urine Nitrite NEG, Urine Bilirubin NEG, Urine Urobilinogen 0.2, Ur Leukocyte Esterase NEG, Ur Microscopic EXAM NOT REQUIRED, Urine Hemoglobin NEG, Urine Glucose 500 H 09/29/17 0710: Anion Gap 10, Estimated GFR 53 L, BUN/Creatinine Ratio 23.1, CBC w Diff NO MAN DIFF REQ, RBC 4.09 L, MCV 73.8 L, MCH 22.4 L, MCHC 30.3 L, RDW 20.9 H, MPV 9.6, Gran % 57.1, Lymphocytes % 29.6, Monocytes % 8.7, Eosinophils % 3.6, Basophils % 1.0, Absolute Granulocytes 5.5, Absolute Lymphocytes 2.9, Absolute Monocytes 0.8 H, Absolute Eosinophils 0.3, Absolute Basophils 0.1 Assessment/Plan Assessment 82 year old male, with advancing colon cancer, other signs of malignancy, showing signs of worsening failure to thrive Patient's Condition: serious Prognosis: poor Is Patient Decisional? no Case Discussed With: family, house staff, case management Goals of Care: limited medical treatment Other Recommendations: 1. Optimize current medical condition to the best extent possible as you are already doing. 2. Will try to establish a realistic home-based plan of care that meets needs of patient, daughter, and other caregivers. Patient remains at risk for readmission to hospital if adequate medical/nursing care cannot be established at home. Daughter expresses comfort with hospital environment, but has been counseled that purpose of hospital is for stabilization of current condition. She is adamant against SNF or general VNA program (with which she has had experience in the past) 3. Will provide ongoing support/counseling to daughter/other family members as appropriate. Consult Acknowledgment - Thank you for your consult request.
--- NOTE | 2017-09-29 21:42 | ELECTROENCEPHALOGRAM REPORT ---
Electroencephalogram Report Electroencephalogram Results Date of service: 09/29/17 Attending MD: Odette Waltno MD Special Librarian: Niki Sanchez EEG Number: [id number] Test Utilizes: 10-20 system, 21 lead 18 channel digital recording Pertinent Hx/Physical/Neuro Findings/Clin Diagnosis: Evaluate for seizures, on Keppra Inpatient Medications: Current Medications Sig/Zoe Start time Last Medication Dose Route Stop Time Status Admin Acetaminophen 650 MG Q6P PRN 09/27 0315 AC PO Acetaminophen 1,000 MG Q6P PRN 09/27 0315 AC IV Finasteride 5 MG DAILY 09/27 0900 AC 09/29 PO 0958 Insulin Aspart 0 TIDAC 09/28 1700 AC 09/29 SC 1725 Insulin Detemir 15 UNITS BID 09/28 2100 AC 09/29 SC 205 Latanoprost 1 GTT QPM 09/28 2130 AC 09/29 OPH 2053 Levetiracetam 500 MG BID 09/27 0900 AC 09/29 PO 205 Memantine 20 MG AT BEDTIME 09/27 2100 AC 09/29 PO 205 Ondansetron HCl 4 MG Q6P PRN 09/27 0230 AC IV Pantoprazole Sodium 40 MG DAILY 09/27 0900 AC 09/29 IV 0957 Patient Own 1 UNIT TID 09/28 2130 AC 09/29 Medication OPH 3 Sodium Chloride 1,000 ML ONCE ONE 09/29 0845 DC 09/29 IV 09/29 1844 0957 Tamsulosin HCl 0.4 MG DAILY 09/27 0900 AC 09/29 PO 0958 Interpretation: The background in wakefulness is low amplitude intermittent posterior alpha and more generally seen but frontally dominant beta. In drowsiness theta frequency activity appears and is genralized. No focal, lateralized or epileptiform abnormalities are seen. Occasional muscle twitches were noted by the simulation technician and accompanied only by muscle artifact, no underlying abnormality. Photic stimulation adds no additional information, hyperventilation was deferred. Impression: Normal in wakefulness and drowsiness. No epileptiform abnormalities are seen.
[2017-09-29 23:16] VITALS: BP 126/60
[2017-09-30 06:42] VITALS: BP 134/62
--- NOTE | 2017-09-30 07:31 | PN- Housestaff ---
Sai SALINAS,Bharathi 09/30/17 0731: Subjective Follow-up For: Melena Episode of unresponsiveness Uncontrolled diabetes mellitus Possibly obstruction Subjective: Patient was seen and examined at bedside. He remains uncooperative with examination and review of systems. Review of Systems Constitutional: Reports: see HPI. Objective Last 24 Hrs of Vital Signs/I&O Vital Signs Date Time Temp Pulse Resp B/P B/P Pulse O2 O2 Flow FiO2 Mean Ox Delivery Rate 09/30 0642 98.2 88 20 134/62 98 Room Air 09/29 2316 98.0 90 20 126/60 97 Room Air 09/29 1514 97.8 96 18 106/60 96 Room Air 09/29 0958 92 122/66 Intake & Output 09/30 0800 09/30 0000 09/29 1600 Intake Total 1540 Output Total 325 Balance -325 1540 Intake, IV 400 Intake, Oral 1140 Number 1 1 0 Bowel Movements Output, Urine 325 Patient 274 lb Weight Physical Exam General Appearance: Cooperative, No Acute Distress, drowsy but arousable Cardiovascular: Regular Rate, Normal S1, Normal S2 Lungs: Clear to Auscultation, Normal Air Movement Abdomen: Normal Bowel Sounds, Soft, No Tenderness Current Medications: Current Medications Sig/Zoe Start time Last Medication Dose Route Stop Time Status Admin Acetaminophen 650 MG Q6P PRN 09/27 0315 AC PO Acetaminophen 1,000 MG Q6P PRN 09/27 0315 AC IV Finasteride 5 MG DAILY 09/27 0900 AC 09/29 PO 0958 Insulin Aspart 0 TIDAC 09/28 1700 AC 09/29 SC 172 Insulin Detemir 15 UNITS BID 09/28 2099 AC 09/29 SC 2052 Latanoprost 1 GTT QPM 09/28 2129 AC 09/29 OPH 2052 Levetiracetam 500 MG BID 09/27 0900 AC 09/29 PO 2052 Memantine 20 MG AT BEDTIME 09/27 2099 AC 09/29 PO 2052 Ondansetron HCl 4 MG Q6P PRN 09/27 0230 AC IV Pantoprazole Sodium 40 MG DAILY 09/27 0900 AC 09/29 IV 0957 Patient Own 1 UNIT TID 09/28 2129 AC 09/29 Medication OPH 2052 Sodium Chloride 1,000 ML ONCE ONE 09/29 0845 DC 09/29 IV 09/29 1844 0957 Tamsulosin HCl 0.4 MG DAILY 09/27 0900 AC 09/29 PO 0958 Assessment/Plan Assessment: Patient is an 82-year-old male with a PMH significant for dementia, diabetes, colon cancer not currently being treated who presented to the [facility] ED with a chief complaint of melena as well as physical deconditioning and dehydration. Patient was initially admitted to general medicine, he found to telemetry on 05/05 secondary to an episode of unresponsiveness. #Uncontrolled diabetes At time of patient's altered mental status his fingerstick glucose was >500, he was monitored closely afterwards and his glucose dropped into the 300s, it was uncontrolled on 09/28/17, and his basal insulin dose was increased. -Increased Levemir dose to 17 units twice daily -Continue NovoLog sliding scale, added nighttime coverage #episode of unresponsiveness, history of seizure disorder Per discussion with Dr. West, attending over the weekend who has taken care of this patient private previously, this is a relatively common occurrence in this patient. Of note he returned to baseline mental function rapidly after receiving insulin. Neurology was consulted, ammonia levels were checked and were low. It is unlikely that this episode was a result of seizures. EEG showed no epileptiform abnormalities -Continue to follow neurology recommendations -Continue current dose of Keppra -Patient is stable for transfer back to general medicine #Chronic kidney disease stage III Patient received 1 L IV NS yesterday #Chronic medical problems including colon cancer, right frontal meningioma, left kidney mass and a CT showing evidence of lytic lesions in the bony calvarium Up until today patient had been a full code, attending Rachel Rivera MD, had a goals of care discussion with the patient's daughter and he has now been changed to DNR/DNI. A consult was also placed with Dr. Marc for palliative care. The daughter expresse that she did not want the patient to go to a rehab facility -Palliative care recommendations are appreciated -We will continue to coordinate a safe discharge plan, including referral to Dr. Diaz who can see the patient in his home. Dr. Diaz was called today and has agreed to take on the patient and see him in his home. #Possible urinary obstruction patient had low urine output yesterday, and when bladder scan and he had close to 500 mL's of urine. He was straight cath and put on a straight cath protocol. He was able to void spontaneously overnight, however he any spontaneous voiding today. We will continue to monitor and potentially call urology consult if it becomes necessary. Diet: Diabetic diet DVT prophylaxis: Alps given GI bleed no pharmacologic DVT prophylaxis at this time CODE STATUS: DNR/DNI Problem List: 1. Guaiac positive stools 2. Unresponsive episode 3. Uncontrolled diabetes mellitus Pain Ratin Pain Location: none Pain Goal: Remain pain free Pain Plan: pain pathway Tomorrow's Labs & Rationales: none Odette Walton MD 09/30/17 1358: Attending MD Review Statement Attending Statement Attending MD Statement: examined this patient, discuss w/resident/PA/PAPER COLORER, agreed w/resident/PA/PAPER COLORER, reviewed EMR data (avail) Attending Assessment/Plan: Patient doing well, family at bedside. Fingersticks still poorly controlled. No further anemia. Discussions were had yesterday and patient was made DNR/DNI, penitentiary or hospice is not desired by family. Patient will be discharged home either this afternoon or tomorrow morning in the care of family with outpatient follow up and management of chronic diseases.
[2017-09-30 08:03] LABS: ABSOLUTE BASOPHIL COUNT 0.1 /CUMM (0.0-0.2); ABSOLUTE EOSINOPHIL COUNT 0.3 /CUMM (0.0-0.7); ABSOLUTE GRANULOCYTE CT 5.5 /CUMM (1.4-6.5); ABSOLUTE LYMPH COUNT 2.1 /CUMM (1.2-3.4); ABSOLUTE MONOCYTE COUNT 0.5 /CUMM (0.10-0.60); BASOPHIL % 0.6 % (0.0-2.0); EOSINOPHIL % 3.1 % (0-5); GRANULOCYTE % 64.8 % (42.2-75.2); HEMATOCRIT 26.9 % (42-52); MEAN CORPUSCULAR HGB 22.6 PG (27.0-31.0); MEAN CORPUSCULAR HGB CONC 31.1 G/DL (33.0-37.0); MEAN CORPUSCULAR VOLUME 72.8 FL (80.0-94.0); MEAN PLATELET VOLUME 10.1 FL (7.4-10.4); RBC DISTRIBUTION WIDTH 20.8 % (11.5-14.5); WHITE BLOOD CELL COUNT 8.5 /CUMM (4.8-10.8)
[2017-09-30 09:40] LABS: PLATELET COUNT 192 /CUMM (130-400)
--- NOTE | 2017-09-30 13:28 | Patient Discharge Instructions ---
Discharge Instructions General Discharge Information You were seen/treated for: Melena Special Instructions: Follow-up with your primary care physician within [address] Diaz, is a physician who makes house calls, which would be ideal for your current needs. His office phone is [phone], you should call as soon as discharged. Follow-up with other subspecialists as previously scheduled. Take all medication as directed. Acute Coronary Syndrome Inclusion Criteria At DC or during hospital stay patient has or had the following: ACS DIAGNOSIS No Discharge Core Measures Meds if any: Prescribed or Continued at Discharge Meds if any: NOT Prescribed or Continued at Discharge Congestive Heart Failure Inclusion Criteria At DC or during hospital stay patient has or had the following: CHF DIAGNOSIS No Discharge Core Measures Meds if any: Prescribed or Continued at Discharge Meds if any: NOT Prescribed or Continued at Discharge Cerebrovascular accident Inclusion Criteria At DC or during hospital stay patient has or had the following: CVA/TIA Diagnosis No Discharge Core Measures Meds if any: Prescribed or Continued at Discharge Meds if any: NOT Prescribed or Continued at Discharge Venous thromboembolism Inclusion Criteria VTE Diagnosis No VTE Type NONE VTE Confirmed by (Test) NONE Discharge Core Measures - Per Current guidelines, there needs to be overlap - treatment for the first 5 days of Warfarin therapy. - If discharged on Warfarin prior to 5 days of - overlap therapy, the patient will need to be - assessed for post discharge needs including - *Post discharge parental anticoagulation - *Warfarin and/or parental anticoagulation education - *Follow up date to check INR post discharge At least 5 days overlap therapy as Inpatient No Meds if any: Prescribed or Continued at Discharge Note: Overlap Therapy is Warfarin and Anticoagulant Meds if any: NOT Prescribed or Continued at Discharge
[2017-09-30] MEDS ORDERED: LEVEMIR100 UNIT/1 SC ×2 (13:43→16:04)
[2017-09-30 14:29] VITALS: BP 130/60
[2017-09-30] MEDS ORDERED: FLOMAX0.4 M1 PO (15:57)
[2017-09-30] MEDS ORDERED: PRILOSEC OTC20 M1 PO (15:57)
[2017-09-30] MEDS ORDERED: FERROUS SULFAT325 M3 PO (15:57)
[2017-09-30] MEDS ORDERED: VITAMIN D2000 UNIT PO (15:57)
[2017-09-30] MEDS ORDERED: HUMALOG KW100 UNIT/1 SC (15:57)
[2017-09-30] MEDS ORDERED: LATANOPROST2.5 ML OPH (15:57)
[2017-09-30] MEDS ORDERED: COLACE100 M1 PO (15:57)
[2017-09-30] MEDS ORDERED: KEPPRA500 M1 PO (15:57)
== END 2017-09-30 16:54 | DRG 420 ==
LOC: ERH 22:24 → 1NO 09-27 01:55 → ERHI 09-27 01:55 → ENRESERV 09-27 02:46 → 1NO 09-27 03:42 → 2NA 09-27 03:44 → 1NO 09-27 10:36
PROVIDERS: Dermatology; Internal Medicine Interventional Cardiology; Pediatrics; Student in an Organized Health Care Education/Training Program
DX: E11.65 Type 2 diabetes mellitus with hyperglycemia (principal); Z79.4 Long term (current) use of insulin; C18.9 Malignant neoplasm of colon, unspecified; I12.9 Hypertensive chronic kidney disease with stage 1 through stage 4 chronic kidney disease, or unspecified chronic kidney disease; Z51.5 Encounter for palliative care; E11.22 Type 2 diabetes mellitus with diabetic chronic kidney disease; N18.3 Chronic kidney disease, stage 3 (moderate); F03.90 Unspecified dementia, unspecified severity, without behavioral disturbance, psychotic disturbance, mood disturbance, and anxiety; E86.0 Dehydration; E87.5 Hyperkalemia; D72.829 Elevated white blood cell count, unspecified; R62.7 Adult failure to thrive; D32.9 Benign neoplasm of meninges, unspecified; E78.5 Hyperlipidemia, unspecified; H54.7 Unspecified visual loss; N40.0 Benign prostatic hyperplasia without lower urinary tract symptoms; H91.90 Unspecified hearing loss, unspecified ear; K42.9 Umbilical hernia without obstruction or gangrene; Z87.440 Personal history of urinary (tract) infections; D64.9 Anemia, unspecified; E83.52 Hypercalcemia; Z90.79 Acquired absence of other genital organ(s); R56.9 Unspecified convulsions; Z66 Do not resuscitate
CPT/HCPCS: 1NP; 36592; 71045; 74018; 81003; 82436; 86902; 86920; 86922; 87040; 87086; 93005; 93010; 95816

== ENCOUNTER 2017-12-10 17:54 | Inpatient (IN) | payer OTHER ==
[~2017-12-10] VITALS: Ht 167.6 cm; Wt 65.8 kg
--- NOTE | 2017-12-10 18:38 | ED GENERAL ADULT ---
See Addendum History of Present Illness General Chief Complaint: Altered Mental Status Stated Complaint: BIBA WITH AMS Source: EMS Exam Limitations: clinical condition, confusion Vital Signs & Intake/Output Vital Signs & Intake/Output Vital Signs Date Time Temp Pulse Resp B/P B/P Pulse O2 O2 Flow FiO2 Mean Ox Delivery Rate 12/10 1846 101.0 12/10 1802 97.8 102 20 139/90 98 Nasal 2.0L Cannula Allergies Coded Allergies: NO KNOWN ALLERGIES (07/10/17) Reconcile Medications Acetaminophen (Tylenol) 325 MG TABLET 2 TAB PO Q6-PRN PRN PAIN (Reported) Atorvastatin Calcium (Lipitor) 40 MG TABLET 1 TAB PO DAILY CHOLESTEROL ( Reported) Cholecalciferol (Vitamin D3) (Vitamin D) 2,000 UNIT CAPSULE 1 CAP PO DAILY SUPPLEMENT Docusate Sodium (Colace) 100 MG CAPSULE 2 CAP PO DAILY STOOL SOFTENER Ferrous Sulfate 325 MG (65 MG IRON) TABLET 1 TAB PO BID SUPPLEMENT Finasteride 5 MG TABLET 1 TAB PO DAILY PROSTATE (Reported) Insulin Detemir (Levemir) 100 UNIT/ML VIAL 20 UNITS SC BID DM (Reported) Insulin Detemir (Levemir) 100 UNIT/ML VIAL 17 UNITS SC BID Diabetes . Insulin Lispro (Humalog Kwikpen U-100) 100 UNIT/ML INSULN.PEN 0 SC TIDAC DIABETES before meals less than 80 mg/dl take cup of apple juice 80-150 4 units 151-200 6 units 201-250 8 units 251-300 10 units 301-350 12 units 351-400 13 units >400 14 units Bedtime 251-300 2 units 301-350 3 units 351-400 4 units >400 5 units Latanoprost 0.005 % DROPS 1 GTT OPH QPM Glaucoma Levetiracetam (Keppra) 500 MG TABLET 500 MG PO BID SEIZURE PROPHYLAXIS Memantine HCl (Namenda) 10 MG TABLET 2 TAB PO QHS MEMORY (Reported) Omeprazole Magnesium (Prilosec Otc) 20 MG TABLET.DR 1 TAB PO DAILY ACID REFLUX Polyethylene Glycol 3350 (Miralax) 17 GRAM POWD.PACK 1 PAC PO DAILY GI ( Reported) dissolve in water Tamsulosin HCl (Flomax) 0.4 MG CAP.ER.24H 1 CAP PO DAILY PROSTATE Triage Nurses Notes Reviewed? yes HPI: Patient is an 82-year-old male who is brought in today by EMS from home with confusion. His medical chart with history of diabetes, dementia, seizure disorder, and multiple other comorbidities. Very little story was communicated to EMS from the family at home, and thus very little story was related from EMS to us at arrival. The patient is ill in appearance both chronically and acutely , and was actively vomiting at arrival. Patient is reportedly altered on top of his baseline according to family. Past History Travel History Traveled to [place] past 21 day No Medical History Any Pertinent Medical History? 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 No Review of Systems Review of Systems Constitutional: Reports: see HPI. Comments Other than the features mentioned in history of present illness above, a detailed review of systems was not possible secondary to the patient's dementia and confusion Physical Exam Physical Exam General Appearance: moderate distress Comments: Gen.: Chronically and acutely ill in appearance HEENT: Inspection of the head reveals a normocephalic cranium with no signs of trauma. Ophtho: Patient has his eyes closed and does not open them to verbal or painful stimuli. Pupils are equal bilaterally, no obvious discharge. Neck: The trachea is midline, there is no obvious asymmetry or mass over the thyroid, and there is no wincing on palpation of the midline cervical spine. Respiratory: The lungs are clear and equal to auscultation bilaterally without wheezes, rales, or rhonchi. The patient exhibits no signs of labored breathing. Cardiac: Regular rhythm and non-tachycardic without appreciable murmurs on auscultation. No obvious JVD. GI: Examination of the abdomen reveals no significant wincing on deep palpation. : Postsurgical changes to the penis, stable per . They bring in place for urinary and fecal incontinence. Rectal: Normal-appearing stool, rectal temperature 100.1F. Neuro: Focused neurologic examination was attempted, but secondary to the patient's dementia and confusion, it was extremely limited. Features that were obtainable included equal pupils and the appearance of chronic muscle wasting which appears to have left the patient bedbound and which may be neurologic in nature. Behavioral: Altered. Dermatologic: No obvious cellulitis present. Pressure ulcer/postsurgical changes to his genitalia as outlined above. Core Measures ACS in differential dx? No CVA/TIA Diagnosis: No Sepsis Present: Yes Sepsis Focused Exam Completed? Yes Progress Differential Diagnoses I considered the following diagnoses in my evaluation of the patient: Sepsis, UTI, pneumonia, acute renal failure, electrolyte abnormality, Alex's gangrene, multiple other possibilities. Plan of Care: Orders Procedure Date/time Status Nothing by Mouth 12/11 B Active LACTIC ACID 12/10 2124 Active ARTERIAL BLOOD GAS (GEN) 12/10 182 Active XRY-PORTABLE CHEST XRAY 12/10 182 Active URINALYSIS 12/10 1825 Active AMMONIA 12/10 1825 Active LIPASE 12/10 1825 Active LACTIC ACID 12/10 1825 Active ETHANOL 12/10 1825 Active COMPREHENSIVE METABOLIC PANEL 12/10 1825 Active CBC WITHOUT DIFFERENTIAL 12/10 182 Active EKG 12/10 1757 Active Current Medications Sig/Zoe Start time Last Medication Dose Stop Time Status Admin Sodium Chloride 1,000 ML BOLUS ONE 12/10 1830 AC (Normal Saline 0.9%) 12/10 1929 Laboratory Tests 12/10/17 1825: pH 7.46 H, pCO2 35, pO2 81, HCO3 25, ABG O2 Sat (Measured) 95.0 L, Carboxyhemoglobin 0.7 L, O2 Concentration % 2L, Temperature 98.0, O2 Delivery Method NC, Phlebotomy Draw Site RIGHT RADIAL Initial ED EKG: ECG at 1814 hrs. shows rate of 98 in sinus rhythm, right bundle branch block, T-wave inversions in V1 through V3 consistent with previous, no interval ischemic change since prior study dated 12/01/2017 Hand-Off Endorsed To: Jamari De León MD Comments: At the time of shift change, the patient was signed out to the oncoming evening physician. Currently laboratory studies, chest x-ray, and other studies are still pending. I suspect sepsis, and I communicated this to Dr. De León. Likely admission. Departure Departure Time of Disposition: 1909 Disposition: STILL A PATIENT Condition: Stable Clinical Impression Primary Impression: Altered mental status Qualifiers: Altered mental status type: unspecified Qualified Code: R41.82 - Altered mental status, unspecified Referrals: Kelly Christianson APRN (PCP/Family) Departure Forms: Customer Survey General Discharge Information ED Sepsis Exam Date of Focused Sepsis Exam: 12/10/17 Time of Focused Sepsis Exam: 1849 Sepsis Cardiac Exam: Regular Rate/Rhythm Sepsis Resp Exam: Pau Sepsis Cap Refill Exam: <2 Sec Sepsis Peripheral Pulse Exam: Normal Sepsis Peripheral Pulse Location: Radial Sepsis Skin Color Exam: Normal for Ethnicity Skin Temp/Moisture Exam: Warm/Dry Critical Care Note Critical Care Note Critical Care Time: non-applicable
[2017-12-10] MEDS ORDERED: LEVEMIR100 UNIT/1 SC (19:09)
[2017-12-10] MEDS ORDERED: LO-DOSE ASPIRIN81 MG PO (19:10)
--- NOTE | 2017-12-10 19:28 | RADIOLOGY REPORT ---
EXAMINATION: XR CHEST PORTABLE CLINICAL INFORMATION: Altered mental status. COMPARISON: 12/01/2017 TECHNIQUE: Portable frontal view of the chest was obtained. FINDINGS: The lungs are hypoinflated. No focal consolidation, pleural effusion or pneumothorax. The cardiomediastinal silhouette is stable. No acute osseous abnormality. IMPRESSION: No radiographic evidence of acute disease.
[2017-12-10 20:07] LABS: ABSOLUTE BASOPHIL COUNT 0 /CUMM (0.0-0.2); ABSOLUTE EOSINOPHIL COUNT 0 /CUMM (0.0-0.7); BASOPHIL % 0 % (0.0-2.0); EOSINOPHIL % 0 % (0-5)
[2017-12-10 20:14] LABS: ABSOLUTE GRANULOCYTE CT 22.7 /CUMM (1.4-6.5); ABSOLUTE LYMPH COUNT 0.8 /CUMM (1.2-3.4); ABSOLUTE MONOCYTE COUNT 0 /CUMM (0.10-0.60); GRANULOCYTE % 96.5 % (42.2-75.2); HEMATOCRIT 37.3 % (42-52); MEAN CORPUSCULAR HGB 22.2 PG (27.0-31.0); MEAN CORPUSCULAR HGB CONC 30.6 G/DL (33.0-37.0); MEAN CORPUSCULAR VOLUME 72.7 FL (80.0-94.0); MEAN PLATELET VOLUME 10.4 FL (7.4-10.4); PLATELET COUNT 267 /CUMM (130-400); RBC DISTRIBUTION WIDTH 20.7 % (11.5-14.5); RED BLOOD CELL CT 5.13 /CUMM (4.70-6.10); WHITE BLOOD CELL COUNT 23.5 /CUMM (4.8-10.8)
--- NOTE | 2017-12-10 22:32 | History & Physical ---
Silver Guerra MD 12/10/17 2232: General Information and HPI History of Present Illness: 82-year-old man with past medical history of dementia, glaucoma/blindness, DJD, insulin-dependent diabetes mellitus, BPH status post prostatectomy, hypertension , hyperlipidemia, adenocarcinoma of the colon without treatment, meningioma and seizure disorder seen for evaluation of confusion. Patient was recently seen in the [place] ED on 12/01/17 for altered mental status , diaphoresis, and lethargy for which CT abdomen and pelvis was performed for concern of recurrent UTI which was unremarkable. Patient was treated with intravenous fluids and return back to baseline and was discharged home. Patient was doing well over the past 9 days and in his normal state of health despite his multiple medical comorbidities. He awoke late this morning, which is apparently abnormal for him. He was seen to be progressively more confused throughout the day for which the daughter grew concerned and brought him to the [place] ED for reevaluation. Presently patient is delirious and confused and unable to offer subjective complaints or review of systems. Patient's daughter Elmira is at bedside and offers collateral information. She states that her father had no complaints over the previous days, stating that he is "a complainer" and would tell her if he had the slightest chest pain, shortness of breath, abdominal pain, fever, or chills Review of systems Unobtainable due to mental status. Objective Vitals: Temp 97.8-101.0, HR 102, RR 20, BP 139/90, O2 98-99% on 2.0 L via NC Physical exam -General: Ill-appearing elderly black man in mild distress -HEENT: NCAT, Stephani, EOMI, anicteric sclera, dry oral mucosa -Neck: Supple, no JVD, trachea midline, no accessory respiratory muscle use -Cardio: Normal S1/S2 without murmurs/gallops/rubs; tachycardic -Pulmonary: Clear to auscultation bilaterally -Abdomen: Soft, nontender, nondistended, bowel sounds intact -Genitourinary: Circumcised penis with normal appearing scrotum -Neuro: Confused, oriented 0, awake but not alert, audible moaning, spontaneous movement of all 4 extremity -Extremities: Palpable crepitus from mid right thigh to right inguinal area and moderate swelling with tenderness, normal pulses Labs/imaging/studies -CBC: WBC/bands 23.5/23, hemoglobin 11.4, hematocrit 37.3, platelet 267 -BMP: Sodium 142, potassium 4.4, chloride 99, CO2 25, BUN 17, creatinine 1.2, anion gap 18, glucose 300 -LFT: Within normal limits -Miscellaneous: Lactic acid 5.2, lipase 73, EtOH <10, troponin I <0.01, ammonia <9 -ABG: PH 7.46, PCO2 35, PO2 81, HCO3 25 -Urinalysis: Unremarkable -EKG: NSR with right bundle branch block and left anterior fascicular block with first-degree AV block and T-wave inversion V1-V3 -CXR: No radiographic evidence of acute disease. -CT chest/abdomen/pelvis without IV contrast: * Gas attenuation identified within the soft tissues, musculature and fat, to the upper right thigh, mostly posterior to the proximal right femur. In addition, there is gas attenuation within the right common femoral vein. The gas attenuation within the common femoral vein could be explained due to recent intervention due to IV placement. However, the deeper gas attenuation is of uncertain etiology. It could be related to recent intervention due to multiple aberrant failed IV placements. Alternatively, the gas attenuation could be related to more distal right lower extremity gas forming organisms or trauma. Correlate with patient history to determine if further evaluation is warranted. * No thoracic, abdominal or pelvic free fluid. * Stable left upper lobe nodular density. * Stable calcified gallbladder wall polyp or adherent gallstone. Assessment 82-year-old man with multiple medical problems significant for dementia, glaucoma/blindness, insulin-dependent diabetes mellitus, colon adenocarcinoma without treatment, and meningioma with seizure disorder seen for evaluation of confusion. Patient is unable to offer subjective complaints. Vital signs are significant for temperature 101 and tachycardic heart rate. Physical examination demonstrates an elderly man in mild/moderate distress with a normal cardiopulmonary examination, soft benign abdomen, appearing delirious and confused, with palpable crepitus to the right groin/thigh. Significant labs include WBC/bands 23.5/23, lactic acid 5.2. CXR and urinalysis are unremarkable. EKG is unchanged. CT abdomen and pelvis demonstrates gas attenuation in the soft tissues, musculature, and fat to the right upper thigh. Clinically patient appears to have severe sepsis with gas attenuation of the right thigh concerning for necrotizing fasciitis. CT imaging was discussed with radiologist Dr. Mcdonough whom recommended clinical correlation of these findings and could not rule out excising fasciitis. General surgery consult was placed in case was discussed with Dr. Michael Power whom agreed that patient appeared to have necrotizing fasciitis. He discussed operative management with patient's daughter Elmira whom ultimately decided against it as he was a poor surgical candidate. Patient's daughter understands that her father is critically ill but would like to continue medical care with antibiotics and fluids but does not want to escalate care at this time. She insists that her father remains DO NOT RESUSCITATE/DO NOT INTUBATE and is not interested in comfort care or hospice at this time. She understands that her father most likely will pass given his grim prognosis. Problem list -Right thigh/groin necrotizing fasciitis -Severe sepsis -Anion gap metabolic lactic acidosis -Altered mental status, probable toxic metabolic encephalopathy -small sacral decubitus ulcer -history of colon adenocarcinoma, not receiving treatment -meningioma with seizure disorder, on Keppra -Hyperglycemia -dementia -Glaucoma/blindness -Insulin-dependent diabetes mellitus -DJD -BPH status post prostatectomy -Hypertension -Hyperlipidemia Plan -Admit to intensive care unit -Total respiratory care -Supplemental oxygen, goal >92%, taper as tolerated -Accu-Cheks every 6 hours while n.p.o. with Novolin sliding scale -Straight cath protocol -Status post normal saline at 30 cc/kg (2 L) -D5 normal saline at 150 mL/h -Vancomycin/ceftazidime/clindamycin -Continue home meds: Atorvastatin, vitamin D, Colace, iron, finasteride, Namenda , omeprazole, Flomax -Convert Keppra to IV while n.p.o. -Reduce Levemir to 8 units twice daily while n.p.o. from 17 -ID consult for antibiotic recommendations -Wound care evaluation for sacral decubitus ulcer -Consider palliative care evaluation -Obtain blood cultures 2, urine culture, sputum culture -strep/Legionella urinary antigen -trend lactic acid until normal -Pain control with acetaminophen -N.p.o. while altered -DVT prophylaxis with subcutaneous heparin -DNR/DNI -Contact Elmira (daughter) with updates Allergies/Medications Allergies: Coded Allergies: NO KNOWN ALLERGIES (07/10/17) Home Med list Acetaminophen (Tylenol) 325 MG TABLET 2 TAB PO Q6-PRN PRN PAIN (Reported) Aspirin (Lo-Dose Aspirin EC) 81 MG TABLET.DR 1 TAB PO DAILY HEART/BLOOD ( Reported) Atorvastatin Calcium (Lipitor) 40 MG TABLET 1 TAB PO DAILY CHOLESTEROL ( Reported) Cholecalciferol (Vitamin D3) (Vitamin D) 2,000 UNIT CAPSULE 1 CAP PO DAILY SUPPLEMENT Docusate Sodium (Colace) 100 MG CAPSULE 2 CAP PO DAILY STOOL SOFTENER Ferrous Sulfate 325 MG (65 MG IRON) TABLET 1 TAB PO BID SUPPLEMENT Finasteride 5 MG TABLET 1 TAB PO DAILY PROSTATE (Reported) Insulin Detemir (Levemir) 100 UNIT/ML VIAL 20 UNITS SC BID DM (Reported) Insulin Lispro (Humalog Kwikpen U-100) 100 UNIT/ML INSULN.PEN 0 SC TIDAC DIABETES before meals less than 80 mg/dl take cup of apple juice 80-150 4 units 151-200 6 units 201-250 8 units 251-300 10 units 301-350 12 units 351-400 13 units >400 14 units Bedtime 251-300 2 units 301-350 3 units 351-400 4 units >400 5 units Latanoprost 0.005 % DROPS 1 GTT OPH QPM Glaucoma Levetiracetam (Keppra) 500 MG TABLET 500 MG PO BID SEIZURE PROPHYLAXIS Memantine HCl (Namenda) 10 MG TABLET 2 TAB PO QHS MEMORY (Reported) Omeprazole Magnesium (Prilosec Otc) 20 MG TABLET.DR 1 TAB PO DAILY ACID REFLUX Polyethylene Glycol 3350 (Miralax) 17 GRAM POWD.PACK 1 PAC PO DAILY GI ( Reported) dissolve in water Tamsulosin HCl (Flomax) 0.4 MG CAP.ER.24H 1 CAP PO DAILY PROSTATE Past History Travel History Traveled to [place] past 21 day No Medical History Neurological: dementia, POSSIBLE SEIZURE ACTIVITY EENT: blindness, glaucoma, hearing loss Cardiovascular: hypertension, hyperlipidemia Respiratory: pneumonia Gastrointestinal: umbilical hernia Hepatic: NONE Renal: benign prost hyperplasia, FREQUENT UTI'S Musculoskeletal: degen joint disease, osteoarthritis Psychiatric: NONE Endocrine: diabetes Blood Disorders: anemia Cancer(s): NONE 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 child (dtr/POARafaela & her son) Services at Home: Home Health Aide Primary Language: Maldivian, Latvian Living Will? no Power of Calendering Supervisor/HCP? yes Name of POA/HCP: Pt/s dtrRafaela [phone] Functional Ability ADLs Needs Assist: dressing, eating, toileting, bathing. Ambulation: non-ambulatory (wheelchair bound) IADLs Needs Assist: shopping, housework, finances, food prep, telephone, transportation, medication admin. Review of Systems Review of Systems Constitutional: Reports: see HPI. Exam & Diagnostic Data Last 24 Hrs of Vital Signs/I&O Vital Signs Date Time Temp Pulse Resp B/P B/P Pulse O2 O2 Flow FiO2 Mean Ox Delivery Rate 12/11 0446 97.7 145 26 111/56 98 12/11 0300 133 24 159/74 96 Nasal 2.0L Cannula 12/11 0128 98.1 126 20 163/81 96 Nasal 2.0L Cannula 12/11 0035 98.9 118 20 156/82 97 Nasal Cannula 12/10 2337 100.2 116 18 145/84 97 12/10 2210 100.1 99 20 125/78 98 Room Air 12/10 1846 101.0 12/10 1802 97.8 102 20 139/90 98 Nasal 2.0L Cannula 12/10 1800 99 Nasal 2.0L Cannula Intake & Output 12/11 0800 12/11 0000 12/10 1600 Intake Total 1000 1000 Output Total 400 Balance 600 1000 Intake, IV 1000 1000 Output, Urine 400 Patient 65.771 kg Weight Weight Reported by Patient Measurement Method Assessment/Plan As Ranked By This Provider Problem List: 1. Necrotizing fasciitis of pelvic region and thigh Core Measures/Misc (02/02) Acute Coronary Syndrome ACS Diagnosis: No Congestive Heart Failure Congestive Heart Failure Diagnosis No Cerebrovascular Accident CVA/TIA Diagnosis: No VTE (View Protocol) VTE Risk Factors Age>40 No Mechanical VTE Prophylaxis d/t N/A MechProphylax Ordered No VTE Pharm Prophylaxis d/t NA PharmProphylax ordered Sepsis (View protocol) Sepsis Present: Yes If YES complete Sepsis Event Note If YES complete Sepsis Event Note Anton SALINASJovitanilam 12/11/17 0108: Core Measures/Misc (02/02) Sepsis (View protocol) If YES complete Sepsis Event Note If YES complete Sepsis Event Note Attending MD Review Statement Attending Statement Attending MD Statement: examined this patient, discuss w/resident/PA/OUT OF TOWN COLLECTION CLERK, agreed w/resident/PA/OUT OF TOWN COLLECTION CLERK, reviewed EMR data (avail) Attending Assessment/Plan: 82M PMH dementia, active colon cancer, HTN, HLD, T2DM, dementia, blindness, seizure disorder, BPH, frequent UTIs brought in from home for unresponsiveness. Patient was in his usual state of health all week and had no complaints. Today he became less responsive and EMS was called. In ER, patient was minimally responsive, appeared ill with rigors. Normal lung exam, no evidence of cellulitis, clear lungs, decubitus ulcer is unstageable but does not appear cellulitic, unclear source of overall infection. Febrile 101, sinus tach 115, normal BP and saturation. WBC 23 with 23% bands, creatinine 1.2, lacatate 5.2. CT chest/abdomen/pelvis shows gas attenuation in the deep right thigh of unclear significance, IV placement vs gas forming organisms. No IV was placed in the thigh. EKG NSR. Fingerstick [address] Power at bedside. Skin of right thigh is now erythematous and swollen with palpable crepitus. Discussing options with family. 1. Sepsis secondary to RLE cellulitis 2. Necrotizing fasciitis of right thigh 3. Unresponsiveness 4. Lactic acidosis Plan - Admit to general medicine floor, if any instability will transfer to ICU if family wishes - Given Vancomycin and Ceftazidime, will add Clindamycin - Blood and urine cultures - Surgery and ID consults - Will speak with radiology regarding findings - IV hydration - Monitor renal function - Trend lactate to normal - Monitor fingersticks - Continue Levemir + sliding scale insulin - DVT PPx
--- NOTE | 2017-12-10 23:53 | CT SCAN REPORT ---
EXAMINATION: CT CHEST, ABDOMEN AND PELVIS WITHOUT CONTRAST CLINICAL INFORMATION: Leukocytosis. Bandemia. COMPARISON: December 01, 2017. August 05, 2017. TECHNIQUE: Contiguous axial thin section helical images of the chest, abdomen and pelvis were performed without oral or IV contrast. The data set was reformatted in the coronal and sagittal planes and reviewed on an independent workstation. DLP: 535 mGy-cm. FINDINGS: The heart is of normal size. There is no pericardial effusion. There is neither mediastinal, hilar nor axillary lymphadenopathy. There are no chest wall masses. Review of lung windows demonstrates that there are neither pleural effusions nor pneumothoraces. There is mild bibasilar atelectasis. There are no consolidations. There is mild right apical scarring. Within the left apex, there is a stable 5 mm nodular density. The liver is of normal size and attenuation without focal lesions nor intrahepatic biliary ductal dilation. Again identified is a 3 mm calcified gallbladder polyp or adherent calculus. There is no wall thickening or discernible pericholecystic fluid. The spleen, pancreas, adrenal glands are unremarkable. Both kidneys are of normal size and attenuation without hydronephrosis or nephrolithiasis. Again identified is a 13 mm exophytic isoattenuating lesion within the interpole region of the left kidney. There is no abdominal free fluid. There is neither mesenteric nor retroperitoneal lymphadenopathy. Normal unopacified loops of small and large bowel are identified. There is no pelvic free fluid. The urinary bladder is unremarkable. There is neither pelvic nor inguinal lymphadenopathy. There is gas attenuation noted within the soft tissues of the upper right thigh. Distinct from this isn't gas attenuation within the right common femoral vein. Bone windows: Neither sclerotic nor lytic bone lesions are identified. IMPRESSION: Gas attenuation identified within the soft tissues, musculature and fat, to the upper right thigh, mostly posterior to the proximal right femur. In addition, there is gas attenuation within the right common femoral vein. The gas attenuation within the common femoral vein could be explained due to recent intervention due to IV placement. However, the deeper gas attenuation is of uncertain etiology. It could be related to recent intervention due to multiple aberrant failed IV placements. Alternatively, the gas attenuation could be related to more distal right lower extremity gas forming organisms or trauma. Correlate with patient history to determine if further evaluation is warranted. No thoracic, abdominal or pelvic free fluid. Stable left upper lobe nodular density. Stable calcified gallbladder wall polyp or adherent gallstone.
--- NOTE | 2017-12-11 01:10 | Admission Certification ---
Admission Certification Certification Statement - As attending physician, I certify that at the time of - admission, based on clinical presentation, severity of - symptoms, need for further diagnostic testing and - therapeutic interventions, and risk of adverse outcomes - without in-hospital treatment, in my clinical assessment, - this patient requires an acute hospital stay for a minimum - of two nights or longer. I have also considered psychsocial - factors such as support system, advanced age, financial - issues, cognitive issues, and failed out-patient treatments, - past re-admission history, safety of patient, and lack of - compliance as applicable. Specific rationale supporting this admission is: Sepsis
--- NOTE | 2017-12-11 03:06 | Cons- General Surgery ---
General Information and HPI Consulting Request Date of Consult: 12/11/17 Requested By: Odette Walton MD Reason for Consult: Necrotizing fasciitis History of Present Illness: Patient is an 82-year-old debilitated man who is cared for by his daughter. I know him from a previous encounter at which time he was diagnosed with nearly obstructing transverse colon cancer. After many discussions with the family at that time, ultimate decision was to not proceed with surgical intervention for his colon cancer. Over the past year he has done well and has not developed a colonic obstruction or significant bleeding events. Over the past few months patient has become increasingly confused. He was seen 2 weeks ago in the emergency room for nausea and vomiting workup which was unrevealing. Over the past 10 days patient has been doing well up until today. Patient's daughter describes worsening malaise vomiting and states that her father requested to be brought to the emergency room. While in the ER he has been febrile and source of presumed sepsis was elusive on initial examination. CT scan of the chest abdomen pelvis was performed to look for site of this infection. On CT scan there was gas in the soft tissues in the deep right thigh tissues/muscles. And femoral vein. Since he has been admitted there is been progressive tachycardia and worsening lactic acidosis. Currently patient does answer a few questions but for the most part lies in bed moaning. most questions were answered by his daughter at the bedside. Allergies/Medications Allergies: Coded Allergies: NO KNOWN ALLERGIES (07/10/17) Home Med List: Acetaminophen (Tylenol) 325 MG TABLET 2 TAB PO Q6-PRN PRN PAIN (Reported) Aspirin (Lo-Dose Aspirin EC) 81 MG TABLET.DR 1 TAB PO DAILY HEART/BLOOD ( Reported) Atorvastatin Calcium (Lipitor) 40 MG TABLET 1 TAB PO DAILY CHOLESTEROL ( Reported) Cholecalciferol (Vitamin D3) (Vitamin D) 2,000 UNIT CAPSULE 1 CAP PO DAILY SUPPLEMENT Docusate Sodium (Colace) 100 MG CAPSULE 2 CAP PO DAILY STOOL SOFTENER Ferrous Sulfate 325 MG (65 MG IRON) TABLET 1 TAB PO BID SUPPLEMENT Finasteride 5 MG TABLET 1 TAB PO DAILY PROSTATE (Reported) Insulin Detemir (Levemir) 100 UNIT/ML VIAL 20 UNITS SC BID DM (Reported) Insulin Lispro (Humalog Kwikpen U-100) 100 UNIT/ML INSULN.PEN 0 SC TIDAC DIABETES before meals less than 80 mg/dl take cup of apple juice 80-150 4 units 151-200 6 units 201-250 8 units 251-300 10 units 301-350 12 units 351-400 13 units >400 14 units Bedtime 251-300 2 units 301-350 3 units 351-400 4 units >400 5 units Latanoprost 0.005 % DROPS 1 GTT OPH QPM Glaucoma Levetiracetam (Keppra) 500 MG TABLET 500 MG PO BID SEIZURE PROPHYLAXIS Memantine HCl (Namenda) 10 MG TABLET 2 TAB PO QHS MEMORY (Reported) Omeprazole Magnesium (Prilosec Otc) 20 MG TABLET.DR 1 TAB PO DAILY ACID REFLUX Polyethylene Glycol 3350 (Miralax) 17 GRAM POWD.PACK 1 PAC PO DAILY GI ( Reported) dissolve in water Tamsulosin HCl (Flomax) 0.4 MG CAP.ER.24H 1 CAP PO DAILY PROSTATE Past History Medical History Neurological: dementia, POSSIBLE SEIZURE ACTIVITY EENT: blindness, glaucoma, hearing loss Cardiovascular: hypertension, hyperlipidemia Respiratory: pneumonia Gastrointestinal: umbilical hernia Hepatic: NONE Renal: benign prost hyperplasia, FREQUENT UTI'S Musculoskeletal: degen joint disease, osteoarthritis Psychiatric: NONE Endocrine: diabetes Blood Disorders: anemia Cancer(s): colon/rectal cancer (untreated) 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 child (dianer/Rafaela BOLIVAR & her son) Services at Home: Home Health Aide Primary Language: Urdu, Jude Smoking Status: Unknown If Ever Smoked Living Will? no Power of Esl Tutor/HCP? yes Name of POA/HCP: Pt/s Rafaela seo [phone] Functional Ability ADLs Needs Assist: dressing, eating, toileting, bathing. Ambulation: non-ambulatory (wheelchair bound) IADLs Needs Assist: shopping, housework, finances, food prep, telephone, transportation, medication admin. Review of Systems Review of Systems: Unobtainable Exam & Diagnostic Data Vital Signs and I&O Vital Signs Date Time Temp Pulse Resp B/P B/P Pulse O2 O2 Flow FiO2 Mean Ox Delivery Rate 12/11 0128 98.1 126 20 163/81 96 Nasal 2.0L Cannula 12/11 0035 98.9 118 20 156/82 97 Nasal Cannula 12/10 2337 100.2 116 18 145/84 97 12/10 2210 100.1 99 20 125/78 98 Room Air 12/10 1846 101.0 12/10 1802 97.8 102 20 139/90 98 Nasal 2.0L Cannula 12/10 1800 99 Nasal 2.0L Cannula Intake & Output 12/11 0800 12/11 0000 12/10 1600 12/10 0800 12/10 0000 12/09 1600 Intake Total 1000 1000 Output Total 400 Balance 600 1000 Intake, IV 1000 1000 Output, Urine 400 Patient 145 lb Weight Weight Reported by Patient Measurement Method Physical Exam: General: He is minimally responsive, moaning. Not alert not oriented. Normal body habitus HEENT: Dry mucous membranes. Neck is supple without adenopathy or thyromegaly. No JVD Chest: Nontender no crepitus increased effort. Abdomen: Soft, mild distention. Nontender no mass no guarding no hernia Extremities. There is significant discrepancy in size of bilateral thighs. The right one is much more swollen, tense and edematous. There is palpable crepitus of the medial thigh tracking up to the right hemiscrotum and inguinal region. There is erythema of the right medial thigh extending approximately 20-30 cm in the deep inguinal crease down into the mid thigh. No open wounds or ulcers. There is a healed inguinal hernia scar in the right groin, without involvement. Left leg and thigh are normal. Last 24 Hours of Labs: Laboratory Tests 12/11 12/11 12/11 0257 0020 0020 Chemistry Lactic Acid (0.7 - 2.1 mmol/L) Pending 9.7 H Ammonia (9 - 30 umol/L) < 9 L 12/105 2125 Chemistry Lactic Acid Cancelled Urines Urine Color (YEL,AMB,STR) YEL Urine Clarity (CLEAR) CLEAR Urine pH (5.0 - 8.0) 6.0 Ur Specific [place] (1.001 - 1.035) 1.020 Urine Protein (NEG,<30 MG/DL) TRACE H Urine Ketones (NEG) 15 H Urine Nitrite (NEG) NEG Urine Bilirubin (NEG) NEG Urine Urobilinogen (0.1 - 1.0 EU/dl) 0.2 Ur Leukocyte Esterase (NEG) NEG Ur Microscopic SEDIMENT EXAMINED Urine RBC (0 - 5 /HPF) 1-3 Urine WBC (0 - 2 /HPF) 1-3 H Ur Epithelial Cells (NONE,FEW) RARE Urine Mucus (FEW,NONE) FEW Urine Hemoglobin (NEG) SMALL H Urine Glucose (N MG/DL) >=1000 H 12/10 Blood Gas pH (7.35 - 7.45 PH) 7.46 H pCO2 (35 - 45 TORR) 35 pO2 (80 - 100 TORR) 81 HCO3 (21 - 28 MEQ/L) 25 ABG O2 Sat (Measured) (>96.0 %) 95.0 L Carboxyhemoglobin (1.5 - 5.0 %) 0.7 L O2 Concentration % 2L Temperature (97.0 - 100.0 FARH) 98.0 O2 Delivery Method NC Chemistry Sodium (137 - 145 mmol/L) 142 Potassium (3.5 - 5.1 mmol/L) 4.4 Chloride (98 - 107 mmol/L) 99 Carbon Dioxide (22 - 30 mmol/L) 25 Anion Gap (5 - 16) 18 H BUN (9 - 20 mg/dL) 17 Creatinine (0.7 - 1.2 mg/dL) 1.2 Estimated GFR (>60 ml/min) 58 L BUN/Creatinine Ratio (7 - 25 %) 14.2 Glucose (65 - 99 mg/dL) 300 H Lactic Acid (0.7 - 2.1 mmol/L) 5.2 H Calcium (8.4 - 10.2 mg/dL) 9.9 Total Bilirubin (0.2 - 1.3 mg/dL) 1.2 AST (17 - 59 U/L) 53 ALT (21 - 72 U/L) 25 Alkaline Phosphatase (< 127 U/L) 126 Troponin I (<0.11 ng/ml) < 0.01 Total Protein (6.3 - 8.2 g/dL) 7.4 Albumin (3.5 - 5.0 g/dL) 4.1 Globulin (1.9 - 4.2 gm/dL) 3.3 Albumin/Globulin Ratio (1.1 - 2.2 %) 1.2 Lipase (23 - 300 U/L) 73 Hematology CBC w Diff MAN DIFF ORDERED WBC (4.8 - 10.8 /CUMM) 23.5 H RBC (4.70 - 6.10 /CUMM) 5.13 Hgb (14.0 - 18.0 G/DL) 11.4 L Hct (42 - 52 %) 37.3 L MCV (80.0 - 94.0 FL) 72.7 L MCH (27.0 - 31.0 PG) 22.2 L MCHC (33.0 - 37.0 G/DL) 30.6 L RDW (11.5 - 14.5 %) 20.7 H Plt Count (130 - 400 /CUMM) 267 MPV (7.4 - 10.4 FL) 10.4 Gran % (42.2 - 75.2 %) 96.5 H Lymphocytes % (20.5 - 51.1 %) 3.3 L Monocytes % (1.7 - 9.3 %) 0.2 L Eosinophils % (0 - 5 %) 0 Basophils % (0.0 - 2.0 %) 0 Absolute Granulocytes (1.4 - 6.5 /CUMM) 22.7 H Segmented Neutrophils (42.2 - 75.2 %) 74 Band Neutrophils (0.0 - 5.0 %) 23 H Absolute Lymphocytes (1.2 - 3.4 /CUMM) 0.8 L Lymphocytes (20.5 - 51.1 %) 3 L Absolute Monocytes (0.10 - 0.60 /CUMM) 0 L Absolute Eosinophils (0.0 - 0.7 /CUMM) 0 Absolute Basophils (0.0 - 0.2 /CUMM) 0 Platelet Estimate (ADEQUATE) ADEQUATE Hypochromic-Microcytic 1+ Poikilocytosis 1+ Anisocytosis 2+ Microcytic Cells 1+ Target Cells 1+ Miscellaneous Phlebotomy Draw Site RIGHT RADIAL Toxicology Serum Alcohol (<10 MG/DL) < 10.0 Imaging Results: CT scan of the chest abdomen pelvis images were personally reviewed. CT scan was performed at 12/10/2017 at 11:30 PM. Findings at that time shows scant gas in the muscles deep posterior proximal thigh near the femoral head. There is also gas within the femoral vein and medial superficial tissues. Assessment/Plan Assessment/Plan This patient has a rapidly progressive necrotizing soft tissue infection of the right thigh and pelvis. The etiology is indeterminate but by comparing CT scan performed 3 hours ago to the clinical findings now, there is obviously a rapidly progressive infection that will ultimately cause his . We had a long discussion with the daughter, as the patient is unable to make decisions for himself. Her initial thoughts were that she would like to proceed with any intervention that could potentially save his life. We discussed the operation which is required, operative debridement of skin and soft tissue and muscle of the upper thigh. We discussed the need for multiple operations to control the infection. My main concern is that this infection is too far gone in that it is likely progressed into the deep pelvic musculature for which operative debridement is not possible. Furthermore, given his advanced age, dementia, blindness, diabetes and poor functional status (nonambulatory), that he would not survive such intervention. My overall impression is that he will succumb to this disease with or without surgery. With further discussion with the family, daughter has decided not to pursue surgery as it will unlikely cause any change in the clinical outcome. I discussed with her that this infection is fairly rapidly progressive and he would likely not live longer than 24 hours. She understands. We will treat him medically and keep him comfortable. Problem List: 1. Necrotizing fasciitis of pelvic region and thigh Consult Acknowledgment - Thank you for your consult request.
--- NOTE | 2017-12-11 05:52 | Sepsis Event Note ---
Sepsis Event Note Severe Sepsis Severe Sepsis Present: Yes Severe Sepsis Actions Taken: Blood Cultures x2, Lactic Acid x2, IV Broad Spectrum Abx, IV Fluids- NS or LR Septic Shock Septic Shock Present: No Event Note Event Note: Situation Severe sepsis Background 82 year old man with multiple medical problems seen for increasing confusion found to be febrile with leukocytosis/bandemia with chills/tremor and delerium. He met sepsis criteria through elevated WBC/bands, tachycardia, tachypnea, and temperature. Lactic acid found to be elevated. CT chest / abdomen / pelvis demonstrated gas in the tissues of the right thigh. Assessment / Recommednations Case discussed with general surgeon Dr. Power whom agreed that patient clinically appeared to have rapidly progressive necrotizing fascitis. He was deemed to be a poor surgical candidate and surgery was deferred by the patients daughter. Patients daughter wants to continue with medical management despite his grim prognosis. She insists that he remains DNR/DNI. Blood cultures, intravenous fluids, serial lactic acid, and broad spectrum antibiotics ordered. Sepsis Focused Exam Sepsis Cardiac Exam: Tachycardia Sepsis Resp Exam: CTA Sepsis Cap Refill Exam: <2 Sec Sepsis Peripheral Pulse Exam: Bounding Sepsis Peripheral Pulse Location: Dorsalis Pedis Sepsis Skin Exam (color): Normal for Ethnicity Skin Temp/Moisture Exam: Hot/Diaphoretic
[2017-12-11 06:20] LABS: ABSOLUTE BASOPHIL COUNT 0 /CUMM (0.0-0.2); ABSOLUTE EOSINOPHIL COUNT 0 /CUMM (0.0-0.7); ABSOLUTE GRANULOCYTE CT 13.9 /CUMM (1.4-6.5); ABSOLUTE LYMPH COUNT 0.7 /CUMM (1.2-3.4); ABSOLUTE MONOCYTE COUNT 0.8 /CUMM (0.10-0.60); BASOPHIL % 0 % (0.0-2.0); EOSINOPHIL % 0 % (0-5); GRANULOCYTE % 90.5 % (42.2-75.2); MEAN CORPUSCULAR HGB 22.2 PG (27.0-31.0); MEAN PLATELET VOLUME 11.3 FL (7.4-10.4); PLATELET COUNT 245 /CUMM (130-400); RBC DISTRIBUTION WIDTH 21.6 % (11.5-14.5)
[2017-12-11 06:28] LABS: HEMATOCRIT 43.1 % (42-52)
[2017-12-11 06:50] LABS: RED BLOOD CELL CT 5.82 /CUMM (4.70-6.10); WHITE BLOOD CELL COUNT 16.5 /CUMM (4.8-10.8)
--- NOTE | 2017-12-11 08:00 | Event Note ---
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 Patient's daughter has now decided for comfort measures, given his poor prognosis, high perioperative mortality and worsening clinical decision, will discuss converting to hospice at this time.
--- NOTE | 2017-12-11 11:49 | PN- Att Addend ---
Attending Addendum Attending Brief Note Patient seen and examined, daughter is sitting at bedside. Patient had his eyes closed and did not communicate. He was tachypneic and tachycardic. Most of the conversation was done with patient's daughter who is also his decision maker. Vital Signs Date Time Temp Pulse Resp B/P B/P Pulse O2 O2 Flow FiO2 Mean Ox Delivery Rate 12/11 1049 128 32 122/70 97 Nasal 2.0L Cannula 12/11 0958 130 34 132/88 96 Nasal 2.0L Cannula 12/11 0916 97.0 136 38 82/56 95 Nasal 2.0L Cannula 12/11 0852 97.0 134 18 79/53 96 Nasal 2.0L Cannula 12/11 0836 96 Nasal 2.0L Cannula 12/11 0828 133 40 86/41 96 Nasal 2.0L Cannula 12/11 0815 133 38 98/49 92 Nasal 2.0L Cannula 12/11 0800 135 34 100/45 95 Nasal 2.0L Cannula 12/11 0753 136 36 110/53 96 Nasal 2.0L Cannula 12/11 0734 139 40 82/55 99 Nasal 2.0L Cannula 12/11 0614 97.6 142 28 93/55 98 Nasal Cannula 12/11 0610 97.8 133 28 93/55 98 Nasal 2.0L Cannula 12/11 0528 144 28 87/56 98 Nasal 2.0L Cannula 12/11 0446 97.7 145 26 111/56 98 12/11 0300 133 24 159/74 96 Nasal 2.0L Cannula 12/11 0128 98.1 126 20 163/81 96 Nasal 2.0L Cannula 12/11 0035 98.9 118 20 156/82 97 Nasal Cannula 12/10 2337 100.2 116 18 145/84 97 12/10 2210 100.1 99 20 125/78 98 Room Air 12/10 1846 101.0 12/10 1802 97.8 102 20 139/90 98 Nasal 2.0L Cannula 12/10 1800 99 Nasal 2.0L Cannula on exam; Lethargic, keeping eyes closed. cv; s1,s2, rrr, tacycardic. resp: clear abd; soft, nt, bs+ ms: right thigh is swolllen and hard. Laboratory Tests 12/11 12/11 12/11 0705 0605 0257 Chemistry Sodium (137 - 145 mmol/L) 144 Potassium (3.5 - 5.1 mmol/L) 4.5 Chloride (98 - 107 mmol/L) 108 H Carbon Dioxide (22 - 30 mmol/L) 11 L Anion Gap (5 - 16) 26 H BUN (9 - 20 mg/dL) 16 Creatinine (0.7 - 1.2 mg/dL) 1.6 H Estimated GFR (>60 ml/min) 41 L BUN/Creatinine Ratio (7 - 25 %) 10.0 Lactic Acid (0.7 - 2.1 mmol/L) 13.7 H 10.8 H Hematology CBC w Diff MAN DIFF ORDERED WBC (4.8 - 10.8 /CUMM) 16.5 H RBC (4.70 - 6.10 /CUMM) 5.82 Hgb (14.0 - 18.0 G/DL) 12.9 L Hct (42 - 52 %) 43.1 MCV (80.0 - 94.0 FL) 74.0 L MCH (27.0 - 31.0 PG) 22.2 L MCHC (33.0 - 37.0 G/DL) 30.0 L RDW (11.5 - 14.5 %) 21.6 H Plt Count (130 - 400 /CUMM) 245 MPV (7.4 - 10.4 FL) 11.3 H Gran % (42.2 - 75.2 %) 90.5 H Lymphocytes % (20.5 - 51.1 %) 4.4 L Monocytes % (1.7 - 9.3 %) 5.1 Eosinophils % (0 - 5 %) 0 Basophils % (0.0 - 2.0 %) 0 Absolute Granulocytes (1.4 - 6.5 /CUMM) 13.9 H Segmented Neutrophils (42.2 - 75.2 %) 74 Band Neutrophils (0.0 - 5.0 %) 15 H Absolute Lymphocytes (1.2 - 3.4 /CUMM) 0.7 L Lymphocytes (20.5 - 51.1 %) 4 L Monocytes (1.7 - 9.3 %) 7 Absolute Monocytes (0.10 - 0.60 /CUMM) 0.8 H Absolute Eosinophils (0.0 - 0.7 /CUMM) 0 Absolute Basophils (0.0 - 0.2 /CUMM) 0 Nucleated RBCs (0.0 - 0.0 /100WBC) 26 H Platelet Estimate (ADEQUATE) ADEQUATE Polychromasia 1+ Hypochromic-Microcytic 1+ Poikilocytosis 3+ Anisocytosis 1+ Microcytic Cells 1+ Ovalocytes 1+ Stomatocytes FEW [place] Cells 1+ Elliptocytes FEW Schistocytes FEW Other Body Source Fld Total RBCs Counted (%) 100 12/11 12/11 12/10 0020 0020 2355 Chemistry Lactic Acid (0.7 - 2.1 mmol/L) 9.7 H Ammonia (9 - 30 umol/L) < 9 L Urines Urine Color (YEL,AMB,STR) YEL Urine Clarity (CLEAR) CLEAR Urine pH (5.0 - 8.0) 6.0 Ur Specific [place] (1.001 - 1.035) 1.020 Urine Protein (NEG,<30 MG/DL) TRACE H Urine Ketones (NEG) 15 H Urine Nitrite (NEG) NEG Urine Bilirubin (NEG) NEG Urine Urobilinogen (0.1 - 1.0 EU/dl) 0.2 Ur Leukocyte Esterase (NEG) NEG Ur Microscopic SEDIMENT EXAMINED Urine RBC (0 - 5 /HPF) 1-3 Urine WBC (0 - 2 /HPF) 1-3 H Ur Epithelial Cells (NONE,FEW) RARE Urine Mucus (FEW,NONE) FEW Urine Hemoglobin (NEG) SMALL H Urine Glucose (N MG/DL) >=1000 H 12/10 Chemistry Sodium (137 - 145 mmol/L) 142 Potassium (3.5 - 5.1 mmol/L) 4.4 Chloride (98 - 107 mmol/L) 99 Carbon Dioxide (22 - 30 mmol/L) 25 Anion Gap (5 - 16) 18 H BUN (9 - 20 mg/dL) 17 Creatinine (0.7 - 1.2 mg/dL) 1.2 Estimated GFR (>60 ml/min) 58 L BUN/Creatinine Ratio (7 - 25 %) 14.2 Glucose (65 - 99 mg/dL) 300 H Lactic Acid (0.7 - 2.1 mmol/L) Cancelled 5.2 H Calcium (8.4 - 10.2 mg/dL) 9.9 Total Bilirubin (0.2 - 1.3 mg/dL) 1.2 AST (17 - 59 U/L) 53 ALT (21 - 72 U/L) 25 Alkaline Phosphatase (< 127 U/L) 126 Troponin I (<0.11 ng/ml) < 0.01 Total Protein (6.3 - 8.2 g/dL) 7.4 Albumin (3.5 - 5.0 g/dL) 4.1 Globulin (1.9 - 4.2 gm/dL) 3.3 Albumin/Globulin Ratio (1.1 - 2.2 %) 1.2 Lipase (23 - 300 U/L) 73 Hematology CBC w Diff MAN DIFF ORDERED WBC (4.8 - 10.8 /CUMM) 23.5 H RBC (4.70 - 6.10 /CUMM) 5.13 Hgb (14.0 - 18.0 G/DL) 11.4 L Hct (42 - 52 %) 37.3 L MCV (80.0 - 94.0 FL) 72.7 L MCH (27.0 - 31.0 PG) 22.2 L MCHC (33.0 - 37.0 G/DL) 30.6 L RDW (11.5 - 14.5 %) 20.7 H Plt Count (130 - 400 /CUMM) 267 MPV (7.4 - 10.4 FL) 10.4 Gran % (42.2 - 75.2 %) 96.5 H Lymphocytes % (20.5 - 51.1 %) 3.3 L Monocytes % (1.7 - 9.3 %) 0.2 L Eosinophils % (0 - 5 %) 0 Basophils % (0.0 - 2.0 %) 0 Absolute Granulocytes (1.4 - 6.5 /CUMM) 22.7 H Segmented Neutrophils (42.2 - 75.2 %) 74 Band Neutrophils (0.0 - 5.0 %) 23 H Absolute Lymphocytes (1.2 - 3.4 /CUMM) 0.8 L Lymphocytes (20.5 - 51.1 %) 3 L Absolute Monocytes (0.10 - 0.60 /CUMM) 0 L Absolute Eosinophils (0.0 - 0.7 /CUMM) 0 Absolute Basophils (0.0 - 0.2 /CUMM) 0 Platelet Estimate (ADEQUATE) ADEQUATE Hypochromic-Microcytic 1+ Poikilocytosis 1+ Anisocytosis 2+ Microcytic Cells 1+ Target Cells 1+ Toxicology Serum Alcohol (<10 MG/DL) < 10.0 12/10 1824 Blood Gas pH (7.35 - 7.45 PH) 7.46 H pCO2 (35 - 45 TORR) 35 pO2 (80 - 100 TORR) 81 HCO3 (21 - 28 MEQ/L) 25 ABG O2 Sat (Measured) (>96.0 %) 95.0 L Carboxyhemoglobin (1.5 - 5.0 %) 0.7 L O2 Concentration % 2L Temperature (97.0 - 100.0 FARH) 98.0 O2 Delivery Method NC Miscellaneous Phlebotomy Draw Site RIGHT RADIAL A/P: 82 y/o M with pmh sig for dementia, colon cancer, HTN, HLD, T2DM, dementia , blindness, seizure disorder, BPH, frequent UTIs admitted with sepsis, lactic acidosis, necrotising fascitis. Patient remains tachycardic and tachypneic. Blood pressure was slightly better this morning. He was seen by Dr. Power last night and it was determined that he is not a surgical candidate. Surgeon recommended making patient comfortable. I had a lengthy discussion with patient's daughter this morning. She absolutely refuses any kind of surgery. She does not want patient to get any central line or pressors. Patient remains DNR/DNI. She does want patient to be treated with IV antibiotics and IV fluids. She is not quite ready to make him full comfort measures yet. She is absolutely refusing to meet with hospice at this time. She wants to speak with her other siblings and waiting for them to arrive [place] other [place]. Currently patient was started on ceftaz and clindamycin. I would recommend getting ID consult. We will continue IV fluids. If patient's blood pressure goes down, he can receive IV bolus. Prognosis is very poor and daughter is aware of that. She might switch him to full comfort care if patient continues to deteriorate.
[2017-12-11 12:06] VITALS: BP 63/42
--- NOTE | 2017-12-11 14:02 | Discharge Summary ---
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 His vital signs were consistent with severe sepsis at the time of presentation with fever, tachycardia, tachypnea, and leukocytosis with bandemia and lactic acidemia. He was given crystalloid resuscitation and started on broad spectrum antibiotics (Vancomycin/ Ceftazidime/Clindamycin). The patient had urine and blood cultures performed. Urinalysis and chest x-ray didn't identify a source of infection so a CT scan of the chest, abdomen, and pelvis was performed. CT abdomen and pelvis demonstrates gas attenuation in the soft tissues, musculature, and fat to the right upper thigh consistent with palpable crepitus on physical exam. 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 She understood that her father was critically ill but wanted to continue medical treatment with antibiotics and fluids until arrival of other family members. The patient rapidly declined within 24 hours of admission with worsening lactic acidemia, tachycardia and hypotension without any changes in management per family discussions. The patient remained DNR/DNI because the daughter wished to continue treatment with antibiotics, although the daughter agreed with adding morphine and ativan prn for patient comfort. Daughter did not agree to officially make patient comfort care or consult hospice despite explaining that patient has a very poor prognosis and will likely deteriorate pretty rapidly. She requested no additional interventions including: CPR, central lines, vasopressors, or crystalloid boluses. At 1309, the patient and was pronounced by Dr. Moe Aguilera, with family present at the bedside. [facility] called, #[phone], no case. Allergies: Coded Allergies: NO KNOWN ALLERGIES (07/10/17) Significant Procedures: CT chest abdomen and pelvis IMPRESSION: Gas attenuation identified within the soft tissues, musculature and fat, to the upper right thigh, mostly posterior to the proximal right femur. In addition, there is gas attenuation within the right common femoral vein. The gas attenuation within the common femoral vein could be explained due to recent intervention due to IV placement. However, the deeper gas attenuation is of uncertain etiology. It could be related to recent intervention due to multiple aberrant failed IV placements. Alternatively, the gas attenuation could be related to more distal right lower extremity gas forming organisms or trauma. Correlate with patient history to determine if further evaluation is warranted. No thoracic, abdominal or pelvic free fluid. Stable left upper lobe nodular density. Stable calcified gallbladder wall polyp or adherent gallstone. Disposition Summary Disposition Principal Diagnosis: Cardiac arrest secondary to necrotizing fascitis induced septic shock and multiorgan failure Diabetes mellitus Additional Diagnosis: Insulin-dependent diabetes mellitus with optic neuropathy and blindness Colonic adenocarcinoma Meningioma with seizure disorder Discharge Disposition: Discharge Instructions General Discharge Information Code Status: Do Not Resucitate/Intubat Patient's Diet: N/A Patient's Activity: N/A Follow-Up Instructions/Appts: N/A Medications at Discharge Discharge Medications: Stop taking the following medications: Finasteride (Finasteride) 5 MG TABLET ORAL DAILY Atorvastatin Calcium (Lipitor) 40 MG TABLET ORAL DAILY Memantine HCl (Namenda) 10 MG TABLET ORAL TAKE AT BEDTIME Polyethylene Glycol 3350 (Miralax) 17 GRAM POWD.PACK ORAL DAILY Acetaminophen (Tylenol) 325 MG TABLET ORAL EVERY 6 HOURS NEEDED as needed for PAIN Tamsulosin HCl (Flomax) 0.4 MG CAP.ER.24H ORAL DAILY Qty = 30 Ferrous Sulfate (Ferrous Sulfate) 325 MG (65 MG IRON) TABLET ORAL TWICE DAILY Qty = 30 Cholecalciferol (Vitamin D3) (Vitamin D) 2,000 UNIT CAPSULE ORAL DAILY Qty = 30 Omeprazole Magnesium (Prilosec Otc) 20 MG TABLET. ORAL DAILY Qty = 30 Docusate Sodium (Colace) 100 MG CAPSULE ORAL DAILY Qty = 30 Latanoprost (Latanoprost) 0.005 % DROPS In the eye Every night Qty = 1 Levetiracetam (Keppra) 500 MG TABLET ORAL TWICE DAILY Qty = 60 Insulin Lispro (Humalog Kwikpen U-100) 100 UNIT/ML INSULN.PEN SC 3 TIMES DAILY BEFORE MEALS Qty = 90 Insulin Detemir (Levemir) 100 UNIT/ML VIAL SC TWICE DAILY Aspirin (Lo-Dose Aspirin EC) 81 MG TABLET. ORAL DAILY Qty = 90 Copies To: Kelly Christianson APRN Attending MD Review Statement Documenting Attending: Wanda Ambrosio MD
== END 2017-12-11 17:53 | disposition expired | DRG 720 ==
LOC: ERH 17:54 → ERHI 20:35 → ENRESERV 22:32 → CANRESERV 22:32 → EDBEDREQTM 12-11 07:23 → EDBEDREQ 12-11 07:23 → EDBEDREQDT 12-11 07:23 → ERHI 12-11 07:38 → EDBEDREQ 12-11 11:34 → ERHI 12-11 11:35
PROVIDERS: Internal Medicine Interventional Cardiology; Student in an Organized Health Care Education/Training Program
DX: A41.9 Sepsis, unspecified organism (principal); R65.21 Severe sepsis with septic shock; M72.6 Necrotizing fasciitis; L89.159 Pressure ulcer of sacral region, unspecified stage; G93.41 Metabolic encephalopathy; E11.40 Type 2 diabetes mellitus with diabetic neuropathy, unspecified; I95.9 Hypotension, unspecified; E87.2 Acidosis; E11.65 Type 2 diabetes mellitus with hyperglycemia; D32.9 Benign neoplasm of meninges, unspecified; Z66 Do not resuscitate; Z79.4 Long term (current) use of insulin; H54.7 Unspecified visual loss; C18.4 Malignant neoplasm of transverse colon; E78.5 Hyperlipidemia, unspecified; I10 Essential (primary) hypertension; N40.0 Benign prostatic hyperplasia without lower urinary tract symptoms; D64.9 Anemia, unspecified; R00.0 Tachycardia, unspecified; G40.909 Epilepsy, unspecified, not intractable, without status epilepticus; F03.90 Unspecified dementia, unspecified severity, without behavioral disturbance, psychotic disturbance, mood disturbance, and anxiety; H40.9 Unspecified glaucoma; Z90.79 Acquired absence of other genital organ(s); L03.115 Cellulitis of right lower limb
CPT/HCPCS: ERO; 71045; 74176; 81001; 82436; 87040; 87070; 87086; 87449; 87450; 93005; 93010; 96374; G0480; J0131; J0713; J1644; J1815; J1953; J2405; J3250